=== PATIENT | male | born 1955 | race Caucasian/White ===

== ENCOUNTER 2023-11-30 07:24 | Day surgery (SDC) | payer MEDICARE, SELFPAY ==
--- NOTE | 2023-11-30 07:32 | US_ITS ---
[address] [address] Patient Name: MARIANA BARNES MRN: [id number] date: 1955 Sex: M Assigned Patient Location: US Current Patient Location: US Accession/Order Number: [id number] Exam Date: 11/30/2023 07:35 Report Date: 11/30/2023 08:56 At the request of: ARELIS RAMIREZ Procedure: US biopsy thyroid EXAMINATION: US biopsy thyroid, US biopsy FNA add lesion HISTORY: Thyroid Nodule COMPARISON: No relevant comparison available. TECHNIQUE: After obtaining informed consent, an ultrasound-guided biopsy was performed in the usual sterile manner. FINDINGS: BIOPSY #1: IMAGING: Ultrasound BIOPSY NEEDLE: 25-gauge 2 inch SPECIMEN TYPE, #, LOCATION: 3 fine-needle aspirates, superior 1.8 cm left thyroid nodule MEDICATION: 3 cc 1% buffered lidocaine COMPLICATIONS: None. LABORATORY: Pathology and molecular studies pending OTHER: Negative. BIOPSY #2: IMAGING: Ultrasound BIOPSY NEEDLE: 25-gauge 2 inch SPECIMEN TYPE, #, LOCATION: 3 fine-needle aspirates, inferior 1.3 cm left thyroid nodule MEDICATION: 3 cc 1% buffered lidocaine COMPLICATIONS: None. LABORATORY: Pathology and molecular studies pending OTHER: Negative. US/US biopsy thyroid IMPRESSION: Uneventful ultrasound guided biopsy of 2 separate left thyroid nodules. Electronically authenticated by: SADIQ NASSAR Date: 11/30/2023 08:56
--- NOTE | 2023-11-30 07:32 | US_ITS ---
[address] [address] Patient Name: MARIANA BARNES MRN: [id number] date: 1955 Sex: M Assigned Patient Location: US Current Patient Location: US Accession/Order Number: [id number] Exam Date: 11/30/2023 07:35 Report Date: 11/30/2023 08:56 At the request of: ARELIS RAMIREZ Procedure: US biopsy FNA add lesion EXAMINATION: US biopsy thyroid, US biopsy FNA add lesion HISTORY: Thyroid Nodule COMPARISON: No relevant comparison available. TECHNIQUE: After obtaining informed consent, an ultrasound-guided biopsy was performed in the usual sterile manner. FINDINGS: BIOPSY #1: IMAGING: Ultrasound BIOPSY NEEDLE: 25-gauge 2 inch SPECIMEN TYPE, #, LOCATION: 3 fine-needle aspirates, superior 1.8 cm left thyroid nodule MEDICATION: 3 cc 1% buffered lidocaine COMPLICATIONS: None. LABORATORY: Pathology and molecular studies pending OTHER: Negative. BIOPSY #2: IMAGING: Ultrasound BIOPSY NEEDLE: 25-gauge 2 inch SPECIMEN TYPE, #, LOCATION: 3 fine-needle aspirates, inferior 1.3 cm left thyroid nodule MEDICATION: 3 cc 1% buffered lidocaine COMPLICATIONS: None. LABORATORY: Pathology and molecular studies pending OTHER: Negative. US/US biopsy FNA add lesion IMPRESSION: Uneventful ultrasound guided biopsy of 2 separate left thyroid nodules. Electronically authenticated by: SADIQ NASSAR Date: 11/30/2023 08:56
[2023-11-30 07:40] VITALS: BP 119/89; PULSE 93; O2SAT 95
[2023-11-30] MEDS: LIDOCAINE HCL 10 ML, SODIUM BICARBONATE 1 MEQ INJ (08:25)
--- NOTE | 2023-11-30 10:42 | SUR.PREOP ---
11/23/23 Pt instructed on date, time, prep, and procedure.
--- NOTE | 2023-11-30 10:47 | PC.NURSE ---
0830 Pt given instructions on managing an anticoagulant and avoiding injury. Also discussed how he needs to make physicians/nurses aware of anticoagulants use prior to surgery/biopsy.
== END 2023-11-30 08:45 | disposition home or self-care (01) ==
LOC: US 07:25
PROVIDERS: Radiology Diagnostic Radiology; PCP Family Medicine; Visit Provider Otolaryngology
DX: E04.2 Nontoxic multinodular goiter (principal)
CPT/HCPCS: 10005; 10006; 88173

== ENCOUNTER 2025-07-17 12:20 | Outpatient (OUT) | payer MEDICARE, SELFPAY ==
--- OUTSIDE RECORDS SUMMARY | 2025-07-16 06:14 | XMS_ITS | Continuity of Care Document ---
Author Organization [facility] Address [address] [place] [address] Phone Care Team Providers Care Certified Medical Aide Name Role Phone Boni Quinonez DO Primary Care Provider Wilfrid Cruz II, MD Attending Provider Chavo Mejia DO Emergency Provider [phone] Sarah Beth Segovia Attending Provider Unavailab Boni Snell DO Attending Provider Boni Quinonez DO Other Provider Susanna Paulino MD Attending Provider [phone] Care Teams Patient Care Team Team Status: Active Member Role Status Dates Riccardo Driver LPN Care Manager Active Felipe Carlson MD Inspector Circuitry Negative Active Boni Quinonez DO Primary Care Provider Active Visit Care Team Team Status: Inactive Member Role Status Dates Boni Quinonez DO Primary Care Provider Active S tart: May 09, 2025 End: May 09, 2025 Wilfrid Cruz II, MD Attending Provider Active Start: May 09, 2025 End: May 09, 2025 Visit Care Team Team Status: Inactive Member Role Status Husam Quinonez DO Primary Care Provider Active S tart: June 02, 2025 End: June 02, 2025 Chavo Mejia DO Emergency Provider Active S tart: June 02, 2025 End: June 02, 2025 Visit Care Team Team Status: Active Member Role Status Husam Quinonez DO Primary Care Provider Active S tart: June 04, 2025 TIMO Yancey Attending Provider Active S tart: June 04, 2025 Visit Care Team Team Status: Inactive Member Role Status Husam Quinonez DO Primary Care Provider Active S tart: June 06, 2025 End: June 06, 2025 Boni Quinonez DO Attending Provider Active Star t: June 06, 2025 End: June 06, 2025 Visit Care Team Team Status: Inactive Member Role Status Husam Quinonez DO Primary Care Provider Active S tart: June 08, 2025 End: June 08, 2025 Boni Quinonez DO Attending Provider Active Star t: June 08, 2025 End: June 08, 2025 Visit Care Team Team Status: Inactive Member Role Status Husam Quinonez DO Primary Care Provider Active S tart: July 02, 2025 End: July 02, 2025 Boni Quinonez DO Attending Provider Active Star t: July 02, 2025 End: July 02, 2025 Visit Care Team Team Status: Inactive Member Role Status Husam Quinonez DO Primary Care Provider Active S tart: July 04, 2025 End: July 04, 2025 Boni Quinonez DO Other Provider Active Start: S edytembcosmo 2024 End: July 04, 2025 Susanna Paulino MD Attending Provider Active Start : July 04, 2025 End: July 04, 2025 Patient Care Team Team Status: Inactive Member Role Status Husam Quinonez DO Primary Care Provider Active S tart: July 16, 2025 End: July 16, 2025 Boni Quinonez DO Attending Provider Active Star t: July 16, 2025 End: July 16, 2025 Chief Complaint and Reason for Visit Chief Complaint Admit Date 3 MONTHS May 09, 2025 10:4 0am fall June 02, 2025 4: 47pm Amb Documentation June 04, 2025 11 :08am Z79.899 June 06, 2025 10 :09am ER follow up/suture removal June 08, 2025 11:26am possible suture removal July 02, 2025 2:11pm [id number] July 04, 2025 8:41am med refill July 16, 2025 9:39am Reason for Visit Admit Date Arthritis of left knee May 09, 2025 1 0:40am Encounter for removal of sutures June 08, 2025 11:26am Leukocytosis June 08, 2025 11 :26am Closed head injury June 08, 2025 11 :26am Fracture of left fifth rib June 08, 2025 11:26am Laceration of left eyebrow without compl ication June 08, 2025 11:26am Encounter for removal of sutures Septemb er 2024 2:11pm Sinus congestion July 02, 2025 2:11pm Fracture of left fifth rib June 2:11pm Anxiety July 16, 2025 9:39am Flu vaccine need July 16, 2025 9:39am Fracture of left fifth rib June 9:39am Allergies, Adverse Reactions, Alerts Allergen Type Severity Reaction Last Updated Verified Status cefdinir Allergy Unknown rash, suspected 11-07-13 Can take Augmentin - July 16, 2025 8:39am Yes Active hydrochlorothiazide Allergy Unknown worsenin g renal studies / sensitivity (2014) July 16, 2025 8:39am Yes Active Social History Smoking Status Status Start Date End Date Date of Observa tion Never smoked tobacco (finding) June 02, 2025 6:33pm Observation Status Observation Response Date of Response Legal Sex Male (finding) Sex Assigned At Male May Family History Relationship Condition Age at Onset Recorded Date/T raza father Hyperlipidemia Unknown Hypertension Unknown Heart disease Unknown brother Diabetes mellitus Unknown Heart disease Unknown mother Unknown Diabetes mellitus Unknown Problems Active Problems Medical Problem Onset Date Status Elevated PSA Unknown Active Insomnia Unknown Active Primary osteoarthritis of left knee Unknown Active GERD with esophagitis Unknown Active Sciatica Unknown Active Thyroid nodule Unknown Active Sinus congestion Unknown Active Palpitations Unknown Active Dizziness Unknown Active Prostate cancer Unknown Active History of heart artery stent Unknown Ac tive Flu vaccine need Unknown Active Erectile dysfunction Unknown Active Type 2 diabetes mellitus Unknown Active Anxiety Unknown Active Anxiety Unknown Active Arthritis Unknown Active Hyperlipidemia Unknown Active Leukocytosis Unknown Active Diabetes type 2, uncontrolled Unknown Ac tive Mixed hyperlipidemia Unknown Active Type 2 diabetes mellitus with unspecified compli cations Unknown Active Coronary artery disease with angina pectoris Unk nown Active Obesity (BMI 30.0-34.9) Unknown Active Metabolic syndrome X Unknown Active Encounter for removal of sutures Unknown Active Weight loss Unknown Active Essential hypertension Unknown Active Diabetes type 2, controlled Unknown Acti ve Left knee pain Unknown Active Numbness and tingling of foot Unknown Ac tive History of colon polyps Unknown Active Hypertension Unknown Active Constipation Unknown Active Arthritis of left knee Unknown Active Low testosterone Unknown Active Inactive/Resolved Problems Medical Problem Onset Date Status Fracture of left fifth rib Unknown Resol braden Fall from standing Unknown Resolved Closed head injury Unknown Resolved Laceration of left eyebrow without complication Unknown Resolved Chest pain Unknown Resolved Contusion of left forearm Unknown Resolv ed Medications Medication Status Dose Units Route Directions Qty Days St art Date Stop Date End Date Instructions Adherence Rosuvastati n 10 mg tablet Discont inued 0 .ROUTE .COMPLEX 2023 2:00pm March 06, 2024 9:12a m TAKE 1 TABLET BY MOUTH EVERY DAY Aspirin 81 mg tablet,chew able Discont inued 0 .ROUTE .COMPLEX December 20, 2023 9:20am March 06, 2024 9:10a m CHEW AND SWALLOW 1 TABLET DAILY FOR 30 DAYS Clopidogrel 75 mg tablet Discont inued 0 .ROUTE .COMPLEX December 27, 2023 8:27am March 06, 2024 9:11a m TAKE 1 TABLET BY MOUTH EVERY DAY Metoprolol Succinate 25 mg tablet extended release 24 hr Discont inued 0 .ROUTE .COMPLEX December 27, 2023 8:29am March 06, 2024 9:12a m TAKE 1 TABLET BY MOUTH EVERY DAY Dapaglifloz in Propanediol (Farxiga) 5 mg tablet Discont inued 5 MG PO Daily January 17, 2024 8:52am January 17, 2024 8:52a m Dapaglifloz in Propanediol (Farxiga) 5 mg tablet Discont inued 0 .ROUTE .COMPLEX January 17, 2024 8:52am March 06, 2024 9:11a m TAKE 1 TABLET BY MOUTH EVERY DAY Lisinopril 10 mg tablet Discont inued 0 .ROUTE .COMPLEX May 01, 2024 10:38a m 2023 11:40 am TAKE 1 TABLET BY MOUTH EVERY DAY Metoprolol Succinate 25 mg tablet extended release 24 hr Discont inued 0 .ROUTE .COMPLEX May 02, 2024 8:02am Novem 2023 11:44 am TAKE 1 TABLET BY MOUTH EVERY DAY Dapaglifloz in Propanediol (Farxiga) 5 mg tablet Discont inued 0 .ROUTE .COMPLEX May 22, 2024 8:43am Novem carolyn 2023 11:39 am TAKE 1 TABLET BY MOUTH EVERY DAY Aspirin 81 mg tablet,chew able Discont inued 0 .ROUTE .COMPLEX 90 Septem carolyn 2023 1:50pm Novem carolyn 2023 11:46 am CHEW AND SWALLOW 1 TABLET DAILY ORALLY Metformin 500 mg tablet Discont inued 0 .ROUTE .COMPLEX 360 Octobe r 2023 8:02am Novem carolyn 2023 11:42 am TAKE 2 TABLETS BY MOUTH ONCE IN THE MORNING AND 2 TABLETS IN THE EVENING Prednisone 20 mg tablet Discont inued 0 PO .with food or milk 18 9 Dece er 2023 1:00am Dece carolyn 2023 10:54 am take 3 tablets a day x3 days, 2 tabs a day x3 days and then 1 tab a day x3 days orally WITH FOOD OR MILK; Rosuvastati n 10 mg tablet Discont inued 0 .ROUTE .COMPLEX 90 2024 11:36a m Augus t 2024 11:46 am TAKE 1 TABLET BY MOUTH EVERY DAY Lisinopril 10 mg tablet Discont inued 0 .ROUTE .COMPLEX 90 February 09, 2025 7:57am Augus t 2024 11:46 am TAKE 1 TABLET BY MOUTH EVERY DAY Clopidogrel 75 mg tablet Discont inued 0 .ROUTE .COMPLEX February 16, 2025 7:50am March 30, 2025 11:21 am TAKE 1 TABLET BY MOUTH EVERY DAY Tadalafil (Cialis) 10 mg tablet Active 10 MG PO Daily as needed for sexual activity April 03, 2025 12:00a m administer approximately 30 min-2 hours before sexual activity; do not use more than 1 dose per 24hrs Complies with drug therapy Amoxicillin -Pot Clavulanate 875-125 mg tablet Discont inued 1 TAB PO Twice daily 06 08April 04, 2025 12:00a m April 16, 2025 9:59a m Metoprolol Succinate 25 mg tablet extended release 24 hr Active 25 MG PO Daily 90 Jacklyn 25th, 2025 8:20am Complies with drug therapy Dapaglifloz in Propanediol (Farxiga) 5 mg tablet Discont inued 0 .ROUTE .COMPLEX June 01, 2025 8:55am Augus t 2024 11:46 am TAKE 1 TABLET BY MOUTH EVERY DAY Semaglutide (Ozempic) 0.25 mg or 0.5 mg(2 mg/1.5 mL) pen injector Discont inued MG SUBCUT February 05, 2022 12:00a m Dece carolyn 2022 1:30p m Clopidogrel 75 mg Tablet Discont inued 75 MG PO Daily ry 2023 1:00am Febru adonay2023 3:26p m Aspirin (Children's Aspirin) 81 mg Tablet,Chew able Discont inued 81 MG PO Daily ry 2023 1:00am December 20, 2023 9:20a m Metformin 500 mg tablet Discont inued 500 MG PO Twice daily [facility] er 2020 1:00am Octob er 2023 8:02a m Meloxicam 15 mg tablet Discont inued 15 MG PO Daily [facility] er 2020 1:00am [facility] adonay2023 10:20 am On Hold: Resume on 10/31/23. Lisinopril 10 mg tablet Discont inued 10 MG PO Daily [facility] er 2020 1:00am May 01, 2024 10:39 am Rosuvastati n (Crestor) 10 mg tablet Discont inued 10 MG PO Daily [facility] 2020 [facility] 2:01p [facility] Sitagliptin Phosphate (Januvia) 100 mg tablet Discont inued 100 MG PO Daily [facility] er 2020 1:00am February 05, 2022 2:19p m Zinc 50 mg Tablet Discont inued 50 MG PO Daily [facility] er 2020 1:00am Augus t 2024 4:55p m Vitamin B Complex Capsule Discont inued 1 CAP PO Daily [facility] er 2020 1:00am March 06, 2024 9:09a m Cholecalcif jayy (Vitamin D3) (Vitamin D3) 50 mcg (2,000 unit) Tablet Discont inued 50 MCG PO Daily [facility] 2020 1:00am [facility]2023 9:42a m Ascorbic Acid (Vitamin C) 2,000 mg Tablet Extended Release Discont inued 2000 MG PO Daily [facility] 2020 1:00am [facility]2023 9:42a m Dapaglifloz in Propanediol (Farxiga) 5 mg tablet Discont inued 5 MG PO every other day [facility] 2022 1:00am January 17, 2024 8:52a m Sucralfate 100 mg/mL Suspension Discont inued 1 GM PO 3x/Day before meals & bedtime 280 7 [facility] 2022 1:00am [facility]2023 10:21 am Pantoprazol e 40 mg tablet,dilshad yed release (DR/EC) Discont inued 40 MG PO Daily 30 30 [facility] 2022 1:00am [facility]2023 10:21 am Take 30 minutes before a meal. Oxycodone-A cetaminophe n (Percocet) 5-325 mg tablet Discont inued 1 TAB PO Every 6 hours as needed for pain 12 3 June 02, 2025 Septe [facility] 2024 2:15p m Albuterol Sulfate 2.5 mg /3 mL (0.083 %) solution for nebulizatio n Discont inued MG INHALA TION 2023 1:00am [facility]2023 9:29a m FreeTextSiml Inhalation 3-4 times a day; Note: Source Status: Not-Takingund efinedPRNprn; Provider: Devi Garcia Docusate Sodium 100 mg capsule Discont inued MG PO 2023 1:00am [facility]2023 9:29a m FreeTextSi capsule Orally any day you don't use MiraLax; Note: Source Status: Not-Takingund efinedPRNprn; Provider: Devi Garcia Tizanidine (Zanaflex) 4 mg tablet Discont inued 4 MG PO Three times daily 2023 1:00am 2023 9:29a m FreeTextSi tablet as needed Orally Three times a day; Note: Source Status: Not-Takingund efinedPRNprn; Provider: Devi Garcia Clopidogrel 75 mg tablet Discont inued 75 MG PO Daily 2023 3:25pm 2023 10:10 am Aspirin 81 mg tablet,chew able Discont inued 1 TAB PO Daily March 06, 2024 9:10am April 18, 2024 11:25 am Clopidogrel 75 mg tablet Discont inued 75 MG PO Daily March 06, 2024 9:10am February 16, 2025 7:50a m Dapaglifloz in Propanediol (Farxiga) 5 mg tablet Discont inued 5 MG PO Daily March 06, 2024 9:10am Augus t 2023 8:43a m Metoprolol Succinate 25 mg tablet extended release 24 hr Discont inued 25 MG PO Daily March 06, 2024 9:11am May 02, 2024 8:02a m Rosuvastati n 10 mg tablet Discont inued 10 MG PO Daily March 06, 2024 9:11am 2024 11:36 am Aspirin 81 mg tablet,chew able Discont inued 81 MG PO Daily April 18, 2024 11:25a m Sept[facility] 2023 1:50p m Polyethylen e Glycol 3350 (Miralax) 17 gram/dose powder Active 17 GM PO Daily as needed for constipatio n March 30, 2025 12:00a m Complies with drug therapy Testosteron e 20.25 mg/1.25 gram (1.62 %) gel in metered-dos e pump Discont inued TOPICA L Daily Novemb 2023 1:00am April 16, 2025 10:00 am Dapaglifloz in Propanediol (Farxiga) 5 mg tablet Discont inued 5 MG PO Daily 30 Novemb er 2023 11:37a m Augus t 2024 8:55a m Lisinopril 10 mg tablet Discont inued 10 MG PO Daily Novemb er 2023 11:39a m February 09, 2025 7:57a m Metformin 500 mg tablet Discont inued 1000 MG PO Twice daily 360 Novemb er 2023 11:40a m [facility] 2024 10:02 am with food Metoprolol Succinate 25 mg tablet extended release 24 hr Discont inued 25 MG PO Daily 90 Novemb er 2023 11:43a m May 11, 2025 8:21a m Aspirin 81 mg tablet,chew able Discont inued 81 MG PO Daily 90 Novemb er 2023 11:44a m Augus t 2024 4:54p m Lorazepam 0.5 mg tablet Active 0.5 MG PO EVERY 8-12 HOURS as needed for insomnia 8 Novemb er 2023 1:00am Complies with drug therapy Dapaglifloz in Propanediol (Farxiga) 5 mg tablet Discont inued 5 MG PO Daily June 08, 2025 11:46a m [facility] 2024 10:02 am Lisinopril 10 mg tablet Discont inued 10 MG PO Daily June 08, 2025 11:46a m [facility] 2024 10:02 am Rosuvastati n 10 mg tablet Active 10 MG PO Daily June 08, 2025 11:46a m Complies with drug therapy Fluticasone Propionate 50 mcg/actuati on spray,suspe nsion Discont inued INTRAN NIKITA 2023 1:00am March 06, 2024 9:09a m FreeTextSig: USE 2 SPRAYS IN EACH NOSTRIL DAILY; Note: Source Status: Not-Takingund efinedPRN; Refills: 4; Qty: 48 Milliliter; Provider: Devi Plata ( ) Pantoprazol e 40 mg tablet,dilshad yed release (/EC) Discont inued 1 TAB PO Daily 2023 1:00am 2023 9:29a m FreeTextSi tablet Orally Once a day; Note: Source Status: Taking; Provider: Villa Gu Cholecalcif jayy (Vitamin D3) 50 mcg (2,000 unit) capsule Discont inued 50 MCG PO Daily 2023 1:00am 2024 4:54p m Ascorbic Acid (Vitamin C) 1,000 mg tablet Discont inued 2 TAB PO Daily 2023 1:00am April 18, 2024 11:25 am FreeTextSi tablets Orally Once a day; Note: Source Status: Taking; Provider: Devi Garcia Vitamin B Complex (B Complex-Vit mehta B12) tablet Discont inued 1 TAB PO Daily 2023 1:00am 2024 4:55p m Clopidogrel 75 mg tablet Discont inued 75 MG PO Daily 2023 10:05a m December 27, 2023 8:28a m Metoprolol Succinate 25 mg tablet extended release 24 hr Discont inued 25 MG PO Daily 2023 1:00am December 27, 2023 8:29a m Fluticasone Propionate 50 mcg/actuati on spray,suspe nsion Active 2 SPRAY INTRAN NIKITA Daily as needed for allergy symptoms March 06, 2024 9:08am Complies with drug therapy Ascorbic Acid (Vitamin C) 1,000 mg tablet Discont inued 1 GM PO Daily April 18, 2024 11:24a m 2024 4:54p m Sildenafil (Viagra) 100 mg tablet Discont inued 100 MG PO .COMPLEX April 18, 2024 12:00a m April 16, 2025 10:00 am 100 mg orally 1 hour prior to sexual intercourse max 1 tablet in 24 hours; Glimepiride 1 mg tablet Discont inued 1 MG PO Every morning April 18, 2024 12:00a m April 16, 2025 10:32 am administer with first food of the day Amoxicillin -Pot Clavulanate 875-125 mg tablet Discont inued 1 TAB PO Twice daily 20 10 Decemb er 2023 1:00am Decem carolyn 2023 10:52 am Tamsulosin 0.4 mg capsule Active 0.4 MG PO Daily April 16, 2025 12:00a m Complies with drug therapy Glimepiride 1 mg tablet Active 1 MG PO Every morning April 16, 2025 10:31a m administer with first food of the day Complies with drug therapy Metformin 500 mg tablet Active 1000 MG PO Twice daily 360 2024 10:01a m with food Complies with drug therapy Dapaglifloz in Propanediol (Farxiga) 5 mg tablet Active 5 MG PO Daily 90 2024 10:01a m Complies with drug therapy Lisinopril 10 mg tablet Active 10 MG PO Daily 90 2024 10:01a m Complies with drug therapy Prednisone 20 mg tablet Discont inued 0 PO .COMPLEX 9 3 2024 12:00a m Septe mber 2024 9:44a m take 3 (20 MG) tablets orally a day x3 days with food; Immunizations Immunization Event Date Not Given Reason Dose Number Benefits Advisor Lot Number Vaccine Information Statement (VIS) Detail Administration Location COVID-19 mRNA, Comirnaty ([place]) December 18, 2020 COVID-19 mRNA, Comirnaty ([employer]) January 08, 2021 COVID-19 mRNA, Comirnaty ([employer]) August 09, 2021 COVID-19 mRNA Bivalent Booster (Moderna) November 17, 2022 Influenza vaccine, quadrivalent, adjuvanted September 03, 2023 Influenza vaccine, quadrivalent, adjuvanted August 29, 2022 Influenza Quadrivalent PF MDCK September 01, 2018 Quadrivalent Influenza September 03, 2017 Quadrivalent Influenza August 10, 2019 Tetanus, Diphtheria adult, 5 Lf pres free abs December 23, 2015 Tetanus, Diphtheria adult, 5 Lf pres free abs July 06, 2023 Tetanus, Diphtheria, Pertussis (Tdap) December 23, 2015 Tetanus, Diphtheria, Pertussis (Tdap) July 06, 2023 Trivalent Influenza Vaccine July 31, 2019 Trivalent Influenza Vaccine August 06, 2020 Trivalent Influenza Vaccine August 29, 2022 Medical Equipment Device Date Implanted Device Details CL STENT ISAK FRONTIER 4.0 X 15 November 26 Procedures Procedure Date Performed Status XR ribs LT min 3V w CXR1V* July 04, 2025 9:18am completed CT head/brain wo con June 02, 2025 5:08pm co mpleted CT cervical spine wo con June 02, 2025 5:08p m completed CT chest w con June 02, 2025 5:10pm complet ed XR forearm LT 2V* June 02, 2025 5:07pm compl eted CT abdomen pelvis w con June 02, 2025 5:10pm completed Relevant Diagnostic Tests and/or Laboratory Data Laboratory Results Test Collection Date/Time Result Date/Time Result Interpretation Reference Range Result Comment Performing Site Corrected White Blood Count June 02, 2025 5:35pm June 02, 2025 5:53pm 12.3 10*3/uL Above high normal 4.1-10.5 [facility] [id number] [address] [place] [address] Corrected White Blood Count June 06, 2025 10:10am June 06, 2025 1:59pm 7.7 10*3/uL 4.1-10.5 [facility] [id number] [address] [place] [address] Uncorrect ed WBC Count June 02, 2025 5:35pm June 02, 2025 5:53pm 12.3 10*3/uL Above high normal 4.1-10.5 [facility] [id number] [address] [place] [address] Uncorrect ed WBC Count June 06, 2025 10:10am June 06, 2025 1:59pm 7.7 10*3/uL 4.1-10.5 [facility] [id number] [address] [place] [address] Red Blood Count June 02, 2025 5:35pm June 02, 2025 5:53pm 5.12 10*6/uL 3.90-5.60 [facility] [id number] [address] [place] [address] Red Blood Count June 06, 2025 10:10am June 06, 2025 1:59pm 4.69 10*6/uL 3.90-5.60 [facility] [id number] [address] [place] [address] Hemoglobi n June 02, 2025 5:35pm June 02, 2025 5:53pm 16.9 g/dL 13.0-17.0 [facility] [id number] [address] [facility] [address] Hemoglobi n June 06, 2025 10:10am June 06, 2025 1:59pm 15.7 g/dL 13.0-17.0 [facility] [id number] [address] [facility] [address] Hematocri t June 02, 2025 5:35pm June 02, 2025 5:53pm 49.2 % 38.8-50.0 [facility] [id number] [address] [place] [address] Hematocri t June 06, 2025 10:10am June 06, 2025 1:59pm 45.4 % 38.8-50.0 [facility] [id number] [address] [facility] [address] Mean Corpuscul ar Volume June 02, 2025 5:35pm June 02, 2025 5:53pm 96.1 fL 83.5-101 [facility] [id number] [address] [facility] [address] Mean Corpuscul ar Volume June 06, 2025 10:10am June 06, 2025 1:59pm 96.8 fL 83.5-101 [facility] [id number] [address] [facility] [address] Mean Corpuscul ar Hemoglobi n June 02, 2025 5:35pm June 02, 2025 5:53pm 33.1 pg 27.5-35.2 [facility] [id number] [address] [facility] [address] Mean Corpuscul ar Hemoglobi n June 06, 2025 10:10am June 06, 2025 1:59pm 33.6 pg 27.5-35.2 [facility] [id number] [address] [facility] [address] Mean Corpuscul ar Hemoglobi n Concent June 02, 2025 5:35pm June 02, 2025 5:53pm 34.4 g/dL 32.5-35.6 [facility] [id number] [address] [place] [address] Mean Corpuscul ar Hemoglobi n Concent June 06, 2025 10:10am June 06, 2025 1:59pm 34.7 g/dL 32.5-35.6 [facility] [id number] [address] [facility] [address] Red Cell Distribut ion Width June 02, 2025 5:35pm June 02, 2025 5:53pm 13.9 % 12.0-14.8 [facility] [id number] [address] [facility] [address] Red Cell Distribut ion Width June 06, 2025 10:10am June 06, 2025 1:59pm 14.1 % 12.0-14.8 [facility] [id number] [address] [facility] [address] Platelet Count June 02, 2025 5:35pm June 02, 2025 5:53pm 296 10*3/uL 150-450 [facility] [id number] [address] [facility] [address] Platelet Count June 06, 2025 10:10am June 06, 2025 1:59pm 275 10*3/uL 150-450 [facility] [id number] [address] [facility] [address] Mean Platelet Volume June 02, 2025 5:35pm June 02, 2025 5:53pm 7.7 fL 6.6-10.1 [facility] [id number] [address] [facility] [address] Mean Platelet Volume June 06, 2025 10:10am June 06, 2025 1:59pm 7.8 fL 6.6-10.1 [facility] [id number] [address] [place] [address] Monocyte Distribut ion Width June 02, 2025 5:35pm June 02, 2025 5:53pm 17.17 % 0.00-20.00 [facility] [id number] [address] [facility] [address] Neutrophi ls (%) (Auto) June 02, 2025 5:35pm June 02, 2025 5:53pm 75.1 % . [facility] [id number] [address] [facility] [address] Neutrophi ls (%) (Auto) June 06, 2025 10:10am June 06, 2025 1:59pm 67.7 % . [facility] [id number] [address] [facility] [address] Lymphocyt es (%) (Auto) June 02, 2025 5:35pm June 02, 2025 5:53pm 16.5 % . [facility] [id number] [address] [facility] [address] Lymphocyt es (%) (Auto) June 06, 2025 10:10am June 06, 2025 1:59pm 23.3 % . [facility] [id number] [address] [facility] [address] Monocytes (%) (Auto) June 02, 2025 5:35pm June 02, 2025 5:53pm 7.1 % . [facility] [id number] [address] [facility] [address] Monocytes (%) (Auto) June 06, 2025 10:10am June 06, 2025 1:59pm 6.1 % . [facility] [id number] [address] [facility] [address] Eosinophi ls (%) (Auto) June 02, 2025 5:35pm June 02, 2025 5:53pm 0.7 % . [facility] [id number] [address] [facility] [address] Eosinophi ls (%) (Auto) June 06, 2025 10:10am June 06, 2025 1:59pm 1.8 % . [facility] [id number] [address] [facility] [address] Basophils (%) (Auto) June 02, 2025 5:35pm June 02, 2025 5:53pm 0.6 % . [facility] [id number] [address] [facility] [address] Basophils (%) (Auto) June 06, 2025 10:10am June 06, 2025 1:59pm 1.1 % . [facility] [id number] [address] [facility] [address] Nucleated RBC Relative Count (auto) June 02, 2025 5:35pm June 02, 2025 5:53pm 0.0 /100{WB C} 0-0.5 [facility] [id number] [address] [facility] [address] Nucleated RBC Relative Count (auto) June 06, 2025 10:10am June 06, 2025 1:59pm 0.1 /100{WB C} 0-0.5 [facility] [id number] [address] [facility] [address] Neutrophi ls # (Auto) June 02, 2025 5:35pm June 02, 2025 5:53pm 9.2 10*3/uL Above high normal 1.8-7.7 [facility] [id number] [address] [facility] [address] Neutrophi ls # (Auto) June 06, 2025 10:10am June 06, 2025 1:59pm 5.2 10*3/uL 1.8-7.7 [facility] [id number] [address] [facility] [address] Lymphocyt es # (Auto) June 02, 2025 5:35pm June 02, 2025 5:53pm 2.0 10*3/uL 1.00-4.8 [facility] [id number] [address] [facility] [address] Lymphocyt es # (Auto) June 06, 2025 10:10am June 06, 2025 1:59pm 1.8 10*3/uL 1.00-4.8 [facility] [id number] [address] [facility] [address] Monocytes # (Auto) June 02, 2025 5:35pm June 02, 2025 5:53pm 0.9 10*3/uL Above high normal 0.0-0.8 [facility] [id number] [address] [facility] [address] Monocytes # (Auto) June 06, 2025 10:10am June 06, 2025 1:59pm 0.5 10*3/uL 0.0-0.8 [facility] [id number] [address] [place] [address] Eosinophi ls # (Auto) June 02, 2025 5:35pm June 02, 2025 5:53pm 0.1 10*3/uL 0.0-0.45 [facility] [id number] [address] [place] [address] Eosinophi ls # (Auto) June 06, 2025 10:10am June 06, 2025 1:59pm 0.1 10*3/uL 0.0-0.45 [facility] [id number] [address] [place] [address] Basophils # (Auto) June 02, 2025 5:35pm June 02, 2025 5:53pm 0.1 10*3/uL 0.0-0.2 [facility] [id number] [address] [place], [place] [address]70 Basophils # (Auto) June 06, 2025 10:10am June 06, 2025 1:59pm 0.1 10*3/uL 0.0-0.2 [facility] [id number] [address] [place], [place] [address]70 Glucose Level June 02, 2025 5:35pm June 02, 2025 6:12pm 146 mg/dL Above high normal 70-100 ADA recommended reference rangeRandom Glucose Reference Range is dependent on time and content of last meal. Glucose of more than 200 mg/dL in a nonstressed, ambulatory subject supports the diagnosis of Diabetes Mellitus. [facility] [id number] [address] [place], [place] [address] Blood Urea Nitrogen June 02, 2025 5:35pm June 02, 2025 6:12pm 23 mg/dL 7-25 [facility] [id number] [address] [place], [place] [address] Creatinin e June 02, 2025 5:35pm June 02, 2025 6:12pm 1.14 mg/dL 0.70-1.30 [facility] [id number] [address] [place], [place] [address] Estimated GFR (CKD-EPI) June 02, 2025 5:35pm June 02, 2025 6:12pm > 60.0 mL/Min [facility] [id number] [address] [place], [place] [address] Sodium Level June 02, 2025 5:35pm June 02, 2025 6:12pm 137 mmol/L 136-145 [facility] [id number] [address] [place], [place] [address] Potassium Level June 02, 2025 5:35pm June 02, 2025 6:12pm 3.7 mmol/L 3.5-5.1 [facility] [id number] [address] [place], [place] [address] Chloride Level June 02, 2025 5:35pm June 02, 2025 6:12pm 104 mmol/L 98-107 [facility] [id number] [address] [place] [id number] Carbon Dioxide Level June 02, 2025 5:35pm June 02, 2025 6:12pm 21.9 mmol/L 21.0-31.0 [facility] [id number] [address] [place] 1521770 Anion Gap June 02, 2025 5:35pm June 02, 2025 6:12pm 14.8 mEq/L 6.0-15.0 [facility] [id number] [address] [place] [id number] Calcium Level June 02, 2025 5:35pm June 02, 2025 6:12pm 10.1 mg/dL 8.6-10.3 [facility] [id number] [address] [place], [place] [address] Total Protein June 02, 2025 5:35pm June 02, 2025 6:12pm 7.1 g/dL 6.4-8.9 [facility] [id number] [address] [facility] [address] Albumin June 02, 2025 5:35pm June 02, 2025 6:12pm 4.6 g/dL 3.5-5.7 [facility] [id number] [address] [facility] [address] Globulin June 02, 2025 5:35pm June 02, 2025 6:12pm 2.5 g/dL [facility] [id number] [address] [place], [place] [address] Albumin/G lobulin Ratio June 02, 2025 5:35pm June 02, 2025 6:12pm 1.8 [facility] [id number] [address] [place], [place] [address] Total Bilirubin June 02, 2025 5:35pm June 02, 2025 6:12pm 1.1 mg/dL Above high normal 0.3-1.0 [facility] [id number] [address] [place] 1521770 Aspartate Amino Transf (AST/SGOT ) June 02, 2025 5:35pm June 02, 2025 6:12pm 18 U/L 13-39 [facility] [id number] [address] [facility] [address] Alanine Aminotran sferase (ALT/SGPT ) June 02, 2025 5:35pm June 02, 2025 6:12pm 19 U/L 7-52 [facility] [id number] [address] [facility] [address] Alkaline Phosphata se June 02, 2025 5:35pm June 02, 2025 6:12pm 64 U/L 34-104 [facility] [id number] [address] [facility] [address] Testoster one Level July 04, 2025 8:42am July 04, 2025 2:55pm 3.00 ng/mL 1.75-7.81 [facility] [id number] [address] [facility] [address] Prostate Specific Antigen Total July 04, 2025 8:42am July 04, 2025 3:03pm 3.060 ng/mL 0.000-4.00 0 Serial tumor marker results determined by assays using different automotive assembler s or methods may not be comparable.[facility] automotive assembler and method:ABE HAYNES UNICEL DXI, CHEMILUMINES CENT IMMUNOASSAY. [facility] [id number] [address] [facility] [address] Free Prostate Specific Antigen July 04, 2025 8:42am July 04, 2025 2:59pm 0.400 ng/mL [facility] [id number] [address] [facility] [address] Percent Free Prostate Specific Ag July 04, 2025 8:42am July 04, 2025 3:03pm 13.0 % Based on the work of Parviz et al.FLORINA. 279(19):1542 :47.1998 the percent free PSA may be used to determine the relative risk of prostate cancer in individual men.The percent probability of prostate cancer by patient age for men with non-suspicio us ALISIA results and total PSa between 4 and 10 ng/ml is as follows:% Free PSA 50 - 64 yrs. 65 - 75 yrs. 0 - 10 56% 55% 10 - 15 24% 35% 15 - 20 17% 23% 20 - 25 10% 20% >25 5% 9% [facility] [id number] [address] [place] [address] Pharmacy Creatinin e Clearance (Chem June 02, 2025 5:35pm June 02, 2025 6:12pm 66.21 [facility] [id number] [address] [place] [address] Ethyl Alcohol Level June 02, 2025 5:35pm June 02, 2025 6:12pm < 10 mg/dL [facility] [id number] [address] [place] [address] Percent Ethyl Alcohol June 02, 2025 5:35pm June 02, 2025 6:12pm TNP Test not performed [facility] [id number] [address] [place], [place] [address] Diagnostic Imaging Reports Author Florian Hawkins [facility] Authored June 02, 2025 5: 29pm Report Dictated Date/Time Dictated By Status Radiology Report June 02, 2025 5:29pm Florian Hawkins Jr DO completed [facility] [place] Main [place] [id number] XRay Report Signed Patient: Chaitanya Holliday MR#: [id number] 1965 : 1955 Acct:[id number] Age/Sex: 70 / M ADM Date: 5 Loc: ER Room: Type: PRE ER Attending Dr: Copies to: Chavo Mejia DO~ Ordering Provider: Chavo Mejia DO Date of Service: 06/02/25 XR/XR forearm LT 2V*: Fall LEFT FOREARM - 2 views CLINICAL HISTORY: Fall today. Swelling. COMPARISON: None FINDINGS: Soft tissue swelling is noted. No acute bony process is seen involving the radius and ulna. There is moderate degenerative changes involving the carpus. Mild degenerative changes of the elbow. XR/XR forearm LT 2V* IMPRESSION: SOFT TISSUE SWELLING. NO ACUTE BONY PROCESS IS SEEN. Impression dictated by: Florian Hawkins Jr., D.O. 06/02/2025 5:30 PM Dictation Location: [facility]--18 Transcribed By: [facility] 06/02/25 9479 Dictated By: Florian Hawkins Jr, DO 06/02/25 1729 Signed By: <Electronically signed by Florian Hawkins Jr, in OV> 06/02/25 1730 Author Florian Hawkins [facility] Authored June 02, 2025 6: 45pm Report Dictated Date/Time Dictated By Status Radiology Report June 02, 2025 6:45pm Florian Hawkins Jr DO completed [facility] [place] [address] CT Scan Report Signed Patient: Chaitanya Holliday MR#: [id number] [birth year] Acct:[id number] Age/Sex: 70 / M ADM Date: 5 Loc: ER Room: Type: [facility] ER Attending Dr: Copies to: Chavo Mejia DO~ Ordering Provider: Chavo Mejia DO Date of Service: 06/02/25 CT/CT cervical spine wo con: fall ([id number]) CT/CT head/brain wo con: fall CT BRAIN WITHOUT CONTRAST: CLINICAL HISTORY: Fall. Facial pain. Laceration left knee. Laceration above left eyebrow. COMPARISON: CT brain 10/08/2023 TECHNIQUE: Contiguous axial unenhanced images were obtained through the brain. This CT exam was performed using one or more following dose reduction techniques: Automated exposure control, adjustment of the mA and/or kV according to patient size, or use of iterative reconstruction technique. FINDINGS: There is no evidence of midline shift, intra or extra-axial fluid collection, hemorrhage or CT evidence of stroke. Cortical atrophy with chronic microvascular ischemic changes. Posterior fossa appears unremarkable. Visualized intraorbital contents appear unremarkable. Visualized paranasal sinuses are clear. The surrounding soft tissues are normal. CT/CT head/brain wo con IMPRESSION: NO ACUTE INTRACRANIAL ABNORMALITY. CT CERVICAL SPINE WITHOUT CONTRAST WITH 3D RECONSTRUCTIONS: COMPARISON: None TECHNIQUE: Spiral axial unenhanced images were obtained through the cervical spine. Sagittal, coronal and 3D volume-rendered reconstructions were also reviewed. This CT exam was performed using one or more following dose reduction techniques: Automated exposure control, adjustment of the mA and/or kV according to patient size, or use of iterative reconstruction technique. FINDINGS: Vertebral body heights appear maintained. No fracture. Endplate and facet joint degenerative changes with moderate spondylosis C3-4. No prevertebral soft tissue swelling. IMPRESSION: NO CERVICAL SPINE FRACTURE Impression dictated by: Florian Hawkins Jr., D.OBenigno 06/02/2025 6:52 PM Dictation Location: [facility]--18 Transcribed By: [facility] 06/02/251851 Dictated By: Florian Hawkins Jr, DO 06/02/251844 Signed By: <Electronically signed by Florian Hawkins Jr, DO in OV> 06/02/251851 Author Florian Hawkins [facility] Authored June 02, 2025 6: 56pm Report Dictated Date/Time Dictated By Status Radiology Report June 02, 2025 6:56pm Florian Hawkins Jr DO completed [facility] [place] [address] CT Scan Report Signed Patient: Chaitanya Holliday MR#: [id number] [birth year] Acct:[id number] Age/Sex: 70 / M ADM Date: 5 Loc: ER Room: Type: [facility] ER Attending Dr: Copies to: Chavo Mejia DO~ Ordering Provider: Chavo Mejia DO Date of Service: 06/02/25 CT/CT chest w con: fall ([id number]) CT/CT abdomen pelvis w con: fall CT CHEST, ABDOMEN AND PELVIS WITH INTRAVENOUS CONTRAST: CLINICAL HISTORY: Fall. Left rib and face pain. Laceration left knee and left eyebrow. COMPARISON: None TECHNIQUE: TECHNIQUE: Spiral images were obtained through the chest, abdomen and pelvis following the administration of IV contrast. This CT exam was performed using one or more following dose reduction techniques: Automated exposure control, adjustment of the mA and/or kV according to patient size, or use of iterative reconstruction technique. FINDINGS: CT chest: Mediastinum:Thoracic aorta appears normal in caliber. Pulmonary trunk appears nondilated. No pleural effusion or lymphadenopathy. The esophagus is grossly unremarkable. Lungs:No consolidation pneumothorax or pleural effusion. Mild lung atelectasis. Soft tissues/Bones: Soft tissues demonstrate no acute findings. Osseous structures demonstrate degenerative change. Mildly displaced left fifth rib fracture. CT abdomen and pelvis: Organs:Liver gallbladder portal vein spleen pancreas and adrenal glands all appear unremarkable. Cystic changes involving the right kidney. Left kidney appears unremarkable. Abdominal aorta appears normal in caliber.[ GI: Stomach is grossly unremarkable. Small bowel appears nondilated. Appendix is normal. Colonic diverticulosis.[ Pelvis:[Suboptimal evaluation due to streak hardware artifact from the patient's right hip prosthesis. No acute abnormality is seen.] Peritoneum/Retroperitoneum:No free air or free fluid or lymphadenopathy.[ Abd wall/Bones:Abdominal wall demonstrates no acute findings. Osseous structures demonstrate degenerative change.[ CT/CT chest w con IMPRESSION: No organ injury involving the chest, abdomen or pelvis. Left fifth rib fracture. Impression dictated by: Florian Hawkins Jr., D.O. 06/02/2025 7:03 PM Dictation Location: [facility]-18 Transcribed By: [facility] 06/02/251902 Dictated By: Florian Hawkins Jr, DO 06/02/251855 Signed By: <Electronically signed by Florian Hawkins Jr, DO in OV> 06/02/251902 Author Garry Fuller [facility] Authored July 04, 2025 2:25pm Report Dictated Date/Time Dictated By Status Radiology Report July 04, 2025 2:25pm Garry Fuller DO completed [facility] [place] [address] XRay Report Signed Patient: Chaitanya Holliday MR#: [id number] [birth year] Acct:[id number] Age/Sex: 70 / M ADM Date: 5 Loc: XD Room: Type: [facility] Attending Dr: Susanna Paulino MD Copies to: DO Susanna Strange MD~ Ordering Provider: Boni Quinonez DO Date of Service: 07/04/25 XR/XR ribs LT min 3V w CXR1V*: S22.32XA - Fracture of one rib, left side, initial encoun... Left Rib series with Single View Chest HISTORY: Follow-up left-sided rib fracture COMPARISON: CT chest 06/02/2025 demonstrating left fifth rib fracture MEDIASTINUM: Cardiac, mediastinal hilar silhouettes are within normal limits. LUNGS AND PLEURA: No acute lung process, pleural effusion or pneumothorax identified. ACUTE FINDINGS: Nondisplaced left fifth rib fracture redemonstrated. Alignment unchanged. DEGENERATIVE CHANGE: Unremarkable SOFT TISSUE: Unremarkable POSTOP CHANGES: None XR/XR ribs LT min 3V w CXR1V* IMPRESSION: Stable nondisplaced left fifth rib fracture. No acute chest findings. Impression dictated by: Garry Fuller M.D. 07/04/2025 2:29 PM Dictation Location: [facility]--23 Transcribed By: [facility] 07/04/25 1429 Dictated By: Garry Fuller DO 07/04/25 142 Signed By: <Electronically signed by Garry Fuller DO in OV> 07/04/25 142 Vital Signs Vital Reading Result Reference Range Collection Date/Time Height 68 [in_i] June 02 4:49pm Weight 86.10 kg June 02 4:49pm Body Temperature 98.1 [degF] 97.6-99.0 May 7:27pm Heart Rate 88 /min 60-100 June 02 7:27pm Respiratory rate 18 /min 12-24 May 7:27pm Oxygen saturation by Pulse oximetry 98 % 95-100 June 02, 2025 7: 27pm BP Systolic 136 mm[Hg] 100-140 June 02 7:27pm BP Diastolic 75 mm[Hg] 60-100 June 02 7:27pm Height 68 [in_i] June 08 11:23am Weight 61.68 kg June 08 11:23am Heart Rate 87 /min 60-100 June 08 11:23am Oxygen saturation by Pulse oximetry 96 % 95-100 June 08, 2025 11 :23am BP Systolic 122 mm[Hg] 100-140 June 08 11:23am BP Diastolic 80 mm[Hg] 60-100 June 08 11:23am BMI (Body Mass Index) 20.7 kg/m2 June 08, 2025 11:23am Height 68 [in_i] July 02, 2025 2:12pm Weight 87.54 kg July 02, 2025 2:12pm Body Temperature 98.5 [degF] 97.6-99.0 June 182024 2:12pm Heart Rate 83 /min 60-100 July 02, 2025 2:12pm Oxygen saturation by Pulse oximetry 96 % 95-100 July 02, 2025 2:12pm BP Systolic 128 mm[Hg] 100-140 July 02, 2025 2:12pm BP Diastolic 78 mm[Hg] 60-100 July 02, 2025 2:12pm BMI (Body Mass Index) 29.3 kg/m2 2024 2:12pm Height 68 [in_i] July 16, 2025 9:41am Weight 87.54 kg July 16, 2025 9:41am Body Temperature 98.8 [degF] 97.6-99.0 June 192024 9:41am Heart Rate 86 /min 60-100 July 16, 2025 9:41am Respiratory rate 18 /min 12-24 June 192024 9:41am Oxygen saturation by Pulse oximetry 97 % 95-100 July 16, 2025 9:41am BP Systolic 118 mm[Hg] 100-140 July 16, 2025 9:41am BP Diastolic 82 mm[Hg] 60-100 July 16, 2025 9:41am BMI (Body Mass Index) 29.3 kg/m2 2024 9:41am Advance Directives Advance Directive Response Recorded Date/ Time Advance Directives No February 23, 2025 8:11am Insurance Providers Guarantor Chaitanya Matthew Miya Address [address] [place] [phone] Contact Info. Home Phone: Payer Policy Id Subscriber's Name Subscriber Id Effectiv e Date Expiration Date [place] [place] [id number] Chaitanya Castro Miya [id number] Medicare [id number] Chaitanya Castro Miya [id number] Encounters Encounter Location(s) Arrival/Admit Date Discharge/Depart Date Provider(s) Departed Physician/Prov ider Office Visit -[facility] May 09, 2025 10:40am May 09, 2025 11:07am Anish Keane MD Departed Emergency -Emergency Room June 02, 2025 4:47pm June 02, 2025 7:57pm Non-patient / Non-visit -[facility] June 04, 2025 11:08am TIMO Yancey Departed Clinical -[facility] June 06, 2025 10:09am June 06, 2025 10:10am Boni Quinonez DO Departed Physician/Prov ider Office Visit -[facility] June 08, 2025 11:26am June 08, 2025 12:25pm Boni Quinonez DO Departed Physician/Prov ider Office Visit -[facility] July 02, 2025 2:11pm July 02, 2025 2:39pm Boni Quinonez DO Departed Clinical -[facility] July 04, 2025 8:41am July 04, 2025 8:42am Anish Lee MD Departed Physician/Prov ider Office Visit -[facility] July 16, 2025 9:39am July 16, 2025 10:13am Boni Quinonez DO Recent Diagnosis Onset Date Admit Date Arthritis of left knee Unknown April 10:40am Encounter for removal of sutures Unknown June 08, 2025 11:26am Leukocytosis Unknown June 08 11:26am Closed head injury Unknown June 08, 2025 11:26am Fracture of left fifth rib Unknown Augus t 2024 11:26am Laceration of left eyebrow w ithout complication Unknown June 08, 2025 11:26am Encounter for removal of sutures Unknown July 02, 2025 2:11pm Sinus congestion Unknown July 02, 2025 2:11pm Fracture of left fifth rib Unknown 2024 2:11pm Anxiety Unknown July 16, 2025 9:39am Flu vaccine need Unknown July 16, 2025 9:39am Fracture of left fifth rib Unknown Septe 2024 9:39am Assessments Author Boni Quinonez [facility] Authored June 08, 2025 12 :31pm The above note written by __ _Riccardo Driver____ acting as human recorder, note dictated by Dr. Pham .I performed the above HPI, ROS, and Examination. I formulated and dictated the treatment plan and was present for entire encounter. Boni Quinonez D.O. Author Boni Quinonez [facility] Authored July 02, 2025 2:50pm The above note written by __ _Riccardo Driver____ acting as human recorder, note dictated by Dr. Pham .I performed the above HPI, ROS, and Examination. I formulated and dictated the treatment plan and was present for entire encounter. Boni Quinonez D.O. Plan of Treatment Author Riccardo Driver [facility] Authored June 08, 2025 12 :29pm He did have two lacerations above his left eye with five sutures in each laceration. He did fracture one rib on the left side when he fell. He needs to take as deep of a breath as he can as often as he can to prevent getting pneumonia. He tripped over a 30 amp wire, he was working outside after being outside all day in the heat. He was trying to hurry and was heading out of the barn and tripped with both of his feet. He tried to catch himself with his left forearm, he did not lose consciousness. He broke a rib. We discussed that the irwin is to avoid injuring his brain for the first two weeks after the initial injury. When he was in the ER his white blood cell count was elevated at 12.3, he did have this repeated and it has returned to normal at 7.7. Verbal consent was obtained for suture removal. Nine sutures were removed but ten were placed. After care instructions were given. If the last suture comes out he is to return to have this removed. Author Riccardo [facility] Authored July 16, 2025 10:07am He will receive a flu vaccin e today. He does use and benefit from the Lorazepam but admits that he only uses it now and then . He does not need a refill today and will call when he runs low. Frequent appointments needed due to addiction potential of medication. Pain inventory sheet completed and reviewed if opioid medication given. Pain contract is on file if pertinent. Patient will have office visits every three months for evaluation or sooner if needed. I discussed addiction potential of medication with the patient. Discussed with the patient and provided a treatment plan including the use of non-opioid analgesics and non-pharmacological intervention with patient if treated for pain. We have discussed realistic benefits and known risks of opioid/controlled therapy and the expected benefits for both pain and function. These benefits outweigh the risks. Patient has been counselled on the dangers of combining opioids/controlled prescriptions with alcohol or other sedatives and counseled on the safe storage and disposal of opioids/controlled prescriptions. Do not drive or operate heavy machinery after taking opioid/controlled medication. I have verified that no current substance abuse treatments are being prescribed. His rib was not healed so he will have a repeat x-ray done around 08/09/25. He is scheduled to see Dr. Cruz on 08/09/25 for his knee. Author Riccardo Driver [facility] Authored July 02, 2025 2:39pm When he was here for his sut ure removal on 06/08/25 there was a question as to whether all the sutures were removed. He presents today with what he thinks is a suture that needs to be removed but on exam there are no sutures that need to be removed, what he is feeling is an eyebrow hair coming in. Anticipatory guidance is given. He voices that he is feeling much better. I will provide him with an order to have a left rib series done to be sure this is healed, if it is then he can begin exercising. He was verbally given exercises that he can do that should not cause significant pain. He voices that about a week ago he started with sinus congestion but he does not feel that it is infected. I will treat him with a short course. If by the end of the week he does not feel better then he is to let me know and we will order an antibiotic. Future Tests Future scheduled test information is unavailable Pending Tests Pending diagnostic test information is unavailable Future Visits Future appointment information is unavailable Referrals to Other Providers Reason for Referral Referral Start Date Provider Provider Contact Information Provider Address Boni Quinonez , DO Work Phone: [phone] [place] [address] Future Procedures Procedure Name Ordered Date Scheduled Date Flu Vaccine High Dose PF 65Y+ IM - Fluzone Septe [facility] 2024 9:39am Future Medications Future medication information is unavailable Patient Instructions Instruction Admit Date Rib fracture or bruised rib - ED dischar ge instructions June 02, 2025 4:47pm
--- NOTE | 2025-07-17 12:30 | ECG_ITS ---
[facility] Test Date: 2025-07-17 Pat Name: MARIANA BARNES Department: Room: - Gender: Male Outside Salesperson: : 1955 Requested By: Order Number: [id number] Reading MD: DARIEL PAKRER M.D. Measurements Intervals [place] Rate: 79 P: 58 NM: 166 QRS: -11 QRSD: 105 T: 47 QT: 346 QTc: 398 Interpretive Statements SINUS RHYTHM Normal ECG No previous ECG available for comparison Electronically Signed On 07-17-2025 19:58:51 EDT by DARIEL PARKER M.D.
--- OUTSIDE RECORDS SUMMARY | 2025-07-17 12:31 | XMS_ITS | Encounter Summary ---
Author Organization [facility] Address [address] [place] [address] Care Team Providers Care Sound Editor Name Role Phone Boni Quinonez MD Primary Care Provider Encounter Details Date Type Department Care Team (Late st Contact Info) Description 06/05/2024 External Result Encounter [facility] External Department Unsolicited Arelis Hudson MD [address] [facility] [address] [place] [address] Social History Tobacco Use Types Packs/Day Years Used Date Smoking Tobacco: Former Cigarettes 1 15 Smokeless Tobacco: Never Alcohol Use Standard Drinks/Week Comments Not Currently 2 (1 standard drink = 0.6 oz pur e alcohol) caffeine: coffee AUDIT-C Answer Date Recorded Q1: How often do you have a drink containing alc ohol? 2-3 times a week 11/19/2023 Q2: How many drinks containi ng alcohol do you have on a typical day when you are drinking? 1 or 2 11/19/2023 Q3: How often do you have si x or more drinks on one occasion? Never 11/19/2023 Sex and Gender Information Value Date Recorded Sex Assigned at Male 03/18/2023 3:36 PM EDT Legal Sex Male 6:46 PM EDT Gender Identity Male 03/18/2023 3:36 PM EDT Sexual Orientation Not on file documented as of this encounter Plan of Treatment Upcoming Encounters Date Type Department Care Team (Late st Contact Info) Description 09/19/2025 9:00 AM EST Procedure Visit [facility] [address] [place] [address] Kingsley Currie, DPAnish [address] [place] [address] documented as of this encounter Procedures Procedure Name Priority Date/Time Associated Diagnosis Comments US THYROID 06/05/2024 2:18 PM EDT documented in this encounter Results * US thyroid (06/05/2024 2:18 PM EDT) Anatomical Region Laterality Modality Head, Neck Ultrasound 06/05/2024 2:18 PM EDT Impressions 06/05/2024 2:23 PM EDT Similar thyroid nodularity without dominant nodule. Impression dictated by: Garry Fuller M.D.06/05/2024 2:20 PM Dictation Location: [place] [address] Tech: [facility] Transcribed By: MARIELLE 06/05/24 1420 Dictated By: Garry Fuller DO 06/05/24 1418 Signed By: <Electronically signed by Garry Fuller DO in OV> 06/05/24 1420 Narrative 06/05/2024 2:23 PM EDT [facility] [address] [place] [address] Ultrasound Report Signed Patient: Chaitanya Holliday MR#: [id number] : 1955 Acct:[id number] Age/Sex: 69 / M ADM Date: 06/05/24 Loc: Room: Type: [facility] Attending Dr: Arelis Hudson Jr, MD Ordering Provider: ARELIS HUDSON MD Date of Service: 06/05/24 US/US thyroid: E04.1 Copies to: ARELIS HUDSON MD Thyroid Ultrasound HISTORY: Evaluate thyroid nodule COMPARISON: 10/21/2023 The RIGHT lobe measures 4.5 x 1.9 x 1.7cm. LEFT lobe measures 4.9 x 2.0 x 2.0 cm. Isthmus has an AP dimension of 0.2cm. Right mid predominantly solid and cystic nodule measures up to 11 mm. Additional predominant solid and cystic nodule measures up to 11 mm. Left mid medial predominant solid and cystic nodules measure 2.1 cm and 1 cm. Left inferior solid cystic nodule measures up to 14 mm. No microcalcifications identified. Symmetric blood flow of the thyroid gland identified. US/US thyroid Procedure Note Radiology, Radiologist, - 06/05/2024 [facility] [address] [place] [address] Ultrasound Report Signed Patient: Chaitanya Holliday SMR#: [id number] : 7Acct:[id number] Age/Sex: 69 / MADM Date: 06/05/24 Loc: Room:Type: [facility] Attending Dr: Arelis Hudson Jr, MD Ordering Provider: ARELIS HUDSON MD Date of Service: 06/05/24 US/US thyroid: E04.1 Copies to: ARELIS HUDSON MD Thyroid Ultrasound HISTORY: Evaluate thyroid nodule COMPARISON: 10/21/2023 The RIGHT lobe measures 4.5 x 1.9 x 1.7cm. LEFT lobe measures 4.9 x 2.0 x 2.0 cm. Isthmus has an AP dimension of 0.2cm. Right mid predominantly solid and cystic nodule measures up to 11 mm.Additional predominant solid and cystic nodule measures up to 11 mm. Left mid medial predominant solidand cystic nodules measure 2.1 cm and 1 cm. Left inferior solid cystic nodule measures up to 14 mm. No microcalcifications identified. Symmetric blood flow of the thyroid gland identified. US/US thyroid IMPRESSION: Similar thyroid nodularity without dominant nodule. Impression dictated by: Garry Fuller M.D.06/05/2024 2:20 PM Dictation Location: [place] [address] [facility] Transcribed By: MARIELLE 06/05/24 1420 Dictated By: Garry Fuller DO 06/05/24 1418 Signed By: <Electronically signed by Garry Fuller DO in OV> 06/05/24 1420 us Arelis Hudson MD IMG US PROCEDURES Final Resul t documented in this encounter Visit Diagnoses Not on filedocumented in this encounter Care Teams Sound Editor Relationship Specialty Start Date End Date Boni Quinonez MD [address] [place] [id number] PCP - General Family Medicine 03/18/23 documented as of this encounter
--- OUTSIDE RECORDS SUMMARY | 2025-07-17 12:31 | XMS_ITS | Encounter Summary ---
Author Organization [facility] Address [address] [facility] [place] [address] Care Team Providers Care Supervisor Home Energy Consultant Name Role Phone Boni Quinonez MD Primary Care Provider [phone] Encounter Details Date Type Department Care Team (Late Contact Info) Description 03/18/2023 Abstract [facility] [address] [place] [address] Chelsea Mireles LPN [address] [facility] [place] [address] [place] [id number] Social History Tobacco Use Types Packs/Day Years Used Date Smoking Tobacco: Never Smokeless Tobacco: Never Alcohol Use Standard Drinks/Week Comments Not Currently 0 (1 standard drink = 0.6 oz pur e alcohol) Sex and Gender Information Value Date Recorded Sex Assigned at Male 03/18/2023 3:36 PM EDT Legal Sex Male 6:46 PM EDT Gender Identity Male 03/18/2023 3:36 PM EDT Sexual Orientation Not on file documented as of this encounter Plan of Treatment Upcoming Encounters Date Type Department Care Team (Late st Contact Info) Description 09/19/2025 9:00 AM EST Procedure Visit [facility] [address] [place] [address] Kingsley Currie DPM [address] [place] [address] documented as of this encounter Visit Diagnoses Not on filedocumented in this encounter Care Teams Supervisor Home Energy Consultant Relationship Specialty Start Date End Date Boni Quinonez MD [address] [place] [id number] PCP - General Family Medicine 03/18/23 documented as of this encounter
--- OUTSIDE RECORDS SUMMARY | 2025-07-17 12:31 | XMS_ITS | Encounter Summary ---
Author Organization [facility] Address [address] [place] [address] Care Team Providers Care Scrap Sawyer Name Role Phone Sadiq Floyd MD Primary Care Provider [phone] Encounter Details Date Type Department Care Team (Late st Contact Info) Description 11/30/2023 Clinisync Result Encounter [facility] External Department Unsolicited Anita Hudson MD [address] [facility] [address] [place] [address] Social History Tobacco Use Types Packs/Day Years [...] [facility] [address] [place] [address] Kingsley Currie, DPM [address] [place] [address] documented as of this encounter Procedures Procedure Name Priority Date/Time Associated Diagnosis Comments US BX THYROID 11/30/2023 8:56 AM EST documented in this encounter Results * US BX THYROID (11/30/2023 8:56 AM EST) Anatomical Region Laterality Modality Radiographic Meryl ging 11/30/2023 8:56 AM EST Narrative 11/30/2023 8:59 AM EST [address] [address] Ultrasound Report Signed Patient: Mariana Barnes MR#: [id number] : 1955 Acct:[id number] Age/Sex: 68 / M ADM Date: 11/30/23 Loc: US Attending Dr: Anita Hudson M.D. Ordering Physician: Anita Hudson M.D. Date of Service: 11/30/23 Procedure(s): US biopsy FNA add lesion Accession Number(s): [id number] cc: SADIQ FLOYD ; Anita uHdson M.D. The [address] [address] Patient Name: MARIANA BARNES MRN: [id number] date: 1955 Sex: M Assigned Patient Location: US Current Patient Location: US Accession/Order Number: [id number] Exam Date: 11/30/2023 07:35 Report Date: 11/30/2023 08:56 At the request of: ANITA HUDSON Procedure: US biopsy FNA add lesion EXAMINATION: US biopsy thyroid, US biopsy FNA add lesion HISTORY: Thyroid Nodule COMPARISON: No relevant comparison available. TECHNIQUE: After obtaining informed consent, an ultrasound-guided biopsy was performed in the usual sterile manner. FINDINGS: BIOPSY #1: IMAGING: Ultrasound BIOPSY NEEDLE: 25-gauge 2 inch SPECIMEN TYPE, #, LOCATION: 3 fine-needle aspirates, superior 1.8 cm left thyroid nodule MEDICATION: 3 cc 1% buffered lidocaine COMPLICATIONS: None. LABORATORY: Pathology and molecular studies pending OTHER: Negative. BIOPSY #2: IMAGING: Ultrasound BIOPSY NEEDLE: 25-gauge 2 inch SPECIMEN TYPE, #, LOCATION: 3 fine-needle aspirates, inferior 1.3 cm left thyroid nodule MEDICATION: 3 cc 1% buffered lidocaine COMPLICATIONS: None. LABORATORY: Pathology and molecular studies pending OTHER: Negative. US/US biopsy FNA add lesion IMPRESSION: Uneventful ultrasound guided biopsy of 2 separate left thyroid nodules. Electronically authenticated by: SADIQ NASSAR Date: 11/30/2023 08:56 Dictated By: Sadiq Nassar M.D. Signed By: 11/30/23 0859 DD/ TD/TT: Talent Assistant: Procedure Note Radiology, Radiologist, MD - 11/30/2023 [place] [address] Ultrasound Report Signed Patient: Mariana Barnes SMR#: [id number] : 1955cct:[id number] Age/Sex: 68 / MADM Date: 11/30/23 Loc: US Attending Dr: Anita Hudson M.D. Ordering Physician: Anita Hudson M.D. Date of Service: 11/30/23 Procedure(s): US biopsy FNA add lesion Accession Number(s): [id number] cc: SADIQ FLOYD ; Anita Hudson M.D. The [place] [address] Patient Name: MARIANA BARNES MRN: [id number] date: 1955 Sex: M Assigned Patient Location: US Current Patient Location: US Accession/Order Number: [id number] Exam Date: 11/30/2023 07:35 Report Date: 11/30/2023 08:56 At the request of: ANITA HUDSON Procedure: US biopsy FNA add lesion EXAMINATION: US biopsy thyroid, US biopsy FNA add lesion HISTORY: Thyroid Nodule COMPARISON: No relevant comparison available. TECHNIQUE: After obtaining informed consent, an ultrasound-guided biopsywas performed in the usual sterile manner. FINDINGS: BIOPSY #1: IMAGING: Ultrasound BIOPSY NEEDLE: 25-gauge 2 inch SPECIMEN TYPE, #, LOCATION: 3 fine-needle aspirates, superior 1.8 cm left thyroid nodule MEDICATION: 3 cc 1% buffered lidocaine COMPLICATIONS: None. LABORATORY: Pathology and molecular studies pending OTHER: Negative. BIOPSY #2: IMAGING: Ultrasound BIOPSY NEEDLE: 25-gauge 2 inch SPECIMEN TYPE, #, LOCATION: 3 fine-needle aspirates, inferior 1.3 cm left thyroid nodule MEDICATION: 3 cc 1% buffered lidocaine COMPLICATIONS: None. LABORATORY: Pathology and molecular studies pending OTHER: Negative. US/US biopsy FNA add lesion IMPRESSION: Uneventful ultrasound guided biopsy of 2 separate left thyroid nodules. Electronically authenticated by: SADIQ NASSAR Date: 11/30/2023 08:56 Dictated By: Sadiq Nassar M.D. Signed By:11/30/2359 DD/ TD/TT: Talent Assistant: us Anita Hudson MD IMG XR PROCEDURES Final Resul t documented in this encounter Visit Diagnoses Not on filedocumented in this encounter Care Teams Scrap Sawyer Relationship Specialty Start Date End Date Sadiq Floyd MD [address] [place] [address] [place] [address] PCP - General Family Medicine 03/18/23 documented as of this encounter
--- OUTSIDE RECORDS SUMMARY | 2025-07-17 12:31 | XMS_ITS | Clinical Summary ---
Author Organization [facility] Address [address] [place], [place] [address] Care Team Providers Care Pellet Mill Operator Name Role Phone Boni Quinonez DO Primary Care Provider [phone] Allergies Active Allergy Reactions Criticality Noted Date Comments Cefdinir Hives 04/06/2025 Patient states he was unsure what the allegry is, states it was a long time ago. Hydrochlorothiazide Unknown 04/13/2025 Pt states PCP said he was allergic Medications rosuvastatin (CRESTOR) 10 mg tablet Take 1 tablet by mouth daily at bedtime. 0 4 Active dapagliflozin propanediol (FARXIGA) 5 mg tablet Take 5 mg by mouth daily with breakfast. Active glimepiride (AMARYL) 1 mg tablet Take 1 mg by mouth daily with breakfast. Active lisinopril (ZESTRIL) 10 mg tablet Take 10 mg by mouth once daily. Active metFORMIN (GLUCOPHAGE) 500 mg tablet Take 1,000 mg by mouth two times a day with meals. Active metoprolol succinate ER (TOPROL XL) 25 mg 24 hr tablet Take 25 mg by mouth once daily. Active Tadalafil (CIALIS) 10 mg tablet Take 10 mg by mouth once daily as needed. Active tamsulosin (FLOMAX) 0.4 mg Take 0.4 mg by mouth once daily. Active nystatin (MYCOSTATIN) powder Apply 1 application to affected area as directed. Active fluticasone (FLONASE) 50 mcg/actuation nasal spray 2 sprays. 3 Active tolnaftate (TINACTIN) 1 % external solution Apply to affected area. 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 08/29/2013 Spinal stenosis, lumbar 08/29/2013 Paresthesias/numbness 08/29/2013 Hip arthritis 08/15/2013 Lumbago 07/27/2013 Osteoarthritis, hip/pelvic region and thigh 11/2012 Right hip pain 04/18/2013 Pain in joint, forearm 02/07/2008 Stiffness of joint, not elsewhere classified, fo rearm 02/07/2008 Osteoarthrosis, unspecified whether generalized or localized, forearm 02/07/2008 Encounters Date Type Department Care Team Description 06/13/2025 Clinical Document [facility] [address] Provider, Ccf 05/17/2025 1:30 PM EDT Office Visit Radiation Oncology [address] [place] [address] [place] [address] Osorio Molina MD Malignant neoplasm of prostate (HCC) (Primary Dx) 05/17/2025 Education Radiation Oncology [address] [place] [address] [place] [address] Alyx Ring RN Patient Education 05/17/2025 Travel 04/17/2025 Clinical Document [facility] [address] Provider, Ccf from Last 3 Months Family History Medical History Relation Comments Diabetes Brother Arthritis Father had stent [Other] Father Diabetes Mother Relation Status Comments Brother Father Mother Social History Tobacco Use Types Packs/Day Years Used Date Smoking Tobacco: Former Cigarettes Smokeless Tobacco: Never Tobacco Cessation:Counseling Given: Not Answered Alcohol Use Standard Drinks/Week Comments Yes 0 (1 standard drink = 0.6 oz pur e alcohol) it fluctuates 3-4 a day Area Deprivation Index Answer Date Kash rded National Score (1-100), lower number is lower ri sk 61 04/07/2025 State Score (1-10), lower number is lower risk 4 04/07/2025 Data from: https://www.neighborhoodatlas.medicine.[facility].edu/. Last address used for calculation [address] 04/07/2025 Sex and Gender Information Value Date Recorded Sex Assigned at Not on file Legal Sex Male 8:13 AM EST Gender Identity Not on file Sexual Orientation Not on file Last Filed Vital Signs Vital Sign Reading Time Taken Comments Blood Pressure 128/81 05/17/2025 1:25 PM EDT Pulse 79 05/17/2025 1:25 PM EDT Temperature 36.5 C (97.7 F) 05/17/2025 1:25 PM EDT Respiratory Rate 16 05/17/2025 1:25 PM EDT Oxygen Saturation 100% 05/17/2025 1:25 PM EDT Inhaled Oxygen Concentration - - Weight 87.2 kg (192 lb 3.9 oz) 05/17/2025 1:25 P M EDT Height 172.7 cm (5' 8 ) 04/06/2025 9:01 AM EDT Body Mass Index 29.23 04/06/2025 9:01 AM EDT Plan of Treatment Upcoming Encounters Date Type Department Care Team (Late st Contact Info) Description 07/18/2025 8:30 AM EDT Office Visit Radiation Oncology [address] [place] [address] [place] [address] Osorio Molina MD [address] [place] [address] [place] [address] Volume Study 08/01/2025 1:00 PM EDT Office Visit Radiation Oncology [facility] [place] [address] Osorio Molina MD [address] [place] [address] [place] [address] Seed Implant at the [facility] 08/15/2025 11:15 AM EDT Office Visit Radiation Oncology [facility] [place] [address] Osorio Molina MD [address] [place] [address] [place] [address] Follow up 08/29/2025 8:00 AM EST Appointment Radiology [address] [place] [address] scan 09/12/2025 9:00 AM EST Office Visit Radiation Oncology [address] [facility] [place] [place] [address] Osorio Molina MD [address] [facility] [place] [address] Follow up Health Maintenance Due Date Last Done Comments Abdominal Aortic Aneurysm Screening 1955 Anxiety Screening 1975 Depression Screening 1975 Hepatitis C Screening [address] Colonography 2002 Cologuard (FIT-DNA) 2002 Colonoscopy 2002 Colorectal Cancer Screening 2002 Fecal Occult Blood 2002 Prostate Cancer Screening Discussion 2002 Sigmoidoscopy 2002 Pneumococcal Vaccine: 50+ (1 of 1 - PCV) 2007 Shingrix Vaccine (1 of 2) 2007 RSV Vaccine (1 - Risk 60-74 years 1-dose series) 2017 Medicare Annual Wellness Visit 05/18/2022 Advance Directive Discussion 10/18/2024 Influenza Vaccine (#1) 2025 , 08/29/2022, 08/10/2019, Additional history exists Diabetes Screening 04/06/2028 04/06/2025, 1 11/21/2013, 09/19/2014, Additional history exists DTaP,Tdap,Td Vaccine (3 - Td or Tdap) 07/06/2033 07/06/2023, 12/23/2015 Medical Devices Implanted Type Area Acetone Button Paster Device Identifier Shelf Expiration Date Model / Serial / Lot Kzf-Hv-T-Kind Implant - [id number] Implanted:Qty: 1 on 09/18/2014 at [facility] Implant Right: Bone - Hip BIOMET 05/17/2024 [id number] / / [id number] Description:G7 acetabular sh ell Head Fem 40mm Hip Opt Blx D - [id number] Implanted:Qty: 1 on 09/18/2014 at [facility] Joint - Hip Right: Bone - Hip BIOMET ORTHO 08/17/2024 [id number] / / [id number] Description:Ceramic head Ins Fem 40mm Std Hip Blx D Opt - [id number] Implanted:Qty: 1 on 09/18/2014 at [facility] Joint - Hip Right: Bone - Hip BIOMET ORTHO 06/17/2024 [id number] / / [id number] Description:Standard neck Liner G7 Neutral E1 40mm - [id number] Implanted:Qty: 1 on 09/18/2014 at [facility] Joint Right: Bone - Hip BIOMET ORTHO 05/17/2019 [id number] / / [id number] Description:G7 acetabular li ner Stem Fem 150mm 15mm Tapr Hi - [id number] Implanted:Qty: 1 on 09/18/2014 at [facility] Joint Right: Bone - Hip BIOMET ORTHO 02/15/2024 [id number] / / [id number] Description:taperloc complet e primary femoral porous coated stem reduced distal Procedures Procedure Name Priority Date/Time Associated Diagnosis Comments EXTERNAL LAB 04/17/2025 11:04 AM EDT COMPREHENSIVE METABOLIC PANEL STAT 04/06/2025 10:20 AM EDT from Last 3 Months or Most Recently Relevant to Health Maintenance Results * EXTERNAL LAB (04/17/2025 11:04 AM EDT) us External Provider [facility] LABORATORY Final Res ult * (ABNORMAL) COMPREHENSIVE METABOLIC PANEL (04/06/2025 10:20 AM EDT) Protein, Total 6.7 6.3 - 8.0 g/dL 04/06/2025 10:47 AM T [facility] Albumin 4.2 3.9 - 4.9 g/dL 04/06/2025 10:47 AM [facility] Calcium, Total 9.7 8.5 - 10.2 mg/dL 04/06/2025 10:47 AM [facility] Bilirubin, Total 0.7 0.2 - 1.3 mg/dL 04/06/2025 10:47 AM [facility] Alkaline Phosphatase 84 38 - 113 U/L 04/06/2025 10:47 AM [facility] AST 19 14 - 40 U/L 04/06/2025 10:47 AM [facility] ALT 22 10 - 54 U/L 04/06/2025 10:47 AM [facility] Glucose 141(H) 74 - 99 mg/dL 04/06/2025 10:47 AM [facility] Comment: The [place] Diabetes Association (ADA) provides guidance for cutoff values for fasting glucose and random glucose. The ADA defines fasting as no caloric intake for at least 8 hours. Fasting plasma glucose results between 100 to 125 mg/dL indicate increased risk for diabetes (prediabetes). Fasting plasma glucose results greater than or equal to 126 mg/dL meet the criteria for diagnosis of diabetes. In the absence of unequivocal hyperglycemia, results should be confirmed by repeat testing. In a patient with classic symptoms of hyperglycemia or hyperglycemic crisis, random plasma glucose results greater than or equal to 200 mg/dL meet the criteria for diagnosis of diabetes. Reference: Standards of Medical Care in Diabetes 2016, [place] [employer] Association. Diabetes Care. 2016.39(Suppl 1). BUN 12 9 - 24 mg/dL 04/06/2025 10:47 AM [facility] Creatinine 0.66(L) 0.73 - 1.22 mg/dL 04/06/2025 10:47 AM [facility] Sodium 135(L) 136 - 144 mmol/L 04/06/2025 10:47 AM [facility] Potassium 4.1 3.7 - 5.1 mmol/L 04/06/2025 10:47 AM [facility] Chloride 99 98 - 107 mmol/L 04/06/2025 10:47 AM [facility] CO2 26 22 - 30 mmol/L 04/06/2025 10:47 AM [facility] Anion Gap 10 8 - 15 mmol/L 04/06/2025 10:47 AM [facility] Estimated Glomerular Filtration Rate 103 >=60 mL/min/1. 73m 04/06/2025 10:47 AM [facility] Comment:Estimated Glomerular Filtration Rate (eGFR) is calculated using the 2020 CKD-EPI creatinine equation. This equation utilizes serum creatinine, sex, and age as parameters. The creatinine assay has traceable calibration to isotope dilution- mass spectrometry. Refer to KDIGO guidelines for clinical interpretation. In patients with unstable renal function, e.g. those with acute kidney injury, the eGFR may not accurately reflect actual GFR. Blood BLOOD SPECIMEN / Unknown Venipuncture / Unknown 04/06/2025 10:20 AM EDT 04/06/2025 10:24 AM EDT us Gregory Yan MD LABORATORY Final Resul t [facility] [address] [place] [address], from Last 3 Months or Most Recently Relevant to Health Maintenance Insurance MEDICARE [employer] SUPPLEMENT Care Teams Pellet Mill Operator Relationship Specialty Start Date End Date Boni Quinonez DO [address] [place] [address] PCP - General 01/27/08
--- OUTSIDE RECORDS SUMMARY | 2025-07-17 12:31 | XMS_ITS | Encounter Summary ---
Author Organization [facility] Address [address] [place] [address] Care Team Providers Care Grocery Carrier Name Role Phone Sadiq Floyd MD Primary Care Provider [phone] Encounter Details Date Type Department Care Team (Late st Contact Info) Description 11/30/2023 Clinisync Result Encounter [facility] External Department Unsolicited Anita Hudson MD [address] [facility] [address] [place] [address] Social History Tobacco Use Types Packs/Day Years [...] [facility] [address] [place] [address] Kingsley Currie, DPM [address] [place] [address] documented as of this encounter Procedures Procedure Name Priority Date/Time Associated Diagnosis Comments US BX THYROID 11/30/2023 8:56 AM EST documented in this encounter Results * US BX THYROID (11/30/2023 8:56 AM EST) Anatomical Region Laterality Modality Radiographic Meryl ging 11/30/2023 8:56 AM EST Narrative 04/14/2024 10:57 AM EDT The [address] [address] Ultrasound Report Signed with Fernandaenda Patient: Mariana Barnes MR#: [id number] : 1955 Acct:[id number] Age/Sex: 68 / M ADM Date: 11/30/23 Loc: US Attending Dr: Anita Hudson M.D. Ordering Physician: Anita Hudson M.D. Date of Service: 11/30/23 Procedure(s): US biopsy FNA add lesion Accession Number(s): [id number] cc: SADIQ FLOYD ; Anita Hudson M.D. ADDENDUM The [address] [address] Patient Name: MARIANA BARNES MRN: [id number] date: 1955 Sex: M Assigned Patient Location: US Current Patient Location: US Accession/Order Number: [id number] Exam Date: 11/30/2023 07:35 Report Date: 12/09/2023 05:58 At the request of: ANITA HUDSON Procedure: US biopsy FNA add lesion Begin Addendum #1 COLLECTED DATE: 11/30/2023 Final Diagnosis Report for [facility] [place] [place] Pathological Diagnosis: A. Left thyroid superior nodule, FNA cytology: -The [place] [facility] is category 2: Benign B. Left thyroid inferior nodule, FNA cytology: -[facility] [place] [facility] is category 2: Benign 12/06/[address] Hudson. Verified with Essie that report was present in office. Original Report EXAMINATION: US biopsy thyroid, US biopsy FNA add lesion HISTORY: Thyroid Nodule COMPARISON: No relevant comparison available. TECHNIQUE: After obtaining informed consent, an ultrasound-guided biopsy was performed in the usual sterile manner. FINDINGS: BIOPSY #1: IMAGING: Ultrasound BIOPSY NEEDLE: 25-gauge 2 inch SPECIMEN TYPE, #, LOCATION: 3 fine-needle aspirates, superior 1. 8 cm left thyroid nodule MEDICATION: 3 cc 1% buffered lidocaine COMPLICATIONS: None. LABORATORY: Pathology and molecular studies pending OTHER: Negative. BIOPSY #2: IMAGING: Ultrasound BIOPSY NEEDLE: 25-gauge 2 inch SPECIMEN TYPE, #, LOCATION: 3 fine-needle aspirates, inferior 1. 3 cm left thyroid nodule MEDICATION: 3 cc 1% buffered lidocaine COMPLICATIONS: None. LABORATORY: Pathology and molecular studies pending OTHER: Negative. Addendum Dictated By: Sadiq Nassar M.D. Addendum Signed By: <Electronically signed by Sadiq Nassar M.D.> 04/14/241056 Addendum Cosigned By: DD/ TD/TT: / ADDENDUM US/US biopsy FNA add lesion IMPRESSION: Uneventful ultrasound guided biopsy of 2 separate left thyroid nodules. Electronically authenticated by: SADIQ NASSAR Date: 12/09/2023 05:58 Addendum Dictated By: Sadiq Nassar M.D. Addendum Signed By: <Electronically signed by Sadiq Nassar M.D.> 04/14/24 105 Addendum Cosigned By: DD/ TD/TT: / [address] [address] Patient Name: MARIANA BARNES MRN: [id number] date: 1955 Sex: M Assigned Patient Location: US Current Patient Location: US Accession/Order Number: [id number] Exam Date: 11/30/2023 07:35 Report Date: 11/30/2023 [...] Nassar M.D. Signed By: 11/30/23 0859 DD/ 0856 TD/TT: Early Breastfeeding Care Specialist: Procedure Note Radiology, Radiologist, MD - 04/14/2024 [place] [address] Ultrasound Report Signed with Lenora Patient: Mariana Barnes [facility]#: [id number] : 1955cct:[id number] Age/Sex: 68 / MADM Date: 11/30/23 Loc: US Attending Dr: Anita Hudson M.D. Ordering Physician: Anita Hudson M.D. Date of Service: 11/30/23 Procedure(s): US biopsy FNA add lesion Accession Number(s): [id number] cc: SADIQ FLOYD Hilary M.D. ADDENDUM The [place] [address] Patient Name: MARIANA BARNES MRN: [id number] date: 1955 Sex: M Assigned Patient Location: US Current Patient Location: US Accession/Order Number: [id number] Exam Date: 11/30/2023 07:35 Report Date: 12/09/2023 05:58 At the request of: ANITA HUDSON Procedure: US biopsy FNA add lesion Begin Addendum #1 COLLECTED DATE: 11/30/2023 Final Diagnosis Report for [facility] [place] Pathological Diagnosis: A. Left thyroid superior nodule, FNA cytology: -[facility] is category 2: Benign B. Left thyroid inferior nodule, FNA cytology: -[facility] is category 2: Benign 12/06/[address] Hudson. Verified with Essie that report waspresent in office. Original Report EXAMINATION: US biopsy thyroid, US biopsy FNA add lesion HISTORY: Thyroid Nodule COMPARISON: No relevant comparison available. TECHNIQUE: After obtaining informed consent, an ultrasound-guided biopsywas performed in the usual sterile manner. FINDINGS: BIOPSY #1: IMAGING: Ultrasound BIOPSY NEEDLE: 25-gauge 2 inch SPECIMEN TYPE, #, LOCATION: 3 fine-needle aspirates, superior 1. 8 cm left thyroid nodule MEDICATION: 3 cc 1% buffered lidocaine COMPLICATIONS: None. LABORATORY: Pathology and molecular studies pending OTHER: Negative. BIOPSY #2: IMAGING: Ultrasound BIOPSY NEEDLE: 25-gauge 2 inch SPECIMEN TYPE, #, LOCATION: 3 fine-needle aspirates, inferior 1. 3 cm left thyroid nodule MEDICATION: 3 cc 1% buffered lidocaine COMPLICATIONS: None. LABORATORY: Pathology and molecular studies pending OTHER: Negative. Addendum Dictated By: Sadiq Nassar M.D. Addendum Signed By: <Electronically signed by Sadiq Nassar M.D.> 04/14/241056 Addendum Cosigned By: DD/ TD/TT: / ADDENDUM US/US biopsy FNA add lesion IMPRESSION: Uneventful ultrasound guided biopsy of 2 separate left thyroid nodules. Electronically authenticated by: SADIQ NASSAR Date: 12/09/2023 05:58 Addendum Dictated By: Sadiq Nassar M.D. Addendum Signed By: <Electronically signed by Sadiq Nassar M.D.> 04/14/247 Addendum Cosigned By: DD/ TD/TT: / The [address] [address] Patient Name: MARIANA BARNES MRN: [id number] date: 1955 Sex: M Assigned Patient Location: US Current Patient Location: US Accession/Order Number: [id number] Exam Date: 11/30/2023 07:35 Report Date: 11/30/2023 [...] 08:56 Dictated By: Sadiq Nassar M.D. Signed By:11/30/23 0859 DD/ 0856 TD/TT: Early Breastfeeding Care Specialist: us Anita Hudson MD IMG XR PROCEDURES Final Resul t documented in this encounter Visit Diagnoses Not on filedocumented in this encounter Care Teams Grocery Carrier Relationship Specialty Start Date End Date Sadiq Floyd MD [address] [place] [address] [address] [place] [id number] PCP - General Family Medicine 03/18/23 documented as of this encounter
--- OUTSIDE RECORDS SUMMARY | 2025-07-17 12:31 | XMS_ITS | Encounter Summary ---
Author Organization [facility] Address [address] [place] [address] Care Team Providers Care Clinical Data Associate Name Role Phone Boni Quinonez Radha ASKEW Primary Care Provider [phone] Source Comments In the event this information is protected by the Federal Confidentiality of Alcohol and Drug AbusePatient Records regulations: The Federal rules restrict any use of the information to criminally investigate or prosecute any alcohol or drug abuse patient.[facility] Encounter Details Date Type Department Care Team (Late st Contact Info) Description 2022 [place] [address] Provider, [facility] Medicare Coverage of Physical Exams Social History Tobacco Use Types Packs/Day Years Used Date Smoking Tobacco: Former Smokeless Tobacco: Never Comments:Quit 2 yrs ago Alcohol Use Standard Drinks/Week Comments Yes 0 (1 standard drink = 0.6 oz pur e alcohol) it fluctuates 3-4 a day Sex and Gender Information Value Date Recorded Sex Assigned at Not on file Legal Sex Male 8:13 AM EST Gender Identity Not on file Sexual Orientation Not on file documented as of this encounter Functional Status * Are you deaf or do you have serious difficulty hearing? Answer Date of Assessment Author No 12/10/2014 9:25 AM Cecilia Mcdermott MA * Are you blind or do you have serious difficulty seeing, even when wearing glasses? Answer Date of Assessment Author No 12/10/2014 9:25 AM Cecilia Mcdermott MA * Do you have serious difficulty walking or climbing stairs? Answer Date of Assessment Author No 12/10/2014 9:25 AM Cecilia Mcdermott MA * Do you have difficulty dressing or bathing? Answer Date of Assessment Author No 12/10/2014 9:25 AM Cecilia Mcdermott MA * Because of a physical, mental, or emotional condition, do you have difficulty doing errands alone such as visiting a doctor's office or shopping? Answer Date of Assessment Author No 12/10/2014 9:25 AM Cecilia Mcdermott MA documented as of this encounter Mental Status * Because of a physical, mental, or emotional condition, do you have serious difficulty concentrating, remembering, or making decisions? Answer Entry Date Author No 12/10/2014 9:25 AM Cecilia Mcdermott MA documented in this encounter Plan of Treatment Upcoming Encounters Date Type Department Care Team (Late st Contact Info) Description 07/18/2025 8:30 AM EDT Office Visit Radiation Oncology [address] [place] [address] [place] [address] Osorio Molina MD [address] [place] [address] [place] [address] Volume Study 08/01/2025 1:00 PM EDT Office Visit Radiation Oncology [address] [place] [address] [place] [address] Osorio Molina MD [address] [place] [address] [place] [address] Seed Implant at the [facility] 08/15/2025 11:15 AM EDT Office Visit Radiation Oncology [facility] [place] [address] Osorio Molina MD [address] [facility] [address] Follow up 08/29/2025 8:00 AM EST Appointment Radiology Pet CT [address] [facility] [place] [address] scan 09/12/2025 9:00 AM EST Office Visit Radiation Oncology [address] [place] [address] Osorio Molina MD [address] [facility] [address] Follow up documented as of this encounter Visit Diagnoses Not on filedocumented in this encounter Care Teams Clinical Data Associate Relationship Specialty Start Date End Date Boni Quinonez DO [address] [place] [address] PCP - General 01/27/08 documented as of this encounter
--- OUTSIDE RECORDS SUMMARY | 2025-07-17 12:31 | XMS_ITS | Encounter Summary ---
Author Organization [facility] Address [address] [place] [address] Care Team Providers Care Counter Professional Name Role Phone Sadiq Floyd MD Primary Care Provider [phone] Encounter Details Date Type Department Care Team (Late st Contact Info) Description 11/30/2023 Clinisync Result Encounter [facility] External Department Unsolicited Arelis Hudson MD [address] [facility] [address] [place] [address] Social History Tobacco Use Types Packs/Day Years [...] [facility] [address] [place] [address] Kingsley Currie, DPM [address] [place] [address] documented as of this encounter Procedures Procedure Name Priority Date/Time Associated Diagnosis Comments US BIOPSY THYROID 11/30/2023 8:5 6 AM EST documented in this encounter Results * US BIOPSY THYROID (11/30/2023 8:56 AM EST) Anatomical Region Laterality Modality Other 11/30/2023 8:56 AM EST Narrative 04/14/2024 10:57 AM EDT The [address] [address] Ultrasound Report Signed with Lenora Patient: Mariana Barnes MR#: [id number] : 1955 Acct:[id number] Age/Sex: 68 / M ADM Date: 11/30/23 Loc: US Attending Dr: Arelis Hudson M.D. Ordering Physician: Arelis Hudson M.D. Date of Service: 11/30/23 Procedure(s): US biopsy thyroid Accession Number(s): [id number] cc: SADIQ FLOYD ; Arelis Hudson M.D. ADDENDUM The [address] [address] Patient Name: MARIANA BARNES MRN: [id number] date: 1955 Sex: M Assigned Patient Location: US Current Patient Location: US Accession/Order Number: [id number] Exam Date: 11/30/2023 07:35 Report Date: 12/09/2023 05:58 At the request of: ARELIS HUDSON Procedure: US biopsy thyroid Begin Addendum #1 COLLECTED DATE: 11/30/2023 Final Diagnosis Report for [facility] [place] [place] Pathological Diagnosis: A. Left thyroid superior nodule, FNA cytology: -[facility] [place] [facility] is category 2: Benign B. Left thyroid inferior nodule, FNA cytology: -[facility] [place] [facility] is category 2: Benign 12/06/2023 faxed [...] By: DD/ TD/TT: / ADDENDUM US/US biopsy thyroid IMPRESSION: Uneventful ultrasound guided biopsy of 2 separate left thyroid nodules. Electronically authenticated by: SADIQ NASSAR Date: 12/09/2023 05:58 Addendum Dictated By: Sadiq Nassar M.D. Addendum Signed By: <Electronically signed by Sadiq Nassar M.D.> 04/14/24 105 Addendum Cosigned By: DD/ TD/TT: / [address] [address] Patient Name: MARIANA BARNES MRN: [id number] date: 1955 Sex: M Assigned Patient Location: US Current Patient Location: US Accession/Order Number: [id number] Exam Date: 11/30/2023 07:35 Report Date: 11/30/2023 08:56 At the request of: ARELIS HUDSON Procedure: US biopsy thyroid EXAMINATION: US biopsy thyroid, US biopsy FNA [...] molecular studies pending OTHER: Negative. US/US biopsy thyroid IMPRESSION: Uneventful ultrasound guided biopsy of 2 separate left thyroid nodules. Electronically authenticated by: SADIQ NASSAR Date: 11/30/2023 08:56 Dictated By: Sadiq Nassar M.D. Signed By: 11/30/23 0859 DD/ TD/TT: Stage Settings Painter: Procedure Note Radiology, Radiologist, MD - 04/14/2024 [place] [address] Ultrasound Report Signed with Addenda Patient: Mariana Barnes [facility]#: [id number] : 1955cct:[id number] Age/Sex: 68 / MADM Date: 11/30/23 Loc: US Attending Dr: Arelis Hudson M.D. Ordering Physician: Arelis Hudson M.D. Date of Service: 11/30/23 Procedure(s): US biopsy thyroid Accession Number(s): [id number] cc: SADIQ FLOYD ; Arelis Hudson M.D. ADDENDUM The [place] [id number] Patient Name: MARIANA BARNES MRN: [id number] date: 1955 Sex: M Assigned Patient Location: US Current Patient Location: US Accession/Order Number: [id number] Exam Date: 11/30/2023 07:35 Report Date: 12/09/2023 05:58 At the request of: ARELIS HUDSON Procedure: US biopsy thyroid Begin Addendum #1 COLLECTED DATE: 11/30/2023 Final Diagnosis Report for [facility] [place] Pathological Diagnosis: A. Left thyroid superior nodule, FNA cytology: -[facility] [place] [facility] is category 2: Benign B. Left thyroid inferior nodule, FNA cytology: -[facility] [place] [facility] is category 2: Benign 12/06/2023 faxed [...] <Electronically signed by Sadiq Nassar M.D.> 04/14/24 1057 Addendum Cosigned By: DD/ TD/TT: / ADDENDUM US/US biopsy thyroid IMPRESSION: Uneventful ultrasound guided biopsy of 2 separate left thyroid nodules. Electronically authenticated by: SADIQ NASSAR Date: 12/09/2023 05:58 Addendum Dictated By: Sadiq Nassar M.D. Addendum Signed By: <Electronically signed by Sadiq Nassar M.D.> 04/14/24 1057 Addendum Cosigned By: DD/ TD/TT: / The [place] [address] [address] [place], [place] [address] Patient Name: MARIANA BARNES MRN: [id number] date: 1955 Sex: M Assigned Patient Location: US Current Patient Location: US Accession/Order Number: [id number] Exam Date: 11/30/2023 07:35 Report Date: 11/30/2023 08:56 At the request of: ARELIS HUSDON Procedure: US biopsy thyroid EXAMINATION: US biopsy thyroid, US biopsy FNA [...] molecular studies pending OTHER: Negative. US/US biopsy thyroid IMPRESSION: Uneventful ultrasound guided biopsy of 2 separate left thyroid nodules. Electronically authenticated by: SADIQ NASSAR Date: 11/30/2023 08:56 Dictated By: Sadiq Nassar M.D. Signed By:11/30/23 0859 DD/ 0856 TD/TT: Stage Settings Painter: us Arelis Hudson MD [facility] Final Resul t documented in this encounter Visit Diagnoses Not on filedocumented in this encounter Care Teams Counter Professional Relationship Specialty Start Date End Date Sadiq Floyd MD [address] [place] [id number] PCP - General Family Medicine 03/18/23 documented as of this encounter
--- OUTSIDE RECORDS SUMMARY | 2025-07-17 12:31 | XMS_ITS | Encounter Summary ---
Author Organization [facility] Address [address] [place] [address] Phone Care Team Providers Care Panel Assembler Name Role Phone Unavailable Primary Care Provider Unavailabl e Encounter Details Date Type Department Care Team (Late st Contact Info) Description 11/26/2023 Scanned Document [facility] [address] [place] [id number] Scanning, Generic Provider Social History Tobacco Use Types Packs/Day Years Used Date Smoking Tobacco: Never Assessed Sex and Gender Information Value Date Recorded Sex Assigned at Not on file Legal Sex Male 9:02 PM EST Gender Identity Not on file Sexual Orientation Not on file documented as of this encounter Plan of Treatment Not on file documented as of this encounter Visit Diagnoses Not on filedocumented in this encounter
--- OUTSIDE RECORDS SUMMARY | 2025-07-17 12:31 | XMS_ITS | Encounter Summary ---
Author Organization [facility] Address [address] [place] [address] Care Team Providers Care Planer Tailer Name Role Phone Boni Quinonez MD Primary Care Provider [phone] Encounter Details Date Type Department Care Team (Late st Contact Info) Description 01/16/2025 External Result Encounter [facility] External Department Unsolicited Arelis Hudson MD [address] [facility] [address] [place] [address] Social History Tobacco Use Types [...] [facility] [address] [place] [address] Kingsley Currie, DPAnish [address] [place] [address] documented as of this encounter Procedures Procedure Name Priority Date/Time Associated Diagnosis Comments US THYROID 01/16/2025 12:17 PM EDT documented in this encounter Results * US thyroid (01/16/2025 12:17 PM EDT) Anatomical Region Laterality Modality Head, Neck Ultrasound 01/16/2025 12:1 7 PM EDT Impressions 01/16/2025 12:23 PM EDT BILATERAL PULMONARY NODULES, NOT SIGNIFICANT CHANGE. Impression dictated by: Eleonora Burns M.D.01/16/2025 12:21 PM Dictation Location: [place] [address] Tech: Henna Kaye Transcribed By: MARIELLE 01/16/25 1221 Dictated By: Eleonora Burns MD 01/16/25 1217 Signed By: <Electronically signed by MD Eleonora Burns in OV> 01/16/25 1221 Narrative 01/16/2025 12:23 PM EDT [facility] Main [place] [address] [place] [address] Ultrasound Report Signed Patient: Chaitanya Holliday MR#: [id number] : 1955 Acct:[id number] Age/Sex: 69 / M ADM Date: 01/16/25 Loc: Room: Type: [facility] Attending Dr: Arelis Hudson Jr, MD Ordering Provider: ARELIS HUDSON MD Date of Service: 01/16/25 US/US thyroid: E04.1 Copies to: ARELIS HUDSON MD THYROID ULTRASOUND CLINICAL DATA: Follow-up nodules COMPARISON: 07/05/2024 The right thyroid lobe measures 4.6 x 2.5 x 1.6 cm. The left lobe measures 4.8 x 2.2 x 2.2 cm. The isthmus measures 3 mm. Echotexture is mildly heterogeneous. There are small colloid cysts. At the mid to lower pole on the right posteriorly, there is still a hypoechoic nodule measuring 11 x 7 x 9 mm. Superficially at the same level, there is a subtle mildly heterogeneous hypoechoic nodular area measuring 11 x 7 x 12 mm. These are similar. On the left, there is a nearly isoechoic nodule with hypoechoic rim at the midpole measuring 19 x 12 x 14 mm. This is similar. At the inferior pole, there is a heterogeneous hypoechoic nodule posteriorly measuring 12 x 10 x 11 mm, also seen previously and not significantly changed. At the left midpole laterally, there is a multiseptated cystic area measuring 8 x 6 x 8 mm which is stable. US/US thyroid Procedure Note Radiology, Radiologist, - 01/16/2025 [facility] Main [place] [address] [place] [address] Ultrasound Report Signed Patient: Chaitanya Holliday SMR#: [id number] : 7Acct:[id number] Age/Sex: 69 / MADM Date: 01/16/25 Loc: Room:Type: [facility] Attending Dr: Arelis Hudson Jr, MD Ordering Provider: ARELIS HUDSON MD Date of Service: 01/16/25 US/US thyroid: E04.1 Copies to: ARELIS HUDSON MD THYROID ULTRASOUND CLINICAL DATA: Follow-up nodules COMPARISON: 07/05/2024 The right thyroid lobe measures 4.6 x 2.5 x 1.6 cm. The left lobemeasures 4.8 x 2.2 x 2.2 cm. The isthmus measures 3 mm. Echotexture is mildly heterogeneous. There aresmall colloid cysts. At the mid to lower pole on the right posteriorly, there is still a hypoechoicnodule measuring 11 x 7 x 9 mm. Superficially at the same level, there is a subtle mildlyheterogeneous hypoechoic nodular area measuring 11 x 7 x 12 mm. These are similar. On the left, there is anearly isoechoic nodule with hypoechoic rim at the midpole measuring 19 x 12 x 14 mm. This is similar.At the inferior pole, there is a heterogeneous hypoechoic nodule posteriorly measuring 12 x 10 x11 mm, also seen previously and not significantly changed. At the left midpole laterally,there is a multiseptated cystic area measuring 8 x 6 x 8 mm which is stable. US/US thyroid IMPRESSION: BILATERAL PULMONARY NODULES, NOT SIGNIFICANT CHANGE. Impression dictated by: Eleonora Burns M.D.01/16/2025 12:21 PM Dictation Location: [place] [address] Tech: Henna Restrepo Transcribed By: MARIELLE 01/16/25 1221 Dictated By: Eleonora Burns MD 01/16/25 1217 Signed By: <Electronically signed by MD Eleonora Burns in OV> 01/16/25 1221 us Arelis Hudson MD IMG US PROCEDURES Final Resul t documented in this encounter Visit Diagnoses Not on filedocumented in this encounter Care Teams Planer Tailer Relationship Specialty Start Date End Date Boni Quinonez MD [address] [place], [place] [id number] PCP - General Family Medicine 03/18/23 documented as of this encounter
--- OUTSIDE RECORDS SUMMARY | 2025-07-17 12:31 | XMS_ITS | Encounter Summary ---
Author Organization [facility] Address [address] [place] [address] Care Team Providers Care Interviewing Clerk Name Role Phone Sadiq Floyd MD Primary Care Provider [phone] Encounter Details Date Type Department Care Team (Late st Contact Info) Description 11/30/2023 Clinisync Result Encounter [facility] External Department Unsolicited Arelis Hudson MD [address] [facility] [address] [place] [address] Social History Tobacco Use Types Packs/Day Years [...] [facility] [address] [place] [address] Kingsley Currie, DPM [address] [place] [address] documented as of this encounter Procedures Procedure Name Priority Date/Time Associated Diagnosis Comments US BIOPSY THYROID 11/30/2023 8:5 6 AM EST documented in this encounter Results * US BIOPSY THYROID (11/30/2023 8:56 AM EST) Anatomical Region Laterality Modality Other 11/30/2023 8:56 AM EST Narrative 11/30/2023 8:59 AM EST The [address] [address] Ultrasound Report Signed Patient: Mariana Barnes MR#: [id number] : 1955 Acct:[id number] Age/Sex: 68 / M ADM Date: 11/30/23 Loc: US Attending Dr: Arelis Hudson M.D. Ordering Physician: Arelis Hudson M.D. Date of Service: 11/30/23 Procedure(s): US biopsy thyroid Accession Number(s): [id number] cc: SADIQ FLOYD ; Arelis Hudson M.D. The [address] [address] Patient Name: MARIANA BARNES MRN: [id number] date: 1955 Sex: M Assigned Patient Location: US Current Patient Location: US Accession/Order Number: [id number] Exam Date: 11/30/2023 07:35 Report Date: 11/30/2023 [...] M.D. Signed By: 11/30/23 0859 DD/ TD/TT: Running Instructor: Procedure Note Radiology, Radiologist, - 11/30/2023 [place] [address] Ultrasound Report Signed Patient: Mariana Barnes SMR#: [id number] : 1955cct:[id number] Age/Sex: 68 / MADM Date: 11/30/23 Loc: US Attending Dr: Arelis Hudson M.D. Ordering Physician: Arelis Hudson M.D. Date of Service: 11/30/23 Procedure(s): US biopsy thyroid Accession Number(s): [id number] cc: SADIQ FLOYD ; Arelis Hudson M.D. The [place] [address] Patient Name: MARIANA BARNES MRN: [id number] date: 1955 Sex: M Assigned Patient Location: US Current Patient Location: US Accession/Order Number: [id number] Exam Date: 11/30/2023 07:35 Report Date: 11/30/2023 [...] Sadiq Nassar M.D. Signed By:11/30/2359 DD/ TD/TT: Running Instructor: us Arelis Hudson MD [facility] Final Resul t documented in this encounter Visit Diagnoses Not on filedocumented in this encounter Care Teams Interviewing Clerk Relationship Specialty Start Date End Date Sadiq Floyd MD [address] [place] [address] PCP - General Family Medicine 03/18/23 documented as of this encounter
--- OUTSIDE RECORDS SUMMARY | 2025-07-17 12:31 | XMS_ITS | Encounter Summary ---
Author Organization [facility] Address [address] [facility] [place] [place] [address] Care Team Providers Care Sole Scraper Name Role Phone Boni Quinonez MD Primary Care Provider Encounter Details Date Type Department Care Team (Late st Contact Info) Description 03/17/2023 Abstract [facility] [address] [facility] [facility] [address] [place] [address] Pauline Connolly MA, GXMO [address] [place] [address] Social History Tobacco Use Types Packs/Day Years Used Date Smoking Tobacco: Never Smokeless Tobacco: Never Tobacco Cessation:Counseling Given: Not Answered Alcohol Use Standard Drinks/Week Comments Not Currently [...] 09/19/2025 9:00 AM EST Procedure [facility] [address] [facility] [address] [place] [address] Kingsley Currie DPM [address] [facility] [address] [place] [address] documented as of this encounter Visit Diagnoses Not on filedocumented in this encounter Care Teams Sole Scraper Relationship Specialty Start Date End Date Boni Quinonez MD [address] [place] [id number] PCP - General Family Medicine 03/18/23 documented as of this encounter
--- OUTSIDE RECORDS SUMMARY | 2025-07-17 12:31 | XMS_ITS | Clinical Summary ---
Author Organization [facility] Address [address] [place] [address] Care Team Providers Care 21 Dealer Name Role Phone Boni Quinonez MD Primary Care Provider [phone] Allergies Active Allergy Reactions Criticality Noted Date Comments Cefdinir 04/18/2024 Other Reaction(s): rash, suspected 11-07-13 Can take Augmentin 5-14 Hydrochlorothiazide 04/18/2024 Other Reaction(s): worsening renal studies / sensitivity (2013) Medications lisinopril 10 MG tablet 1 (one) time each day at the same time Active rosuvastatin (Crestor) 10 MG tablet Active tolnaftate (Tinactin) 1 % external solution Apply topically at bedtime Active fluticasone (Flonase) 50 MCG/ACT nasal sprayIndication s:Nasal congestion Administer 2 sprays into each nostril in the morning. Shake gently. Before first use, prime pump. After use, clean tip and replace cap.. 48 g 3 3 Active metoprolol succinate XL (Toprol-XL) 25 MG 24 hr tablet Take 25 mg by mouth Daily 4 Active dapagliflozin (Farxiga) 5 MG Take 5 mg by mouth Daily Active metFORMIN (Glucophage) 500 MG tablet Take 1,000 mg by mouth in the morning and 1,000 mg in the evening. Take with meals. Active glimepiride (Amaryl) 1 MG tablet Active nystatin (Mycostatin) 631687 UNIT/GM powder 4 Active Active Problems Problem Noted Date Diagnosed Date Antiplatelet or antithrombotic long-term use Arthritis 01/31/2025 Asymptomatic microscopic hematuria 01/31/2025 Benign colon polyp 01/31/2025 BPH without urinary obstruction 01/31/2025 Chronic rhinitis 01/31/2025 Elevated PSA 01/31/2025 Former smoker 01/31/2025 Hematospermia 01/31/2025 Hematuria 01/31/2025 High cholesterol 01/31/2025 Hyperlipidemia 01/31/2025 Thyroid nodule 11/19/2023 Nasal congestion 10/06/2023 Dermatophytosis of nail 03/18/2023 Deformity of toenail 03/18/2023 Callus 03/18/2023 Acquired keratoderma 03/18/2023 Left foot pain 03/18/2023 Ankle edema 03/18/2023 Asymptomatic varicose veins 03/18/2023 Fat pad atrophy of foot 03/18/2023 Hip arthritis 04/18/2013 Encounters Date Type Department Care Team Description 06/13/2025 8:45 AM EDT Procedure Visit [facility] [address] [place] [address] Kingsley Currie, DPAnish Onychomycosis [B35.1 (ICD-10-CM)]; Deformity of toenail; Type 2 diabetes mellitus without complication, without long-term current use of insulin (HCC); Localized edema 06/13/2025 Bamboo flowsheet [facility] [address] [place] [address] Kingsley Currie DPM 06/13/2025 Travel from Last 3 Months Family History Medical History Relation Name Comments Hypertension Father Osman oviedo Diabetes Mother Bernice Relation Name Status Comments Daughter x2 Father Osman oviedo Alive Mother Bernice Alive Social History Tobacco Use Types Packs/Day Years Used Date Smoking Tobacco: Former Cigarettes 1 15 Smokeless Tobacco: Never Tobacco Cessation:Counseling Given: Not [...] PM EDT Sexual Orientation Not on file Last Filed Vital Signs Vital Sign Reading Time Taken Comments Blood Pressure 130/88 01/31/2025 9:36 AM EDT Pulse 79 01/31/2025 9:36 AM EDT Temperature 36.8 C (98.2 F) 12/29/2024 11:05 AM EDT Respiratory Rate - - Oxygen Saturation - - Inhaled Oxygen Concentration - - Weight 90.7 kg (200 lb) 01/31/2025 9:36 AM EDT Height 172.7 cm (5' 8 ) 01/31/2025 9:36 AM EDT Body Mass Index 30.41 01/31/2025 9:36 AM EDT Plan of Treatment Upcoming Encounters Date Type Department Care Team (Late st Contact Info) Description 09/19/2025 9:00 AM EST Procedure Visit [facility] [address] [place] [address] Kingsley Currie DPM [address] [place] [address] Health Maintenance Due Date Last Done Comments CT Colonography 1955 Colonoscopy 1955 Colorectal Cancer Screening 1955 FIT-DNA 1955 FIT 1955 FOBT 1955 Sigmoidoscopy 1955 Pneumococcal Vaccine: 65+ Ye ars (1 of 1 - PCV) 2007 Influenza Vaccine (#1) 2025 3, 08/29/2022, 08/10/2019, Additional history exists Medical Devices Implanted Type Area Appliance Service Technician Device Identifier Shelf Expiration Date Model / Serial / Lot Stent Stent Heart Insurance MEDICARE [employer] Care Teams 21 Dealer Relationship Specialty Start Date End Date Boni Quinonez MD [address] [place] [address] [place] [address] PCP - General Family Medicine 03/18/23
--- OUTSIDE RECORDS SUMMARY | 2025-07-17 12:31 | XMS_ITS | Encounter Summary ---
Author Organization [facility] Address [address] [place] [address] Care Team Providers Care Sewing Pattern Layout Technician Name Role Phone Boni Quinonez MD Primary Care Provider [phone] Encounter Details Date Type Department Care Team (Late Contact Info) Description 08/23/2024 Abstract [facility] [address] [facility] [address] [place] [phone] [place] [address] [facility] [address] [place], [place] [phone] Social History Tobacco Use Types Packs/Day Years [...] Podiatry [address] [place] [address] Kingsley Currie DPM [address] [place] [address] documented as of this encounter Visit Diagnoses Not on filedocumented in this encounter Care Teams Sewing Pattern Layout Technician Relationship Specialty Start Date End Date Boni Quinonez MD [address] [place] [address] [place] [address] [place] [address] PCP - General Family Medicine 03/18/23 documented as of this encounter
--- OUTSIDE RECORDS SUMMARY | 2025-07-17 12:31 | XMS_ITS | Encounter Summary ---
Author Organization [facility] Address [address] [facility] [place] [address] Care Team Providers Care Senior Regulatory Affairs Specialist Name Role Phone Boni Quinonez MD Primary Care Provider [phone] Encounter Details Date Type Department Care Team (Late Contact Info) Description 08/04/2024 Orders Only N[facility] Otolaryngology [address] [facility] [address] [place] [phone] Essie Sanchez 112 [facility] [address] [place] [address] Thyroid nodule Social History Tobacco Use Types Packs/Day Years [...] 09/19/2025 9:00 AM EST Procedure Visit [facility] [address] [place] [address] Kingsley Currie DPM [address] [facility] 100 [place] [address] documented as of this encounter Visit Diagnoses Diagnosis Thyroid nodule Nontoxic uninodular goiter documented in this encounter Care Teams Senior Regulatory Affairs Specialist Relationship Specialty Start Date End Date Boni Quinonez MD [address] [place] [address] [place] [address] [place] [address] PCP - General Family Medicine 03/18/23 documented as of this encounter
--- OUTSIDE RECORDS SUMMARY | 2025-07-17 12:31 | XMS_ITS | Encounter Summary ---
Author Organization [facility] Address [address] [place] [facility] [address] Care Team Providers Care Net Development Manager Name Role Phone Boni Quinonez MD Primary Care Provider [phone] Encounter Details Date Type Department Care Team (Late Contact Info) Description 12/29/2023 Orders Only NOMMatthew Ramirez Otolaryngology [address] [facility] [address] [place] [phone] Essie Sanchez 112 [facility] [address] [place] [address] Thyroid nodule Social History Tobacco Use Types [...] Podiatry [address] [place] [address] Kingsley Currie DPM [address] [facility] 100 [place] [address] documented as of this encounter Visit Diagnoses Diagnosis Thyroid nodule Nontoxic uninodular goiter documented in this encounter Care Teams Net Development Manager Relationship Specialty Start Date End Date Boni Quinonez MD [address] [place] [address] [place] [address] [place] [address] PCP - General Family Medicine 03/18/23 documented as of this encounter
--- OUTSIDE RECORDS SUMMARY | 2025-07-17 12:31 | XMS_ITS | Clinical Summary ---
Author Organization [facility] Address [address] [place] [address] Phone Care Team Providers Care Director Of Officiating Name Role Phone Unavailable Primary Care Provider Unavailabl e Encounters Date Type Department Care Team Description 06/08/2025 2:30 PM EDT Office Visit [facility] [place] [address] [place] [address] Ha Aldrich, DPM Discharge Disposition: Home 06/08/2025 Travel 05/25/2025 12:30 PM EDT Office Visit [facility] [place] [address] [place] [address] Ha Aldrich, DPM 05/25/2025 Travel 05/11/2025 1:45 PM EDT Office Visit [facility] [place] [address] [place] [address] Radha Platt, LEONARDM 05/11/2025 Travel 05/04/2025 2:00 PM EDT Office Visit [facility] [place] [address] [place] [address] Radha Platt, DPM 05/04/2025 Travel from Last 3 Months Social History Tobacco Use Types Packs/Day Years Used Date Smoking Tobacco: Never Assessed Sex and Gender Information Value Date Recorded Sex Assigned at Not on file Legal Sex Male 9:02 PM EST Gender Identity Not on file Sexual Orientation Not on file Last Filed Vital Signs Vital Sign Reading Time Taken Comments Blood Pressure 137/84 03/31/2023 3:31 PM EDT Pulse 89 03/31/2023 3:31 PM EDT Temperature - - Respiratory Rate - - Oxygen Saturation - - Inhaled Oxygen Concentration - - Weight - - Height - - Body Mass Index - - Plan of Treatment Health Maintenance Due Date Last Done Comments CT Colonography 1955 Colonoscopy 1955 Colorectal Cancer Screening 1957 FIT-DNA (Cologuard) 1957 FIT 1957 Lipid Panel 1955 Medicare Annual Wellness Visit (AWV) 1955 Sigmoidoscopy 1955 MMR Vaccines (1 of 1 - Standard series) 1958 Diabetes Screening 1975 Hepatitis C Screening 1975 PSA Prostate Cancer Screening 2007 Pneumococcal Vaccine (1 of 1 - PCV) 2007 Zoster Vaccines (1 of 2) 2007 RSV High Risk: (Elderly (60+) or Population) (1 - Risk 60-74 years 1-dose series) 2017 COVID-19 Vaccine (3 - season) 2025 11/17/2022, 01/24/2021, 12/27/2020 Influenza Vaccine (#1) 2025 3, 08/29/2022, 08/06/2020, Additional history exists DTaP/Tdap/Td Vaccines (5 - Td or Tdap) 07/06/2033 07/06/2023, 07/06/2023, 12/23/2015, Additional history exists HIB Vaccines Aged Out No longer eligi ble based on patient's age to complete this topic HPV Vaccines Aged Out No longer eligi ble based on patient's age to complete this topic Hepatitis A Vaccines Aged Out No long er eligible based on patient's age to complete this topic Hepatitis B Vaccines Aged Out No long er eligible based on patient's age to complete this topic IPV Vaccines Aged Out No longer eligi ble based on patient's age to complete this topic Meningococcal Vaccine Aged Out No sidney artemio eligible based on patient's age to complete this topic Rotavirus Vaccines Aged Out No longer eligible based on patient's age to complete this topic Insurance MEDICARE PART A AND B Member Subscriber Plan / Payer (Ef fective 2022-) Name:Chaitanya Holliday Member ID:[id number] Relation to Subscriber:Self Name:Chaitanya Holliday Subscriber ID:[id number] Payer ID:Not on file Group ID:Not on file Type:Not on file Address: [address] SENIOR SUPPLEMENT MEDICARE PART A AND B Member Subscriber Plan / Payer (Ef fective 2022-) Name:Chaitanya Holliday Member ID:[id number] Relation to Subscriber:Self Name:Chaitanya Holliday Subscriber ID:[id number] Payer ID:Not on file Group ID:Not on file Type:Not on file Address: [address] SENIOR SUPPLEMENT
--- OUTSIDE RECORDS SUMMARY | 2025-07-17 12:31 | XMS_ITS | Encounter Summary ---
Author Organization [facility] Address [address] [place] [address] Care Team Providers Care General Scrap Worker Name Role Phone Boni Quinonez Radha ASKEW Primary Care Provider [phone] Source Comments In the event this information is protected by the Federal Confidentiality of Alcohol and Drug AbusePatient Records regulations: The Federal rules restrict any use of the information to criminally investigate or prosecute any alcohol or drug abuse patient.[facility] Encounter Details Date Type Department Care Team (Late st Contact Info) Description 06/11/2014 Patient Ms Medical Records [address] [place] [address] Provider, [facility] Procedure Social History Tobacco Use Types Packs/Day Years [...] hearing? Answer Date of Assessment Author No 06/11/2014 1:25 PM EDT Cecilia Oliver MA * Are you blind or do you have serious difficulty seeing, even when wearing glasses? Answer Date of Assessment Author No 06/11/2014 1:25 PM EDT Cecilia Oliver MA * Do you have serious difficulty walking or climbing stairs? Answer Date of Assessment Author No 06/11/2014 1:25 PM EDT Cecilia Oliver MA * Do you have difficulty dressing or bathing? Answer Date of Assessment Author No 06/11/2014 1:25 PM EDT Cecilia Oliver MA * Because of a physical, mental, or emotional condition, do you have difficulty doing errands alone such as visiting a doctor's office or shopping? Answer Date of Assessment Author No 06/11/2014 1:25 PM EDT Cecilia Oliver MA documented as of this encounter Mental Status * Because of a physical, mental, or emotional condition, do you have serious difficulty concentrating, remembering, or making decisions? Answer Entry Date Author No 06/11/2014 1:25 PM EDT Cecilia Oliver MA documented in this encounter Plan of Treatment Upcoming Encounters Date Type Department Care Team (Late st Contact Info) Description 07/18/2025 8:30 AM EDT Office Visit Radiation Oncology [address] [place] [address] [place] [address] Osorio Molina MD [address] [place] [address] [place] [address] Volume Study 08/01/2025 1:00 PM EDT Office Visit Radiation Oncology [address] [place] [address] [place] [address] Osorio Molina MD [address] [place] [address] [place] [address] Seed Implant at [facility] 08/15/2025 11:15 AM EDT Office Visit Radiation Oncology [address] [place] [address] [place] [address] Osorio Molina MD [address] [place] [address] [place] [address] Follow up 08/29/2025 8:00 AM EST Appointment Radiology Pet CT [address] [place] [address] [place] [address] scan 09/12/2025 9:00 AM EST Office Visit Radiation Oncology [address] [place] [address] [place] [address] Osorio Molina MD [address] [place] [address] [place] [address] Follow up documented as of this encounter Visit Diagnoses Not on filedocumented in this encounter Care Teams General Scrap Worker Relationship Specialty Start Date End Date Boni Quinonez DO [address] [place] [address] PCP - General 01/27/08 documented as of this encounter
[2025-07-17 13:27] LABS: Hematocrit 46.8 % (42.0-54.0); Hemoglobin 16.1 g/dL (14.0-18.0); Immature Granulocytes Abs Auto 0.04 10^3/uL (0.00-0.03); Immature Granulocytes Pct Auto 0.4 % (0.0-0.5); Lymphocytes Absolute Auto 1.5 10^3/uL (1.2-3.8); Mean Corpuscular HGB Conc 34.4 g/dL (29.9-35.2); Mean Corpuscular Hemoglobin 33.1 pg (25.9-34.0); Mean Corpuscular Volume 96.1 fL (80.0-94.0); Platelet Count 301 10^3/uL (150-450); Red Blood Count 4.87 10^6/uL (4.70-6.10); White Blood Count 9.4 10^3/uL (4.0-11.0)
[2025-07-17 13:37] LABS: Anion Gap 13.2; Blood Urea Nitrogen 13.0 mg/dL (7.0-18.0); Calcium 9.0 mg/dL (8.5-10.1); Carbon Dioxide 23.8 mmol/L (21.0-32.0); Chloride 102 mmol/L (98-107); Estimated GFR (African America >60 (>=60 mL/min/1.73m^2); Estimated GFR (Non-African Ame >60 (>=60 mL/min/1.73m^2); Glucose 123 mg/dL (74-106); Potassium 4.0 mmol/L (3.5-5.1); Sodium 135 mmol/L (136-145)
[2025-07-17 14:23] LABS: INR 0.94; Partial Thromboplastin Time 29.4 sec (22.3-36.2); Prothrombin Time 10.0 sec (9.0-11.6)
[2025-07-17 14:58] LABS: Glucose Urine UA >=1000 mg/dL (NEGATIVE)
== END 2025-07-17 12:21 | disposition home or self-care (01) ==
LOC: PST 12:22
PROVIDERS: PCP Family Medicine; Visit Provider Urology
DX: Z01.810 Encounter for preprocedural cardiovascular examination (principal); Z01.812 Encounter for preprocedural laboratory examination; C61 Malignant neoplasm of prostate
CPT/HCPCS: 36415; 80048; 81003; 85025; 85610; 85730; 93005

== ENCOUNTER 2025-08-01 12:51 | Day surgery (SDC) | payer MEDICARE, SELFPAY ==
[2025-07-17 12:41] VITALS: BP 139/83; PULSE 64; TEMP 36.3; O2SAT 96; BMI 29.7
[2025-08-01] VITALS (12 sets, daily range): BP systolic 112–132; BP diastolic 77–84; PULSE 78–95; TEMP 36.1–36.2; O2SAT 94–98; BMI 29.2
--- NOTE | 2025-08-01 | XR_ITS ---
[address] [address] Patient Name: MARIANA BARNES MRN: [id number] date: 1955 Sex: M Assigned Patient Location: SURGOUT Current Patient Location: Accession/Order Number: [id number] Exam Date: 08/01/2025 15:15 Report Date: 08/02/2025 00:20 At the request of: JUANI GAO MD Procedure: XR pelvis 1-2V XR pelvis 1-2V 08/01/2025 4:07 PM SIGNS AND SYMPTOMS: ^Prostate seed implant PROTOCOL: Intraoperative views of the pelvis COMPARISON: None FINDINGS: Intraoperative view of the pelvis demonstrates radiation seed placement within the prostate. Cumulative Air Kerma in mGy: 13.66 mGy XR/XR pelvis 1-2V IMPRESSION: Intraoperative view of the pelvis demonstrates radiation seed placement within the prostate. Impression dictated by: Mariana Schmidt M.D. 08/02/2025 12:20 AM Dictation Location: [place] [address] Electronically authenticated by: [id number] Y Date: 08/02/2025 00:20
--- OUTSIDE RECORDS SUMMARY | 2025-08-01 13:04 | XMS_ITS | CCD ---
Author Organization [facility] CliniSyct Care Team Providers Care [employer] Admissions Representative Name Role Phone Sadiq Floyd Unavailable Ike Loyola Unavailable Lisa Grijalva Unavailable DO Sadiq Floyd Primary Care Provider DO Sadiq Floyd Attending Provider [phone] Sadiq Floyd Primary Care Physician Unknown, Referring Provider Unavailable Unav ailable DO Sadiq Floyd Primary Care Provider DO Sadiq Floyd Attending Provider MD Susanna Paulino Attending Provider Self, Referral Referring Unavailable Dr. Luis Eduardo Guallpa Attending Unavailable UNKNOWN, PCP Primary Care Unavailable Dr. Luis Eduardo Guallpa Attending Unavailable UNKNOWN, PCP Primary Care Unavailable Sandeep Cantor Unavailable DO Sadiq Floyd Primary Care Provider DO Sadiq Floyd Attending Provider [phone] DO Chao Grullon Emergency Provider DO Estevan Reyes Admit Provider DO Estevan Reyes Attending Provider ARIEL Yeboah-ALEKSANDRA Dempsey Attending Provider [phone] Felipe Carlson Unavailable MD Felipe Carlson Attending Provider Sadiq Floyd MD Primary Care Provider MD Arelis Ramirez Jr Attending Provider GEETA Schaffer Attending Provider DO Sadiq Floyd Primary Care Provider MD Felipe Carlson Attending Provider DO Sadiq Floyd Primary Care Provider MD Felipe Carlson Attending Provider DO Sadiq Floyd Primary Care Provider DO Sadiq Floyd Attending Provider MD Felipe Carlson Attending Provider MD Felipe Carlson Attending Provider MD Wilfrid Cruz II Attending Provider [phone] MD Felipe Carlson Attending Provider MD Felipe Carlson Attending Provider MD Arelis Ramirez Jr Attending Provider MD Susanna Ya Attending Provider [phone] [facility] Attending Provider [phone] DO Sadiq Floyd Primary Care Provider DO Sadiq Floyd Primary Care Provider MD Arelis Ramirez Jr Attending Provider MD Susanna Ya Attending Provider David [facility] Samantha Attending Provider Sadiq Floyd DO Primary Care Provider [phone] [facility] Samantha Attending Provider Arelis Ramirez MD Attending Provider Sadiq Mota MD Primary Care Provider Sadiq Floyd MD Primary Care Provider Sadiq Floyd MD Primary Care Provider Susanna Paulino MD Attending Provider Susanna Paulino Attending Unavailable Susanna Paulino Attending Unavailable Samantha Recinos Attending Unavailable LueSusanna Attending Unavailable LueSusanna Attending Unavailable LueSusanna Attending Unavailable LueSusanna Attending Unavailable LueSusanna MBenigno Attending Unavailable LueSusanna MBenigno Referring Unavailable Susanna Paulino Admitting Unavailable SADIQ FLOYD Primary Care Unavailable Sadiq Floyd DO Primary Care Provider [phone] Wilfrid Cruz MD Attending Provider Sadiq Floyd DO Attending Provider Felipe Carlson MD Attending Provider Jacinta Davison DO Attending Provider [phone] Sadiq Floyd DO Primary Care Provider Unavailable Primary Care Provider Unavailjuani e Sadiq Floyd DO Primary Care Provider Wilfrid Cruz MD Attending Provider Sadiq Floyd DO Primary Care Provider Sadiq Floyd DO Attending Provider Choujaa DO, Nidal N Emergency Provider [phone] Susanna Paulino Attending Unavailable Susanna Paulino Attending Unavailable Sadiq Floyd DO Primary Care Provider [phone] Luis Eduardo Angel Attending Provider Unavailab RADHA Mcelroy Attending Unavailabl e RADHA SHIPMAN Attending Unavailabl e RADHA SHIPMAN Attending Unavailabl e QUINN ALDRICH Attending Unavailable QUINN ALDRICH Attending Unavailable KUBITZ, KINGSLEY R Attending Unavailable KUBITZ, KINGSLEY R Attending Unavailable KUBITZ, KINGSLEY R Attending Unavailable KUJEFFREYZ, KINGSLEY R Attending Unavailable TIMMISARELIS H Attending Unavailable KUBITZ, KINGSLEY R Attending Unavailable TIMMIS, ARELIS H Attending Unavailable KUBITZ, KINGSLEY R Attending Unavailable KUBITZ, KINGSLEY R Attending Unavailable KUBITZ, KINGSLEY R Attending Unavailable Sadiq Floyd DO Primary Care Provider Sadiq Floyd DO Other Provider Susanna Paulino MD Attending Provider Sadiq Floyd DO Primary Care Provider [phone] Sadiq Floyd DO Attending Provider [phone] Osorio ARTEAGA Attending Unavailable Osorio ARTEAGA Referring Unavailable SADIQ FLOYD Primary Care Unavailable Osorio ARTEAGA Referring Unavailable SADIQ FLOYD Primary Care Unavailable Osorio ARTEAGA Attending Unavailable SADIQ FLOYD Primary Care Unavailable Osorio ARTEAGA Attending Unavailable SUSANNA PAULINO M Referring Unavailable SADIQ FLOYD Primary Care Unavailable Felipe Carlson MD Attending Provider Cee Laureano MD Attending Provider [phone] Sadiq Floyd Attending Unavailable Sadiq Floyd Admitting Unavailable Sadiq Floyd Primary Care Unavailable Devi, Sadiq Primary Care Unavailable Jefferson Susanna M Admitting Unavailable Susanna Paulino Attending Unavailable Sadiq Floyd Primary Care Unavailable Timmis , Arelis H Admitting Unavailable Tristan Amaya, Arelis H Attending Unavailable Sadiq Floyd Primary Care Unavailable OrSamantha pat Admitting Unavailable Samantha Recinos Attending Unavailable Sadiq Floyd Primary Care Unavailable Sadiq Floyd Attending Unavailable Sadiq Floyd Admitting Unavailable Roberto, Nidal N Attending Unavailable Devi, Sadiq Primary Care Unavailable Roberto, Nidal N Admitting Unavailable Cee Laureano Admitting Unavailable Cee Laureano Attending Unavailable Sadiq Floyd Primary Care Unavailable Devi, Sadiq Primary Care Unavailable Orzech, Samantha Admitting Unavailable Grisel Samantha Attending Unavailable Sadiq Floyd Consulting Unavailable Sadiq Floyd Primary Care Unavailable Lue, Susanna M Admitting Unavailable Susanna Paulino M Attending Unavailable Sadiq Floyd Attending Unavailable Sadiq Floyd Admitting Unavailable Sadiq Floyd Primary Care Unavailable Allergies Allergy Classification Reported Allergen(s) Allergy Type Date of Onset Reaction(s) Facility Cephalosporins (antibiotic) (1 source) cefdinir Drug Allergy rash, suspected 11-07-13 Can take Augmentin - [facility] hydroCHLOROthiazide (1 source) hydroCHLOROthiazide Drug Allergy worsening renal studies / sensitivity (2013) [facility] (20 sources) cefdinir; Translations: [cefdinir] Drug Allergy Unknown (qualifier value), Hives [facility] (20 sources) hydroCHLOROthiazide; Translations: [hydrochlorothiazide] Drug Allergy Unknown (qualifier value), Unknown [facility] (20 sources) cefdinir Drug Allergy [facility] (20 sources) hydroCHLOROthiazide Drug Allergy [facility] (3 sources) No Known Medication Allergies; Translations: [No Known Medication Allergies] Propensity to adverse reactions (disorder) [facility] Repository (1 source) ALLERGIES NOT ON FILE; Translations: [ALLERGIES NOT ON FILE] Propensity to adverse reactions (disorder) [facility] Repository (1 source) cefdinir Drug Allergy [facility] Repository (1 source) hydroCHLOROthiazide Drug Allergy [facility] Repository Medications Current Medications Medication Drug Class(es) Dates Sig (Normalized) Sig (Original) 3 ML semaglutide 1.34 MG/ML Pen Injector [Ozempic] (16 sources) Start: 01-22-2022 inject 1 mg by subcutaneous injection every week Ozempic (1 MG/DOSE) 4 MG/3ML 1 mg as directed Subcutaneous weekly for 30 day(s) Jan, Active Start: 01-22-2022 inject 1 mg by subcu taneous injection every week Ozempic (1 MG/DOSE) 4 MG/3ML 1 mg as directed Subcutaneous weekly Jan, Active Start: 01-22-2022 inject 1 mg by subcu taneous injection every week Ozempic (1 MG/DOSE) 4 MG/3ML 1 mg as directed Subcutaneous weekly for 30 days Jan, Active inject 1 mg by subcu taneous injection every week Ozempic (1 MG/DOSE) 4 MG/3ML INJECT 1MG SUBUTANEOUSLY ONCE A WEEK DIRECTED for 28 Not-Taking inject 1 mg by subcu taneous injection every week Ozempic (1 MG/DOSE) 4 MG/3ML INJECT 1MG SUBUTANEOUSLY ONCE A WEEK DIRECTED for 28 Active inject 1 mg by subcu taneous injection every week Ozempic (1 MG/DOSE) 4 MG/3ML INJECT 1 MG DIRECTED SUBCUTANEOUSLY ONCE A WEEK Active acetaminophen 325 mg / HYDROcodone bitartrate 5 mg oral tablet (2 sources) Opioid Agonist Start: 12-19-2024 End: 12-20-2024 take 1 tablet by mouth every six hours for pain HYDROcodone-acetaminophen ([place]) 5-325 MG tablet Indications: Callus , Acquired keratoderma , Left foot pain Take 1 tablet by mouth every 6 (six) hours if needed for severe pain for up to 1 day 4 tablet 12/19/2024 12/20/2024 Active azithromycin 250 mg oral tablet (6 sources) Macrolide Antimicrobial Start: 09-16-2023 Azithromycin 250 MG 2 tablets on day 1 Orally then take 1 tablet daily on days 2-5 for 5 days Aug, Active Start: 01-22-2023 take 1 tablet by magda every twenty-four hours Azithromycin 500 MG 1 tablet Orally qd for 5 days Jan, Active B Complex - (20 sources) Start: 01-29-2017 take [address] [facility] once daily B Complex - one capsule Orally once a day Jan, Active Start: 01-29-2017 Start: 01-29-2017 B Complex - as directed Orally Jan, Active Zyrtec (7 sources) Histamine-1 Receptor Antagonist Start: 11-06-2022 Zyrtec Daily, Refill s(s) 0 Start Date: 11/06/22 Status: Ordered Repeat number: 1 Start: 11-06-2022 Zyrtec Daily, Refills(s) 0 Start Date: 11/06/22 Status: Ordered CoQ10 (7 sources) Start: 11-06-2022 CoQ10 Oral, Da evita, Refills(s) 0 Start Date: 11/06/22 Status: Ordered Repeat number: 1 Start: 11-06-2022 CoQ10 Oral, Da evita, Refills(s) 0 Start Date: 11/06/22 Status: Ordered [facility] Fluticasone Propionate 5 0 MCG/ACT (15 sources) take 2 spray(s) nasal route once daily [facility] Fluticasone Propionate 50 MCG/ACT SPRAY TWO SPRAYS INTO EACH NOSTRIL DAILY for 90 Active dapagliflozin 5 mg oral tablet (20 sources) Sodium-Glucose Cotransporter 2 Inhibitor Start: 06-08-2025 End: 07-16-2025 take 1 tablet by mouth once daily Start: 06-01-2025 End: 06-08-2025 take 1 tablet by mouth once daily Dapagliflozin Propanediol (Farxiga) 5 mg tablet Discontinued 0 .ROUTE .COMPLEX June 01, 2025 8:55am June 08, 2025 11:46am TAKE 1 TABLET BY MOUTH EVERY DAY Start: 08-22-2024 End: 06-01-2025 take 1 tablet by mouth once daily Dapagliflozin Propanediol (Farxiga) 5 mg tablet Discontinued 5 MG PO Daily August 22, 2024 11:37am June 01, 2025 8:55am Start: 05-22-2024 End: 08-22-2024 take 1 tablet by mouth once daily Dapagliflozin Propanediol (Farxiga) 5 mg tablet Discontinued 0 .ROUTE .COMPLEX May 22, 2024 8:43am August 22, 2024 11:39am TAKE 1 TABLET BY MOUTH EVERY DAY Start: 01-17-2024 End: 03-06-2024 take 1 tablet by mouth once daily Dapagliflozin Propanediol (Farxiga) 5 mg tablet Discontinued 0 .ROUTE .COMPLEX January 17, 2024 8:52am March 06, 2024 9:11am TAKE 1 TABLET BY MOUTH EVERY DAY Start: 09-29-2023 End: 01-17-2024 take 1 tablet by mouth every other day Dapagliflozin Propanediol (Farxiga) 5 mg tablet Discontinued 5 MG PO every other day September 29, 2023 1:00am January 17, 2024 8:52am Start: 03-16-2023 End: 05-22-2024 take 1 tablet by mouth once daily Dapagliflozin Propanediol (Farxiga) 5 mg tablet Discontinued 5 MG PO Daily March 06, 2024 9:10am May 22, 2024 8:43am diazePAM 10 mg oral tablet (6 sources) Benzodiazepine Start: 02-28-2025 Valium 10 mg T ab 10 mg = 1 tab(s), Oral, Once, PRN for anxiety, Take 1 hour prior to the procedure., # 1 tab(s), Refills(s) 0, Pharmacy: [facility]/pharmacy #[id number], 173, cm, 01/17/25 10:02:00 EDT, Height/Length Dosing, 91.1, kg, 01/17/25 10:02:00 EDT, Weight Dosing Start Date: 02/28/25 Status: Ordered Quantity: 1.0 Unit: tab(s) Repeat number: 1 Start: 12-19-2024 End: 01-18-2025 take 1 tablet by mouth once diazePAM (Valium) 5 MG tab let Indications: Pre-operative examination Take 1 tablet (5 mg) by mouth 1 (one) time for 1 dose 1 tablet 12/19/2024 01/18/2025 Discontinued Fish Oils (20 sources) Start: 06-25-2021 Fish Oil Oral, Refill(s) 0 Start Date: 06/25/21 Status: Ordered Repeat number: 1 Start: 06-25-2021 Fish Oil Oral, Refill(s) 0 Start Date: 06/25/21 Status: Ordered take 1 capsule by mo uth once daily as needed Fish Oil 1000 MG 1 Capsule Orally Daily Not-Taking/PRN take 1 capsule by mo uth once daily Fish Oil 1000 MG 1 Capsule Orally Daily Active fluticasone propionate 0.05 mg/actuat metered dose nasal spray (20 sources) Corticosteroid Start: 03-06-2024 Start: 11-26-2023 End: 03-06-2024 take 2 spray(s) nasal route once daily Fluticasone Propionate 50 mcg/actuation spray,suspension Discontinued INTRANASAL November 26, 2023 1:00am March 06, 2024 9:09am FreeTextSig: USE 2 SPRAYS IN EACH NOSTRIL DAILY; Note: Source Status: Not-TakingundefinedPRN; Refills: 4; Qty: 48 Milliliter; Provider: Devi Plata ( ) Start: 10-06-2023 fluticasone (F LONASE) 50 mcg/actuation nasal spray 2 sprays. 10/06/2023 Active Start: 10-06-2023 End: 10-05-2024 take 2 spray(s) nasal route in the morning fluticasone (Flonase) 50 MCG/ACT nasal spray Indications: Nasal congestion Administer 2 sprays into each nostril in the morning. Shake gently. Before first use, prime pump. After use, clean tip and replace cap.. 48 g 3 10/06/2023 Active Start: 11-06-2022 Flonase Daily, Refill(s) 0 Start Date: 11/06/22 Status: Ordered Repeat number: 1 Start: 11-06-2022 Flonase Daily, Refill(s) 0 Start Date: 11/06/22 Status: Ordered take 2 spray(s) nasa l route once daily as needed Fluticasone Propionate 50 MCG/ACT USE 2 SPRAYS IN EACH NOSTRIL DAILY for 90 Not-Taking/PRN take 2 spray(s) nasa l route once daily Fluticasone Propionate 50 MCG/ACT USE 2 SPRAYS IN EACH NOSTRIL DAILY for 90 Active glimepiride 1 mg oral tablet (20 sources) Sulfonylurea Start: 04-18-2024 End: 04-16-2025 take 1 tablet by mouth once daily lisinopril 10 mg oral tablet (20 sources) Angiotensin Converting Enzyme Inhibitor Start: 06-08-2025 End: 07-16-2025 take 1 tablet by mouth once daily Start: 02-09-2025 End: 06-08-2025 take 1 tablet by mouth once daily Lisinopril 10 mg tablet Discontinued 0 .ROUTE .COMPLEX February 09, 2025 7:57am June 08, 2025 11:46am TAKE 1 TABLET BY MOUTH EVERY DAY Start: 08-22-2024 End: 02-09-2025 take 1 tablet by mouth once daily Lisinopril 10 mg tablet Discontinued 10 MG PO Daily August 22, 2024 11:39am February 09, 2025 7:57am Start: 05-01-2024 End: 08-22-2024 take 1 tablet by mouth once daily Lisinopril 10 mg tablet Discontinued 0 .ROUTE .COMPLEX May 01, 2024 10:38am August 22, 2024 11:40am TAKE 1 TABLET BY MOUTH EVERY DAY Start: 10-14-2021 End: 05-01-2024 take 1 tablet by mouth once daily Lisinopril 10 mg tablet Discontinued 10 MG PO Daily October 14, 2021 1:00am May 01, 2024 10:39am Start: 06-25-2021 take 1 mg by mouth once daily lisinopril 5 mg Tab mg tab(s), Oral, Daily, Refills(s) 0 Start Date: 06/25/21 Status: Ordered Repeat number: 1 LORazepam 0.5 mg oral tablet (20 sources) Benzodiazepine Start: 08-22-2024 Start: 02-16-2022 Ativan 0.5 MG 1 tablet Orally q8-12 hours prn February, Active meloxicam 15 mg disintegrating oral tablet (20 sources) Nonsteroidal Anti-inflammatory Drug Start: 05-13-2023 meloxicam 15 mg o ral tablet, disintegrating Start Date: 05/13/23 Status: Ordered Start: 09-26-2021 End: 11-19-2023 take 1 tablet by mouth once daily Meloxicam 15 mg tablet Discontinued 15 MG PO Daily October 14, 2021 1:00am November 18, 2023 10:20am On Hold: Resume on 10/31/23. metFORMIN hydrochloride 500 mg oral tablet (20 sources) Biguanide Start: 08-22-2024 End: 07-16-2025 take 2 tablets by mouth twice daily at mealtime Start: 08-22-2024 take 1000 mg by mout h twice daily at mealtime Metformin Active 1000 MG PO Twice daily 360 August 22, 2024 10:40am with food Start: 07-21-2024 End: 08-22-2024 take 2 tablets by mouth once in the morning Metformin 500 mg tablet Discontinued 0 .ROUTE .COMPLEX 360 July 21, 2024 8:02am August 22, 2024 11:42am TAKE 2 TABLETS BY MOUTH ONCE IN THE MORNING AND 2 TABLETS IN THE EVENING Start: 07-21-2024 End: 08-22-2024 take 2 tablets by mouth once in the morning Metformin Discontinued 0 .ROUTE .COMPLEX 360 July 21, 2024 7:02am August 22, 2024 10:42am TAKE 2 TABLETS BY MOUTH ONCE IN THE MORNING AND 2 TABLETS IN THE EVENING Start: 10-14-2021 take 100 mg by mouth twice salvador ly Metformin Active 100 MG PO Twice daily October 14, 2021 12:00am Start: 06-25-2021 End: 07-21-2024 take 1 tablet by mouth twice daily Metformin 500 mg tablet Discontinued 500 MG PO Twice daily October 14, 2021 1:00am July 21, 2024 8:02am MiraLax 17 GM/SCOOP (8 sources) Start: 11-16-2022 MiraLax 17 GM/ SCOOP 1 capful in 10 oz of water Orally qd as directed Oct, Active nystatin 100 unt/mg topical powder (20 sources) Polyene Antifungal Start: 03-22-2024 nystatin (M ycostatin) 877455 UNIT/GM powder 03/22/2024 Active Start: 03-22-2024 nystatin (Myco statin) 198010 UNIT/GM powder APPLY TO AFFECTED AREA EVERY 12 HOURS 03/22/2024 Active Start: 11-19-2022 nystatin (Myco statin) 753338 UNIT/GM powder every 12 (twelve) hours. 0 11/19/2022 Active nystatin (MYCOST ATIN) powder Apply 1 application to affected area as directed. Active Ozempic (1 mg dose) (1 source) Start: 11-06-2022 inject 1 mg by subcutaneous injection every week Ozempic (1 mg dose) mg, SubCutaneous, qWeek, Refills(s) 0 Start Date: 11/06/22 Status: Ordered polyethylene glycol 3350 84187 mg powder for oral solution (20 sources) Osmotic Laxative Start: 03-30-2025 Start: 11-16-2022 MiraLax 17 GM/ SCOOP 1 capful in 10 oz of water Orally qd as directed prn Oct, Not-Taking/PRN ProAir HFA 108 (90 Base) MCG/ACT (15 sources) Start: 01-17-2018 ProAir HFA 108 (90 Base) MCG/ACT 2 inhalations Inhalation q4 hrs prn Jan, Active rosuvastatin calcium 10 mg oral tablet (20 sources) HMG-CoA Reductase Inhibitor Start: 06-08-2025 take 1 tablet by mouth once daily Start: 12-04-2024 End: 06-08-2025 take 1 tablet by mouth once daily Rosuvastatin 10 mg tablet Discontinued 0 .ROUTE .COMPLEX December 04, 2024 11:36am June 08, 2025 11:46am TAKE 1 TABLET BY MOUTH EVERY DAY Start: 12-13-2023 End: 03-06-2024 take 1 tablet by mouth once daily Rosuvastatin 10 mg tablet Discontinued 0 .ROUTE .COMPLEX December 13, 2023 2:00pm March 06, 2024 9:12am TAKE 1 TABLET BY MOUTH EVERY DAY Start: 08-28-2014 End: 12-04-2024 take 1 tablet by mouth once daily Rosuvastatin 10 mg tablet Discontinued 10 MG PO Daily March 06, 2024 9:11am December 04, 2024 11:36am tadalafil 10 mg oral tablet (15 sources) Phosphodiesterase 5 Inhibitor Start: 04-03-2025 take 1 tablet by magda once daily as needed Tadalafil (CIALIS) 10 mg tablet Take 10 mg by mouth once daily as needed. Active tamsulosin hydrochloride 0.4 mg oral capsule (16 sources) alpha-Adrenergic Ann Marie Start: 04-05-2025 End: 03-31-2026 take 1 capsule by mouth once daily Testosterone 20.25 mg/1.25 gram (1.62 %) gel in metered-dose pump (3 sources) Start: 08-22-2024 Testosterone 20.25 mg/1.25 gram (1.62 %) gel in metered-dose pump Active TOPICAL Daily August 22, 2024 1:00am tolnaftate 10 mg/ml topical solution (20 sources) tolnaftate (TINACTIN) 1 % external solution Apply to affected area. Active Vitamin B Complex oral capsule (7 sources) Start: 11-06-2022 take 1 capsule by mouth once daily Vitamin B Complex oral capsule Oral, Daily, Refill(s) 0 Start Date: 11/06/22 Status: Ordered Repeat number: 1 Start: 11-06-2022 Vitamin B Comp rosalinda oral capsule Oral, Daily, Refill(s) 0 Start Date: 11/06/22 Status: Ordered Vitamin C 500 MG (20 sources) Start: 01-29-2017 Start: 01-29-2017 Vitamin C 500 MG as directed Orally Jan, Active Vitamin D (20 sources) Start: 06-25-2021 Vitamin D Inte rnational_Unit, Oral, qWeek, Refills(s) 0 Start Date: 06/25/21 Status: Ordered Repeat number: 1 Start: 06-25-2021 Vitamin D Inte rnational_Unit, Oral, qWeek, Refills(s) 0 Start Date: 06/25/21 Status: Ordered Vitamin D Active Zinc (20 sources) Start: 05-13-2023 take 1 mg by mouth o nce daily Zinc mg, Oral, Daily, Refills(s) 0 Start Date: 05/13/23 Status: Ordered Repeat number: 1 Start: 05-13-2023 take 1 mg by mouth once daily Zinc mg, Oral, Daily, Refills(s) 0 Start Date: 05/13/23 Status: Ordered Start: 10-14-2021 End: 06-02-2025 take 1 tablet by mouth once daily Zinc 50 mg Tablet Discontinued 50 MG PO Daily October 14, 2021 1:00am June 02, 2025 4:55pm Start: 10-14-2021 take 1 tablet by magda th once daily Zinc 50 mg Tablet Active 50 MG PO Daily October 14, 2021 1:00am Complies with drug therapy Start: 10-14-2021 take 1 tablet by magda th once daily Start: 10-14-2021 take 1 tablet by magda th once daily Zinc 50 mg Tablet Active 50 MG PO Daily October 14, 2021 1:00am Start: 10-14-2021 take 50 mg by mouth once daily Zinc Active 50 MG PO Daily October 14, 2021 12:00am Start: 10-14-2021 take 50 mg by mouth once daily Zinc Active 50 MG PO Daily October 14, 2021 1:00am Zinc Active zinc gluconate 50 mg oral tablet (7 sources) take 1 tablet by magda th every twenty-four hours Zinc 50 MG 1 tablet Orally Once a day Active Completed/Discontinued Medications Medication Drug Class(es) Dates Sig (Normalized) Sig (Original) acetaminophen 325 mg / oxyCODONE hydrochloride 5 mg oral tablet (8 sources) Opioid Agonist Start: 06-02-2025 End: 07-02-2025 take 1 tablet by mouth every six hours as needed for pain Oxycodone-Acetamin ophen (Percocet) 5-325 mg tablet Discontinued 1 TAB PO Every 6 hours as needed for pain 12 3 June 02, 2025 July 02, 2025 2:15pm albuterol 0.83 mg/ml inhalation solution (20 sources) beta2-Adrenergic Agonist Start: 11-29-2023 End: 12-02-2023 take 3 mL by inhalation three to four times daily Albuterol Sulfate 2.5 mg /3 mL (0.083 %) solution for nebulization Discontinued MG INHALATION November 29, 2023 1:00am December 02, 2023 9:29am FreeTextSiml Inhalation 3-4 times a day; Note: Source Status: Not-Takingundefine dPRNprn; Provider: Devi Garcia Start: 10-13-2022 Albuterol Sulf ate HFA 108 (90 Base) MCG/ACT 2 inhalations Inhalation every 4 hrs Sep, Active Start: 10-13-2022 Albuterol Sulf ate HFA 108 (90 Base) MCG/ACT 2 inhalations Inhalation every 4 hrs Sep, Active Start: 10-13-2022 Albuterol Sulf ate HFA 108 (90 Base) MCG/ACT 2 inhalations Inhalation every 4 hrs Sep, Not-Taking/PRN Start: 01-17-2018 ProAir HFA 108 (90 Base) MCG/ACT 2 inhalations Inhalation q4 hrs prn Jan, Active Start: 01-17-2018 Albuterol Sulfate (2.5 MG/ 3 ML) 2.5 MG/3ML 0.083% Nebulization Solution (20 sources) Start: 01-03-2020 Albuterol Sulf ate (2.5 MG/ 3 ML) 2.5 MG/3ML 0.083% Nebulization Solution 3ml Inhalation 3-4 times a day prn Dec, Not-Taking/PRN Start: 01-03-2020 Start: 01-03-2020 Albuterol Sulf ate (2.5 MG/ 3 ML) 2.5 MG/3ML 0.083% Nebulization Solution 3ml Inhalation 3-4 times a day prn Dec, Active amoxicillin 875 mg / clavulanate 125 mg oral tablet (20 sources) Penicillin-class Antibacterial Start: 04-04-2025 End: 04-16-2025 take 1 tablet by mouth twice daily Amoxicillin-Pot Clavulanate 875-125 mg tablet Discontinued 1 TAB PO Twice daily 06 08April 04, 2025 12:00am April 16, 2025 9:59am Start: 10-07-2024 End: 10-17-2024 take 1 tablet by mouth twice daily Amoxicillin-Pot Clavulanate 875-125 mg tablet Discontinued 1 TAB PO Twice daily 06 08October 07, 2024 1:00am October 17, 2024 10:52am Start: 10-13-2022 take 1 tablet by magda twice daily at mealtime Amoxicillin-Pot Clavulanate 875-125 MG 1 tablet Orally bid with food for 10 day(s) Sep, Not-Taking ascorbic acid 1000 mg oral tablet (20 sources) Vitamin C Start: 04-18-2024 End: 06-02-2025 take 1 g by mouth once daily Ascorbic Acid (Vitamin C) 1,000 mg tablet Discontinued 1 GM PO Daily April 18, 2024 11:24am June 02, 2025 4:54pm Start: 04-18-2024 take 1 g by mouth once daily A scorbic Acid (Vitamin C) Active 1 GM PO Daily April 18, 2024 10:24am Start: 04-18-2024 take 1 g by mouth once daily A scorbic Acid (Vitamin C) Active 1 GM PO Daily April 18, 2024 11:24am Start: 11-26-2023 End: 04-18-2024 take 2 tablets by mouth once daily Ascorbic Acid (Vitamin C) 1,000 mg tablet Discontinued 2 TAB PO Daily November 26, 2023 1:00am April 18, 2024 11:25am FreeTextSi tablets Orally Once a day; Note: Source Status: Taking; Provider: Devi Garcia Start: 11-26-2023 End: 04-18-2024 take 2 tablets by mouth once daily Ascorbic Acid (Vitamin C) Discontinued 2 TAB PO Daily November 26, 2023 12:00am April 18, 2024 10:25am FreeTextSi tablets Orally Once a day; Note: Source Status: Taking; Provider: Devi Garcia Start: 11-26-2023 End: 04-18-2024 take 2 tablets by mouth once daily Ascorbic Acid (Vitamin C) Discontinued 2 TAB PO Daily November 26, 2023 1:00am April 18, 2024 11:25am Free[employer] tablets Orally Once a day; Note: Source Status: Taking; Provider: Devi Garcia Start: 11-26-2023 take 2 tablets by mo uth once daily Ascorbic Acid (Vitamin C) Active 2 TAB PO Daily November 26, 2023 1:00am FreeTextSi tablets Orally Once a day; Note: Source Status: Taking; Provider: Devi Garcia Start: 11-26-2023 take 2 tablets by mo uth once daily Ascorbic Acid (Vitamin C) Active 2 TAB PO Daily November 26, 2023 12:00am FreeTextSi tablets Orally Once a day; Note: Source Status: Taking; Provider: Devi Garcia Start: 10-14-2021 End: 11-26-2023 take 1 tablet by mouth once daily Ascorbic Acid (Vitamin C) 2,000 mg Tablet Extended Release Discontinued 2000 MG PO Daily October 14, 2021 1:00am November 26, 2023 9:42am Start: 10-14-2021 End: 11-26-2023 take 2000 mg by mouth once daily Ascorbic Acid (Vitamin C) Discontinued 2000 MG PO Daily October 14, 2021 12:00am November 26, 2023 8:42am Start: 06-25-2021 Vitamin C Marco A y, Refills(s) 0 Start Date: 06/25/21 Status: Ordered Repeat number: 1 Start: 06-25-2021 Vitamin C Marco A y, Refills(s) 0 Start Date: 06/25/21 Status: Ordered Start: 01-29-2017 take 2 tablets by [facility] every twenty-four hours Vitamin C 1000 MG 2 tablets Orally Once a day Jan, Active Start: 01-29-2017 Vitamin C 500 MG as directed Orally Jan, Active aspirin 81 mg chewable tablet (20 sources) Platelet Aggregation Inhibitor, Nonsteroidal Anti-inflammatory Drug Start: 08-22-2024 End: 06-02-2025 take 1 tablet by mouth once daily Aspirin 81 mg tablet,chewable Discontinued 81 MG PO Daily August 22, 2024 11:44am June 02, 2025 4:54pm Start: 06-20-2024 End: 08-22-2024 take 1 tablet by mouth once daily Aspirin 81 mg tablet,chewable Discontinued 0 .ROUTE .COMPLEX June 20, 2024 1:50pm August 22, 2024 11:46am CHEW AND SWALLOW 1 TABLET DAILY ORALLY Start: 03-06-2024 End: 06-20-2024 take 1 tablet by mouth once daily Aspirin 81 mg tablet,chewable Discontinued 81 MG PO Daily April 18, 2024 11:25am June 20, 2024 1:50pm Start: 12-20-2023 End: 03-06-2024 Aspirin 81 mg tablet,chewabl e Discontinued 0 .ROUTE .COMPLEX December 20, 2023 9:20am March 06, 2024 9:10am CHEW AND SWALLOW 1 TABLET DAILY FOR 30 DAYS Start: 11-26-2023 End: 12-20-2023 take 1 tablet by mouth once daily Aspirin (Children's Aspirin) 81 mg Tablet,Chewable Discontinued 81 MG PO Daily November 26, 2023 1:00am December 20, 2023 9:20am take 1 tablet by magda th every twenty-four hours Aspirin 81 MG 1 tablet Orally Once a day Active cholecalciferol 0.05 mg oral capsule (20 sources) Vitamin D Start: 11-26-2023 End: 06-02-2025 take 1 capsule by mouth once daily Cholecalciferol (Vitamin D3) 50 mcg (2,000 unit) capsule Discontinued 50 MCG PO Daily November 26, 2023 1:00am June 02, 2025 4:54pm Start: 10-14-2021 End: 11-26-2023 take 1 tablet by mouth once daily Cholecalciferol (Vitamin D3) (Vitamin D3) 50 mcg (2,000 unit) Tablet Discontinued 50 MCG PO Daily October 14, 2021 1:00am November 26, 2023 9:42am take 1 tablet by magda th once daily Cholecalciferol 50 MCG (2000 UT) 1 tablet Orally Once a day Active clopidogrel 75 mg oral tablet (20 sources) [id number] Platelet Inhibitor Start: 02-16-2025 End: 03-30-2025 take 1 tablet by mouth once daily Clopidogrel 75 mg tablet Discontinued 0 .ROUTE .COMPLEX 90 February 16, 2025 7:50am March 30, 2025 11:21am TAKE 1 TABLET BY MOUTH EVERY DAY Start: 12-27-2023 End: 03-06-2024 take 1 tablet by mouth once daily Clopidogrel 75 mg tablet Discontinued 0 .ROUTE .COMPLEX 90 December 27, 2023 8:27am March 06, 2024 9:11am TAKE 1 TABLET BY MOUTH EVERY DAY Start: 11-26-2023 End: 06-13-2025 take 1 tablet by mouth once daily Clopidogrel 75 mg tablet Discontinued 75 MG PO Daily December 02, 2023 10:05am December 27, 2023 8:28am docusate sodium 100 mg oral capsule (20 sources) Start: 11-29-2023 End: 12-02-2023 take 1 capsule by mouth once daily Docusate Sodium 100 mg capsule Discontinued MG PO November 29, 2023 1:00am December 02, 2023 9:29am FreeTextSi capsule Orally any day you don't use MiraLax; Note: Source Status: Not-TakingundefinedPRNprn; Provider: Devi Garcia Start: 11-16-2022 take [address] [facility] once daily as needed Colace 100 MG 1 capsule Orally any day you don't use MiraLax prn Oct, Not-Taking/PRN 24 hr metoprolol succinate 25 mg extended release oral tablet (20 sources) beta-Adrenergic Ann Marie Start: 05-02-2024 End: 08-22-2024 take 1 tablet by mouth once daily Metoprolol Succinate 25 mg tablet extended release 24 hr Discontinued 0 .ROUTE .COMPLEX May 02, 2024 8:02am August 22, 2024 11:44am TAKE 1 TABLET BY MOUTH EVERY DAY Start: 12-27-2023 End: 03-06-2024 take 1 tablet by mouth once daily Metoprolol Succinate 25 mg tablet extended release 24 hr Discontinued 0 .ROUTE .COMPLEX December 27, 2023 8:29am March 06, 2024 9:12am TAKE 1 TABLET BY MOUTH EVERY DAY Start: 12-02-2023 End: 05-11-2025 take 1 tablet by mouth once daily Metoprolol Succinate 25 mg tablet extended release 24 hr Discontinued 25 MG PO Daily August 22, 2024 11:43am May 11, 2025 8:21am pantoprazole 40 mg delayed release oral tablet (20 sources) Proton Pump Inhibitor Start: 11-26-2023 End: 12-02-2023 take 1 tablet by mouth once daily Pantoprazole 40 mg tablet,delayed release (DR/EC) Discontinued 1 TAB PO Daily November 26, 2023 1:00am December 02, 2023 9:29am FreeTextSi tablet Orally Once a day; Note: Source Status: Taking; Provider: Villa Gu Start: 09-30-2023 End: 11-18-2023 take 1 tablet by mouth once daily 30 minutes before mealtime Pantoprazole 40 mg tablet,delayed release (DR/EC) Discontinued 40 MG PO Daily September 30, 2023 1:00am November 18, 2023 10:21am Take 30 minutes before a meal. predniSONE 20 mg oral tablet (18 sources) Start: 07-02-2025 End: 07-16-2025 take 3 tablets by mouth once daily at mealtime Prednisone 20 mg tablet Discontinued 0 PO .COMPLEX 9 July 02, 2025 12:00am July 16, 2025 9:44am take 3 (20 MG) tablets orally a day x3 days with food; Start: 10-03-2024 End: 10-17-2024 take 3 tablets by mouth once daily at mealtime, then take 2 tablets by mouth once daily, then take 1 tablet by mouth once daily at mealtime Prednisone 20 mg tablet Discontinued 0 PO .with food or milk 18 October 03, 2024 1:00am October 17, 2024 10:54am take 3 tablets a day x3 days, 2 tabs a day x3 days and then 1 tab a day x3 days orally WITH FOOD OR MILK; probiotic (20 sources) probiotic as dir ected Not-Taking/PRN probiotic as dir ected Active 0.25 mg, 0.5 mg dose 1.5 ml semaglutide 1.34 mg/ml pen injector (20 sources) Start: 02-05-2022 End: 09-29-2023 Semaglutide (Ozempic) 0.25 m g or 0.5 mg(2 mg/1.5 mL) pen injector Discontinued MG SUBCUT February 05, 2022 12:00am September 29, 2023 1:30pm Start: 11-18-2021 End: 11-19-2023 Start: 11-18-2021 Ozempic (0.25 or 0.5 MG/DOSE) 2 MG/1.5ML 0.25 mg for one month and then increase to 0.5 mg dose Subcutaneous weekly for 30 days Nov, Active sildenafil 100 mg oral tablet (20 sources) Phosphodiesterase 5 Inhibitor Start: 04-18-2024 End: 04-16-2025 take 1 tablet by mouth every twenty-four hours Sildenafil (Viagra) 100 mg tablet Discontinued 100 MG PO .COMPLEX April 18, 2024 12:00am April 16, 2025 10:00am 100 mg orally 1 hour prior to sexual intercourse max 1 tablet in 24 hours; SITagliptin 100 mg oral tablet (20 sources) Dipeptidyl Peptidase 4 Inhibitor Start: 10-14-2021 End: 04-21-2022 take 1 tablet by mouth once daily Sitagliptin Phosphate (Januvia) 100 mg tablet Discontinued 100 MG PO Daily October 14, 2021 1:00am February 05, 2022 2:19pm sucralfate 100 mg/ml oral suspension (20 sources) Aluminum Complex Start: 09-30-2023 End: 11-18-2023 take 1 g by mouth once before mealtime Sucralfate 100 mg/mL Suspension Discontinued 1 GM PO 3x/Day before meals & bedtime 280 September 30, 2023 1:00am November 18, 2023 10:21am Start: 09-30-2023 End: 11-18-2023 take 1 g by mouth once before mealtime Sucralfate Discontinued 1 GM PO 3x/Day before meals & bedtime 280 September 30, 2023 1:00am November 18, 2023 10:21am Start: 09-30-2023 End: 11-18-2023 take 1 g by mouth once before mealtime Sucralfate Discontinued 1 GM PO 3x/Day before meals & bedtime 280 September 30, 2023 12:00am November 18, 2023 9:21am Start: 09-30-2023 take 1 g by mouth on ce before mealtime Sucralfate Active 1 GM PO 3x/Day before meals & bedtime 280 September 30, 2023 12:00am take 10 mL by mouth four times daily 1 hour(s) before bedtime Sucralfate 1 GM/10ML 10 mL 1 hour before meals and at bedtime on an empty stomach Orally Four times a day Not-Taking/PRN Sucralfate 100 mg/mL Suspension (3 sources) Start: 09-30-2023 End: 11-18-2023 take 1 g by mouth once before mealtime Sucralfate 100 mg/mL Suspension Discontinued 1 GM PO 3x/Day before meals & bedtime 280 September 30, 2023 1:00am November 18, 2023 10:21am 60 actuat testosterone 20.25 mg/actuat topical gel (15 sources) Androgen Start: 08-22-2024 End: 04-16-2025 Testosterone 20.25 mg/1.25 gram (1.62 %) gel in metered-dose pump Discontinued TOPICAL Daily August 22, 2024 1:00am Stacey 30th, 2025 10:00am Start: 08-22-2024 Testosterone A ctive TOPICAL Daily August 22, 2024 12:00am Start: 06-29-2024 AndroGel Pump 20.25 mg/1.25 g (1.62%) transdermal gel = 2 pump, Topical, qAM, 1 pump each shoulder, # 75 gram, Refills(s) 2, Pharmacy: [facility]/pharmacy #[id number], 175, cm, 06/08/24 9:18:00 EDT, Height/Length Dosing, 90.3, kg, 06/08/24 9:18:00 EDT, Weight Dosing Start Date: 06/29/24 Status: Ordered End: 04-13-2025 testosterone (ANDROGEL PUMP) 20.25 mg/1.25 gram (1.62 %) transdermal gel Apply 3 pumps as directed every morning. Apply to shoulder and upper arms. 04/13/2025 Discontinued (Discontinued by another Health Care Provider) tiZANidine 4 mg oral tablet (20 sources) Central alpha-2 Adrenergic Agonist Start: 11-29-2023 End: 12-02-2023 take 1 tablet by mouth three times daily as needed Tizanidine (Zanaflex) 4 mg tablet Discontinued 4 MG PO Three times daily November 29, 2023 1:00am December 02, 2023 9:29am FreeTextSi tablet as needed Orally Three times a day; Note: Source Status: Not-TakingundefinedPRNprn; Provider: Devi Garcia Start: 03-12-2023 take 1 tablet by magda every eight hours Zanaflex 4 MG 1 tablet as needed Orally Three times a day prn February, Not-Taking/PRN Triamcinolone (20 sources) Corticosteroid Start: 09-26-2021 Kenalog -40 mg Sep, 120 mg Start: 12-11-2020 Kenalog -40 mg Nov, 40 mg ubidecarenone 200 mg oral capsule (20 sources) take 1 capsule by mouth every twenty-four hours Co Enzyme Q-10 200 MG 1 Tablet Orally Daily Not-Taking/PRN Vitamin B Complex (20 sources) Start: 10-14-2021 End: 03-06-2024 take 1 capsule by mouth once daily Vitamin B Complex Discontinued 1 CAP PO Daily October 14, 2021 12:00am March 06, 2024 8:09am Start: 10-14-2021 End: 03-06-2024 take 1 capsule by mouth once daily Vitamin B Complex Discontinued 1 CAP PO Daily October 14, 2021 1:00am March 06, 2024 9:09am Start: 10-14-2021 take 1 capsule by mo uth once daily Vitamin B Complex Active 1 CAP PO Daily October 14, 2021 12:00am Start: 10-14-2021 take 1 capsule by mo uth once daily Vitamin B Complex Active 1 CAP PO Daily October 14, 2021 1:00am Vitamin B Complex (B Complex-Vitamin B12) tablet (20 sources) Start: 11-26-2023 End: 06-02-2025 take 1 tablet by mouth once daily Vitamin B Complex (B Complex-Vitamin B12) tablet Discontinued 1 TAB PO Daily November 26, 2023 1:00am June 02, 2025 4:55pm Start: 11-26-2023 take 1 tablet by magda th once daily Vitamin B Complex (B Complex-Vitamin B12) tablet Active 1 TAB PO Daily November 26, 2023 1:00am Complies with drug therapy Start: 11-26-2023 take 1 tablet by magda th once daily Start: 11-26-2023 take 1 tablet by magda th once daily Vitamin B Complex (B Complex-Vitamin B12) tablet Active 1 TAB PO Daily November 26, 2023 1:00am Start: 11-26-2023 take 1 tablet by magda th once daily Vitamin B Complex (B Complex-Vitamin B12) tablet Active 1 TAB PO Daily November 26, 2023 12:00am Vitamin B Complex Capsule (14 sources) Start: 10-14-2021 End: 03-06-2024 take 1 capsule by mouth once daily Vitamin B Complex Capsule Discontinued 1 CAP PO Daily October 14, 2021 1:00am March 06, 2024 9:09am Problems Active Problems Problem Classification Problem Date Documented Da te Episodic/Chronic Acute bronchitis (20 sources) Acute bronchitis; Translations: [Acute bronchitis, unspecified] Episodic Anxiety disorders (20 sources) Anxiety; Translations: [Anxiety disorder, unspecified] Onset: 02-16-2022 Resolved: 06-02-2022 Chronic Cancer of prostate (20 sources) Malignant neoplasm of prostate; Translations: [Malignant tumor of prostate] Onset: 04-05-2025 Chronic Cancer; other and unspecified primary (7 sources) H/O: malignant neoplasm 11-05-2022 Episodic Cardiac dysrhythmias (20 sources) Palpitations; Translations: [Palpitations] 02-05-2022 Episodic Conditions associated with dizziness or vertigo (20 sources) Dizziness and giddiness; Translations: [Dizziness] Onset: 06-02-2022 Resolved: 06-02-2022 Episodic Coronary atherosclerosis and other heart disease (20 sources) Calcification of coronary artery; Translations: [Atherosclerotic heart disease of [place] coronary artery without angina pectoris] Onset: 07-30-2025 Chronic Coronary atherosclerosis and other heart disease (6 sources) Presence of coronary angioplasty implant and graft; Translations: [Percutaneous transluminal coronary angioplasty status] 03-06-2024 Episodic Diabetes mellitus with complications (20 sources) Type II diabetes mellitus uncontrolled; Translations: [Type 2 diabetes mellitus with hyperglycemia] Onset: 11-18-2021 Resolved: 06-02-2022 Chronic Diabetes mellitus without complication (20 sources) Type 2 diabetes mellitus well controlled; Translations: [Type 2 diabetes mellitus without complications] Onset: 10-06-2021 Resolved: 10-06-2021 Chronic Diseases of white blood cells (20 sources) Leukocytosis; Translations: [Elevated white blood cell count, unspecified] 11-26-2023 Chronic Disorders of lipid metabolism (20 sources) Hyperlipidemia; Translations: [Hyperlipidemia, unspecified] Onset: 10-06-2021 Resolved: 01-22-2022 Chronic E Codes: Fall (8 sources) Fall; Translations: [Unspecified fall, initial encounter] 06-02-2025 Episodic Esophageal disorders (20 sources) Gastro-esophageal reflux disease with esophagitis; Translations: [Gastroesophageal reflux disease with esophagitis without hemorrhage] 11-26-2023 Chronic Essential hypertension (20 sources) Hypertensive disorder; Translations: [Essential (primary) hypertension] Onset: 10-06-2021 Resolved: 01-22-2022 Chronic Hyperplasia of prostate (20 sources) Benign prostatic hypertrophy without outflow obstruction; Translations: [Benign prostatic hyperplasia without lower urinary tract symptoms] Onset: 06-08-2024 Chronic Immunizations and screening for infectious disease (6 sources) Requires influenza virus vaccination; Translations: [Encounter for immunization] 07-16-2025 Episodic Mycoses (20 sources) Onychomycosis due to dermatophyte ; Translations: [Tinea unguium] Onset: 03-18-2023 03-18-2023 Episodic Nonspecific chest pain (20 sources) Chest pain; Translations: [Chest pain, unspecified] 09-29-2023 Episodic Open wounds of extremities (1 source) Laceration without foreign body of right great toe without damage to nail, initial encounter Episodic Open wounds of head; neck; and trunk (15 sources) Laceration of left eyebrow; Translations: [Laceration without foreign body of left eyelid and periocular area, initial encounter] Onset: 06-02-2025 06-02-2025 Episodic Osteoarthritis (20 sources) Arthritis of right elbow; Translations: [Primary osteoarthritis, right elbow] Onset: 02-07-2008 Resolved: 01-22-2022 Chronic Other aftercare (1 source) Encounter for other specified aftercare; Translations: [Visit for wound check] Onset: 04-06-2025 Episodic Other aftercare (17 sources) Removal of sutures done; Translations: [Encounter for removal of sutures] 06-08-2025 Episodic Other and unspecified benign neoplasm (20 sources) Benign neoplasm of colon; Translations: [Benign neoplasm of sigmoid colon] Episodic Other and unspecified benign neoplasm (20 sources) Hyperplastic polyp of intestine; Translations: [Benign neoplasm of colon, unspecified] Episodic Other and unspecified benign neoplasm (20 sources) History of polyp of colon; Translations: [Personal history of colonic polyps] 10-15-2021 Episodic Other circulatory disease (1 source) Other specified symptoms and signs involving the circulatory and respiratory systems Episodic Other connective tissue disease (1 source) Pain in toe; Translations: [Pain in left toe(s)] 07-20-2024 Episodic Other endocrine disorders (4 sources) Testicular hypofunction; Translations: [Testicular hypofunction] Onset: 06-08-2024 Chronic Other endocrine disorders (5 sources) Male hypogonadism 06-08-2024 Chronic Other endocrine disorders (1 source) Testicular hypofunction; Translations: [Testicular hypofunction] Onset: 08-03-2024 Chronic Other fractures (20 sources) Fracture of one rib, left side, initial encounter for closed fracture; Translations: [Fracture of left fifth rib] Onset: 07-04-2025 06-02-2025 Episodic Other gastrointestinal disorders (20 sources) Constipation; Translations: [Constipation, unspecified] 11-26-2023 Episodic Other gastrointestinal disorders (15 sources) Constipation, unspecified; Translations: [Constipation, unspecified] Episodic Other injuries and conditions due to external causes (14 sources) Closed injury of head; Translations: [Unspecified injury of head, initial encounter] 06-02-2025 Episodic Other male genital disorders (20 sources) Male erectile dysfunction, unspecified; Translations: [Erectile dysfunction] Onset: 10-10-2024 Chronic Other nervous system disorders (15 sources) Skin sensation disturbance; Translations: [Paresthesia of skin] Episodic Other nervous system disorders (1 source) Paresthesia of skin Episodic Other nervous system disorders (20 sources) Paresthesia of foot ; Translations: [Anesthesia of skin] 11-26-2023 Episodic Other non-traumatic joint disorders (2 sources) Pain in wrist; Translations: [Pain in joint, forearm] Episodic Other non-traumatic joint disorders (3 sources) Pain in unspecified wrist; Translations: [Pain in unspecified wrist] Onset: 03-31-2023 Episodic Other non-traumatic joint disorders (1 source) Pain in left wrist; Translations: [Pain in left wrist] Onset: 03-31-2023 Episodic Other non-traumatic joint disorders (1 source) Pain in right wrist; Translations: [Pain in right wrist] Onset: 03-31-2023 Episodic Other non-traumatic joint disorders (20 sources) Pain in left knee; Translations: [Pain in joint, lower leg] 12-01-2023 Episodic Other nutritional; endocrine; and metabolic disorders (20 sources) Metabolic syndrome X; Translations: [Metabolic syndrome] 11-26-2023 Chronic Other nutritional; endocrine; and metabolic disorders (3 sources) Metabolic syndrome Onset: 11-18-2021 Resolved: 01-22-2022 Chronic Other nutritional; endocrine; and metabolic disorders (20 sources) Obesity; Translations: [Obesity, unspecified] Chronic Other nutritional; endocrine; and metabolic disorders (1 source) Obesity, unspecified Onset: 01-22-2022 Resolved: 01-22-2022 Chronic Other nutritional; endocrine; and metabolic disorders (20 sources) Obese class I; Translations: [Obesity, unspecified] 11-26-2023 Chronic Other nutritional; endocrine; and metabolic disorders (6 sources) Abnormal weight loss; Translations: [Loss of weight] Onset: 10-06-2021 Resolved: 06-02-2022 Episodic Other nutritional; endocrine; and metabolic disorders (1 source) Weight loss; Translations: [Abnormal weight loss] 08-22-2024 Episodic Other nutritional; endocrine; and metabolic disorders (17 sources) Weight decreased; Translations: [Abnormal weight loss] 08-22-2024 Episodic Other skin disorders (20 sources) Nail deformity; Translations: [Other nail disorders] Onset: 03-18-2023 03-18-2023 Episodic Other skin disorders (1 source) Ingrowing great toenail; Translations: [Ingrowing nail] 07-20-2024 Episodic Other upper respiratory disease (11 sources) Chronic rhinitis; Translations: [Chronic rhinitis] Onset: 01-31-2025 01-31-2025 Chronic Other upper respiratory disease (10 sources) Congestion of nasal sinus; Translations: [Nasal congestion] 07-02-2025 Episodic Other upper respiratory infections (1 source) Acute sinusitis, unspecified Episodic Residual codes; unclassified (4 sources) Localized edema; Translations: [Localized edema] 07-20-2024 Episodic Residual codes; unclassified (1 source) Edema of lower extremity; Translations: [Localized edema] 07-20-2024 Episodic Residual codes; unclassified (15 sources) Insomnia; Translations: [Insomnia, unspecified] 08-22-2024 Episodic Residual codes; unclassified (2 sources) Insomnia, unspecified; Translations: [Insomnia, unspecified] 08-22-2024 Episodic Skin and subcutaneous tissue infections (1 source) Cellulitis, unspecified; Translations: [Cellulitis, unspecified cellulitis site] Onset: 04-06-2025 Episodic Spondylosis; intervertebral disc disorders; other back problems (20 sources) Sciatica; Translations: [Sciatica, unspecified side] Onset: 07-27-2013 Episodic Superficial injury; contusion (8 sources) Contusion of left forearm; Translations: [Contusion of left forearm, initial encounter] 06-02-2025 Episodic Thyroid disorders (20 sources) Thyroid nodule; Translations: [Nontoxic single thyroid nodule] Onset: 11-19-2023 Chronic Unclassified (4 sources) Asymptomatic microscopic hematuria 11-05-2022 Unclassified (3 sources) Long-term current use of drug therapy 01-17-2025 Unclassified (4 sources) Skin sensation disturbance; Translations: [Paresthesias/numbn ess] Onset: 08-29-2013 08-29-2013 Past or Other Problems Problem Classification Problem Date Documented Date Episodic/Chronic Esophageal disorders (1 source) Esophageal disorders Genitourinary symptoms and ill-defined conditions (20 sources) Nocturia; Translations: [Microscopic hematuria] Onset: 10-06-2021 Resolved: 10-06-2021 Episodic Other aftercare (5 sources) Other skilled nursing (current) drug therapy; Translations: [Other intermission coordinator (current) drug therapy] Onset: 10-06-2021 Resolved: 10-06-2021 Episodic Other aftercare (13 sources) Long-term current use of drug therapy; Translations: [long-term (current) use of antithrombotics/antip latelets] Onset: 01-31-2025 01-31-2025 Episodic Other and unspecified benign neoplasm (1 source) Melanocytic nevi, unspecified Onset: 10-06-2021 Resolved: 10-06-2021 Episodic Other and unspecified benign neoplasm (18 sources) Benign polyp of colon; Translations: [Polyp of colon] Onset: 01-31-2025 10-26-2022 Episodic Other connective tissue disease (20 sources) Pain in left foot; Translations: [Pain in left foot] Onset: 03-18-2023 03-18-2023 Episodic Other connective tissue disease (8 sources) Plantar fascial fibromatosis; Translations: [Plantar fascial fibromatosis] Onset: 08-29-2013 08-29-2013 Episodic Other male genital disorders (16 sources) Hemospermia; Translations: [Hematospermia] Onset: 01-02-2024 Episodic Other nervous system disorders (4 sources) Numbness; Translations: [Anesthesia of skin] Onset: 09-11-2013 09-11-2013 Episodic Other nervous system disorders (4 sources) Postoperative pain ; Translations: [Other acute postprocedural pain] Onset: 12-10-2014 12-10-2014 Episodic Other non-traumatic joint disorders (20 sources) Ankle edema; Translations: [Effusion, unspecified ankle] Onset: 03-18-2023 03-18-2023 Episodic Other non-traumatic joint disorders (4 sources) Pain in forearm; Translations: [Pain in unspecified wrist] Onset: 02-07-2008 02-13-2025 Episodic Other non-traumatic joint disorders (4 sources) Wrist stiff; Translations: [Stiffness of unspecified wrist, not elsewhere classified] Onset: 02-07-2008 02-13-2025 Episodic Other non-traumatic joint disorders (4 sources) Hip pain; Translations: [Pain in right hip] Onset: 04-18-2013 Episodic Other nutritional; endocrine; and metabolic disorders (1 source) Abnormal weight gain Onset: 11-18-2021 Resolved: 11-18-2021 Episodic Other screening for suspected conditions (not mental disorders or infectious disease) (20 sources) Elevated prostate specific antigen [PSA]; Translations: [Raised prostate specific antigen] Onset: 10-06-2021 Resolved: 10-06-2021 Episodic Other skin disorders (20 sources) Callosity; Translations: [Corns and callosities] Onset: 03-18-2023 03-18-2023 Episodic Other skin disorders (20 sources) Acquired keratoderma; Translations: [Acquired keratosis [keratoderma] palmaris et plantaris] Onset: 03-18-2023 03-18-2023 Episodic Other skin disorders (20 sources) Disorder of foot; Translations: [Atrophic disorder of skin, unspecified] Onset: 03-18-2023 03-18-2023 Episodic Other upper respiratory disease (20 sources) Nasal congestion; Translations: [Nasal congestion] Onset: 10-06-2023 10-06-2023 Episodic Screening and history of mental health and substance abuse codes (19 sources) H/O: Disorder; Translations: [Personal history of nicotine dependence] Onset: 11-05-2022 Episodic Unclassified (4 sources) Cough R05.9 Unclassified (3 sources) Lumbar pain M54.50 Unclassified (1 source) Preprocedural examination done 12-19-2024 Varicose veins of lower extremity (20 sources) Venous varices; Translations: [Asymptomatic varicose veins of unspecified lower extremity] Onset: 03-18-2023 03-18-2023 Episodic Results Test Name Value Interpretation Reference Range Facility [facility]PG ECG *CARDIOLOGY ONLY*on 07-30-2025 FPG ECG *CARDIOLOGY ONLY* [facility] [address] [place] [address] [place] [address] Electrocardiograph Report Signed Patient: Mariana Barnes MR#: [id number] : 1955 Acct:[id number] Age/Sex: 70 / M ADM Date: 07/30/25 Loc: EKGCARDIO Room: Type: [facility] Attending Dr: Cee Laureano MD Ordering Provider: Cee Laureano MD Date of Service: 07/30/25 ECG/FPG ECG *CARDIOLOGY ONLY*: I25.119 - Atherosclerotic heart disease of [place] coronar... Copies to: Test Reason : Blood Pressure : */* mmHG Vent. Rate : 109 BPM Atrial Rate : 109 BPM P-R Int : 158 ms QRS Dur : 92 ms QT Int : 320 ms P-R-T Axes : 58 -38 44 degrees QTcB Int : 430 ms Sinus tachycardia Left axis deviation Possible Inferior infarct , age undetermined Abnormal ECG Confirmed by Cee Laureano ([id number]) on 07/31/2025 12:49:44 PM Referred By: Electronically Signed By: Cee Laureano Transcribed By: MUS Signed By Cee Laureano MD 5 1249 Normal [facility] CNOVon 07-18-2025 CNOV Office Visit (RADTSA ) -- MARIANA BARNES ([id number]) 1955 M Date Time Provider Department 07/18/25 8:30 AM Osorio ARTEAGA During your visit today, we recorded the following information about you: Osorio Arteaga MD 07/18/2025 10:23 AM Signed UNIVERSAL PROTOCOL / SAFETY CHECKLIST Procedure to be Performed: Prostate volume study Sign In: A Moment of CARE was completed. Appropriate PPE (Personal Protective Equipment) worn by all providers involved with the procedure. Special equipment utilized prostate transrectal ultrasound with stepper. Patient/Surrogate Stated/Verified: Patient name, Date of , Relevant allergies, and The intended procedure Time Out: Relevant labs, photos, and/or imaging studies have been reviewed. Intended patient and procedure match the source document(s) (e.g. consent, HANDP, associated studies [imaging, pathology]) match the intended patient and procedure. Consent obtained and matches the intended procedure. Yes. Correct side/site is not applicable. Medications required for this procedure are verified. Fire risk assessed and is not applicable. Implants: are not applicable. Sign Out: Specimens not collected. All instruments, equipment, possible retained foreign bodies are accounted for. Yes. The post-procedure plan of care has been communicated to the patient or surrogate. Osorio Arteaga MD Referring Provider: Osorio ARTEAGA [[id number]] Allergies As of Date: 07/18/2025 Noted Allergy Reaction CEFDINIR 04/06/2025 4 - Hives Comments: Patient states he was unsure what the allegry is, states it was a long time ago. HYDROCHLOROTHIAZIDE 04/13/2025 16 - Unknown Comments: Pt states PCP said he was allergic Date Reviewed: 05/17/2025 Reviewed by: Selma Ring RN - Fully Assessed Primary Visit Diagnosis:Malignant neoplasm of prostate (HCC) [C61] Prescriptions as of 07/18/2025 - fluticasone (FLONASE) 50 mcg/actuation nasal spray 2 sprays. - tolnaftate (TINACTIN) 1 % external solution Apply to affected area. - dapagliflozin propanediol (FARXIGA) 5 mg tablet Take 5 mg by mouth daily with breakfast. - glimepiride (AMARYL) 1 mg tablet Take 1 mg by mouth daily with breakfast. - lisinopril (ZESTRIL) 10 mg tablet Take 10 mg by mouth once daily. - metFORMIN (GLUCOPHAGE) 500 mg tablet Take 1,000 mg by mouth two times a day with meals. - metoprolol succinate ER (TOPROL XL) 25 mg 24 hr tablet Take 25 mg by mouth once daily. - Tadalafil (CIALIS) 10 mg tablet Take 10 mg by mouth once daily as needed. - tamsulosin (FLOMAX) 0.4 mg Take 0.4 mg by mouth once daily. - nystatin (MYCOSTATIN) powder Apply 1 application to affected area as directed. - rosuvastatin (CRESTOR) 10 mg tablet Take 1 tablet by mouth daily at bedtime. Problem List As Of Date 07/18/2025 Noted Resolved JOINT PAIN-FOREARM [M25.539] 02/07/2008 JOINT STIFFNES NEC-FOREARM [M25.639] 02/07/2008 OSTEOARTHROS NOS-FOREARM [M19.039] 02/07/2008 Osteoarthritis, hip/pelvic region and thigh [M1*04/18/2013 Right hip pain [M25.551] 04/18/2013 Lumbago [M54.50] 07/27/2013 Hip arthritis [M16.10] 08/15/2013 Plantar fascial fibromatosis [M72.2] 08/29/2013 Spinal stenosis, lumbar [M48.061] 08/29/2013 Paresthesias/numbness [[id number]] 08/29/2013 Numbness [R20.0] 09/11/2013 Plantar fibromatosis [M72.2] 09/11/2013 Radiculitis, lumbosacral [M54.17] 12/15/2013 Post-op pain [G89.18] 12/10/2014 Encounter Status:Closed by Osorio ARTEAGA on 07/18/25 Normal [facility] Activated partial thrombopla stin time (aPTT) in platelet poor plasma by coagulation aOrdered By: Susanna Paulino on 07-17-2025 aPTT Coag (PPP) [Time] 29.4 s 22.3-36.2 [facility] Basophils Auto (Bld) [#/Vol] Ordered By: Susanna Paulino on 07-17-2025 Basophils (Bld) [#/Vol] 0.1 10 3/uL 0.0-0.1 [facility] Basophils/100 WBC Auto (Bld) Ordered By: Susanna Paulino on 07-17-2025 Basophils/100 WBC (Bld) 0.9 % 0.2-2.0 [facility] Eosinophils/100 WBC Auto (Bl d)Ordered By: Susanna Paulino on 07-17-2025 Eosinophils/100 WBC (Bld) 2.2 % 0.9-7.0 [facility] Erythrocyte distribution wid th Auto (RBC) [Ratio]Ordered By: Susanna Paulino on 07-17-2025 Erythrocyte distribution width (RBC) [Ratio] 13.1 % 11.0-15.0 [facility] Glomerular filtration rate ( GFR) estimation in non- AmericanOrdered By: Felipe Carlson on 07-17-2025 GFR/1.73 sq M.predicted among non-blacks MDRD (S/P/Bld) [Vol rate/Area] mL/min/{1.73_m2} >=60 mL/min/1.7 3m 2 [facility] Hematocrit Auto (Bld) [Volum e fraction]Ordered By: Susanna Paulino on 07-17-2025 Hematocrit (Bld) [Volume fraction] 46.8 % 42.0-54.0 [facility] Hemoglobin [Mass/volume] in BloodOrdered By: Susanna Paulino on 07-17-2025 Hemoglobin (Bld) [Mass/Vol] 16.1 g/dL 14.0-18.0 [facility] INR in Platelet poor plasma by Coagulation assayOrdered By: Susanna Paulino on 07-17-2025 INR Coag (PPP) [Relative time] 0.94 {INR} [facility] Comment on above: DESIRED INR:2.0-3.0 CONDITIONS NOT LISTED BELOW2.5-3.5 FOR PROSTHETIC HEART VALVE REPLACEMENT2.5-3.5 RECURRENT THROMBOSIS Laboratory - Chemistry and C hemistry - challengeOrdered By: Susanna Paulino on 07-17-2025 Bilirubin Ql (U) Negative NEGATIVE [facility] Glucose (U) [Mass/Vol] mg/dL Abnormal NEGATIVE [facility] Ketones Ql (U) Negative NEGATIVE [facility] pH (U) 5.5 [pH] 5.0-9.0 [facility] Specific gravity (U) [Rel density] 1.025 1.005-1.02 5 [facility] Urobilinogen Qn (U) 0.2 {Grace'U}/dL 0.2-1.0 [facility] Laboratory - Chemistry and C hemistry - challengeOrdered By: Felipe Carlson on 07-17-2025 Calcium [Mass/Vol] 9.0 mg/dL 8.5-10.1 [facility] Chloride [Moles/Vol] 102 mmol/L 98-107 [facility] CO2 [Moles/Vol] 23.8 mmol/L 21.0-32.0 [facility] Creatinine [Mass/Vol] 0.62 mg/dL Low 0.70-1.30 [facility] GFR/1.73 sq M.predicted MDRD (S/P/Bld) [Vol rate/Area] mL/min/{1.73_m2} >=60 mL/min/1.7 3m 2 [facility] Glucose [Mass/Vol] 123 mg/dL High 74-106 [facility] Potassium [Moles/Vol] 4.0 mmol/L 3.5-5.1 [facility] Sodium [Moles/Vol] 135 mmol/L Low 136-145 [facility] Urea nitrogen [Mass/Vol] 13.0 mg/dL 7.0-18.0 [facility] Urea nitrogen/Creatinine [Mass ratio] 21.0 mg/mg [facility] Laboratory - Hematology and Cell countsOrdered By: Susanna Paulino on 07-17-2025 Immature granulocytes/100 WBC (Bld) 0.4 % 0.0-0.5 [facility] Laboratory - Specimen inform ationOrdered By: Susanna Paulino on 07-17-2025 Appearance (U) CLEAR CLEAR [facility] Color (U) LT. YELLOW YELLOW [facility] Laboratory - UrinalysisOrder ed By: Susanna Paulino on 07-17-2025 Leukocyte esterase Test strip Ql (U) Negative NEGATIVE [facility] Nitrite Ql (U) Negative NEGATIVE [facility] Protein Ql (U) Negative NEG/TRACE [facility] Leukocytes [#/volume] correc kishan for nucleated erythrocytes in Blood by Automated counOrdered By: Susanna Paulino on 07-17-2025 WBC corrected for nucl RBC Auto (Bld) [#/Vol] 9.4 10 3/uL 4.0-11.0 [facility] Lymphocytes Auto (Bld) [#/Vo l]Ordered By: Susanna Paulino on 07-17-2025 Lymphocytes (Bld) [#/Vol] 1.5 10 3/uL 1.2-3.8 [facility] Lymphocytes/100 WBC Auto (Bl d)Ordered By: Susanna Paulino on 07-17-2025 Lymphocytes/100 WBC (Bld) 16.4 % Low 20.5-60.0 [facility] MCH Auto (RBC) [Entitic mass ]Ordered By: Susanna Paulino on 07-17-2025 MCH (RBC) [Entitic mass] 33.1 pg 25.9-34.0 [facility] MCHC Auto (RBC) [Mass/Vol]Or dered By: Susanna Paulino on 07-17-2025 MCHC (RBC) [Mass/Vol] 34.4 g/dL 29.9-35.2 [facility] MCV Auto (RBC) [Entitic vol] Ordered By: Susanna Paulino on 07-17-2025 MCV (RBC) [Entitic vol] 96.1 fL High 80.0-94.0 [facility] Monocytes Auto (Bld) [#/Vol] Ordered By: Susanna Paulino on 07-17-2025 Monocytes (Bld) [#/Vol] 0.9 10 3/uL High 0.3-0.8 [facility] Monocytes/100 WBC Auto (Bld) Ordered By: Susanna Paulino on 07-17-2025 Monocytes/100 WBC (Bld) 9.4 % 1.7-12.0 [facility] Neutrophils Auto (Bld) [#/Vo l]Ordered By: Susanna Paulino on 07-17-2025 Neutrophils (Bld) [#/Vol] 6.7 10 3/uL High 1.4-6.5 [facility] Neutrophils/100 WBC Auto (Bl d)Ordered By: Susanna Paulino on 07-17-2025 Neutrophils/100 WBC (Bld) 70.7 % 43.0-75.0 [facility] No Panel InformationOrdered By: Susanna Paulino on 07-17-2025 Eosinophils # (Auto) 0.2 10 3/uL 0.0-0.7 [facility] Immature Granulocyte # (Auto) 0.04 10 3/uL High 0.00-0.03 [facility] Urine Microscopic Review NO [facility] Urine Occult Blood Negative NEGATIVE [facility] Platelet mean volume Auto (B ld) [Entitic vol]Ordered By: Susannajasbir Paulino on 07-17-2025 Platelet mean volume (Bld) [Entitic vol] 9.1 fL Low 9.5-13.5 [facility] Platelets Auto (Bld) [#/Vol] Ordered By: Susanna Paulino on 07-17-2025 Platelets (Bld) [#/Vol] 301 10 3/uL 150-450 [facility] Prothrombin time (PT)Ordered By: Susanna Paulino on 07-17-2025 PT Coag (PPP) [Time] 10.0 s 9.0-11.6 [facility] RBC Auto (Bld) [#/Vol]Ordere d By: Susanna Paulino on 07-17-2025 RBC (Bld) [#/Vol] 4.87 10 6/uL 4.70-6.10 [facility] Serum or plasma anion gap de terminationOrdered By: Felipe Carlson on 07-17-2025 Anion gap [Moles/Vol] 13.2 mmol/L [facility] PSA Diagnostic (Total Free)o n 07-04-2025 Prostate Spec Ag, Free 0.400 ng/mL Normal [facility] Comment on above: Performed By: #### A 1C WT eA, SCAN CBC, LIPID, TSH3 #### [facility] [address] PSA Total (Not a Screen) 3.060 ng/mL Normal 0.000-4.00 0 [facility] Comment on above: Result Comment: [place] al tumor marker results determined by assays using different manufacturers or methods may not be comparable. [facility] bilingual branch manager and method: RIANNA [employer] DXI, CHEMILUMINESCENT IMMUNOASSAY. Performed By: #### A 1C WTH eA, SCAN CBC, LIPID, TSH3 #### [facility] [address] PSA,FREE% 13.0 % Normal [facility] Comment on above: Result Comment: Base d on the work of Parviz zaidi al.FLORINA. 279(43):1542:47.1998 the percent free PSA may be used to determine the relative risk of prostate cancer in individual men.The percent probability of prostate cancer by patient age for men with non-suspicious ALISIA results and total PSa between 4 and 10 ng/ml is as follows: % Free PSA 50 - 64 yrs. 65 - 75 yrs. 0 - 10 56% 55% 10 - 15 24% 35% 15 - 20 17% 23% 20 - 25 10% 20% >25 5% 9% PERFORMED BY: [facility] [address] [place] [address] PATHOLOGIST FIRE BOAT ENGINEER CLINTON MULLINS M.D. Performed By: #### A 1C WT eA, SCAN CBC, LIPID, TSH3 #### [facility] [address] Prostate Specific Ag Free [M ass/volume] in Serum or PlasmaOrdered By: Susanna Paulino on 07-04-2025 Free PSA [Mass/Vol] 0.400 ng/mL [facility] Prostate specific Ag [Mass/v olume] in Serum or PlasmaOrdered By: Susanna Paulino on 07-04-2025 Prostate specific Ag [Mass/Vol] 3.060 ng/mL 0.000-4.00 0 [facility] Comment on above: Serial tumor marker results determined by assays using different manufacturers or methods may not be comparable.[facility] bilingual branch manager and method:[employer] DXI, CHEMILUMINESCENT IMMUNOASSAY. Serum or plasma free prostat e specific antigen (PSA)/total PSA ratioOrdered By: Susanna Paulino on 07-04-2025 Free PSA/Total PSA [Mass fraction] 13.0 % [facility] Comment on above: Based on the work of Parviz et al.FLORINA. 279(19):1542:47.1998 the percent free PSA may be used to determine the relative risk of prostate cancer in individual men.The percent probability of prostate cancer by patient age for men with non-suspicious ALISIA results and total PSa between 4 and 10 ng/ml is as follows:% Free PSA 50 - 64 yrs. 65 - 75 yrs. 0 - 10 56% 55% 10 - 15 24% 35% 15 - 20 17% 23% 20 - 25 10% 20% >25 5% 9% Testosteroneon 07-04-2025 Testosterone 3.00 ng/mL Normal 1.75-7.81 [facility] Comment on above: Result Comment: PERF ORMED BY: [place] [address] PATHOLOGIST FIRE BOAT ENGINEER CLINTON MULLINS M.D. Performed By: #### A 1C WTH eA, SCAN CBC, LIPID, TSH3 #### [address] Testosterone [Mass/volume] i n Serum or PlasmaOrdered By: Susanna Paulino on 07-04-2025 Testosterone [Mass/Vol] 3.00 ng/mL 1.75-7.81 [facility] X-ray reportOrdered By: Loki Fuller on 07-04-2025 Study report [facility] [address] [place] [address] [place] [address] XRay Report Signed Patient: Mariana Barnes MR#: [id number] : 1955 Acct:[id number] Age/Sex: 70 / M ADM Date: 5 Loc: XD Room: Type: [facility] Attending Dr: Susanna Paulino MD Copies to: DO Susanna Strange MD~ Ordering Provider: Sadiq Floyd DO Date of Service: 07/04/25 XR/XR ribs LT min 3V w CXR1V*: S22.32XA - Fracture ofone rib, left side, initial encoun... Left Rib [...] Fuller M.D. 07/04/2025 2:29 PM Dictation Location: RADIO-PC-23 Transcribed By: MARIELLE 07/04/251428 Dictated By: Garry Fuller DO 07/04/251424 Signed By: 07/04/251428 [facility] XR ribs LT min 3V w CXR1V*on 07-04-2025 XR ribs LT min 3V w CXR1V* [place] [address] XRay Report Signed Patient: Mariana Barnes MR#: [id number] : 1955 Acct:[id number] Age/Sex: 70 / M ADM Date: 07/04/25 Loc: XD Room: Type: [facility] Attending Dr: Susanna Paulino MD Copies to: DO Susanna Strange MD Ordering Provider: Sadiq Floyd DO Date of Service: 07/04/25 XR/XR ribs [...] Fuller M.D. 07/04/2025 2:29 PM Dictation Location: RADIO-PC-23 Transcribed By: MARIELLE 07/04/25 142 Dictated By: Garry Fuller DO 07/04/251424 Signed By: 07/04/251428 Normal [facility] Basophils [#/volume] in Bloo d by Automated countOrdered By: Sadiq Floyd on 06-06-2025 Basophils (Bld) [#/Vol] 0.1 10*3/uL Normal 0.0-0.2 [facility] Comment on above: Result Comment: PERF ORMED BY: [place] [address] PATHOLOGIST FIRE BOAT ENGINEER CLINTON MULLINS M.D. Performed By: #### A 1C WTH eA, SCAN CBC, LIPID, TSH3 #### [address] Basophils/100 leukocytes in Blood by Automated countOrdered By: Sadiq Floyd on 06-06-2025 Basophils/100 WBC (Bld) 1.1 % Normal . [facility] Comment on above: Performed By: #### A 1C WTH eA, SCAN CBC, LIPID, TSH3 #### [address] Complete Blood Count Auto Di ffon 06-06-2025 Mean Corpuscular HGB Conc 34.7 g/dL Normal 32.5-35.6 [facility] Comment on above: Performed By: #### A 1C WTH eA, SCAN CBC, LIPID, TSH3 #### [address] NRBC% 0.1 /100{WBC} Normal 0-0.5 [facility] Comment on above: Performed By: #### A 1C WTH eA, SCAN CBC, LIPID, TSH3 #### [address] White Blood Count 7.7 [CFU]/mL Normal 4.1-10.5 [facility] Comment on above: Performed By: #### A 1C WTH eA, SCAN CBC, LIPID, TSH3 #### [place] [address] [place] Eosinophils [#/volume] in Bl ood by Automated countOrdered By: Sadiq Floyd on 06-06-2025 Eosinophils (Bld) [#/Vol] 0.1 10*3/uL Normal 0.0-0.45 [facility] Comment on above: Performed By: #### A 1C WTH eA, SCAN CBC, LIPID, TSH3 #### [address] [place] [address] [place] Eosinophils/100 leukocytes i n Blood by Automated countOrdered By: Sadiq Floyd on 06-06-2025 Eosinophils/100 WBC (Bld) 1.8 % Normal . [facility] Comment on above: Performed By: #### A 1C WTH eA, SCAN CBC, LIPID, TSH3 #### [address] Erythrocyte distribution wid th [Ratio] by Automated countOrdered By: Sadiq Floyd on 06-06-2025 Erythrocyte distribution width (RBC) [Ratio] 14.1 % Normal 12.0-14.8 [facility] Comment on above: Performed By: #### A 1C WTH eA, SCAN CBC, LIPID, TSH3 #### [address] Erythrocytes [#/volume] in B lood by Automated countOrdered By: Sadiq Floyd on 06-06-2025 RBC (Bld) [#/Vol] 4.69 10*6/uL Normal 3.90-5.60 [facility] Comment on above: Performed By: #### A 1C WTH eA, SCAN CBC, LIPID, TSH3 #### [address] Hematocrit [Volume Fraction] of Blood by Automated countOrdered By: Sadiq Floyd on 06-06-2025 Hematocrit (Bld) [Volume fraction] 45.4 % Normal 38.8-50.0 [facility] Comment on above: Performed By: #### A 1C WTH eA, SCAN CBC, LIPID, TSH3 #### [address] Hemoglobin [Mass/volume] in BloodOrdered By: Sadiq Floyd on 06-06-2025 Hemoglobin (Bld) [Mass/Vol] 15.7 g/dL Normal 13.0-17.0 [facility] Comment on above: Performed By: #### A 1C WTH eA, SCAN CBC, LIPID, TSH3 #### [place] [address] [place] Leukocytes [#/volume] correc kishan for nucleated erythrocytes in Blood by Automated counOrdered By: Sadiq Floyd on 06-06-2025 WBC corrected for nucl RBC Auto (Bld) [#/Vol] 7.7 10*3/uL 4.1-10.5 [facility] Leukocytes [#/volume] in Blo od by Automated countOrdered By: Sadiq Floyd on 06-06-2025 WBC (Bld) [#/Vol] 7.7 10*3/uL Normal 4.1-10.5 [facility] Comment on above: Performed By: #### A 1C WTH eA, SCAN CBC, LIPID, TSH3 #### [facility] [address] Lymphocytes [#/volume] in Bl ood by Automated countOrdered By: Sadiq Floyd on 06-06-2025 Lymphocytes (Bld) [#/Vol] 1.8 10*3/uL Normal 1.00-4.8 [facility] Comment on above: Performed By: #### A 1C WTH eA, SCAN CBC, LIPID, TSH3 #### [facility] [address] Lymphocytes/100 leukocytes i n Blood by Automated countOrdered By: Sadiq Floyd on 06-06-2025 Lymphocytes/100 WBC (Bld) 23.3 % Normal . [facility] Comment on above: Performed By: #### A 1C WTH eA, SCAN CBC, LIPID, TSH3 #### [facility] [address] [place] [address] [place] MCH [Entitic mass] by Automa kishan countOrdered By: Sadiq Floyd on 06-06-2025 MCH (RBC) [Entitic mass] 33.6 pg Normal 27.5-35.2 [facility] Comment on above: Performed By: #### A 1C WTH eA, SCAN CBC, LIPID, TSH3 #### [address] MCHC Auto (RBC) [Mass/Vol]Or dered By: Sadiq Floyd on 06-06-2025 MCHC (RBC) [Mass/Vol] 34.7 g/dL 32.5-35.6 [facility] MCV [Entitic volume] by Auto mated countOrdered By: Saidq Floyd on 06-06-2025 MCV (RBC) [Entitic vol] 96.8 fL Normal 83.5-101 [facility] Comment on above: Performed By: #### A 1C WTH eA, SCAN CBC, LIPID, TSH3 #### [facility] [address] [place] [address] [place] Monocytes [#/volume] in Bloo d by Automated countOrdered By: Sadiq Floyd on 06-06-2025 Monocytes (Bld) [#/Vol] 0.5 10*3/uL Normal 0.0-0.8 [facility] Comment on above: Performed By: #### A 1C WTH eA, SCAN CBC, LIPID, TSH3 #### [facility] [address] [place] [address] [place] Monocytes/100 leukocytes in Blood by Automated countOrdered By: Sadiq Floyd on 06-06-2025 Monocytes/100 WBC (Bld) 6.1 % Normal . [facility] Comment on above: Performed By: #### A 1C WTH eA, SCAN CBC, LIPID, TSH3 #### [facility] [address] [place] [address] [place] Neutrophils [#/volume] in Bl ood by Automated countOrdered By: Sadiq Floyd on 06-06-2025 Neutrophils (Bld) [#/Vol] 5.2 10*3/uL Normal 1.8-7.7 [facility] Comment on above: Performed By: #### A 1C WTH eA, SCAN CBC, LIPID, TSH3 #### [facility] [address] [place] [id number] [place] Neutrophils/100 leukocytes i n Blood by Automated countOrdered By: Sadiq Floyd on 06-06-2025 Neutrophils/100 WBC (Bld) 67.7 % Normal . [facility] Comment on above: Performed By: #### A 1C WTH eA, SCAN CBC, LIPID, TSH3 #### [facility] [address] [place] [id number] [place] Nucleated erythrocytes [Pres ence] in Blood by Automated countOrdered By: Sadiq Floyd on 06-06-2025 Nucleated RBC Auto Ql (Bld) 0.1 /100{WBC} 0-0.5 [facility] Platelet mean volume [Entiti c volume] in Blood by Automated countOrdered By: Sadiq Floyd on 06-06-2025 Platelet mean volume (Bld) [Entitic vol] 7.8 fL Normal 6.6-10.1 [facility] Comment on above: Performed By: #### A 1C WT eA, SCAN CBC, LIPID, TSH3 #### [facility] [facility] [address] [place] [address] [place] Platelets [#/volume] in Bloo d by Automated countOrdered By: Sadiq Floyd on 06-06-2025 Platelets (Bld) [#/Vol] 275 10*3/uL Normal 150-450 [facility] Comment on above: Performed By: #### A 1C WT eA, SCAN CBC, LIPID, TSH3 #### [facility] [address] [place] [address] [place] Alanine aminotransferase [En zymatic activity/volume] in Serum or PlasmaOrdered By: Chavo Mejia on 06-02-2025 ALT [Catalytic activity/Vol] 19 U/L Normal 7-52 [facility] Comment on above: Performed By: #### A 1C WT eA, SCAN CBC, LIPID, TSH3 #### [facility] [address] [place] [address] [place] Albumin [Mass/volume] in Ser um or Plasma by Bromocresol green (BCG) dye binding methoOrdered By: Chavo Mejia on 06-02-2025 Albumin BCG dye [Mass/Vol] 4.6 g/dL 3.5-5.7 [facility] Alkaline phosphatase [Enzyma tic activity/volume] in Serum or PlasmaOrdered By: Chavo Mejia on 06-02-2025 ALP [Catalytic activity/Vol] 64 U/L Normal 34-104 [facility] Comment on above: Performed By: #### A 1C WTH eA, SCAN CBC, LIPID, TSH3 #### [facility] [address] [place] [address] [place] Aspartate aminotransferase [ Enzymatic activity/volume] in Serum or PlasmaOrdered By: Chavo Mejia on 06-02-2025 AST [Catalytic activity/Vol] 18 U/L Normal 13-39 [facility] Comment on above: Performed By: #### A 1C WTH eA, SCAN CBC, LIPID, TSH3 #### [facility] [address] [place] [address] [place] Basophils [#/volume] in Bloo d by Automated countOrdered By: Chavo Mejia on 06-02-2025 Basophils (Bld) [#/Vol] 0.1 10*3/uL Normal 0.0-0.2 [facility] Comment on above: Result Comment: PERF ORMED BY: [place] [address] PATHOLOGIST FIRE BOAT ENGINEER CLINTON MULLINS M.D. Performed By: #### A 1C WTH eA, SCAN CBC, LIPID, TSH3 #### [facility] [address] [place] [address] [place] Basophils/100 leukocytes in Blood by Automated countOrdered By: Chavo Mejia on 06-02-2025 Basophils/100 WBC (Bld) 0.6 % Normal . [facility] Comment on above: Performed By: #### A 1C WTH eA, SCAN CBC, LIPID, TSH3 #### [facility] [address] [place] [address] Bilirubin.total [Mass/volume ] in Serum or PlasmaOrdered By: Chavo Mejia on 06-02-2025 Bilirubin [Mass/Vol] 1.1 mg/dL High 0.3-1.0 [facility] Comment on above: Performed By: #### A 1C WTH eA, SCAN CBC, LIPID, TSH3 #### [facility] [address] [place] [address] CT abdomen pelvis w conon CT abdomen pelvis w con [facility] [address] CT Scan Report Signed Patient: Mariana Barnes MR#: [id number] : 1955 Acct:[id number] Age/Sex: 70 / M ADM Date: 06/02/25 Loc: ER Room: Type: [facility] ER Attending Dr: Copies to: Chavo Mejia DO Ordering Provider: Chavo Mejia DO Date of Service: 06/02/25 CT/CT chest w con: fall ([id number]) CT/CT abdomen pelvis w con: fall CT [...] hip prosthesis. No acute abnormality is seen.] Peritoneum/Retroperitoneum :No free air or free fluid or lymphadenopathy.[ Abd wall/Bones:Abdominal wall demonstrates no acute findings. Osseous structures demonstrate degenerative change.[ CT/CT chest w con IMPRESSION: No organ injury involving the chest, abdomen or pelvis. Left fifth rib fracture. Impression dictated by: Florian Hawkins Jr., D.O. 06/02/2025 7:03 PM Dictation Location: [facility]-18 Transcribed By: [facility] 06/02/251902 Dictated By: Florian Hawkins Jr, DO 06/02/251855 Signed By: 06/02/251902 Normal [facility] CT cervical spine wo conon 0 06-02-2025 CT cervical spine wo con [facility] [address] [place] [address] [place] [address] CT Scan Report Signed Patient: Mariana Barnes MR#: [id number] : 1955 Acct:[id number] Age/Sex: 70 / M ADM Date: 06/02/25 Loc: ER Room: Type: [facility] ER Attending Dr: Copies to: Chavo Mejia DO Ordering Provider: Chavo Mejia DO Date of Service: 06/02/25 CT/CT cervical spine wo con: fall ([id number]) CT/CT head/brain wo con: fall CT BRAIN [...] SPINE FRACTURE Impression dictated by: Florian Hawkins Jr. DBenignoOBenigno 06/02/2025 6:52 PM Dictation Location: [place] [address] Transcribed By: [facility] 08/1851 Dictated By: Florian Hawkins Jr, DO 06/02/251844 Signed By: 06/02/251851 Normal [facility] Calcium [Mass/volume] in Ser um or PlasmaOrdered By: Chavo Mejia on 06-02-2025 Calcium [Mass/Vol] 10.1 mg/dL Normal 8.6-10.3 [facility] Comment on above: Performed By: #### A 1C WTH eA, SCAN CBC, LIPID, TSH3 #### [facility] [address] Carbon dioxide, total [Moles /volume] in Serum or PlasmaOrdered By: Chavo Mejia on 06-02-2025 CO2 [Moles/Vol] 21.9 mmol/L Normal 21.0-31.0 [facility] Comment on above: Performed By: #### A 1C WTH eA, SCAN CBC, LIPID, TSH3 #### [facility] [address] [place] [address] [place] Chloride [Moles/volume] in S maryjane or PlasmaOrdered By: Chavo Mejia on 06-02-2025 Chloride [Moles/Vol] 104 mmol/L Normal 98-107 [facility] Comment on above: Performed By: #### A 1C WTH eA, SCAN CBC, LIPID, TSH3 #### [facility] [address] Complete Blood Count Auto Di ffon 06-02-2025 Mean Corpuscular HGB Conc 34.4 g/dL Normal 32.5-35.6 [facility] Comment on above: Performed By: #### A 1C WTH eA, SCAN CBC, LIPID, TSH3 #### [facility] [address] [place] [address] [place] Monocytes/100 WBC (Bld) 17.17 % Normal 0.00-20.00 [facility] Comment on above: Performed By: #### A 1C WTH eA, SCAN CBC, LIPID, TSH3 #### [facility] [address] [place] [address] [place] NRBC% 0.0 /100{WBC} Normal 0-0.5 [facility] Comment on above: Performed By: #### A 1C WTH eA, SCAN CBC, LIPID, TSH3 #### [address] White Blood Count 12.3 [CFU]/mL High 4.1-10.5 [facility] Comment on above: Performed By: #### A 1C WTH eA, SCAN CBC, LIPID, TSH3 #### [facility] [address] Comprehensive Metabolic Pane sidney 06-02-2025 Albumin [Mass/Vol] 4.6 g/dL Normal 3.5-5.7 [facility] Comment on above: Performed By: #### A 1C WTH eA, SCAN CBC, LIPID, TSH3 #### [address] Creatinine Clr Calc Pharmacy 66.21 Normal [facility] Comment on above: Result Comment: PERF ORMED BY: [place] [address] PATHOLOGIST FIRE BOAT ENGINEER CLINTON MULLINS M.D. Performed By: #### A 1C WTH eA, SCAN CBC, LIPID, TSH3 #### [address] GFR/1.73 sq M.predicted MDRD (S/P/Bld) [Vol rate/Area] mL/min/{1.73_m2} Normal [facility] Comment on above: Performed By: #### A 1C WTH eA, SCAN CBC, LIPID, TSH3 #### [place] [address] [place] Creatinine [Mass/volume] in Serum or PlasmaOrdered By: Chavo Mejia on 06-02-2025 Creatinine [Mass/Vol] 1.14 mg/dL Normal 0.70-1.30 [facility] Comment on above: Performed By: #### A 1C WTH eA, SCAN CBC, LIPID, TSH3 #### [place] [address] [place] Eosinophils [#/volume] in Bl ood by Automated countOrdered By: Chavo Mejia on 06-02-2025 Eosinophils (Bld) [#/Vol] 0.1 10*3/uL Normal 0.0-0.45 [facility] Comment on above: Performed By: #### A 1C WTH eA, SCAN CBC, LIPID, TSH3 #### [facility] [address] Eosinophils/100 leukocytes i n Blood by Automated countOrdered By: Chavo Mejia on 06-02-2025 Eosinophils/100 WBC (Bld) 0.7 % Normal . [facility] Comment on above: Performed By: #### A 1C WTH eA, SCAN CBC, LIPID, TSH3 #### [facility] [address] Erythrocyte distribution wid th [Ratio] by Automated countOrdered By: Chavo Mejia on 06-02-2025 Erythrocyte distribution width (RBC) [Ratio] 13.9 % Normal 12.0-14.8 [facility] Comment on above: Performed By: #### A 1C WTH eA, SCAN CBC, LIPID, TSH3 #### [facility] [address] Erythrocytes [#/volume] in B lood by Automated countOrdered By: Chavo Mejia on 06-02-2025 RBC (Bld) [#/Vol] 5.12 10*6/uL Normal 3.90-5.60 [facility] Comment on above: Performed By: #### A 1C WTH eA, SCAN CBC, LIPID, TSH3 #### [facility] [address] Ethanol [Mass/volume] in Ser um or PlasmaOrdered By: Chavo Mejia on 06-02-2025 Ethanol [Mass/Vol] mg/dL Normal [facility] Comment on above: Performed By: #### A 1C WTH eA, SCAN CBC, LIPID, TSH3 #### [facility] [address] Ethyl Alcohol Profileon 05-18 Percent Ethanol Not performed Normal [facility] Comment on above: Result Comment: PERF ORMED BY: [place] [address] PATHOLOGIST FIRE BOAT ENGINEER CLINTON MULLINS M.D. Performed By: #### A 1C WTH eA, SCAN CBC, LIPID, TSH3 #### [facility] [address] [place] [id number] [place] Glucose [Mass/volume] in Ser um or PlasmaOrdered By: Chavo Mejia on 06-02-2025 Glucose [Mass/Vol] 146 mg/dL High 70-100 [facility] Comment on above: ADA recommended refe rence rangeRandom Glucose Reference Range is dependent on time and content of last meal. Glucose of more than 200 mg/dL in a nonstressed, ambulatory subject supports the diagnosis of Diabetes Mellitus. Result Comment: [place] om Glucose Reference Range is dependent on time and content of last meal. Glucose of more than 200 mg/dL in a nonstressed, ambulatory subject supports the diagnosis of Diabetes Mellitus. ADA recommended reference range Performed By: #### A 1C WTH eA, SCAN CBC, LIPID, TSH3 #### [facility] [address] [place] [id number] [place] Hematocrit [Volume Fraction] of Blood by Automated countOrdered By: Chavo Mejia on 06-02-2025 Hematocrit (Bld) [Volume fraction] 49.2 % Normal 38.8-50.0 [facility] Comment on above: Performed By: #### A 1C WTH eA, SCAN CBC, LIPID, TSH3 #### [facility] [address] [place] [address] [place] Hemoglobin [Mass/volume] in BloodOrdered By: Chavo Mejia on 06-02-2025 Hemoglobin (Bld) [Mass/Vol] 16.9 g/dL Normal 13.0-17.0 [facility] Comment on above: Performed By: #### A 1C WTH eA, SCAN CBC, LIPID, TSH3 #### [facility] [address] [place] [id number] [place] Leukocytes [#/volume] correc kishan for nucleated erythrocytes in Blood by Automated counOrdered By: Chavo Mejia on 06-02-2025 WBC corrected for nucl RBC Auto (Bld) [#/Vol] 12.3 10*3/uL High 4.1-10.5 [facility] Leukocytes [#/volume] in Blo od by Automated countOrdered By: Chavo Mejia on 06-02-2025 WBC (Bld) [#/Vol] 12.3 10*3/uL High 4.1-10.5 [facility] Comment on above: Performed By: #### A 1C WTH eA, SCAN CBC, LIPID, TSH3 #### [facility] [address] [place] [address] [place] Lymphocytes [#/volume] in Bl ood by Automated countOrdered By: Chavo Mejia on 06-02-2025 Lymphocytes (Bld) [#/Vol] 2.0 10*3/uL Normal 1.00-4.8 [facility] Comment on above: Performed By: #### A 1C WT eA, SCAN CBC, LIPID, TSH3 #### [facility] [address] [place] [address] [place] Lymphocytes/100 leukocytes i n Blood by Automated countOrdered By: Chavo Mejia on 06-02-2025 Lymphocytes/100 WBC (Bld) 16.5 % Normal . [facility] Comment on above: Performed By: #### A 1C WT eA, SCAN CBC, LIPID, TSH3 #### [facility] [address] [place] [address] [place] MCH [Entitic mass] by Automa kishan countOrdered By: Chavo Mejia on 06-02-2025 MCH (RBC) [Entitic mass] 33.1 pg Normal 27.5-35.2 [facility] Comment on above: Performed By: #### A 1C WTH eA, SCAN CBC, LIPID, TSH3 #### [place] [address] [place] MCHC Auto (RBC) [Mass/Vol]Or dered By: Chavo Mejia on 06-02-2025 MCHC (RBC) [Mass/Vol] 34.4 g/dL 32.5-35.6 [facility] MCV [Entitic volume] by Auto mated countOrdered By: Chavo Mejia on 06-02-2025 MCV (RBC) [Entitic vol] 96.1 fL Normal 83.5-101 [facility] Comment on above: Performed By: #### A 1C WT eA, SCAN CBC, LIPID, TSH3 #### [facility] [address] [place] [address] [place] Monocyte distribution width [Entitic volume] in Blood by AutomatedOrdered By: Chavo Mejia on 06-02-2025 Monocyte distribution width Auto (Bld) [Entitic vol] 17.17 % 0.00-20.00 [facility] Monocytes [#/volume] in Bloo d by Automated countOrdered By: Chavo Mejia on 06-02-2025 Monocytes (Bld) [#/Vol] 0.9 10*3/uL High 0.0-0.8 [facility] Comment on above: Performed By: #### A 1C [facility] eA, SCAN CBC, LIPID, TSH3 #### [facility] [address] [place] [address] [place] Monocytes/100 leukocytes in Blood by Automated countOrdered By: Chavo Mejia on 06-02-2025 Monocytes/100 WBC (Bld) 7.1 % Normal . [facility] Comment on above: Performed By: #### A 1C WT eA, SCAN CBC, LIPID, TSH3 #### [facility] [address] [place] [address] [place] Neutrophils [#/volume] in Bl ood by Automated countOrdered By: Chavo Mejia on 06-02-2025 Neutrophils (Bld) [#/Vol] 9.2 10*3/uL High 1.8-7.7 [facility] Comment on above: Performed By: #### A 1C WT eA, SCAN CBC, LIPID, TSH3 #### [facility] [address] [place] [address] [place] Neutrophils/100 leukocytes i n Blood by Automated countOrdered By: Chavo Mejia on 06-02-2025 Neutrophils/100 WBC (Bld) 75.1 % Normal . [facility] Comment on above: Performed By: #### A 1C WT eA, SCAN CBC, LIPID, TSH3 #### [facility] [address] No Panel InformationOrdered By: Chavo Mejia on 06-02-2025 Estimated GFR (CKD-EPI) > 60.0 mL/Min [facility] Creatinine Clearance (Chem 66.21 [facility] Nucleated erythrocytes [Pres ence] in Blood by Automated countOrdered By: Chavo Mejia on 06-02-2025 Nucleated RBC Auto Ql (Bld) 0.0 /100{WBC} 0-0.5 [facility] Platelet mean volume [Entiti c volume] in Blood by Automated countOrdered By: Chavo Mejia on 06-02-2025 Platelet mean volume (Bld) [Entitic vol] 7.7 fL Normal 6.6-10.1 [facility] Comment on above: Performed By: #### A 1C WT eA, SCAN CBC, LIPID, TSH3 #### [facility] [address] [place] [address] [place] Platelets [#/volume] in Bloo d by Automated countOrdered By: Chavo Mejia on 06-02-2025 Platelets (Bld) [#/Vol] 296 10*3/uL Normal 150-450 [facility] Comment on above: Performed By: #### A 1C WT eA, SCAN CBC, LIPID, TSH3 #### [facility] [address] [place] [address] [place] Potassium [Moles/volume] in Serum or PlasmaOrdered By: Chavo Mejia on 06-02-2025 Potassium [Moles/Vol] 3.7 mmol/L Normal 3.5-5.1 [facility] Comment on above: Performed By: #### A 1C WTH eA, SCAN CBC, LIPID, TSH3 #### [facility] [address] [place] [address] [place] Protein [Mass/volume] in Ser um or PlasmaOrdered By: Chavo Mejia on 06-02-2025 Protein [Mass/Vol] 7.1 g/dL Normal 6.4-8.9 [facility] Comment on above: Performed By: #### A 1C WTH eA, SCAN CBC, LIPID, TSH3 #### [facility] [address] Serum globulin measurement b y calculation (mass/volume)Ordered By: Chavo Mejia on 06-02-2025 Globulin (S) [Mass/Vol] 2.5 g/dL Normal [facility] Comment on above: Performed By: #### A 1C WTH eA, SCAN CBC, LIPID, TSH3 #### [facility] [address] Serum or plasma albumin/glob ulin mass ratioOrdered By: Chavo Mejia on 06-02-2025 Albumin/Globulin [Mass ratio] 1.8 {ratio} [facility] Comment on above: Performed By: #### A 1C WTH eA, SCAN CBC, LIPID, TSH3 #### [address] Serum or plasma anion gap de terminationOrdered By: Chavo Mejia on 06-02-2025 Anion gap [Moles/Vol] 14.8 mmol/L Normal 6.0-15.0 [facility] Comment on above: Performed By: #### A 1C WTH eA, SCAN CBC, LIPID, TSH3 #### [address] Serum or plasma ethanol marlene urement (mass/volume)Ordered By: Chavo Mejia on 06-02-2025 Ethanol [Mass/Vol] TNP [facility] Comment on above: Test not performed Sodium [Moles/volume] in Ser um or PlasmaOrdered By: Chavo Mejia on 06-02-2025 Sodium [Moles/Vol] 137 mmol/L Normal 136-145 [facility] Comment on above: Performed By: #### A 1C WTH eA, SCAN CBC, LIPID, TSH3 #### [address] Urea nitrogen [Mass/volume] in Serum or PlasmaOrdered By: hCavo Mejia on 06-02-2025 Urea nitrogen [Mass/Vol] 23 mg/dL Normal 7- [facility] Comment on above: Performed By: #### A 1C WTH eA, SCAN CBC, LIPID, TSH3 #### [place] [id number] [facility] X-ray reportOrdered By: Brad Hawkins on 06-02-2025 Study report [facility] Main [place] [id number] XRay Report Signed Patient: Mariana Barnes MR#: [id number] Acct:[id number] Age/Sex: 70 / M ADM Date: 5 [...] SEEN. Impression dictated by: Florian Hawkins Jr., D.OBenigno 06/02/2025 5:30 PM Dictation Location: [place] [address] Transcribed By: [facility] 06/02/251729 Dictated By: Florian Hawkins Jr, DO 06/02/25 1729 Signed By: 06/02/25 173 [facility] XR forearm LT 2V*on 06-02-20 XR forearm LT 2V* [facility] Main [address] [address] XRay Report Signed Patient: Mariana Barnes MR#: [id number] : 1955 Acct:[id number] Age/Sex: 70 / M ADM Date: 06/02/25 Loc: ER Room: Type: PRE ER Attending Dr: Copies to: Chavo Mejia DO Ordering Provider: Chavo Mejia DO Date of [...] SEEN. Impression dictated by: Florian Hawkins Jr., D.OBenigno 06/02/2025 5:30 PM Dictation Location: [facility] Transcribed By: [facility] 06/02/25 1730 Dictated By: Florian Hawkins Jr, DO 06/02/25 1729 Signed By: 06/02/25 1730 Normal [facility] Ambulatory Visit Summaryon 0 05-21-2025 Ambulatory Visit Summary Ambulatory Visit Summary MARIANA BARNES :1955 Visit Date:05/21/2025 Ambulatory Visit Instructions Your Diagnosis Prostate cancer BPH with urinary obstruction Hypogonadism male Antiplatelet or antithrombotic long-term use Your Care Team Attending Physician - Jefferson MORRISON, Susanna [place] Primary Care Physician - Sadiq Floyd DO This Is Your Medications List tamsulosin (tamsulosin 0.4 mg Cap) Contact prescribing physician if questions or concerns ascorbic acid (Vitamin C) aspirin (aspirin 81 mg Chew Tab) cetirizine (Zyrtec) dapagliflozin (Farxiga 5 mg oral tablet) ergocalciferol (Vitamin D) fluticasone nasal (Flonase) glimepiride (glimepiride 1 mg Tab) lisinopril (lisinopril 5 mg Tab) metformin (metformin 500 mg oral tablet) metoprolol (metoprolol succinate 25 mg ER Tab) multivitamin (Vitamin B Complex oral capsule) omega-3 polyunsaturated fatty acids (Fish Oil) rosuvastatin (rosuvastatin 10 mg Tab) ubiquinone (CoQ10) zinc sulfate (Zinc) Procedures Performed Biopsy of prostate (03/28/2025), History of nasal sinus surgery (11/19/2016), Sigmoid colon polyp (12/13/2015), 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 Discharge Vitals Heart Rate (Peripheral) 78 Blood Pressure 144/97 Height 173 cm Height 68 in Weight 88.5 kg Weight 195.109 lb BMI 29.57 What to do next Scheduled Follow-Up Appointments Wednesday 11:15 AM EDT With: Jefferson MORRISON, Susanna Alcantara Where: [facility] [place] [address] [place] [address]- You Need to Schedule the Following Appointments Follow Up with Jefferson MORRISON, Susanna Alcantara, URL, URO When: Where: Medications What How Much When Instructions Unchanged tamsulosin (tamsulosin 0.4 mg Cap) 1 Capsules By Mouth Once a day (in the evening) Duration: 30 Days Stop taking if experiencing dizziness or lightheadedness. 30 minutes after the same meal Unchanged ascorbic acid (Vitamin C) Every day Contact prescribing physician if questions or concerns Unchanged aspirin (aspirin 81 mg Chew Tab) 1 Tablets By Mouth Every day Contact prescribing physician if questions or concerns Unchanged cetirizine (Zyrtec) Every day Contact prescribing physician if questions or concerns Unchanged dapagliflozin (Farxiga 5 mg oral tablet) Contact prescribing physician if questions or concerns Unchanged ergocalciferol (Vitamin D) By Mouth Every week Contact prescribing physician if questions or concerns Unchanged fluticasone nasal (Flonase) Every day Contact prescribing physician if questions or concerns Unchanged glimepiride (glimepiride 1 mg Tab) 1 Tablets By Mouth Every day Contact prescribing physician if questions or concerns Unchanged lisinopril (lisinopril 5 mg Tab) By Mouth Every day Contact prescribing physician if questions or concerns Unchanged metformin (metformin 500 mg oral tablet) By Mouth 2 times a day Contact prescribing physician if questions or concerns Unchanged metoprolol (metoprolol succinate 25 mg ER Tab) 1 Tablets By Mouth Every day Contact prescribing physician if questions or concerns Unchanged multivitamin (Vitamin B Complex oral capsule) By Mouth Every day Contact prescribing physician if questions or concerns Unchanged omega-3 polyunsaturated fatty acids (Fish Oil) By Mouth Contact prescribing physician if questions or concerns Unchanged rosuvastatin (rosuvastatin 10 mg Tab) By Mouth Every day Contact prescribing physician if questions or concerns Unchanged ubiquinone (CoQ10) By Mouth Every day Contact prescribing physician if questions or concerns Unchanged zinc sulfate (Zinc) By Mouth Every day Contact prescribing physician if questions or concerns Allergies cefdinir (Unknown) hydroCHLOROthiazide (Unknown) Problems Ongoing - Any problem that you are currently receiving treatment for. Antiplatelet or antithrombotic long-term use Arthritis Benign colon polyp BPH with urinary obstruction BPH without urinary obstruction Former smoker High cholesterol Hyperlipidemia Hypertension Hypogonadism male Nocturia Prostate cancer Type II diabetes mellitus Historical - Any problem that you are no longer receiving treatment for. Hematuria History of bladder cancer Patient Survey You may receive a survey via text or e-mail asking about your office visit. Please share your experience with us by completing your survey. We appreciate your feedback and thank you for choosing us for your care. Education Materials Prostate Cancer The prostate is a small gland that produces fluid that makes up semen (seminal fluid). It is located below the bladder in men, in front of the rectum. Prostate cancer is the abnormal growth of cells in the prostate gland. What are the causes? The exact c (more content not included)... Normal [facility] Urology Office/Clinic Noteon 05-21-2025 Urology Office/Clinic Note Urology Office/Clinic Note Chief Complaint discuss options HPI Staff 69 year old male discuss treatment options Patient denies any dysuria or gross hematuria. Denies any flank or abdomen pain. no symptoms History of Present Illness Tests reviewed: reviewed UA, Decipher and external records: rad onc notes. I have reviewed the previous health record information and history for this patient from Dr. Paulino I have reviewed and verified the staff HPI to be accurate for this encounter. There have been no associated fever, chills, flank pain, or blood in the urine. Denies any urinary infections since last encounter. Review of Systems PHQ Score Initial Depression Screen Score: 0 SCORE ROS - Provider Constitutional: denies weight loss, denies hot flashes. Eyes: denies eye problems. Gastrointestinal: denies nausea, denies vomiting. Cardiovascular: denies chest pain or angina. Integumentary: no dryness Musculoskeletal: denies musculoskeletal symptoms. ENMT: denies otolaryngeal symptoms. Respiratory: no shortness of breath. Heme/Lymph: denies easy bleeding tendency, denies easy bruising tendency. Psychiatric: no confusion, no anxiety. Genitourinary: See HPI. Physical Exam Vitals & Measurements HR: 78(Peripheral) BP: 144/97 HT: 173 cm HT: 68 in WT: 88.5 kg WT: 195.109 lb BMI: 29.57 General Appearance: alert, no distress, well nourished, well developed male. Assessment/Plan 69 yo M with newly diagnosed favorable intermediate risk prostate cancer here to further discuss RT after pt saw Dr. Arteaga. Neg hematuria workup 06/2021. Plavix just recently discontinued by external provider. FRANCA 24 (25) 1. Prostate cancer (C61: Malignant neoplasm of prostate) PSA 04/04/21 - 1.41 & 15% 09/26/21 - 2.29 & 16% 02/24/22 - 1.94 & 17% 09/08/22 - 2.11 & 16% 03/10/23 - 1.64 & 24% 06/05/24 - 2.15 & 15% 08/03/24 - 3.07 & 14% 01/12/25 - 3.30 & 12.4% No family history of prostate cancer. Select MDx 11/06/22 - 40% likelihood of prostate ca upon bx. 14% G >=7. Patient previously elected to continue to monitor over prostate MRI despite knowing small chance of clinically significant prostate cancer per [facility]X. The PCPT risk calculator: 12% high grade, 32% low grade, 56% total risk. MRI fusion TP prostate bx 03/28/25: +5/17 cores, GG2 in SILVIA, 10% Hallandale 4, remainder is GG1, highest 40%, no cribriform pattern. Prostate volume 36 cc. ALISIA firmer on left. Newly diagnosed cT2a disease, Hallandale 7 (3+4), Grade group 2 prostate cancer in 5/17 cores, initial PSA of 3.3. Favorable intermediate risk. Decipher returned intermediate risk at 0.57. Initial consult with Dr. Arteaga 04/13/25 - interested in active surveillance pending results of Decipher testing. Would be a candidate for brachytherapy, moderate hypofractionated IMRT, or SBRT. Pt states he saw Dr. Arteaga again last week. Notes not yet available on [facility]. Pt states he is interested in brachytherapy but wanted to further discuss it today. Discussed possible urination SEs post RT, risk of strictures. Discussed risks/benefits of radiation therapies. Ultimately recommend asking Dr. Arteaga his data regarding strictures after EBRT vs brachy. I have not experienced any of his brachytherapy pts with strictures or many issues postimplantation. Discussed intraoperative plan, postop cautions. -Pt elects to proceed with radium seed implant. Dr Arteaga's office to coordinate with us. -F/up with my PA, Kamla Yarbrough, 1 mos post implant with PVR to ensure he is urinating well 2. BPH with urinary obstruction (N40.1: Benign prostatic hyperplasia with lower urinary tract symptoms) S/p Cysto 06/30/21 - Unobstructed, Minimal bilateral lobar hypertrophy. Elevated bladder neck. No intravesical median lobe. Trabeculated None (0), Capacious. UA today negative for blood or infection. PVR 04/05/25 - 75 cc after 2nd void IPSS 2 (9) Flomax 0.4 mg qd prescribed at prior OV. Denies SEs. Doing well on medication, denies side effects. Encouraged pt to continue alpha ann marie, especially post RT to avoid UR. -Cont alpha ann marie 3. Hypogonadism male (E29.1: Testicular hypofunction) Testosterone 06/16/24 - 2.2 06/21/24 - 2.0 08/03/24 - 3.6, HCT 47.4 01/12/25 - 6.8 TRT in the form of AndroGel discontinued at prior OV due to diagnosis of prostate CA. Pt shares he has been doing fine since stopping TRT. Curious to see level given good symptoms. -T level due June, have drawn prior to 1000, pt to be called with results Follow-up With When Contact Information Jefferson MORRISON, Susanna Alcantara, URL, URO Additional Instructions: Proceed with radium seed implant Patient Education Prostate Cancer I, Rubia Dennis, personally scribed for Dr. Paulino on 05/21/2025 15:29:56. . Documentation recorded by the scribe, Rubia Dennis, accurately reflects the services(s) I performed and decisions made by me. Authenticated by (more content not included)... Normal [facility] Comment on above: Result Comment: Elec tronically Signed By: Susanna Paulino MD\.br\Date and Time Signed: 05/21/25 15:58 EDT\.br\Electronically Co-Signed By: Rubia Dennis\.br\Date and Time Co-Signed: 05/21/25 15:30 EDT\.br\Electronically Co-Signed By: Rubia Dennis\.br\Date and Time Co-Signed: 05/21/25 15:33 EDT\.br\Electronically Co-Signed By: Rubia Dennis\.br\Date and Time Co-Signed: 05/21/25 15:40 EDT CNOVon 05-17-2025 CNOV Office Visit (RADTSA ) -- MOLLYMARIANA HOPSON ([id number]) 1955 M Date Time Provider Department 05/17/25 1:30 PM Osorio ARTEAGA RADKARL During your visit today, we recorded the following information about you: Temperature Pulse Respiration Blood pressure 97.7 degrees 79/minute 16/minute 128/81 Weight 87.2 kg Osorio Arteaga MD 05/24/2025 1:21 PM Signed Radiation Oncology - Prostate Cancer New Patient/Consult Note PATIENT NAME: Mariana Barnes PATIENT REQUESTING PROVIDER: Dr. Paulino DIAGNOSIS: Prostate adenocarcinoma, initial PSA 3.3, biopsy Hallandale score 3 + 4 = 7 (grade group 2), clinical stage T2a, N0, M0, stage IIB [T1-T2, N0, M0, PSA <20, GG 2] (AJCC 8th ed.), s/p biopsy. NCCN Risk Group: Favorable Intermediate Risk Group HPI: Patient in for further follow-up. FireBlade score 0.57, intermediate risk group PSA history: 04/04/2021 1.41 with 15% free 09/26/2021 2.29 at 16%. 02/24/2022 1.9: 17%. 09/08/2022 2.11 of 16%. 03/10/2023 1.64 with 24% free 06/02/2024 2.15 with 15% free 08/03/2024 3.07, repeated 01/12/2025 3.3 with 12% free. Select MDX has been done in October 2022 with 40% likelihood of prostate cancer on biopsy, 14% Hallandale greater than equal to 7 MRI prostate 02/22/2025 demonstrated a 23 cc gland.Ill-defined T2 hypodensity anterior left transitional zone measuring 17 x 10 mm described, PI-RADS 5. No evidence of seminal vesicle involvement or extraprostatic extension. No evidence of other pelvic findings. Prostate biopsy on March 28, 2025 revealed: 28.7 cc gland, small midline exophytic nodule on ALISIA mildly enlarged prostate, biopsies demonstrating Hallandale 7 (3+4) from the left transitional peripheral zone BX region of interest (4 /4 cores), and Jamie 6 adenocarcinoma from the left anterior, left anterior medial, right anterior medial, right anterior lateral cores.. Total # of positive biopsy cores: 8 including 4/4 Region of interest Total # of biopsy cores sampled: 14 Greatest % cancer in any single core: 25-50% Has had Decipher genomic testing sent. Staging Studies: MR Results: See HPI Previous Treatment for Prostate Cancer: None Genomic Testing: Decipher Results: Pending The patient reports the following pertinent history: Urinary frequency (D/N): 4-6/1 Dysuria: No Incontinence: 1- No pads Hematuria: No - Total AUA Score: 8 Bowel Movement Frequency: 1/day Bowel Movement Quality: Normal Blood per Rectum: No Last Colonoscopy: na Baseline Erectile Function: intact Androgen Deprivation: none Prior Radiation Therapy, Collagen Vascular Disease, or Inflammatory Bowel Disease: No Any implanted or external electric devices? No Currently on Anticoagulation: No History of Hip Replacement: No History of Prior TURP: No ALLERGIES Allergen Reactions Cefdinir Hives Patient states he was unsure what the allegry is, states it was a long time ago. Hydrochlorothiazide Unknown Pt states PCP said he was allergic fluticasone (FLONASE) 50 mcg/actuation nasal spray 2 sprays. tolnaftate (TINACTIN) 1 % external solution Apply to affected area. dapagliflozin propanediol (FARXIGA) 5 mg tablet Take 5 mg by mouth daily with breakfast. glimepiride (AMARYL) 1 mg tablet Take 1 mg by mouth daily with breakfast. lisinopril (ZESTRIL) 10 mg tablet Take 10 mg by mouth once daily. metFORMIN (GLUCOPHAGE) 500 mg tablet Take 1,000 mg by mouth two times a day with meals. metoprolol succinate ER (TOPROL XL) 25 mg 24 hr tablet Take 25 mg by mouth once daily. Tadalafil (CIALIS) 10 mg tablet Take 10 mg by mouth once daily as needed. tamsulosin (FLOMAX) 0.4 mg Take 0.4 mg by mouth once daily. nystatin (MYCOSTATIN) powder Apply 1 application to affected area as directed. rosuvastatin (CRESTOR) 10 mg tablet Take 1 tablet by mouth daily at bedtime. PAST MEDICAL HISTORY Diagnosis Date Arthritis Fibromatosis, plantar High cholesterol Osteoarthritis Smoking many years ago quit smoking Unspecified essential hypertension Essential hypertension PAST SURGICAL HISTORY Procedure Laterality Date PAST SURGICAL HISTORY OF 7th grade non malignant cyst left ankle TOTAL HIP REPLACEMENT Right FAMILY HISTORY Problem Relation Age of Onset Arthritis Father Diabetes Mother Diabetes Brother other (had stent [Other]) Father Social History Tobacco Use Smoking status: Former Types: Cigarettes Smokeless tobacco: Never Substance Use Topics Alcohol use: Yes Comment: it fluctuates 3-4 a day Drug use: No REVIEW OF SYSTEMS: GENERAL: feeling well without fatigue, no recent change in weight NECK: denies swelling or pain in neck RESPIRATORY: no cough, no wheezing or shortness of breath CARDIOVASCULAR: no chest pain, no palpitations MUSCULOSKELETAL: denies any painful or swollen joints, no muscle aches SKIN: no rash NEURO: no numbness or pares (more content not included)... Normal [facility] 07 Addendum Reporton Addendum Report [facility] [address] [place] [address]- Surgical Pathology Report Collected Date/Time: 03/28/2025 13:10 EDT Pathologist: Quintin MORRISON PhD, Deedee Arroyo Received Date/Time: 03/28/2025 14:02 EDT Jefferson MORRISON, Susanna Paulino MD, Susanna Jeong Addendum Report - 04/17/2025 06:54 EDT - Auth (Verified) Addendum Tissue block was selected by pathologist on 04/09/2025 for reference laboratory testing after reviewing the slides. The reference lab report ([facility] [place], Decipher Genomic Risk Results, Decipher score, [facility] was reviewed by pathologist. DECIPHER SCORE:0.57 GENOMIC RISK IS : INTERMEDIATE Risk of Metastasis 1.1%(5-year), 2.7% (10-year) Risk of Prostate Cancer Mortality 4.1% (15-year) Risk of Adverse Pathology 21.5% For complete report details, please see scanned results under Pathology documents/pathology report using this FIN account number. Information entered by DC at 04/16/2025 07:42:18 EDT. CPT CODE: 54403 (Electronic Signature) Deedee Ribeiro MD PhD 04/17/2025 06:54 Addendum Reason Initial diagnosis remains unchanged. Add procedure result or create for billing purpose 07 Surgical Pathology Report - 04/04/2025 11:41 EDT - Auth (Verified) Final Diagnosis A: ??PROSTATE, RIGHT POSTERIOR MEDIAL, NEEDLE BIOPSY: - BENIGN PROSTATIC TISSUE. B: ??PROSTATE, RIGHT POSTERIOR LATERAL, NEEDLE BIOPSY: - BENIGN PROSTATIC TISSUE. C: ??PROSTATE, RIGHT BASE, NEEDLE BIOPSY: - BENIGN PROSTATIC TISSUE. D: ?PROSTATE, RIGHT ANTERIOR MEDIAL, NEEDLE BIOPSY: - ACINAR ADENOCARCINOMA OF PROSTATE, JAMIE SCORE 3+3= 6, INVOLVING 1/1 CORE (APPROXIMATELY 17 % OF TISSUE INVOLVEMENT). E: ?PROSTATE, RIGHT ANTERIOR LATERAL, NEEDLE BIOPSY: - ACINAR ADENOCARCINOMA OF PROSTATE, JAMIE SCORE 3+3= 6, INVOLVING 1/1 CORE (APPROXIMATELY 6% OF TISSUE INVOLVEMENT). F: ?PROSTATE, LEFT POSTERIOR MEDIAL, NEEDLE BIOPSY: - BENIGN PROSTATIC TISSUE. G: ?PROSTATE, LEFT POSTERIOR LATERAL, NEEDLE BIOPSY: - BENIGN PROSTATIC TISSUE. H: ?PROSTATE, LEFT BASE, NEEDLE BIOPSY: Surgical Pathology Report Collected Date/Time: 03/28/2025 13:10 EDT Pathologist: Quintin MORRISON PhD, Deedee Garcia Date/Time: 03/28/2025 14:02 EDT Jefferson MORRISON, Susanna Paulino MD, Susanna Alcantara Final Diagnosis - BENIGN PROSTATIC TISSUE. I: ?PROSTATE, LEFT ANTERIOR MEDIAL, NEEDLE BIOPSY: - ACINAR ADENOCARCINOMA OF PROSTATE, JAMIE SCORE 3+3= 6, INVOLVING 1/1 CORE (APPROXIMATELY 12 % OF TISSUE INVOLVEMENT). J: ?PROSTATE, LEFT ANTERIOR LATERAL, NEEDLE BIOPSY: - ACINAR ADENOCARCINOMA OF PROSTATE, JAMIE SCORE 3+3= 6, INVOLVING 1/1 CORE (APPROXIMATELY 40 % OF TISSUE INVOLVEMENT). K: ?PROSTATE, #1 REGION OF INTEREST LEFT TRANSITIONAL PERIPHERAL ZONE MIX, NEEDLE BIOPSY: - ACINAR ADENOCARCINOMA OF PROSTATE, JAMIE SCORE 3+4= 7, INVOLVING 4/4 CORES (APPROXIMATELY 28% OF TISSUE INVOLVEMENT). (Electronic Signature) Deedee Ribeiro MD PhD 04/04/2025 11:41 Diagnosis Comment Highest grade group: Jamie score 3+4=7, grade group 2. Highest percentage of core involvement: 40 % Cribriform pattern 4: Not identified Highest percentage of Hallandale pattern 4: Approximately 10% D, E, I and J: Immunostain HMW cytokeratins /p63/ P504S (PIN4 immunostain) reviewed, supporting the rendered diagnosis. Clinical Information Elevated PSA Pre-Op Diagnosis: Elevated PSA Procedure: Transperineal ultrasound prostate biopsy Post-Op Diagnosis: 1. Elevated PSA 2. Abnormal MRI pelvis Specimen(s) Received A.Biopsy of right posterior medial prostate B.Biopsy of right posterior lateral prostate C.Biopsy of right base prostate D.Biopsy of right anterior medial prostate E.Biopsy of right anterior lateral prostate F.Biopsy of left posterior medial prostate G.Biopsy of left posterior lateral prostate H.Biopsy of left base prostate I.Biopsy of left anterior medial prostate J.Biopsy of left anterior lateral prostate K.#1 Region of interest Gross Description A: The specimen is received in formalin, labeled with patient name, number and right posterior medial prostate x2 and consists of two cylindrical segments of spears soft tissue which measure 1.3 and 1.3 cm in length. The specimen is entirely submitted. B: ??The specimen is received in formalin, labeled with patient name, number, and right posterior lateral prostate x2 and consists of two cylindrical segments of spears soft tissue which measure 1.1 and 1.5 cm in length. The specimen is entirely submitted. Surgical Pathology Report Collected Date/Time: 03/28/2025 13:10 EDT Pathologist: Quintin MORRISON PhD, Deedee Arroyo Received Date/Time: 03/28/2025 14:02 EDT Jefferson MORRISON, Susanna Paulino MD, Susanna Alcantara Gross Description C: ?The specimen is received in formalin, labeled with patient name, number, and right base prostate x2 and consists of two cylindrica (more content not included)... Normal [facility] Comment on above: Performed By: #### C D:[id number] #### [facility] [address] [place] [address] CNOVon 04-13-2025 CNOV Office Visit (RADTSA ) -- MOLLYMARIANA HOPSON ([id number]) 1955 M Date Time Provider Department 04/13/25 9:45 AM Osorio ARTEAGA During your visit today, we recorded the following information about you: Selma Ring RN 04/13/2025 3:57 PM Signed Pacemaker/Defibrillator?N Previous Cancer(s)?N Previous Radiation?N Lupus/Scleroderma?N On body monitoring device?N AUA=8 RHEA Guido G Phillip, MD 04/13/2025 3:57 PM Signed Radiation Oncology - Prostate Cancer New Patient/Consult Note PATIENT NAME: Mariana Barnes PATIENT REQUESTING PROVIDER: Dr. Paulino DIAGNOSIS: 69 year old male with prostate adenocarcinoma, initial PSA 3.3, biopsy Hallandale score 3 + 4 = 7 (grade group 2), clinical stage T2a, N0, M0, stage IIB [T1-T2, N0, M0, PSA <20, GG 2] (AJCC 8th ed.), s/p biopsy. NCCN Risk Group: Favorable Intermediate Risk Group HPI: 69 year old male with prostate adenocarcinoma who presents for an opinion regarding the role of radiation therapy in the management of the patient's disease. Final recommendations will be communicated back to the requesting physician by way of the shared medical record, or letter to requesting physician via US mail. The patient was diagnosed with prostate cancer and comes in today to discuss treatment options. Patient presented with a rising PSA. PSA 08/03/2024 3.07, repeated 01/12/2025 3.3 with 12% free. PSA history: 04/04/2021 1.41 with 15% free 09/26/2021 2.29 at 16%. 02/24/2022 1.9: 17%. 09/08/2022 2.11 of 16%. 03/10/2023 1.64 with 24% free 06/02/2024 2.15 with 15% free Select MDX has been done in October 2022 with 40% likelihood of prostate cancer on biopsy, 14% Jamie greater than equal to 7 MRI prostate 02/22/2025 demonstrated a 23 cc gland.Ill-defined T2 hypodensity anterior left transitional zone measuring 17 x 10 mm described, PI-RADS 5. No evidence of seminal vesicle involvement or extraprostatic extension. No evidence of other pelvic findings. Prostate biopsy on March 28, 2025 revealed: 28.7 cc gland, small midline exophytic nodule on ALISIA mildly enlarged prostate, biopsies demonstrating Hallandale 7 (3+4) from the left transitional peripheral zone BX region of interest (4 /4 cores), and Jamie 6 adenocarcinoma from the left anterior, left anterior medial, right anterior medial, right anterior lateral cores.. Total # of positive biopsy cores: 8 including 4/4 Region of interest Total # of biopsy cores sampled: 14 Greatest % cancer in any single core: 25-50% Has had Decipher genomic testing sent. Staging Studies: MR Results: See HPI Previous Treatment for Prostate Cancer: None Genomic Testing: Decipher Results: Pending The patient reports the following pertinent history: Urinary frequency (D/N): 4-6/1 Dysuria: No Incontinence: 1- No pads Hematuria: No - Total AUA Score: 8 Bowel Movement Frequency: 1/day Bowel Movement Quality: Normal Blood per Rectum: No Last Colonoscopy: na Baseline Erectile Function: intact Androgen Deprivation: none Prior Radiation Therapy, Collagen Vascular Disease, or Inflammatory Bowel Disease: No Any implanted or external electric devices? No Currently on Anticoagulation: No History of Hip Replacement: No History of Prior TURP: No ALLERGIES Allergen Reactions Cefdinir Hives Patient states he was unsure what the allegry is, states it was a long time ago. Hydrochlorothiazide Unknown Pt states PCP said he was allergic fluticasone (FLONASE) 50 mcg/actuation nasal spray 2 sprays. tolnaftate (TINACTIN) 1 % external solution Apply to affected area. dapagliflozin propanediol (FARXIGA) 5 mg tablet Take 5 mg by mouth daily with breakfast. glimepiride (AMARYL) 1 mg tablet Take 1 mg by mouth daily with breakfast. lisinopril (ZESTRIL) 10 mg tablet Take 10 mg by mouth once daily. metFORMIN (GLUCOPHAGE) 500 mg tablet Take 1,000 mg by mouth two times a day with meals. Tadalafil (CIALIS) 10 mg tablet Take 10 mg by mouth once daily as needed. tamsulosin (FLOMAX) 0.4 mg Take 0.4 mg by mouth once daily. nystatin (MYCOSTATIN) powder Apply 1 application to affected area as directed. rosuvastatin (CRESTOR) 10 mg tablet Take 1 tablet by mouth daily at bedtime. metoprolol succinate ER (TOPROL XL) 25 mg 24 hr tablet Take 25 mg by mouth once daily. (Patient not taking: Reported on 04/13/2025) PAST MEDICAL HISTORY Diagnosis Date Arthritis Fibromatosis, plantar High cholesterol Osteoarthritis Smoking many years ago quit smoking Unspecified essential hypertension Essential hypertension PAST SURGICAL HISTORY Procedure Laterality Date PAST SURGICAL HISTORY OF 7th grade non malignant cyst left ankle TOTAL HIP REPLACEMENT Right FAMILY HISTORY Problem Relation Age of Onset Arthritis Father Diabetes Mother Diabetes Brother other (had stent [Other]) Father Social (more content not included)... Normal [facility] A1C with Estimated Average G jeni 04-12-2025 Glucose [Mass/Vol] 154 mg/dL Normal [facility] Comment on above: Result Comment: PERF ORMED BY: [facility] [address] [place] [address] PATHOLOGIST [employer]AT ENGINEER CLINTON MULLINS M.D. Performed By: #### A 1C WTH eA, SCAN CBC, LIPID, TSH3 #### [facility] [address] [place] [address] [place] Alanine aminotransferase [En zymatic activity/volume] in Serum or PlasmaOrdered By: Sadiq Floyd on 04-12-2025 ALT [Catalytic activity/Vol] 18 U/L Normal 7-52 [facility] Comment on above: Order Comment: Comme nt ordered on 10/17/24 originally Performed By: #### C MP #### [place] [address] [place] Albumin [Mass/volume] in Ser um or Plasma by Bromocresol green (BCG) dye binding methoOrdered By: Sadiq Floyd on 04-12-2025 Albumin BCG dye [Mass/Vol] 4.2 g/dL 3.5-5.7 [facility] Alkaline phosphatase [Enzyma tic activity/volume] in Serum or PlasmaOrdered By: Sadiq Floyd on 04-12-2025 ALP [Catalytic activity/Vol] 87 U/L Normal 34-104 [facility] Comment on above: Order Comment: Comme nt ordered on 10/17/24 originally Result Comment: PERF ORMED BY: [place] [address] PATHOLOGIST [employer]RE BOAT ENGINEER CLINTON MULLINS M.D. Performed By: #### C MP #### [address] Aspartate aminotransferase [ Enzymatic activity/volume] in Serum or PlasmaOrdered By: Sadiq Floyd on 04-12-2025 AST [Catalytic activity/Vol] 13 U/L Normal 13-39 [facility] Comment on above: Order Comment: Comme nt ordered on 10/17/24 originally Performed By: #### C MP #### [place] [address] [place] Basophils [#/volume] in Bloo d by Automated countOrdered By: Sadiq Floyd on 04-12-2025 Basophils (Bld) [#/Vol] 0.0 10*3/uL Normal 0.0-0.2 [facility] Comment on above: Performed By: #### A 1C WT eA, SCAN CBC, LIPID, TSH3 #### [facility] [address] Basophils/100 leukocytes in Blood by Automated countOrdered By: Sadiq Floyd on 04-12-2025 Basophils/100 WBC (Bld) 0.2 % Normal . [facility] Comment on above: Performed By: #### A 1C WTH eA, SCAN CBC, LIPID, TSH3 #### [facility] [address] Bilirubin.total [Mass/volume ] in Serum or PlasmaOrdered By: Sadiq Floyd on 04-12-2025 Bilirubin [Mass/Vol] 0.5 mg/dL Normal 0.3-1.0 [facility] Comment on above: Order Comment: Comme nt ordered on 10/17/24 originally Performed By: #### C MP #### [address] Blood estimated average gluc ose determination by estimation from glycated hemoglobinOrdered By: Sadiq Floyd on 04-12-2025 Average glucose Estimated from glycated hemoglobin (Bld) [Mass/Vol] 154 mg/dL [facility] Calcium [Mass/volume] in Ser um or PlasmaOrdered By: Sadiq Floyd on 04-12-2025 Calcium [Mass/Vol] 9.9 mg/dL Normal 8.6-10.3 [facility] Comment on above: Order Comment: Comme nt ordered on 10/17/24 originally Performed By: #### C MP #### [address] Carbon dioxide, total [Moles /volume] in Serum or PlasmaOrdered By: Sadiq Floyd on 04-12-2025 CO2 [Moles/Vol] 28.2 mmol/L Normal 21.0-31.0 [facility] Comment on above: Order Comment: Comme nt ordered on 10/17/24 originally Performed By: #### C MP #### [place] [address] [place] Chloride [Moles/volume] in S maryjane or PlasmaOrdered By: Sadiq Floyd on 04-12-2025 Chloride [Moles/Vol] 101 mmol/L Normal 98-107 [facility] Comment on above: Order Comment: Comme nt ordered on 10/17/24 originally Performed By: #### C MP #### [facility] [address] [place] [id number] [place] Cholesterol [Mass/volume] in Serum or PlasmaOrdered By: Sadiq Floyd on 04-12-2025 Cholesterol [Mass/Vol] 120 mg/dL Low 140-200 [facility] Comment on above: Chol less than 200 m g/dl low riskChol 201-239 mg/dl borderline riskChol 240 mg/dl and greater high risk Result Comment: Chol less than 200 mg/dl low risk Chol 201-239 mg/dl borderline risk Chol 240 mg/dl and greater high risk Performed By: #### A 1C WTH eA, SCAN CBC, LIPID, TSH3 #### [facility] [address] [place] [address] [place] Cholesterol in HDL [Mass/vol ume] in Serum or PlasmaOrdered By: Sadiq Floyd on 04-12-2025 Cholesterol in HDL [Mass/Vol] 50 mg/dL Normal 23-92 [facility] Comment on above: HDL CHOL ATP-III CLA SSIFICATION Cardiovascular RiskHDL > or equal to 60 mg/dL LOWHDL < 40 mg/dL HIGH Result Comment: HDL CHOL ATP-III CLASSIFICATION Cardiovascular Risk HDL > or equal to 60 mg/dL LOW HDL < 40 mg/dL HIGH Performed By: #### A 1C WTH eA, SCAN CBC, LIPID, TSH3 #### [facility] [address] [place] [id number] [place] Cholesterol in LDL Calc [Mas s/Vol]Ordered By: Sadiq Floyd on 04-12-2025 Cholesterol in LDL [Mass/Vol] 33 mg/dL 0-100 [facility] Comment on above: LDL ATP III CLASSIFI CATIONLDL less than 100 mg/dL OptimalLDL 100-129 mg/dL Near or above optimalLDL 130-159 mg/dL Borderline highLDL 160-189 mg/dL HighLDL greater than 189 mg/dL Very high Cholesterol in VLDL Calc [Ma ss/Vol]Ordered By: Sadiq Floyd on 04-12-2025 Cholesterol in VLDL [Mass/Vol] 37 mg/dL [facility] Comprehensive Metabolic Pane sidney 04-12-2025 Albumin [Mass/Vol] 4.2 g/dL Normal 3.5-5.7 [facility] Comment on above: Order Comment: Comme nt ordered on 10/17/24 originally Performed By: #### C MP #### [place] [address] [place] GFR/1.73 sq M.predicted MDRD (S/P/Bld) [Vol rate/Area] mL/min/{1.73_m2} Normal [facility] Comment on above: Order Comment: Comme nt ordered on 10/17/24 originally Performed By: #### C MP #### [address] Creatinine [Mass/volume] in Serum or PlasmaOrdered By: Sadiq Floyd on 04-12-2025 Creatinine [Mass/Vol] 0.72 mg/dL Normal 0.70-1.30 [facility] Comment on above: Order Comment: Comme nt ordered on 10/17/24 originally Performed By: #### C MP #### [place] [address] [place] Eosinophils [#/volume] in Bl ood by Automated countOrdered By: Sadiq Floyd on 04-12-2025 Eosinophils (Bld) [#/Vol] 0.1 10*3/uL Normal 0.0-0.45 [facility] Comment on above: Performed By: #### A 1C WTH eA, SCAN CBC, LIPID, TSH3 #### [place] [address] [place] Eosinophils/100 leukocytes i n Blood by Automated countOrdered By: Sadiq Floyd on 04-12-2025 Eosinophils/100 WBC (Bld) 1.6 % Normal . [facility] Comment on above: Performed By: #### A 1C WTH eA, SCAN CBC, LIPID, TSH3 #### [place] [address] [place] Erythrocyte distribution wid th [Ratio] by Automated countOrdered By: Sadiq Floyd on 04-12-2025 Erythrocyte distribution width (RBC) [Ratio] 14.3 % Normal 12.0-14.8 [facility] Comment on above: Performed By: #### A 1C WTH eA, SCAN CBC, LIPID, TSH3 #### [facility] [address] Erythrocyte morphology findi ng [Identifier] in BloodOrdered By: Sadiq Floyd on 04-12-2025 RBC morphology finding Nom (Bld) Normal Normal Normal [facility] Comment on above: Performed By: #### A 1C WTH eA, SCAN CBC, LIPID, TSH3 #### [facility] [address] Erythrocytes [#/volume] in B lood by Automated countOrdered By: Sadiq Floyd on 04-12-2025 RBC (Bld) [#/Vol] 4.94 10*6/uL Normal 3.90-5.60 [facility] Comment on above: Performed By: #### A 1C WTH eA, SCAN CBC, LIPID, TSH3 #### [facility] [address] Glucose [Mass/volume] in Ser um or PlasmaOrdered By: Sadiq Floyd on 04-12-2025 Glucose [Mass/Vol] 146 mg/dL High 70-100 [facility] Comment on above: ADA recommended refe rence rangeRandom Glucose Reference Range is dependent on time and content of last meal. Glucose of more than 200 mg/dL in a nonstressed, ambulatory subject supports the diagnosis of Diabetes Mellitus. Order Comment: Comme nt ordered on 10/17/24 originally Result Comment: Lutz om Glucose Reference Range is dependent on time and content of last meal. Glucose of more than 200 mg/dL in a nonstressed, ambulatory subject supports the diagnosis of Diabetes Mellitus. ADA recommended reference range Performed By: #### C MP #### [facility] [address] [place] [address] [place] Hematocrit [Volume Fraction] of Blood by Automated countOrdered By: Sadiq Floyd on 04-12-2025 Hematocrit (Bld) [Volume fraction] 47.1 % Normal 38.8-50.0 [facility] Comment on above: Performed By: #### A 1C WTH eA, SCAN CBC, LIPID, TSH3 #### [facility] [address] Hemoglobin A1c/Hemoglobin.to kim in BloodOrdered By: Sadiq Floyd on 04-12-2025 HbA1c (Bld) [Mass fraction] 7.0 % High 4.3-5.6 [facility] Comment on above: Increased risk for d iabetes: 5.7 - 6.4diabetes: >6.4glycemic control for adults with diabetes: <7.0 Result Comment: Incr eased risk for diabetes: 5.7 - 6.4 diabetes: >6.4 glycemic control for adults with diabetes: <7.0 Performed By: #### A 1C WTH eA, SCAN CBC, LIPID, TSH3 #### [facility] [address] Hemoglobin [Mass/volume] in BloodOrdered By: Sadiq Floyd on 04-12-2025 Hemoglobin (Bld) [Mass/Vol] 16.3 g/dL Normal 13.0-17.0 [facility] Comment on above: Performed By: #### A 1C WTH eA, SCAN CBC, LIPID, TSH3 #### [facility] [address] Leukocytes [#/volume] correc kishan for nucleated erythrocytes in Blood by Automated counOrdered By: Sadiq Floyd on 04-12-2025 WBC corrected for nucl RBC Auto (Bld) [#/Vol] 9.3 10*3/uL 4.1-10.5 [facility] Leukocytes [#/volume] in Blo od by Automated countOrdered By: Sadiq Floyd on 04-12-2025 WBC (Bld) [#/Vol] 9.3 10*3/uL Normal 4.1-10.5 [facility] Comment on above: Performed By: #### A 1C WTH eA, SCAN CBC, LIPID, TSH3 #### [facility] [address] Lipid Panelon 04-12-2025 LDL Cholesterol,Calculate d 33 mg/dL Normal 0-100 [facility] Comment on above: Result Comment: LDL ATP III CLASSIFICATION LDL less than 100 mg/dL Optimal LDL 100-129 mg/dL Near or above optimal LDL 130-159 mg/dL Borderline high LDL 160-189 mg/dL High LDL greater than 189 mg/dL Very high Performed By: #### A 1C WTH eA, SCAN CBC, LIPID, TSH3 #### [facility] [address] Triglyceride w/Reflex 187 mg/dL High 0-149 [facility] Comment on above: Result Comment: TRIG ATP III CLASSIFICATION TRIG less than 150 mg/dL Normal TRIG 150-199 mg/dL Borderline high TRIG 200-500 mg/dL High TRIG greater than 500 mg/dL Very high Standard traceable to the Center for Disease Conrtrol and Prevention (CDC) test method. Performed By: #### A 1C WTH eA, SCAN CBC, LIPID, TSH3 #### [address] VLDL CHOLESTEROL 37 mg/dL Normal [facility] Comment on above: Performed By: #### A 1C WT eA, SCAN CBC, LIPID, TSH3 #### [facility] [address] [place] [address] [place] Lymphocytes [#/volume] in Bl ood by Automated countOrdered By: Sadiq Floyd on 04-12-2025 Lymphocytes (Bld) [#/Vol] 2.4 10*3/uL Normal 1.00-4.8 [facility] Comment on above: Performed By: #### A 1C WTH eA, SCAN CBC, LIPID, TSH3 #### [place] [address] [place] Lymphocytes/100 leukocytes i n Blood by Automated countOrdered By: Sadiq Floyd on 04-12-2025 Lymphocytes/100 WBC (Bld) 26.1 % Normal . [facility] Comment on above: Performed By: #### A 1C WT eA, SCAN CBC, LIPID, TSH3 #### [facility] [address] [place] [address] [place] MCH [Entitic mass] by Automa kishan countOrdered By: Sadiq Floyd on 04-12-2025 MCH (RBC) [Entitic mass] 33.0 pg Normal 27.5-35.2 [facility] Comment on above: Performed By: #### A 1C WTH eA, SCAN CBC, LIPID, TSH3 #### [facility] [address] [place] [address] [place] MCHC Auto (RBC) [Mass/Vol]Or dered By: Sadiq Floyd on 04-12-2025 MCHC (RBC) [Mass/Vol] 34.7 g/dL 32.5-35.6 [facility] MCV [Entitic volume] by Auto mated countOrdered By: Sadiq Floyd on 04-12-2025 MCV (RBC) [Entitic vol] 95.2 fL Normal 83.5-101 [facility] Comment on above: Performed By: #### A 1C WTH eA, SCAN CBC, LIPID, TSH3 #### [address] Monocytes [#/volume] in Bloo d by Automated countOrdered By: Sadiq Floyd on 04-12-2025 Monocytes (Bld) [#/Vol] 0.7 10*3/uL Normal 0.0-0.8 [facility] Comment on above: Performed By: #### A 1C WT eA, SCAN CBC, LIPID, TSH3 #### [place] [address] [place] Monocytes/100 leukocytes in Blood by Automated countOrdered By: Sadiq Floyd on 04-12-2025 Monocytes/100 WBC (Bld) 7.1 % Normal . [facility] Comment on above: Performed By: #### A 1C WTH eA, SCAN CBC, LIPID,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 ?The specimen is received in formalin, labeled with patient name, number, and right anterior lateral prostate x1 and consists of one cylindrical segment of spears soft tissue which measures 0.9 cm in length. The specimen is entirely submitted. F: ?? The specimen is received in formalin, labeled with patient name, number, and left posterior medial prostate x2 and consists of two cylindrical segments of spears soft tissue which measure 1.4 and 1.6 cm in length. The specimen is entirely submitted. G: ??The specimen is received in formalin, labeled with patient name, number, and left posterior lateral prostate x2 and consists of two cylindrical segments of spears soft tissue which measure 1.5 and 1.2 cm in length. The specimen is entirely submitted. ?? . H: ?The specimen is received in formalin, labeled with pat (more content not included)... [facility] Comment on above: Performed By: #### [id number] #### [facility] [address] [place] [address] Reminderson 03-30-2025 Reminders Reminders From: Berenice Sanches To: EU - Recalls Lue; Sent: 01/17/2025 10:22:00 EDT Show up: 03/19/2025 10:21:00 EDT Subject: 3 mo labs Due Date/Time: 04/18/2025 10:21:00 EDT Reminder Message Please Remember to: Pt is to f/u in 3 mos with PSA F&T and T level if his prostate MRI that was ordered today is neg. Labs will need ordered and faxed to [facility]. Thanks! patient had fusion bx on 03/28. [facility] Main OR Intraoperative Recor don 03-29-2025 Main OR Intraoperative Record Main OR Intraoperative Record IntraOp Document Type FT Summary Primary Physician: Susanna Paulino MD Finalized Date/Time: 03/29/25 09:39:59 Pt. Name: MARIANA BARNES/Sex: 1955 Male Med Rec #: [id number] Physician: Susanna Paulino MD Financial #: [id number] Pt. Type: A Room/Bed: Admit/Disch: 03/28/25 11:02:15 - 03/28/25 14:05:00 Institution: Case Times FT Entry 1 Patient Times In Room 03/28/25 12:59:00 Out Room 03/28/25 13:30:00 Procedure Times Start 03/28/25 13:08:00 Stop 03/28/25 13:26:00 Anesthesia Times Last Modified By: Sue Quarles 03/28/25 13:33:57 Case Attendance FT Entry 1 Entry 2 Entry 3 Case Attendee Sue Quarles MD, Radha Hay CST Role Performed Party Director - Primary Surgeon - Primary Scrub - Primary Time In 03/28/25 12:59:00 03/28/25 13:06:00 03/28/25 12:59:00 Time Out 03/28/25 13:30:00 03/28/25 13:30:00 03/28/25 13:30:00 Procedure PROSTATE TRANSPERINEAL PROSTATE TRANSPERINEAL PROSTATE TRANSPERINEAL BIOPSY WITH ULTRA(.) BIOPSY WITH ULTRA(.) BIOPSY WITH ULTRA(.) Comments Last Modified By: Sue Quarles Kelsie E Burgderfer, Kelsie E 03/28/25 13:35:31 03/28/25 13:35:31 03/28/25 13:35:31 General Comments: JESSICA VAZ,[facility], IN ATTENDANCE.RHEA MULLIGAN. Perioperative Protocols FT Pre-Care Text: Implements protective measures prior to operative or invasive procedure, confirms identity before the operative or invasive procedure, verifies operative procedure, surgical site, and laterality Entry 1 Procedure(s) PROSTATE TRANSPERINEAL Patient Identity Birthday, ID Band BIOPSY WITH ULTRA(.) Verified (select at Check, Patient least 2): Participation Consents / H and P H&P, Surgery/Procedure Operative Site N/A Verified Consent Marking Verified Surgical Site Yes Laterality Verified n/a Verified Procedure Verified Yes Correct Patient Yes Position Verified Availability Equipment, Medication Prep Dry n/a Verified (If Applicable) PreOp Antibiotic Yes Time Out Sue Quarles Given Participants Lue MD, Everett Steven CST, Radha Mosqueda Time Out Complete 03/28/25 13:07:00 Outcomes Met? Yes Last Modified By: Sue Quarles 03/28/25 13:14:06 Post-Care Text: The patient is free from signs and symptoms of injury caused by extraneous objects Allergy Information FT Pre-Care Text: Verifies allergies Entry 1 Allergies Reviewed? Yes Allergies Reviewed Self/Patient With Outcomes Met? Yes Last Modified By: Sue Quarles 03/28/25 13:09:37 Post-Care Text: The patient received appropriate medication(s) safely administered during the perioperative period Surgical Procedures FT Entry 1 Procedure Description Procedure PROSTATE TRANSPERINEAL Modifiers . BIOPSY WITH ULTRASOUND Surgeon Description MRI FUSION TRANSPERINEAL PROSTATE BIOPSY Primary Procedure Yes Primary Surgeon Susanna Paulino MD Start 03/28/25 13:08:00 Stop 03/28/25 13:26:00 Anesthesia Type Local Surgical Service Urology Wound Class 2 - Clean-Contaminated Last Modified By: Sue Quarles 03/28/25 13:35:29 General Case Data FT Pre-Care Text: Classifies surgical wound, implements aseptic technique, initiates traffic control Entry 1 Case Information OR OR 2 FT Case Level Level 1 Wound Class 2 - Clean-Contaminated Specialty Urology Preop Diagnosis ELEVATED PSA Postop Same As Preop Yes Postop Diagnosis ELEVATED PSA Outcomes Met? Yes Last Modified By: Lucia Clemons CST 03/29/25 09:19:15 Post-Care Text: The patient is free from signs and symptoms of infection Skin Assessment (Pre Procedure) FT Pre-Care Text: Implements protective measures to prevent skin/ tissue injury due to thermal or mechanical sources Evaluates for signs and symptoms of physical injury to skin and tissue Entry 1 Skin Integrity Intact, Lipscomb, Warm, & Skin Abnormality Yes Dry, Other/See Comments, Excoriated Abnormality Location SCABS ON LEFT HAND/ARM Outcomes Met? Yes Last Modified By: Sue Quarles 03/28/25 13:12:21 Post-Care Text: The patient is free from signs and symptoms of injury caused by extraneous objects Patient Positioning FT Pre-Care Text: Identifies physical alterations that require additional precautions for procedure-specific positioning, verifies presence of prosthetics or corrective devices, positions the patient, evaluates the patient for signs and symptoms of injury as a result of positioning Entry 1 Procedure PROSTATE TRANSPERINEAL Body Position High Lithotomy BIOPSY WITH ULTRA(.) Feet Uncrossed? Yes Left Arm Position Resting at Side Right Arm Position Resting at Side Left Leg Position Secured in Stirrup Right Leg Position Secured in Stirrup Positioning Device Pillow Under Head Large, Stirrups Yellow Fins, Safety Strap Press Points Checked Yes By Sue Quarles McClain CST, Kimberly A Outcomes Met (more content not included)... [facility] Discharge Instructionson Discharge Instructions Discharge Instructions MARIANA BARNES :1955 Visit Date:03/28/2025 Inpatient Discharge Instructions Your Care Team Admitting Physician - Susanna Paulino MD Referring Physician - Susanna Paulino MD Reason for Your Visit ELEVATED PSA Your Diagnosis Abnormal MRI, pelvis Elevated PSA Tests Performed Pathology Tissue Exam -- Results Pending -- Please visit your patient portal for your results or contact your primary care physician. This Is Your Medications List ascorbic acid (Vitamin C) aspirin (aspirin 81 mg Chew Tab) cetirizine (Zyrtec) dapagliflozin (Farxiga 5 mg oral tablet) diazepam (Valium 10 mg Tab) ergocalciferol (Vitamin D) fluticasone nasal (Flonase) glimepiride (glimepiride 1 mg Tab) lisinopril (lisinopril 5 mg Tab) metformin (metformin 500 mg oral tablet) metoprolol (metoprolol succinate 25 mg ER Tab) multivitamin (Vitamin B Complex oral capsule) omega-3 polyunsaturated fatty acids (Fish Oil) rosuvastatin (rosuvastatin 10 mg Tab) testosterone (AndroGel Pump 20.25 mg/1.25 g (1.62%) transdermal gel) ubiquinone (CoQ10) zinc sulfate (Zinc) Procedure History History of nasal sinus surgery (11/19/2016), Sigmoid colon polyp (12/13/2015), 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 What to do next Instructions From Your Doctor Event Name Event Result Discharge Activity Ambulate as tolerated, Expect mild pain, Expect minimal amount of drainage and/or bleeding Discharge Restrictions Do not operate machinery or tools Discharge Diet(s) Regular Call Your Doctor For Persistent or heavy bleeding, Temperature above 101.5 degrees, Redness, swelling, or pus at operative site, Severe pain at the operative site, Persistent vomiting Discharge Instructions Discharge Instructions Previously Scheduled Follow-Up Appointments Wednesday 8:45 AM EDT With: Susanna Paulino MD Where: [place] [address]- New Follow Up Appointments after Discharge Follow Up with Susanna Paulino When: Comments: Office to call to schedule your follow up in 1-2 weeks for pathology review Where: [address] [place] [phone] Business (1) Medications What How Much When Instructions Next Dose Unchanged ascorbic acid (Vitamin C) Every day Unchanged aspirin (aspirin 81 mg Chew Tab) 1 Tablets By Mouth Every day Unchanged cetirizine (Zyrtec) Every day Unchanged dapagliflozin (Farxiga 5 mg oral tablet) Unchanged diazepam (Valium 10 mg Tab) 1 Tablets By Mouth Once as needed for for anxiety Take 1 hour prior to the procedure. Unchanged ergocalciferol (Vitamin D) By Mouth Every week Unchanged fluticasone nasal (Flonase) Every day Unchanged glimepiride (glimepiride 1 mg Tab) 1 Tablets By Mouth Every day Unchanged lisinopril (lisinopril 5 mg Tab) By Mouth Every day Unchanged metformin (metformin 500 mg oral tablet) By Mouth 2 times a day Unchanged metoprolol (metoprolol succinate 25 mg ER Tab) 1 Tablets By Mouth Every day Unchanged multivitamin (Vitamin B Complex oral capsule) By Mouth Every day Unchanged omega-3 polyunsaturated fatty acids (Fish Oil) By Mouth Unchanged rosuvastatin (rosuvastatin 10 mg Tab) By Mouth Every day Unchanged testosterone (AndroGel Pump 20.25 mg/ 1.25 g (1.62%) transdermal gel) 3 Pump Topical Once a day (in the morning) 3 pumps daily Unchanged ubiquinone (CoQ10) By Mouth Every day Unchanged zinc sulfate (Zinc) By Mouth Every day Allergies cefdinir (Unknown) hydroCHLOROthiazide (Unknown) Education Materials [facility] [place], [place] Saturation/Transperineal Biopsy of the Prostate Discharge Instructions After your procedure You may see blood in your urine and semen intermittently for 4 to 5 weeks. When your urine turns red, limit your activities and drink plenty of fluids. This is normal and expected. If you go home with a Shore catheter in place, you will have it removed at your follow-up clinic appointment. Your doctor may allow you to remove your Shore catheter at home once the urine is clear. If so, our nursing staff will teach you how to remove the catheter. You may have discoloration (black/blue), pain, and swelling to the perineal area (between your thighs) for up to 3 weeks. Ice, elevation, and supportive underwear can help ease these symptoms. Medications ??? You may restart aspirin or other blood thinners after 24 hours. ??? Antibiotics may be prescribed by your doctor. If they are, take them until they are gone. ??? For pain, take Tylenol 500-1000 mg every 6 hours, alternate in between with ibuprofen 400-800 mg every 6 hours as needed. Activity ??? You may begin driving 24 hours after (more content not included)... Normal [facility] Comment on above: Result Comment: Elec tronically Signed By: Ivan WILKERSON, Margareth Schumacher\.br\Date and Time Signed: 03/28/25 13:50 EDT Inpatient Patient Summaryon 03-28-2025 Inpatient Patient Summary Inpatient Patient Summary [place] [id number] [facility] Clinical Discharge Instructions PERSON INFORMATION Name: MARIANA BARNES PHYSICIANS Admitting Physician: Susanna Paulino MD Attending Physician: Susanna Paulino MD PCP: Sadiq Floyd DO Discharge Diagnosis: Abnormal MRI, pelvis; Elevated PSA Comment: PATIENT EDUCATION INFORMATION Instructions: Lue - Saturation/Transperineal Biopsy of the Prostate (CUSTOM) Medication Leaflets: Follow up: With: Address: When: Susanna Paulino [address] [place] [address] [phone] Business (1) Comments: Office to call to schedule your follow up in 1-2 weeks for pathology review Type Location Start Finish [facility]RO Office Visit [facility] [place] MARIA ELENA [place] 04/18/2025 8:45 AM 04/18/2025 9:00 AM Confirmed MEDICATION LIST Medications to Continue with No Changes Other Medications ascorbic acid (Vitamin C) every day. aspirin (aspirin 81 mg Chew Tab) 1 Tablets By Mouth every day. cetirizine (Zyrtec) every day. dapagliflozin (Farxiga 5 mg oral tablet) diazepam (Valium 10 mg Tab) 1 Tablets By Mouth Once as needed for anxiety. Take 1 hour prior to the procedure.. Refills: 0. ergocalciferol (Vitamin D) By Mouth every week. fluticasone nasal (Flonase) every day. glimepiride (glimepiride 1 mg Tab) 1 Tablets By Mouth every day. lisinopril (lisinopril 5 mg Tab) By Mouth every day. metformin (metformin 500 mg oral tablet) By Mouth 2 times a day. metoprolol (metoprolol succinate 25 mg ER Tab) 1 Tablets By Mouth every day. multivitamin (Vitamin B Complex oral capsule) By Mouth every day. omega-3 polyunsaturated fatty acids (Fish Oil) By Mouth. rosuvastatin (rosuvastatin 10 mg Tab) By Mouth every day. testosterone (AndroGel Pump 20.25 mg/1.25 g (1.62%) transdermal gel) 3 Pump Topical once a day (in the morning). 3 pumps daily. Refills: 2. ubiquinone (CoQ10) By Mouth every day. zinc sulfate (Zinc) By Mouth every day. Comment: [facility] Main OR PACU II Recordon Main OR PACU II Record Main OR PACU II Record PACU Phase II Document Type FT Summary Primary Physician: Susanna Paulino MD Finalized Date/Time: 03/28/25 14:05:28 Pt. Name: MARIANA BARNES/Sex: 1955 Male Med Rec #: [id number] Physician: Susanna Paulino MD Financial #: [id number] Pt. Type: A Room/Bed: 06/18 Admit/Disch: 03/28/25 11:02:15 - Institution: Case Times PACU II FT Pre-Care Text: Identifies barriers to communication and implements measures to provide psychological support and determines knowledge level Develops individualized plan of care, and ensures continuity of care Maintains patient's dignity and privacy, and maintains patient confidentiality Identifies and reports philosophical, cultural, and spiritual beliefs and values Identifies individual values and wishes concerning care administers prescribed antibiotic therapy and immunizing agents as ordered, Evaluates postoperative tissue perfusion Implements thermoregulation measures, and monitors body temperature Evaluates postoperative respiratory status Evaluates postoperative cardiac status Evaluates postoperative neurological status Assesses pain control, collaborated in initiating patient-controlled analgesia and implements alternative methods of pain control Verifies allergies, administers prescribed medications and solutions, evaluates response to medications Entry 1 In PACU II 03/28/25 13:35:00 Discharge from PACU 03/28/25 14:05:00 II Outcomes Met? Yes Last Modified By: Margareth Love RN 03/28/25 14:05:26 Post-Care Text: The patient demonstrates knowledge of the expected response to the operative or invasive procedure The patient's care is consistent with the individualized perioperative plan of care The patient's right to privacy is maintained The patient's value system, lifestyle, ethnicity, and culture are considered, respected, and incorporated into the perioperative plan of care The patient participates in decisions affecting his or her perioperative plan of care. The patient is free from signs and symptoms of infection The patient has wound/tissue perfusion consistent with or improved from baseline levels established preoperatively The patient is at or returning to normothermia at the conclusion of the immediate postoperative period The patient's respiratory function is consistent with or improved from baseline levels established preoperatively The patient's cardiovascular status is consistent with or improved from baseline levels established preoperatively The patient's neurological status is consistent with or improved from baseline levels established preoperatively The patient demonstrates and/or reports adequate pain control throughout the perioperative period The patient received appropriate medication(s), safely administered during the perioperative period Finalized By: Margareth Love RN Document Signatures Signed By: Margareth Love RN 03/28/25 14:05 Normal [facility] Main OR Preoperative Recordo n 03-28-2025 Main OR Preoperative Record Main OR Preoperative Record Holding Area Document Type FT Summary Primary Physician: Susanna Paulino MD Finalized Date/Time: 03/28/25 11:43:30 Pt. Name: MARIANA BARNES/Sex: 1955 Male Med Rec #: [id number] Physician: Susanna Paulino MD Financial #: [id number] Pt. Type: A Room/Bed: Admit/Disch: 03/28/25 11:02:15 - Institution: Case Times Holding FT Pre-Care Text: Verifies consent for planned procedure, identifies individual values and wishes concerning care, includes family members in perioperative teaching Secures patient's records' belongings, and valuables, maintains patient's dignity and privacy, and maintains patient confidentiality Entry 1 In Holding 03/28/25 11:35:00 Last Modified By: Leta Ruggiero RN 03/28/25 11:43:28 Post-Care Text: The patient participates in decisions affecting his or her perioperative plan of care The patient's right to privacy is maintained Surgery Checklist FT Entry 1 Patient Birthday, ID Band Procedure Surgical Consent, With Identification: Check, Patient Verification: Patient Participation NPO after Midnight: n/a Personal Items: Cataract Lens Implant, Glasses, Jewelry Pain Comment: nne Does Patient Smoke No Patient states Yes Case Cancelled in No postop adult Holding Area see supervision comments below for available reason Last Modified By: Leta Ruggiero RN 03/28/25 11:38:45 Finalized By: Leta Ruggiero RN Document Signatures Signed By: Leta Ruggiero RN 03/28/25 11:43 Normal [facility] Operative Reporton Operative Report Operative Report Patient: MARIANA BARNES Age: 69 years Sex: Male : 1955 Associated Diagnoses: None Author: Susanna Paulino MD Procedure Procedure Date: 03/28/2025. Confirmed: patient, procedure, site, safety procedures followed. Performed by: Susanna Paulino MD. Type of procedure: 1. Transrectal ultrasound of the prostate and seminal vesicles for needle biopsy 2. Nerve Block of Prostate 3. UroNav MRI fusion prostate biopsy, transperineal approach . Informed consent: signed by patient. Indication: 69 year old male with a history of elevated PSA 3.3, 12.4% free on 01/12/25 and MRI prostate on 02/22/25 showing PIRADS 5 lesion in the left transition to peripheral zone, mid gland. Volume 23 cc. He presents today for the above procedures. Risks of the procedure were discussed to include but not be limited to bleeding, pain, infection, difficulties with urination, injury to the urethra, prostate or bladder or surrounding tissues, injury from positioning on the table, swelling and bruising of the skin, and need for further procedures. . Procedure tolerated: well. Specimen: sent to pathology, 1. Right posterior medial (2 cores) 2. Right posterior lateral (2 cores) 3. Right base (2 cores) 4. Right anterior medial (1 core) 5. Right anterior lateral (1 core) 6. Left posterior medial (2 cores) 7. Left posterior lateral (2 cores) 8. Left base (2 cores) 9. Left anterior medial (1 core) 10. Left anterior lateral1 core) 11. Left transition to peripheral zone mid gland (4 cores) . Complications: none. Anesthesia: General anesthesia LMA, periprostatic nerve block 1% lidocaine without epinephrine Findings: Volume: 28.7 cc Calcifications: scattered peripheral zone Cysts: small right transition zone Hypoechogenic areas: faint left anterior transition zone The seminal vesicles were visualized bilaterally and normal in size, shape and echotexture. ALISIA: tiny midline exophytic nodule, left mid and apez firmer vs right, mildy enlarged Complications: None DESCRIPTION OF PROCEDURE: After informed consent was obtained, the patient was taken to the operating room. The patient has been on oral antibiotics. The patient was placed in the dorsal lithotomy position on the operating table, taking care to pad all possible pressure points. An operative timeout was performed. A ALISIA was performed noting findings above. The scrotum was elevated and held out of the way using tape/towel to expose the perineum. Excessive hair was shaved off the perineum. The perineum is prepped with Hibiclens solution. Lidocaine gel was inserted per rectum. The [employer] UroNav fusion biopsy system was set up over the patient's pelvis for transperineal approach of prostate biopsy. A well-lubricated ultrasound probe was inserted into the rectum and the prostate was aligned. The gland was visualized fully in axial and sagittal views to allow for the identification of anatomy and location of the urethra, as noted in findings. A sweep was done to render ultrasound images with preoperative MRI images. The Precision Point device was secured on the ultrasound probe. The local anesthetic was delivered to the skin followed by periprostatic region and levators for IntraOp and postoperative pain control. After rendering of real-time images with the preoperative MRI prostate, the UroNav fusion biopsy system was used to target the region of interest. 4 core needle biopsies were obtained from region of interest via transperineal approach. Thereafter, 1-2 biopsies were obtained from the posterior medial, posterior lateral, base, anterior lateral, and anterior medial of the left and right sides. The ultrasound probe was removed. Pressure was applied to the perineum for adequate hemostasis. The perineum was dressed with fluffs and scrotal support. The patient tolerated the procedure well without complications. CULTURES TAKEN: None. PATIENT CONDITION: Stable. PLAN: Void prior to dc home. The patient knows to call or go immediately to the emergency room should he develop fevers, chills, inability to urinate, bleeding or any other concerns. Follow-up in 1-2 weeks for pathology review. . Impression and Plan Diagnosis Elevated PSA (TRF78-IV R97.20, Discharge, Medical). Abnormal MRI, pelvis (KTW26-XT R93.5, Discharge, Medical). Diagnosis Elevated PSA (JME41-IE R97.20, Discharge, Medical). Abnormal MRI, pelvis (AWO41-UD R93.5, Discharge, Medical). Counseled: Patient, Family. Correction: volume 35.9 cm^3 = 3.3 x 4.5 x 4.7 cm Normal [facility] Comment on above: Result Comment: Elec tronically Signed By: Susanna Paulino MD\.br\Date and Time Signed: 03/28/25 13:58 EDT Outpatient Surgery Discharge Instructionon 03-28-2025 Outpatient Surgery Discharge Instruction Outpatient Surgery Discharge Instruction [place] [id number] Patient Discharge Instructions PERSON INFORMATION Name: MARIANA BARNES Date of : 1955 Current Date: 03/28/2025 13:42:23 PHYSICIANS Admitting Physician: Susanna Paulino MD Discharge Diagnosis: Abnormal MRI, pelvis; Elevated PSA MARIANA BARNES has been given the following list of follow-up instructions, prescriptions, and patient education materials: PATIENT FOLLOW-UP INFORMATION Diet: Regular Discharge Activity: Ambulate as tolerated, Expect mild pain, Expect minimal amount of drainage and/or bleeding Discharge Restrictions: Do not operate machinery or tools Call Your Doctor For: Persistent or heavy bleeding, Temperature above 101.5 degrees, Redness, swelling, or pus at operative site, Severe pain at the operative site, Persistent vomiting IF UNABLE TO CONTACT YOUR PHYSICIAN AND YOU FEEL IT IS AN EMERGENCY, GO TO THE NEAREST EMERGENCY ROOM OR CALL 911 I, MOLLY, MARIANA, have received the attached patient education materials/instructions and have verbalized understanding: May we do a follow up call? Yes No I was present when discharge instructions were given ____ Patient Signature _ Date Clinican/Nurse Signature Date Follow up: With: Address: When: Susanna Paulino [address] [place] [address] [phone] Business (1) Comments: Office to call to schedule your follow up in 1-2 weeks for pathology review Type Location Start Finish [facility] Office Visit [facility] [facility] [place] 04/18/2025 8:45 AM 04/18/2025 9:00 AM Confirmed Pharmacy Information: You may receive a survey from [facility] asking you to rate your care experience. Your feedback is important and will help us understand what we do well and how we can improve the quality of care we provide to you, your loved ones and our community. It???s an honor to serve you. Thank you for choosing [facility] HERE ARE THE MEDICATION CHANGES THAT OCCURRED DURING YOUR HOSPITAL STAY Medications to Continue with No Changes Other Medications ascorbic acid (Vitamin C) every day. aspirin (aspirin 81 mg Chew Tab) 1 Tablets By Mouth every day. cetirizine (Zyrtec) every day. dapagliflozin (Farxiga 5 mg oral tablet) diazepam (Valium 10 mg Tab) 1 Tablets By Mouth Once as needed for anxiety. Take 1 hour prior to the procedure.. Refills: 0. ergocalciferol (Vitamin D) By Mouth every week. fluticasone nasal (Flonase) every day. glimepiride (glimepiride 1 mg Tab) 1 Tablets By Mouth every day. lisinopril (lisinopril 5 mg Tab) By Mouth every day. metformin (metformin 500 mg oral tablet) By Mouth 2 times a day. metoprolol (metoprolol succinate 25 mg ER Tab) 1 Tablets By Mouth every day. multivitamin (Vitamin B Complex oral capsule) By Mouth every day. omega-3 polyunsaturated fatty acids (Fish Oil) By Mouth. rosuvastatin (rosuvastatin 10 mg Tab) By Mouth every day. testosterone (AndroGel Pump 20.25 mg/1.25 g (1.62%) transdermal gel) 3 Pump Topical once a day (in the morning). 3 pumps daily. Refills: 2. ubiquinone (CoQ10) By Mouth every day. zinc sulfate (Zinc) By Mouth every day. PATIENT EDUCATION INFORMATION Instructions: [facility] [place], [place] Saturation/Transperineal Biopsy of the Prostate Discharge Instructions After your procedure You may see blood in your urine and semen intermittently for 4 to 5 weeks. When your urine turns red, limit your activities and drink plenty of fluids. This is normal and expected. If you go home with a Shore catheter in place, you will have it removed at your follow-up clinic appointment. Your doctor may allow you to remove your Shore catheter at home once the urine is clear. If so, our nursing staff will teach you how to remove the catheter. You may have discoloration (black/blue), pain, and swelling to the perineal area (between your thighs) for up to 3 weeks. Ice, elevation, and supportive underwear can help ease these symptoms. Medications ??? You may restart aspirin or other blood thinners after 24 hours. ??? Antibiotics may be prescribed by your doctor. If they are, take them until they are gone. ??? For pain, take Tylenol 500-1000 mg every 6 hours, alternate in between with ibuprofen 400-800 mg every 6 hours as needed. Activity ??? You may begin driving 24 hours after surgery if you are not taking prescription pain medication. ??? No heavy lifting for 2 days (nothing greater than 10 pounds). Diet Drink plenty of fluids. Continue your normal diet. When to call the doctor ??? If you experie (more content not included)... Normal [facility] Creatinine (Bld) [Mass/Vol]O rdered By: Susanna Paulino on 02-22-2025 Creatinine [Mass/Vol] Whole blood creati nine measurement 0.6-1.3 [facility] Comment on above: ER/ESD physician is notified/shown all ISTAT results.Critical values may be confirmed by laboratory testing ifdeemed necessary by ER attending doctor. ISTAT XRay CREon 02-22-2025 ISTAT GFR >60.0 Normal [facility] Comment on above: Result Comment: PERF ORMED BY: [place] [address] PATHOLOGIST FIRE BOAT ENGINEER RACHEL NEAL M.D. Performed By: #### A 1C WTH eA, SCAN CBC, LIPID, TSH3 #### [address] MR prostate wo/w conon 02-22 MR prostate wo/w con [facility] Main [place] [address] [place] [address] MRI Report Signed Patient: Mariana Barnes MR#: [id number] : 1955 Acct:[id number] Age/Sex: 69 / M ADM Date: 02/22/25 Loc: MR Room: Type: [facility] Attending Dr: Susanna Paulino MD Copies to: Susanna Paulino MD Ordering Provider: Susanna Paulino MD Date of Service: 02/22/25 MR/MR prostate wo/w con: R97.20 EXAMINATION: MR prostate wo/w con HISTORY: Elevated PSA. COMPARISON: NONE TECHNIQUE: Multiparametric imaging of the prostate gland was performed with IV contrast. FINDINGS: Prostate Dimensions: 4.3 x 2.6 x 4.0 cm. Prostate Volume: 23 mL. Peripheral Zone: Heterogenous inT2 signal suggestive of prior prostatitis. No suspicious T2 or ADC map abnormality is identified to suggest prostate malignancy. Central/Transitional Zone: BPH changes. Ill-defined area of T2 hypointensity is seen involving the anterior aspect of the left transitional zone at the level of the mid gland measuring 17 x 10 mm with associated restricted diffusion and low ADC value. Please see series 4 image 14, series 650 image 17 and series 600 image 17. This appears to extend into the adjacent peripheral zone. Seminal Vesicles: Decompressed without focal abnormality. Neurovascular bundles: Unremarkable. Lymphadenopathy: No evidence of lymphadenopathy. Bladder: No focal lesion. Bowel: Diverticulosis. Peritoneal Cavity: No free fluid. Bones: Blooming artifact from right hip prosthesis. No suspicious bony lesion. MR/MR prostate wo/w con IMPRESSION: Ill-defined area of T2 hypointensity is seen involving the anterior aspect of the left transitional zone at the level of the mid gland measuring 17 x 10 mm with associated restricted diffusion and low ADC value. Please see series 4 image 14, series 650 image 17 and series 600 image 17. It appears to extend into the adjacent left peripheral zone .PI-RADS 5. Targeting of this area on biopsy is recommended. Impression dictated by: Florian Hawkins Jr., D.OBenigno 02/22/2025 10:58 AM Dictation Location: [place] [address] Transcribed By: [facility] 02/22/25 1058 Dictated By: Florian Hawkins Jr, DO 02/22/25 1052 Signed By: 02/22/25 1058 Normal [facility] Magnetic resonance imaging r eportOrdered By: Florian Hawkins on 02-22-2025 Study report [facility] Main [place] [id number] MRI Report Signed Patient: Mariana Barnes MR#: [id number] 1965 : 1955 Acct:[id number] Age/Sex: 69 / M ADM Date: 5 Loc: MR Room: Type: [facility] Attending Dr: Susanna Paulino MD Copies to: Susanna Paulino MD~ Ordering Provider: Susanna Paulino MD Date of Service: 02/22/25 MR/MR prostate wo/w con: R97.20 EXAMINATION: MR prostate wo/w con HISTORY: Elevated PSA. COMPARISON: NONE TECHNIQUE: Multiparametric imaging of the prostate gland was performed with IV contrast. FINDINGS: Prostate Dimensions: 4.3 x 2.6 x 4.0 cm. Prostate Volume: 23 mL. Peripheral Zone: Heterogenous inT2 signal suggestive of prior prostatitis. Nosuspicious T2 or ADC map abnormality is identified to suggest prostate malignancy. Central/Transitional Zone: BPH changes. Ill-defined area of T2 hypointensity is seen involving the anterior aspect of the left transitional zone at the levelof the mid gland measuring 17 x 10 mm with associated restricted diffusion and low ADC value. Please see series 4 image 14, series 650 image 17 and series 600image 17. This appears to extend into the adjacent peripheral zone. Seminal Vesicles: Decompressed without focal abnormality. Neurovascular bundles: Unremarkable. Lymphadenopathy: No evidence of lymphadenopathy. Bladder: No focal lesion. Bowel: Diverticulosis. Peritoneal Cavity: No free fluid. Bones: Blooming artifact from right hip prosthesis. No suspicious bony lesion. MR/MR prostate wo/w con IMPRESSION: Ill-defined area of T2 hypointensity is seen involving the anterior aspect of the left transitional zone at the level of the mid gland measuring 17 x 10 mm with associated restricted diffusion and low ADC value. Please see series 4 image 14, series 650 image 17 and series 600 image 17. It appears to extend into the adjacent left peripheral zone .PI-RADS 5. Targeting of this area on biopsy is recommended. Impression dictated by: Florain Hawkins Jr., D.OBenigno 02/22/2025 10:58 AM Dictation Location: [place] [address] Transcribed By: [facility] 02/22/25 1058 Dictated By: Florian Hawkins Jr, DO 02/22/25 1052 Signed By: 02/22/25 1058 [facility] No Panel InformationOrdered By: Susanna Paulino on 02-22-2025 Bedside Estimated GFR (eGFR) > 60.0 [facility] Whole blood creatinine measu rementOrdered By: Susanna Paulino on 02-22-2025 Creatinine [Mass/Vol] 0.8 mg/dL Normal 0.6-1.3 [facility] Comment on above: ER/ESD physician is notified/shown all ISTAT results.Critical values may be confirmed by laboratory testing ifdeemed necessary by ER attending doctor. Result Comment: ER/E SD physician is notified/shown all ISTAT results. Critical values may be confirmed by laboratory testing if deemed necessary by ER attending doctor. Performed By: #### A 1C WTH eA, SCAN CBC, LIPID, TSH3 #### [facility] [address] Urology Office/Clinic Noteon 01-17-2025 Urology Office/Clinic Note Urology Office/Clinic Note Chief Complaint F/u with PSAFT and testosterone level HPI Staff 69 yr old male here for 6 month f/u Previous Dx: elevated PSA, former smoker, AMH, hematospermia. Testosterone Androgel 3 pumps daily. S/p Select MDX 11/06/22. Cysto 06/30/21. IPSS score today is 2 and FRANCA score is 23. Pt denies any urinary complaints at this time. Denies pain of any kind and no visible blood at any time. Testosterone: 06/21/24 - 2.00 08/03/24 - 3.60 01/12/25 - 6.80 PSA: 08/03/24 - 3.070 & 14.3% 01/12/25 - 3.3 & 12.4% History of Present Illness Tests reviewed: UA, PSA, T level I have reviewed the previous health record information and history for this patient from ALIZA Alatorre APRN. I have reviewed and verified the staff HPI to be accurate for this encounter. Review of Systems PHQ Score Initial Depression Screen Score: 0 SCORE ROS - Provider Constitutional: denies weight loss, denies hot flashes. Eyes: denies eye problems. Gastrointestinal: denies nausea, denies vomiting. Cardiovascular: denies chest pain or angina. Integumentary: no dryness Musculoskeletal: denies musculoskeletal symptoms. ENMT: denies otolaryngeal symptoms. Respiratory: no shortness of breath. Heme/Lymph: denies easy bleeding tendency, denies easy bruising tendency. Psychiatric: no confusion, no anxiety. Genitourinary: See HPI. Physical Exam Vitals & Measurements T: 37 ???C(Temporal Artery) HR: 80(Peripheral) RR: 37 BP: 101/87 HT: 68 in HT: 173 cm WT: 200.841 lb WT: 91.1 kg BMI: 30.44 General Appearance: alert, no distress, well nourished, well developed male. Assessment/Plan 69 yo here for follow up to elevated PSA and TRT management. Neg hematuria workup 06/2021. FRANCA 23 (17). 1. Elevated PSA (R97.20: Elevated prostate specific antigen [PSA]) PSA: 04/04/21 - 1.41 & 15% 09/26/21 - 2.29 & 16% 02/24/22 - 1.94 & 17% 09/08/22 - 2.11 & 16% 03/10/23 - 1.64 & 24% 06/05/24 - 2.15 & 15% 08/03/24 - 3.07 & 14% 01/12/25 - 3.30 & 12.4% No family history of prostate cancer. [facility] 11/06/22 - 40% likelihood of prostate ca upon bx. 14% G >=7. Patient previously elected to continue to monitor over prostate MRI despite knowing small chance of clinically significant prostate cancer per [facility]. The PCPT risk calculator: 12% high grade, 32% low grade, 56% total risk. PSA increased and is the highest level in our records. Reviewed [facility] and PCPT calculated risks. Today I reviewed the patients past history including voiding symptoms, PSA history and any prior prostate biopsy information that is available. We discussed the controversies that exist in the field of PSA based cancer testing and the absence of exact correlation of PSA data to the presence or absence of prostate cancer on biopsy. I discussed the production of PSA by the prostate gland as well as common causes of elevated serum PSA including infection, inflammation, BPH and prostate cancer. He understood that his PSA level may also be falsely elevated due to any manipulation/instrumentati on around the time of a PSA draw. I discussed the absolute value of PSA as well as PSA velocity and age specific PSA and the implications with the patient. The PCPT (prostate cancer prevention trial) risk calculator estimates his risk of prostate cancer to be 44% including a 12% risk of high grade disease and a 32% risk of low grade disease. I gave the patient management options moving forward and explained the risks/benefits of each one: -Continue monitoring PSA with repeat in 6-12 months -Obtain prostate MRI to evaluate for suspicious lesions. He understands MRIs may miss malignancy in 12-16% of patients. Pt agreeable to proceed with prostate MRI. We discussed risks of MRI fusion prostate biopsy approaches including transrectal and transperineal. Risks of the procedure were discussed to include but not be limited to bleeding, pain, infection (higher, including sepsis with transrectal approach), difficulties with urination, injury to the urethra, prostate or bladder or surrounding tissues, injury from positioning on the table, swelling and bruising of the skin, and need for further procedures. Overall PSA has risen > 1 unit in less than a year, lower %free. Will check MRI prostate given pt on TRT Follow up pending MRI below or sooner if needed. Pt understands and agrees with plan. -Schedule prostate MRI. If neg, f/u in 3 mos with PSA F&T and T level. If positive, proceed with fusion bx. -Will schedule MRI fusion prostate biopsy if positive MRI, pt to decide method. 2. Hypogonadism male (E29.1: Testicular hypofunction) Testosterone: 06/16/24 - 2.2 06/21/24 - 2.0 08/03/24 - 3.6, HCT 47.4 01/12/25 - 6.8 Increased Androgel qAM to 3 pumps at prior OV. T level acceptable for his age, will maintain current dose. -Cont Androgel 3 pumps qAM -T in 3 months to ensure not rising out of range. If stable, can proceed with q6m 3. BPH without urinary obst (more content not included)... Normal [facility] Comment on above: Result Comment: Elec tronically Signed By: Susanna Paulino MD\.br\Date and Time Signed: 01/17/25 10:21 EDT\.br\Electronically Co-Signed By: Berenice Sanches\.br\Date and Time Co-Signed: 01/17/25 10:17 EDT US thyroidon 01-16-2025 thyroid [place] [id number] Ultrasound Report Signed Patient: Mariana Barnes MR#: [id number] : 1955 Acct:[id number] Age/Sex: 69 / M ADM Date: 01/16/25 Loc: Room: Type: [facility] Attending Dr: Arelis Ramirez Jr, MD Ordering Provider: ARELIS RAMIREZ MD Date of Service: 01/16/25 US/US thyroid: E04.1 Copies to: ARELIS RAMIREZ MD THYROID ULTRASOUND CLINICAL DATA: Follow-up nodules [...] Eleonora Burns M.D.01/16/2025 12:21 PM Dictation Location: [place] [address] Tech: Henna Restrepo Transcribed By: MARIELLE 01/16/25 1221 Dictated By: Eleonora Burns MD 01/16/25 1217 Signed By: 01/16/25 1221 Normal [facility] Anisocytosis LM Ql (Bld)Orde red By: Sadiq Floyd on 01-12-2025 Anisocytosis Ql (Bld) Anisocytosis [Pres ence] in Blood by Light microscopy [facility] Basophils Auto (Bld) [#/Vol] Ordered By: Sadiq Floyd on 01-12-2025 Basophils (Bld) [#/Vol] Automated basophil count 0.0-0.2 [facility] Basophils/100 WBC Auto (Bld) Ordered By: Sadiq Floyd on 01-12-2025 Basophils/100 WBC (Bld) Automated basophil % . [facility] Eosinophils Auto (Bld) [#/Vo l]Ordered By: Sadiq Floyd on 01-12-2025 Eosinophils (Bld) [#/Vol] Automated eosinophil count 0.0-0.45 [facility] Eosinophils/100 WBC Auto (Bl d)Ordered By: Sadiq Floyd on 01-12-2025 Eosinophils/100 WBC (Bld) Automated eosinophil % . [facility] Erythrocyte distribution wid th Auto (RBC) [Ratio]Ordered By: Sadiq Floyd on 01-12-2025 Erythrocyte distribution width (RBC) [Ratio] Erythrocyte distribution width [Ratio] by Automated count 12.0-14.8 [facility] Erythrocyte morphology findi ng [Identifier] in BloodOrdered By: Sdaiq Floyd on 01-12-2025 RBC morphology finding Nom (Bld) RBC morphology Normal [facility] Hematocrit Auto (Bld) [Volum e fraction]Ordered By: Sadiq Floyd on 01-12-2025 Hematocrit (Bld) [Volume fraction] Hematocrit [Volume Fraction] of Blood by Automated count 38.8-50.0 [facility] Hemoglobin [Mass/volume] in BloodOrdered By: Sadiq Floyd on 01-12-2025 Hemoglobin (Bld) [Mass/Vol] Hemoglobin [Mass/volume] in Blood 13.0-17.0 [facility] Leukocytes [#/volume] correc kishan for nucleated erythrocytes in Blood by Automated counOrdered By: Sadiq Floyd on 01-12-2025 WBC corrected for nucl RBC Auto (Bld) [#/Vol] Leukocytes [#/volume] corrected for nucleated erythrocytes in Blood by Automated coun 4.1-10.5 [facility] Lymphocytes Auto (Bld) [#/Vo l]Ordered By: Sadiq Floyd on 01-12-2025 Lymphocytes (Bld) [#/Vol] Lymphocytes [#/volume] in Blood by Automated count 1.00-4.8 [facility] Lymphocytes/100 WBC Auto (Bl d)Ordered By: Sadiq Floyd on 01-12-2025 Lymphocytes/100 WBC (Bld) Lymphocytes/100 leukocytes in Blood by Automated count . [facility] MCH Auto (RBC) [Entitic mass ]Ordered By: Sadiq Floyd on 01-12-2025 MCH (RBC) [Entitic mass] MCH [Entitic mass] by Automated count 27.5-35.2 [facility] MCHC Auto (RBC) [Mass/Vol]Or dered By: Sadiq Floyd on 01-12-2025 MCHC (RBC) [Mass/Vol] MCHC [Mass/volume] by Automated count 32.5-35.6 [facility] MCV Auto (RBC) [Entitic vol] Ordered By: Sadiq Floyd on 01-12-2025 MCV (RBC) [Entitic vol] MCV [Entitic volume] by Automated count 83.5-101 [facility] Microcytes LM Ql (Bld)Ordere d By: Sadiq Floyd on 01-12-2025 Microcytes Ql (Bld) Microcytes [Presence ] in Blood by Light microscopy [facility] Monocytes Auto (Bld) [#/Vol] Ordered By: Sadiq Floyd on 01-12-2025 Monocytes (Bld) [#/Vol] Automated blood monocyte count 0.0-0.8 [facility] Monocytes/100 WBC Auto (Bld) Ordered By: Sadiq Floyd on 01-12-2025 Monocytes/100 WBC (Bld) Automated monocyte % . [facility] Neutrophils Auto (Bld) [#/Vo l]Ordered By: Sadiq Floyd on 01-12-2025 Neutrophils (Bld) [#/Vol] Neutrophils [#/volume] in Blood by Automated count 1.8-7.7 [facility] Neutrophils/100 WBC Auto (Bl d)Ordered By: Sadiq Floyd on 01-12-2025 Neutrophils/100 WBC (Bld) Automated neutrophil % . [facility] Nucleated erythrocytes [Pres ence] in Blood by Automated countOrdered By: Sadiq Floyd on 01-12-2025 Nucleated RBC Auto Ql (Bld) Nucleated erythrocytes [Presence] in Blood by Automated count 0-0.5 [facility] PSA Diagnostic (Total Free)o n 01-12-2025 Prostate Spec Ag, Free 0.410 ng/mL Normal [facility] Comment on above: Performed By: #### P SATF, TEST #### [address] PSA Total (Not a Screen) 3.300 ng/mL Normal 0.000-4.00 0 [facility] Comment on above: Result Comment: Moizi al tumor marker results determined by assays using different manufacturers or methods may not be comparable. [facility] bilingual branch manager and method: [employer] DXI, CHEMILUMINESCENT IMMUNOASSAY. Performed By: #### P SATF, TEST #### [address] PSA,FREE% 12.4 % Normal [facility] Comment on above: Result Comment: Base d on the work of Parviz et al.FLORINA. 279(19):1542:47.1998 the percent free PSA may be used to determine the relative risk of prostate cancer in individual men.The percent probability of prostate cancer by patient age for men with non-suspicious ALISIA results and total PSa between 4 and 10 ng/ml is as follows: % Free PSA 50 - 64 yrs. 65 - 75 yrs. 0 - 10 56% 55% 10 - 15 24% 35% 15 - 20 17% 23% 20 - 25 10% 20% >25 5% 9% PERFORMED BY: [place] [address] PATHOLOGIST FIRE BOAT ENGINEER RACHEL NEAL M.D. Performed By: #### P SATF, TEST #### [address] Platelet adequacy [Presence] in Blood by Light microscopyOrdered By: Sadiq Floyd on 01-12-2025 Platelets LM Ql (Bld) Platelet adequacy [Presence] in Blood by Light microscopy Normal [facility] Platelet mean volume Auto (B ld) [Entitic vol]Ordered By: Sadiq Floyd on 01-12-2025 Platelet mean volume (Bld) [Entitic vol] Platelet mean volume [Entitic volume] in Blood by Automated count 6.6-10.1 [facility] Platelet morphology finding [Identifier] in BloodOrdered By: Sadiq Floyd on 01-12-2025 Platelet morphology finding Nom (Bld) Platelet morphology finding [Identifier] in Blood Normal [facility] Platelets Auto (Bld) [#/Vol] Ordered By: Sadiq Floyd on 01-12-2025 Platelets (Bld) [#/Vol] Platelets [#/volume] in Blood by Automated count 150-450 [facility] Polychromasia [Presence] in Blood by Light microscopyOrdered By: Sadiq Floyd on 01-12-2025 Polychromasia LM Ql (Bld) Polychromasia [Presence] in Blood by Light microscopy [facility] Prostate Specific Ag Free [M ass/volume] in Serum or PlasmaOrdered By: Samantha Recinos on 01-12-2025 Free PSA [Mass/Vol] Prostate Specific Ag Free [Mass/volume] in Serum or Plasma [facility] Prostate specific Ag [Mass/v olume] in Serum or PlasmaOrdered By: Samantha Recinos on 01-12-2025 Prostate specific Ag [Mass/Vol] Prostate specific Ag [Mass/volume] in Serum or Plasma 0.000-4.00 0 [facility] Comment on above: Serial tumor marker results determined by assays using different manufacturers or methods may not be comparable.[facility] bilingual branch manager and method:[employer] DXI, CHEMILUMINESCENT IMMUNOASSAY. RBC Auto (Bld) [#/Vol]Ordere d By: Sadiq Floyd on 01-12-2025 RBC (Bld) [#/Vol] Erythrocytes [#/volu me] in Blood by Automated count 3.90-5.60 [facility] Scan and CBCon 01-12-2025 Anisocytosis Ql (Bld) Moderate Normal [facility] Comment on above: Performed By: #### S CAN CBC #### [address] Basophils (Bld) [#/Vol] 0.1 10*3/uL Normal 0.0-0.2 [facility] Comment on above: Result Comment: PERF ORMED BY: [place] [address] PATHOLOGIST FIRE BOAT ENGINEER MOHAMED M EL-FAKHARANY M.D. Performed By: #### S CAN CBC #### [place] [address] [place] Basophils/100 WBC (Bld) 0.8 % Normal . [facility] Comment on above: Performed By: #### S CAN CBC #### [address] Eosinophils (Bld) [#/Vol] 0.1 10*3/uL Normal 0.0-0.45 [facility] Comment on above: Performed By: #### S CAN CBC #### [address] Eosinophils/100 WBC (Bld) 1.3 % Normal . [facility] Comment on above: Performed By: #### S CAN CBC #### [address] Erythrocyte distribution width (RBC) [Ratio] 13.9 % Normal 12.0-14.8 [facility] Comment on above: Performed By: #### S CAN CBC #### [address] Hematocrit (Bld) [Volume fraction] 48.7 % Normal 38.8-50.0 [facility] Comment on above: Performed By: #### S CAN CBC #### [address] Hemoglobin (Bld) [Mass/Vol] 17.0 g/dL Normal 13.0-17.0 [facility] Comment on above: Performed By: #### S CAN CBC #### [place] [address] [place] Lymphocytes (Bld) [#/Vol] 2.2 10*3/uL Normal 1.00-4.8 [facility] Comment on above: Performed By: #### S CAN CBC #### [place] [address] [place] Lymphocytes/100 WBC (Bld) 21.8 % Normal . [facility] Comment on above: Performed By: #### S CAN CBC #### [place] [id number] [place] MCH (RBC) [Entitic mass] 33.3 pg Normal 27.5-35.2 [facility] Comment on above: Performed By: #### S CAN CBC #### [address] MCV (RBC) [Entitic vol] 95.2 fL Normal 83.5-101 [facility] Comment on above: Performed By: #### S CAN CBC #### [address] Mean Corpuscular HGB Conc 34.9 g/dL Normal 32.5-35.6 [facility] Comment on above: Performed By: #### S CAN CBC #### [address] Microcytosis Moderate Normal [facility] Comment on above: Performed By: #### S CAN CBC #### [address] Monocytes (Bld) [#/Vol] 0.8 10*3/uL Normal 0.0-0.8 [facility] Comment on above: Performed By: #### S CAN CBC #### [address] Monocytes/100 WBC (Bld) 7.9 % Normal . [facility] Comment on above: Performed By: #### S CAN CBC #### [address] Neutrophils (Bld) [#/Vol] 6.8 10*3/uL Normal 1.8-7.7 [facility] Comment on above: Performed By: #### S CAN CBC #### [address] Neutrophils/100 WBC (Bld) 68.2 % Normal . [facility] Comment on above: Performed By: #### S CAN CBC #### [address] NRBC% 0.3 /100{WBC} Normal 0-0.5 [facility] Comment on above: Performed By: #### S CAN CBC #### [address] Platelet Estimate Normal Normal Normal [facility] Comment on above: Performed By: #### S CAN CBC #### [address] Platelet mean volume (Bld) [Entitic vol] 7.9 fL Normal 6.6-10.1 [facility] Comment on above: Performed By: #### S CAN CBC #### [address] Platelet Morphology Normal Normal Normal [facility] Comment on above: Result Comment: PERF ORMED BY: [place] [address] PATHOLOGIST FIRE BOAT ENGINEER RACHEL NEAL M.D. Performed By: #### S CAN CBC #### [address] Platelets (Bld) [#/Vol] 322 10*3/uL Normal 150-450 [facility] Comment on above: Performed By: #### S CAN CBC #### [address] Polychromasia Slight Normal [facility] Comment on above: Performed By: #### S CAN CBC #### [address] RBC (Bld) [#/Vol] 5.12 10*6/uL Normal 3.90-5.60 [facility] Comment on above: Performed By: #### S CAN CBC #### [address] RBC morphology finding Nom (Bld) Normal Normal Normal [facility] Comment on above: Performed By: #### S CAN CBC #### [address] WBC (Bld) [#/Vol] 10.0 10*3/uL Normal 4.1-10.5 [facility] Comment on above: Performed By: #### S CAN CBC #### [facility] [address] [place] [address] Serum or plasma free prostat e specific antigen (PSA)/total PSA ratioOrdered By: Samantha Recinos on 01-12-2025 Free PSA/Total PSA [Mass fraction] Serum or plasma free prostate specific antigen (PSA)/total PSA ratio [facility] Comment on above: Based on the work of Parviz et al.FLORINA. 27919):1542:47.1998 the percent free PSA may be used to determine the relative risk of prostate cancer in individual men.The percent probability of prostate cancer by patient age for men with non-suspicious ALISIA results and total PSa between 4 and 10 ng/ml is as follows:% Free PSA 50 - 64 yrs. 65 - 75 yrs. 0 - 10 56% 55% 10 - 15 24% 35% 15 - 20 17% 23% 20 - 25 10% 20% >25 5% 9% Testosteroneon 01-12-2025 Testosterone 6.80 ng/mL Normal 1.75-7.81 [facility] Comment on above: Result Comment: PERF ORMED BY: [place] [address] PATHOLOGIST FIRE BOAT ENGINEER RACHEL NEAL M.D. Performed By: #### P SATF, TEST #### [facility] [address] [place] [address] Testosterone [Mass/volume] i n Serum or PlasmaOrdered By: Samantha Recinos on 01-12-2025 Testosterone [Mass/Vol] Testosterone [Mass/volume] in Serum or Plasma 1.75-7.81 [facility] WBC Auto (Bld) [#/Vol]Ordere d By: Sadiq Floyd on 01-12-2025 WBC (Bld) [#/Vol] Leukocytes [#/volume ] in Blood by Automated count 4.1-10.5 [facility] A1C with Estimated Average G luon 10-10-2024 Glucose [Mass/Vol] 148 mg/dL Normal [facility] Comment on above: Result Comment: PERF ORMED BY: [place] [address] PATHOLOGIST FIRE BOAT ENGINEER RACHEL NEAL M.D. Performed By: #### A 1C WTH eA, SCAN CBC, LIPID, TSH3 #### [address] HbA1c (Bld) [Mass fraction] 6.8 % High 4.3-5.6 [facility] Comment on above: Result Comment: Incr eased risk for diabetes: 5.7 - 6.4 diabetes: >6.4 glycemic control for adults with diabetes: <7.0 Performed By: #### A 1C WTH eA, SCAN CBC, LIPID, TSH3 #### [address] Complete Blood Count Auto Di ffon 10-10-2024 Basophils (Bld) [#/Vol] 0.1 10*3/uL Normal 0.0-0.2 [facility] Comment on above: Result Comment: PERF ORMED BY: [place] [address] PATHOLOGIST FIRE BOAT ENGINEER RACHEL NEAL M.D. Performed By: #### T EST, CBC, LIPID, URMACRERAT, CMP, A1C WT eA #### [address] Basophils/100 WBC (Bld) 0.6 % Normal . [facility] Comment on above: Performed By: #### T EST, CBC, LIPID, URMACRERAT, CMP, A1C WTH eA #### [address] Eosinophils (Bld) [#/Vol] 0.1 10*3/uL Normal 0.0-0.45 [facility] Comment on above: Performed By: #### T EST, CBC, LIPID, URMACRERAT, CMP, A1C WTH eA #### [place] [address] [place] Eosinophils/100 WBC (Bld) 0.5 % Normal . [facility] Comment on above: Performed By: #### T EST, CBC, LIPID, URMACRERAT, CMP, A1C WTH eA #### [address] Erythrocyte distribution width (RBC) [Ratio] 13.5 % Normal 12.0-14.8 [facility] Comment on above: Performed By: #### T EST, CBC, LIPID, URMACRERAT, CMP, A1C WTH eA #### [address] Hematocrit (Bld) [Volume fraction] 52.8 % High 38.8-50.0 [facility] Comment on above: Performed By: #### T EST, CBC, LIPID, URMACRERAT, CMP, A1C WTH eA #### [address] Hemoglobin (Bld) [Mass/Vol] 17.9 g/dL High 13.0-17.0 [facility] Comment on above: Performed By: #### T EST, CBC, LIPID, URMACRERAT, CMP, A1C WTH eA #### [address] Lymphocytes (Bld) [#/Vol] 2.9 10*3/uL Normal 1.00-4.8 [facility] Comment on above: Performed By: #### T EST, CBC, LIPID, URMACRERAT, CMP, A1C WTH eA #### [address] Lymphocytes/100 WBC (Bld) 21.3 % Normal . [facility] Comment on above: Performed By: #### T EST, CBC, LIPID, URMACRERAT, CMP, A1C WTH eA #### [address] MCH (RBC) [Entitic mass] 32.4 pg Normal 27.5-35.2 [facility] Comment on above: Performed By: #### T EST, CBC, LIPID, URMACRERAT, CMP, A1C WTH eA #### [address] MCV (RBC) [Entitic vol] 95.3 fL Normal 83.5-101 [facility] Comment on above: Performed By: #### T EST, CBC, LIPID, URMACRERAT, CMP, A1C WTH eA #### [address] Mean Corpuscular HGB Conc 34.0 g/dL Normal 32.5-35.6 [facility] Comment on above: Performed By: #### T EST, CBC, LIPID, URMACRERAT, CMP, A1C WTH eA #### [address] Monocytes (Bld) [#/Vol] 0.8 10*3/uL Normal 0.0-0.8 [facility] Comment on above: Performed By: #### T EST, CBC, LIPID, URMACRERAT, CMP, A1C WTH eA #### [address] Monocytes/100 WBC (Bld) 6.2 % Normal . [facility] Comment on above: Performed By: #### T EST, CBC, LIPID, URMACRERAT, CMP, A1C WTH eA #### [address] Neutrophils (Bld) [#/Vol] 9.6 10*3/uL High 1.8-7.7 [facility] Comment on above: Performed By: #### T EST, CBC, LIPID, URMACRERAT, CMP, A1C WTH eA #### [address] Neutrophils/100 WBC (Bld) 71.4 % Normal . [facility] Comment on above: Performed By: #### T EST, CBC, LIPID, URMACRERAT, CMP, A1C WTH eA #### [address] NRBC% 0.2 /100{WBC} Normal 0-0.5 [facility] Comment on above: Performed By: #### T EST, CBC, LIPID, URMACRERAT, CMP, A1C WTH eA #### [facility] [address] Platelet mean volume (Bld) [Entitic vol] 7.1 fL Normal 6.6-10.1 [facility] Comment on above: Performed By: #### T EST, CBC, LIPID, URMACRERAT, CMP, A1C WTH eA #### [address] Platelets (Bld) [#/Vol] 388 10*3/uL Normal 150-450 [facility] Comment on above: Performed By: #### T EST, CBC, LIPID, URMACRERAT, CMP, A1C WTH eA #### [address] RBC (Bld) [#/Vol] 5.54 10*6/uL Normal 3.90-5.60 [facility] Comment on above: Performed By: #### T EST, CBC, LIPID, URMACRERAT, CMP, A1C WTH eA #### [address] WBC (Bld) [#/Vol] 13.5 10*3/uL High 4.1-10.5 [facility] Comment on above: Performed By: #### T EST, CBC, LIPID, URMACRERAT, CMP, A1C WTH eA #### [address] Comprehensive Metabolic Pane sidney 10-10-2024 Albumin [Mass/Vol] 4.1 g/dL Normal 3.5-5.7 [facility] Comment on above: Performed By: #### A 1C WTH eA, SCAN CBC, LIPID, TSH3 #### [address] Albumin/Globulin [Mass ratio] 1.6 {ratio} Normal [facility] Comment on above: Performed By: #### A 1C WTH eA, SCAN CBC, LIPID, TSH3 #### [address] ALP [Catalytic activity/Vol] 81 U/L Normal 34-104 [facility] Comment on above: Performed By: #### A 1C WTH eA, SCAN CBC, LIPID, TSH3 #### [address] ALT [Catalytic activity/Vol] 25 U/L Normal 7-52 [facility] Comment on above: Performed By: #### A 1C WTH eA, SCAN CBC, LIPID, TSH3 #### [address] Anion gap [Moles/Vol] 13.3 mmol/L Normal 6.0-15.0 Th e [facility] Comment on above: Performed By: #### A 1C WTH eA, SCAN CBC, LIPID, TSH3 #### [address] AST [Catalytic activity/Vol] 13 U/L Normal 13-39 [facility] Comment on above: Performed By: #### A 1C WT eA, SCAN CBC, LIPID, TSH3 #### [address] Bilirubin [Mass/Vol] 0.4 mg/dL Normal 0.3-1.0 [facility] Comment on above: Performed By: #### A 1C WTH eA, SCAN CBC, LIPID, TSH3 #### [address] Calcium [Mass/Vol] 10.0 mg/dL Normal 8.6-10.3 [facility] Comment on above: Performed By: #### A 1C WTH eA, SCAN CBC, LIPID, TSH3 #### [place] [address] [place] Chloride [Moles/Vol] 97 mmol/L Low 98-107 [facility] Comment on above: Performed By: #### A 1C WTH eA, SCAN CBC, LIPID, TSH3 #### [address] CO2 [Moles/Vol] 30.2 mmol/L Normal 21.0-31.0 [facility] Comment on above: Performed By: #### A 1C WTH eA, SCAN CBC, LIPID, TSH3 #### [address] Creatinine [Mass/Vol] 0.80 mg/dL Normal 0.70-1.30 [facility] Comment on above: Performed By: #### A 1C WTH eA, SCAN CBC, LIPID, TSH3 #### [place] [address] [place] GFR/1.73 sq M.predicted MDRD (S/P/Bld) [Vol rate/Area] mL/min/{1.73_m2} Normal [facility] Comment on above: Performed By: #### A 1C WTH eA, SCAN CBC, LIPID, TSH3 #### [address] Globulin (S) [Mass/Vol] 2.6 g/dL Normal [facility] Comment on above: Performed By: #### A 1C WTH eA, SCAN CBC, LIPID, TSH3 #### [address] Glucose [Mass/Vol] 140 mg/dL High 70-100 [facility] Comment on above: Result Comment: [facility] Glucose Reference Range is dependent on time and content of last meal. Glucose of more than 200 mg/dL in a nonstressed, ambulatory subject supports the diagnosis of Diabetes Mellitus. ADA recommended reference range Performed By: #### A 1C WTH eA, SCAN CBC, LIPID, TSH3 #### [address] Potassium [Moles/Vol] 4.5 mmol/L Normal 3.5-5.1 [facility] Comment on above: Performed By: #### A 1C WTH eA, SCAN CBC, LIPID, TSH3 #### [address] Protein [Mass/Vol] 6.7 g/dL Normal 6.4-8.9 [facility] Comment on above: Performed By: #### A 1C WTH eA, SCAN CBC, LIPID, TSH3 #### [facility] [address] [id number] [facility] Sodium [Moles/Vol] 136 mmol/L Normal 136-145 [facility] Comment on above: Performed By: #### A 1C WTH eA, SCAN CBC, LIPID, TSH3 #### [facility] [address] [id number] [facility] Urea nitrogen [Mass/Vol] 24 mg/dL Normal 7-25 [facility] Comment on above: Performed By: #### A 1C WTH eA, SCAN CBC, LIPID, TSH3 #### [facility] [address] [id number] [facility] Lipid Panelon 10-10-2024 Cholesterol [Mass/Vol] 198 mg/dL Normal 140-200 [facility] Comment on above: Result Comment: Chol less than 200 mg/dl low risk Chol 201-239 mg/dl borderline risk Chol 240 mg/dl and greater high risk Performed By: #### A 1C WTH eA, SCAN CBC, LIPID, TSH3 #### [facility] [address] [id number] [facility] Cholesterol in HDL [Mass/Vol] 54 mg/dL Normal 23-92 [facility] Comment on above: Result Comment: HDL CHOL ATP-III CLASSIFICATION Cardiovascular Risk HDL > or equal to 60 mg/dL LOW HDL < 40 mg/dL HIGH Performed By: #### A 1C WTH eA, SCAN CBC, LIPID, TSH3 #### [facility] [address] Cholesterol.total/Cho lesterol in HDL [Mass ratio] 3.7 {ratio} Normal <5.0 [facility] Comment on above: Result Comment: PERF ORMED BY: [place] [address] PATHOLOGIST FIRE BOAT ENGINEER RACHEL NEAL M.D. Performed By: #### A 1C WTH eA, SCAN CBC, LIPID, TSH3 #### [facility] [address] [id number] [facility] LDL Cholesterol,Calculate d 97 mg/dL Normal 0-100 [facility] Comment on above: Result Comment: LDL ATP III CLASSIFICATION LDL less than 100 mg/dL Optimal LDL 100-129 mg/dL Near or above optimal LDL 130-159 mg/dL Borderline high LDL 160-189 mg/dL High LDL greater than 189 mg/dL Very high Performed By: #### A 1C WTH eA, SCAN CBC, LIPID, TSH3 #### [facility] [address] Triglyceride w/Reflex 233 mg/dL High 0-149 [facility] Comment on above: Result Comment: TRIG ATP III CLASSIFICATION TRIG less than 150 mg/dL Normal TRIG 150-199 mg/dL Borderline high TRIG 200-500 mg/dL High TRIG greater than 500 mg/dL Very high Standard traceable to the Center for Disease Conrtrol and Prevention (CDC) test method. Performed By: #### A 1C WTH eA, SCAN CBC, LIPID, TSH3 #### [facility] [address] VLDL CHOLESTEROL 46 mg/dL Normal [facility] Comment on above: Performed By: #### A 1C WTH eA, SCAN CBC, LIPID, TSH3 #### [facility] [address] MicroAlb Creat Ratio,Uon -2023 Albumin DL <= 20 mg/L (U) [Mass/Vol] 1.0 mg/dL Normal 0.0-1.8 [facility] Comment on above: Performed By: #### T EST, CBC, LIPID, URMACRERAT, CMP, A1C [facility] eA #### [facility] [address] Creatinine, Urine (Random) 79.00 mg/dL Normal [facility] Comment on above: Result Comment: No r eference range established Performed By: #### T EST, CBC, LIPID, URMACRERAT, CMP, A1C [facility] eA #### [facility] [address] [id number] [facility] Microalbumin/Creatini ne Ratio 12.7 mg/g Normal 0.0-30.0 [facility] Comment on above: Result Comment: 30-3 00 mg/g indicates an increased risk for diabetic nephropathy. Greater than 300 mg/g is consistent with clinical nephropathy. (Am. J. Kidney Disease 1995, 25:107) PERFORMED BY: [place] [address] PATHOLOGIST FIRE BOAT ENGINEER RACHEL ENAL M.D. Performed By: #### T EST, CBC, LIPID, URMACRERAT, CMP, A1C WT eA #### [facility] [address] Testosteroneon 10-10-2024 Testosterone 2.00 ng/mL Normal 1.75-7.81 [facility] Comment on above: Result Comment: PERF ORMED BY: [place] [address] PATHOLOGIST FIRE BOAT ENGINEER RACHEL NEAL M.D. Performed By: #### A 1C [facility] eA, SCAN CBC, LIPID, TSH3 #### [facility] [address] Urology Office/Clinic Noteon 08-08-2024 Urology Office/Clinic Note Urology Office/Clinic Note HPI Staff 8 week follow up with labs. Previous Dx: elevated PSA, former smoker, AMH, hematospermia. Testosterone androgel one pump each shoulder. S/p Select MDx 11/06/22. Cysto 06/30/21. 06/21/24 Testosterone: 2.00 08/03/24 PSA: 3.070 & 14.3%, Testosterone 3.60 IPSS: 4, FRANCA: 11 Dysuria: denies Incomplete bladder emptying: denies Hematuria: denies Frequency: denies Urgency: denies Nocturia: 2 x a night Stream: denies hesitancy, has a strong stream Leaking: denies Post void dripping: denies Wearing pads/ Depends: denies Urge incontinence: denies Stress incontinence: denies Incontinence without Sensory Awareness: denies Abdominal pain: denies Flank pain: denies Sexual complaints: _ History of Present Illness I have reviewed and verified the staff HPI to be accurate for this encounter. Portions of this record may have been created with voice recognition artificial intelligence software, specifically [employer], [employer] and or [email or web address]. Substitutions may have occurred due to the inherent limitations of voice recognition and artificial intelligence software. Physical Exam General: Well developed, well nourished, in no acute distress. Assessment/Plan 1. Hypogonadism male (E29.1: Testicular hypofunction) Night sweats for years but worsening lately. Stable weight. Slight decrease in sexual function and libido. [1] Testosterone: 06/16/2024 - 2.2 06/21/2024 - 2.0 08/03/2024 - 3.6, HCT 47.4 Patient has been using AndroGel 1 pump each shoulder for about 3 weeks. He does note some symptomatic improvement in his night sweats, not noticing significant increase in libido or sexual function at this time. Discussed testosterone level, can increase AndroGel to a total of 3 pumps daily. Patient agrees. -Increase AndroGel to total of 3 pumps daily -Follow-up 3 months with repeat testosterone, PSA Ordered: Testosterone Level Total 2. Elevated PSA (R97.20: Elevated prostate specific antigen [PSA]) PSA: 04/04/21 - 1.41 & 15% 09/26/21 - 2.29 & 16% 02/24/22 - 1.94 & 17% 09/08/22 - 2.11 & 16% 03/10/23 - 1.64 & 24% 06/05/24 - 2.15 & 15% [2] 08/03/24 - 3.07 & 14% No family history of prostate cancer Select MDx 11/06/22 - 40% likelihood of prostate ca upon bx. 14% G >=7. Patient previously elected to continue to monitor over prostate MRI despite knowing small chance of clinically significant prostate cancer per Select MDX. Discussed slight rise in PSA, which is to somewhat be expected with introduction of testosterone. Discussed possibility of ruling out lesion with MRI again today. However, patient does not feel particularly strongly about this. He does note that he has had a longstanding history of fluctuating PSA within this range. Will continue to monitor closely. -Recheck PSA F&T 3 months Ordered: PSA Free & Total 3. BPH without urinary obstruction (N40.0: Benign prostatic hyperplasia without lower urinary tract symptoms) Cysto 06/30/21 - Unobstructed, Minimal bilateral lobar hypertrophy. Elevated bladder neck. No intravesical median lobe. Trabeculated None (0), Capacious. UA today without signs of blood or infection IPSS 5 (6) -overall satisfied with his urinary symptoms at this time. Not taking any prostate/bladder meds. Continue to monitor Ordered: Urnls Dip Stick Auto w/o Microscopy POC 21516 4. Hematospermia (R36.1: Hematospermia) Sees light pink tinge in ejaculate every once in a while. Denies gross hematuria. Hematospermia is typically a benign etiology. Given neg hematuria workup in the past, will cont symptomatic monitoring. [3] Not addressed today Follow-up With When Contact Information ALIZA Recinos APRN, Samantha Lopez, FAM, URL Additional Instructions: 3 mos PSAFT, T level Patient Education Benign Prostatic Hyperplasia Prostate Cancer Screening Hypogonadism, Male Problem List/Past Medical History Ongoing Arthritis Asymptomatic microscopic hematuria Benign colon polyp BPH without urinary obstruction Elevated PSA Former smoker Hematospermia High cholesterol Hyperlipidemia Hypertension Hypogonadism male Nocturia Type II diabetes mellitus Historical Hematuria History of bladder cancer Procedure/Surgical History History of nasal sinus surgery (11/19/2016), Sigmoid colon polyp (12/13/2015), 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 Medications AndroGel Pump 20.25 mg/1.25 g (1.62%) transdermal gel, 2 pump, Topical, qAM, 2 refills aspirin 81 mg Chew Tab, 81 mg= 1 tab(s), Oral, Daily clopidogrel 75 mg Tab CoQ10, Oral, Daily Farxiga 5 mg oral tablet Fish Oil, Oral, Not taking Flonase, Daily glimepiride 1 mg Tab, 1 mg= 1 tab(s), Oral, Daily lisinopril 5 mg Tab, Oral, Daily metformin 500 mg oral tablet, Oral, BID metopr (more content not included)... Normal [facility] Comment on above: Result Comment: Elec tronically Signed By: ALIZA Recinos APRN, Samantha Lopez\.br\Date and Time Signed: 08/08/24 09:01 EDT Cholesterol [Mass/volume] in Serum or PlasmaOrdered By: Samantha Recinos on 08-03-2024 Cholesterol [Mass/Vol] 155 mg/dL Normal 140-200 [facility] Comment on above: Chol less than 200 m g/dl low riskChol 201-239 mg/dl borderline riskChol 240 mg/dl and greater high risk Result Comment: Chol less than 200 mg/dl low risk Chol 201-239 mg/dl borderline risk Chol 240 mg/dl and greater high risk Performed By: #### A 1C WTH eA, SCAN CBC, LIPID, TSH3 #### [facility] [address] Cholesterol in LDL Calc [Mas s/Vol]Ordered By: Samantha Recinos on 08-03-2024 Cholesterol in LDL [Mass/Vol] 66 mg/dL 0-100 [facility] Comment on above: LDL ATP III CLASSIFI CATIONLDL less than 100 mg/dL OptimalLDL 100-129 mg/dL Near or above optimalLDL 130-159 mg/dL Borderline highLDL 160-189 mg/dL HighLDL greater than 189 mg/dL Very high Cholesterol in VLDL Calc [Ma ss/Vol]Ordered By: Samantha Recinos on 08-03-2024 Cholesterol in VLDL [Mass/Vol] 37 mg/dL [facility] Hematocrit [Volume Fraction] of Blood by Automated countOrdered By: Samantha Recinos on 08-03-2024 Hematocrit (Bld) [Volume fraction] 47.4 % Normal 38.8-50.0 [facility] Comment on above: Result Comment: PERF ORMED BY: [place] [address] PATHOLOGIST FIRE BOAT ENGINEER STEFANY DILLARD M.D. Performed By: #### A 1C WTH eA, SCAN CBC, LIPID, TSH3 #### [facility] [address] Hemoglobin [Mass/volume] in BloodOrdered By: Samantha Recinos on 08-03-2024 Hemoglobin (Bld) [Mass/Vol] 16.4 g/dL Normal 13.0-17.0 [facility] Comment on above: Performed By: #### A 1C WTH eA, SCAN CBC, LIPID, TSH3 #### [facility] [address] Lipid Panelon 08-03-2024 LDL Cholesterol,Calculate d 66 mg/dL Normal 0-100 [facility] Comment on above: Result Comment: LDL ATP III CLASSIFICATION LDL less than 100 mg/dL Optimal LDL 100-129 mg/dL Near or above optimal LDL 130-159 mg/dL Borderline high LDL 160-189 mg/dL High LDL greater than 189 mg/dL Very high Performed By: #### A 1C WTH eA, SCAN CBC, LIPID, TSH3 #### [facility] [address] Triglyceride w/Reflex 189 mg/dL High 0-149 [facility] Comment on above: Result Comment: TRIG ATP III CLASSIFICATION TRIG less than 150 mg/dL Normal TRIG 150-199 mg/dL Borderline high TRIG 200-500 mg/dL High TRIG greater than 500 mg/dL Very high Standard traceable to the Center for Disease Conrtrol and Prevention (CDC) test method. Performed By: #### A 1C WTH eA, SCAN CBC, LIPID, TSH3 #### [address] VLDL CHOLESTEROL 37 mg/dL Normal [facility] Comment on above: Performed By: #### A 1C WTH eA, SCAN CBC, LIPID, TSH3 #### [facility] [address] PSA Diagnostic (Total Free)o n 08-03-2024 Prostate Spec Ag, Free 0.440 ng/mL Normal [facility] Comment on above: Performed By: #### A 1C WTH eA, SCAN CBC, LIPID, TSH3 #### [address] PSA Total (Not a Screen) 3.070 ng/mL Normal 0.000-4.00 0 [facility] Comment on above: Result Comment: Seri al tumor marker results determined by assays using different manufacturers or methods may not be comparable. [facility] bilingual branch manager and method: [employer] DXI, CHEMILUMINESCENT IMMUNOASSAY. Performed By: #### A 1C WTH eA, SCAN CBC, LIPID, TSH3 #### [facility] [address] PSA,FREE% 14.3 % Normal [facility] Comment on above: Result Comment: Base d on the work of Catalona et al.FLORINA. 279(19):1542:47.1998 the percent free PSA may be used to determine the relative risk of prostate cancer in individual men.The percent probability of prostate cancer by patient age for men with non-suspicious ALISIA results and total PSa between 4 and 10 ng/ml is as follows: % Free PSA 50 - 64 yrs. 65 - 75 yrs. 0 - 10 56% 55% 10 - 15 24% 35% 15 - 20 17% 23% 20 - 25 10% 20% >25 5% 9% PERFORMED BY: [place] [address] PATHOLOGIST FIRE BOAT ENGINEER STEFANY DILLARD M.D. Performed By: #### A 1C WTH eA, SCAN CBC, LIPID, TSH3 #### [address] Prostate Specific Ag Free [M ass/volume] in Serum or PlasmaOrdered By: Samantha Recinos on 08-03-2024 Free PSA [Mass/Vol] 0.440 ng/mL [facility] Prostate specific Ag [Mass/v olume] in Serum or PlasmaOrdered By: Samantha Recinos on 08-03-2024 Prostate specific Ag [Mass/Vol] 3.070 ng/mL 0.000-4.00 0 [facility] Comment on above: Serial tumor marker results determined by assays using different manufacturers or methods may not be comparable.[facility] bilingual branch manager and method:[employer] DXI, CHEMILUMINESCENT IMMUNOASSAY. Serum or plasma free prostat e specific antigen (PSA)/total PSA ratioOrdered By: Samantha Recinos on 08-03-2024 Free PSA/Total PSA [Mass fraction] 14.3 % [facility] Comment on above: Based on the work of Parviz et al.FLORINA. 279(19):1542:47.1998 the percent free PSA may be used to determine the relative risk of prostate cancer in individual men.The percent probability of prostate cancer by patient age for men with non-suspicious ALISIA results and total PSa between 4 and 10 ng/ml is as follows:% Free PSA 50 - 64 yrs. 65 - 75 yrs. 0 - 10 56% 55% 10 - 15 24% 35% 15 - 20 17% 23% 20 - 25 10% 20% >25 5% 9% Serum or plasma high density lipoprotein (HDL) cholesterol measurementOrdered By: Samantha Recinos on 08-03-2024 Cholesterol in HDL [Mass/Vol] 51 mg/dL Normal 23-92 [facility] Comment on above: HDL CHOL ATP-III CLA SSIFICATION Cardiovascular RiskHDL > or equal to 60 mg/dL LOWHDL < 40 mg/dL HIGH Result Comment: HDL CHOL ATP-III CLASSIFICATION Cardiovascular Risk HDL > or equal to 60 mg/dL LOW HDL < 40 mg/dL HIGH Performed By: #### A 1C WTH eA, SCAN CBC, LIPID, TSH3 #### [facility] [address] Serum or plasma total choles terol/high density lipoprotein (HDL) cholesterol mass ratOrdered By: Samantha Recinos on 08-03-2024 Cholesterol.total/Cho lesterol in HDL [Mass ratio] 3.0 {ratio} Normal <5.0 [facility] Comment on above: Result Comment: PERF ORMED BY: [place] [address] PATHOLOGIST FIRE BOAT ENGINEER STEFANY DILLARD M.D. Performed By: #### A 1C WTH eA, SCAN CBC, LIPID, TSH3 #### [address] Testosteroneon 08-03-2024 Testosterone 3.60 ng/mL Normal 1.75-7.81 [facility] Comment on above: Result Comment: PERF ORMED BY: [place] [address] PATHOLOGIST FIRE BOAT ENGINEER TSEFANY DILLARD M.D. Performed By: #### A 1C WTH eA, SCAN CBC, LIPID, TSH3 #### [facility] [address] Testosterone [Mass/volume] i n Serum or PlasmaOrdered By: Samantha Recinos on 08-03-2024 Testosterone [Mass/Vol] 3.60 ng/mL 1.75-7.81 [facility] Triglyceride [Mass/volume] i n Serum or PlasmaOrdered By: Samantha Recinos on 08-03-2024 Triglyceride [Mass/Vol] 189 mg/dL High 0-149 [facility] Comment on above: TRIG ATP III CLASSIF ICATIONTRIG less than 150 mg/dL NormalTRIG 150-199 mg/dL Borderline highTRIG 200-500 mg/dL High TRIG greater than 500 mg/dL Very highStandard traceable to the Center for Disease Conrtrol and Prevention (CDC) test method. Testosterone [Mass/volume] i n Serum or PlasmaOrdered By: Samantha Recinos on 06-21-2024 Testosterone [Mass/Vol] 2.00 ng/mL 1.75-7.81 [facility] Testosterone [Mass/volume] i n Serum or PlasmaOrdered By: Susanna Paulino on 06-16-2024 Testosterone [Mass/Vol] 2.20 ng/mL 1.75-7.81 [facility] Ambulatory Visit Summaryon 0 06-08-2024 Ambulatory Visit Summary Ambulatory Visit Summary MARIANA BARNES :1955 Visit Date:06/08/2024 Ambulatory Visit Instructions Your Diagnosis Elevated PSA Hypogonadism male BPH without urinary obstruction Hematospermia Your Care Team Attending Physician - Jefferson MORRISON, Susanna Alcantara Primary Care Physician - Sadiq Floyd DO This Is Your Medications List Contact prescribing physician if questions or concerns ascorbic acid (Vitamin C) aspirin (aspirin 81 mg Chew Tab) cetirizine (Zyrtec) clopidogrel (clopidogrel 75 mg Tab) dapagliflozin (Farxiga 5 mg oral tablet) ergocalciferol (Vitamin D) fluticasone nasal (Flonase) glimepiride (glimepiride 1 mg Tab) lisinopril (lisinopril 5 mg Tab) metformin (metformin 500 mg oral tablet) metoprolol (metoprolol succinate 25 mg ER Tab) multivitamin (Vitamin B Complex oral capsule) omega-3 polyunsaturated fatty acids (Fish Oil) rosuvastatin (rosuvastatin 10 mg Tab) ubiquinone (CoQ10) zinc sulfate (Zinc) Procedures Performed History of nasal sinus surgery (11/19/2016), Sigmoid colon polyp (12/13/2015), 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 Discharge Vitals Heart Rate (Peripheral) 76 Blood Pressure 151/100 Height 175 cm Height 69 in Weight 90.3 kg Weight 198.66 lb BMI 29.49 What to do next Scheduled Follow-Up Appointments Wednesday 9:00 AM EST With: Susanna Paulino MD Where: [facility] [address] [place] [address]- You Need to Schedule the Following Appointments Follow Up with Susanna Paulino MD, URL, URO When: Where: Medications What How Much When Instructions Unchanged ascorbic acid (Vitamin C) Every day Contact prescribing physician if questions or concerns Unchanged aspirin (aspirin 81 mg Chew Tab) 1 Tablets By Mouth Every day Contact prescribing physician if questions or concerns Unchanged cetirizine (Zyrtec) Every day Contact prescribing physician if questions or concerns Unchanged clopidogrel (clopidogrel 75 mg Tab) Contact prescribing physician if questions or concerns Unchanged dapagliflozin (Farxiga 5 mg oral tablet) Contact prescribing physician if questions or concerns Unchanged ergocalciferol (Vitamin D) By Mouth Every week Contact prescribing physician if questions or concerns Unchanged fluticasone nasal (Flonase) Every day Contact prescribing physician if questions or concerns Unchanged glimepiride (glimepiride 1 mg Tab) 1 Tablets By Mouth Every day Contact prescribing physician if questions or concerns Unchanged lisinopril (lisinopril 5 mg Tab) By Mouth Every day Contact prescribing physician if questions or concerns Unchanged metformin (metformin 500 mg oral tablet) By Mouth 2 times a day Contact prescribing physician if questions or concerns Unchanged metoprolol (metoprolol succinate 25 mg ER Tab) 1 Tablets By Mouth Every day Contact prescribing physician if questions or concerns Unchanged multivitamin (Vitamin B Complex oral capsule) By Mouth Every day Contact prescribing physician if questions or concerns Unchanged omega-3 polyunsaturated fatty acids (Fish Oil) By Mouth Contact prescribing physician if questions or concerns Unchanged rosuvastatin (rosuvastatin 10 mg Tab) By Mouth Every day Contact prescribing physician if questions or concerns Unchanged ubiquinone (CoQ10) By Mouth Every day Contact prescribing physician if questions or concerns Unchanged zinc sulfate (Zinc) By Mouth Every day Contact prescribing physician if questions or concerns Allergies No Known Allergies No Known Medication Allergies Problems Ongoing - Any problem that you are currently receiving treatment for. Arthritis Asymptomatic microscopic hematuria Benign colon polyp BPH without urinary obstruction Elevated PSA Former smoker Hematospermia High cholesterol Hyperlipidemia Hypertension Hypogonadism male Nocturia Type II diabetes mellitus Historical - Any problem that you are no longer receiving treatment for. Hematuria History of bladder cancer Patient Survey You may receive a survey via text or e-mail asking about your office visit. Please share your experience with us by completing your survey. We appreciate your feedback and thank you for choosing us for your care. Education Materials Prostate Cancer Screening Prostate cancer screening is testing that is done to check for the presence of prostate cancer in men. The prostate gland is a walnut-sized gland that is located below the bladder and in front of the rectum in males. The function of the prostate is to add fluid to semen during ejaculation. Prostate cancer is one of the most common types of cancer in men. Who should have prostate cancer screening? Screening recommendations vary based (more content not included)... Normal [facility] Urology Office/Clinic Noteon 06-08-2024 Urology Office/Clinic Note Urology Office/Clinic Note HPI Staff 1 yr f/u w/ PSA. Last seen IO 01/03/24 by AO for hematospermia. Previous Dx: elevated PSA, former smoker, AMH, hematospermia. S/p [facility] MDx 11/06/22. Cysto 06/30/21. *No urologic meds. PSA: 09/08/22 - 2.11 & 16% 03/10/23 - 1.64 & 24% 06/05/24 - 2.15 & 15.3% Dysuria: no Incomplete bladder emptying: no Hematuria: no Frequency: q2-3 hrs Urgency: no Nocturia: 2-4x Stream: strong Leaking: no Post void dripping: _ Wearing pads/ Depends: no Urge incontinence: no Stress incontinence: no Incontinence without Sensory Awareness: no Abdominal pain: no Flank pain: no Sexual complaints: no History of Present Illness Tests reviewed: reviewed UA, PSA I have reviewed the previous health record information and history for this patient from Dr. Paulino. I have reviewed and verified the staff HPI to be accurate for this encounter. Review of Systems PHQ Score Initial Depression Screen Score: 0 SCORE ROS - Provider Constitutional: denies weight loss, denies hot flashes. Eyes: denies eye problems. Gastrointestinal: denies nausea, denies vomiting. Cardiovascular: denies chest pain or angina. Integumentary: no dryness Musculoskeletal: denies musculoskeletal symptoms. ENMT: denies otolaryngeal symptoms. Respiratory: no shortness of breath. Heme/Lymph: denies easy bleeding tendency, denies easy bruising tendency. Psychiatric: no confusion, no anxiety. Genitourinary: See HPI. Physical Exam Vitals & Measurements HR: 76(Peripheral) BP: 151/100 HT: 69 in HT: 175 cm WT: 90.3 kg WT: 198.66 lb BMI: 29.49 General Appearance: alert, no distress, well nourished, well developed male. Assessment/Plan 69 yo here for annual prostate cancer screening. Neg hematuria workup 06/2021. FRANCA 17. On Plavix for hx cardiac stents 1. Elevated PSA (R97.20: Elevated prostate specific antigen [PSA]) PSA: 04/04/21 - 1.41 & 15% 09/26/21 - 2.29 & 16% 02/24/22 - 1.94 & 17% 09/08/22 - 2.11 & 16% 03/10/23 - 1.64 & 24% 06/05/24 - 2.15 & 15% No family hx of prostate cancer. [1] [facility] MDx 11/06/22 - 40% likelihood of prostate ca upon bx. 14% G >=7. [2] PSA increased from prior, does remain in pt's historical range. Percent free is intermediate risk. Possibility that pt has low grade ca based on select MDx, small chance of clinically significant cancer. Discussed options including prostate MRI (can miss prostate ca in 15-20%) vs cont to monitor. R/Bs of options discussed. Pt elects to cont to monitor. -Follow up 6 mos PSA F&T (PCP to get with labs next year) or sooner if needed. Pt understands and agrees with plan. 2. Hypogonadism male (E29.1: Testicular hypofunction) Night sweats for years but worsening lately. Stable weight. Slight decrease in sexual function and libido. Discussed TRT options if pt is confirmed to have low T. I described potential side effects of treatment. We discussed that current data suggest that external testosterone therapy does not cause an increase in the risk of developing prostate cancer, and can also be used safely in patients after prostate cancer treatment. It may however cause an increase in prostate volume and PSA. -T level to be done in AM (recall placed). If low, repeat to confirm low T for insurance. Then pt will be seen sooner in 3 mos with PSA F&T as well. -He elected to proceed with oral replacements. If low T confirmed, will start Jatenzo 237 mg orally once in the morning and once in the evening. Discussed dose adjustments to a minimum of 158 mg twice daily and a maximum of 396 mg twice daily based on serum testosterone drawn 6 hours after the morning dose at least 7 days after starting treatment or following dose adjustment and periodically thereafter. -A monitoring schedule was discussed with includes routine evaluation of serum testosterone, hematocrit, lipid panel, and PSA. No barriers to learning were identified. After all of the patient?s questions were satisfactorily answered, he expressed understanding of the risks of therapy. -If poor insurance coverage with Jatenzo, would consider T IM injections. 3. BPH without urinary obstruction (N40.0: Benign prostatic hyperplasia without lower urinary tract symptoms) Cysto 06/30/21 - Unobstructed, Minimal bilateral lobar hypertrophy. Elevated bladder neck. No intravesical median lobe. [1] Trabeculated None (0), Capacious. [2] UA today negative for blood and infection. IPSS 6. Not taking any BPH meds. Shares increased nocturia which pt attributes to new meds (Glimepiride and Farxiga). Denies weak stream. Volunteers he drinks a lot of water during the day. -Limit fluids before bed. 4. Hematospermia (R36.1: Hematospermia) Sees light pink tinge in ejaculate every once in a while. Denies gross hematuria. Hematospermia is typically a benign etiology. Given neg hematuria workup in the past, will cont symptomatic monitoring. Follow-up With When Contact Information Susanna Paulino MD, URL (more content not included)... Normal [facility] Comment on above: Result Comment: Elec tronically Signed By: Susanna Paulino MD\.br\Date and Time Signed: 06/08/24 09:59 EDT\.br\Electronically Co-Signed By: Berenice Sanches\.br\Date and Time Co-Signed: 06/08/24 09:51 EDT Prostate Specific Ag Free [M ass/volume] in Serum or PlasmaOrdered By: Susanna Paulino on 06-05-2024 Free PSA [Mass/Vol] 0.330 ng/mL [facility] Prostate specific Ag [Mass/v olume] in Serum or PlasmaOrdered By: Susanna Paulino on 06-05-2024 Prostate specific Ag [Mass/Vol] 2.150 ng/mL 0.000-4.00 0 [facility] Comment on above: Serial tumor marker results determined by assays using different manufacturers or methods may not be comparable.[facility] bilingual branch manager and method:[employer] DXI, CHEMILUMINESCENT IMMUNOASSAY. Serum or plasma free prostat e specific antigen (PSA)/total PSA ratioOrdered By: Susanna Paulino on 06-05-2024 Free PSA/Total PSA [Mass fraction] 15.3 % [facility] Comment on above: Based on the work of Parviz et al.FLORINA. 279(19):1542:47.1998 the percent free PSA may be used to determine the relative risk of prostate cancer in individual men.The percent probability of prostate cancer by patient age for men with non-suspicious ALISIA results and total PSa between 4 and 10 ng/ml is as follows:% Free PSA 50 - 64 yrs. 65 - 75 yrs. 0 - 10 56% 55% 10 - 15 24% 35% 15 - 20 17% 23% 20 - 25 10% 20% >25 5% 9% Alanine aminotransferase [En zymatic activity/volume] in Serum or PlasmaOrdered By: Sadiq Floyd on 04-03-2024 ALT [Catalytic activity/Vol] 23 U/L 7-52 [facility] Albumin [Mass/volume] in Ser um or Plasma by Bromocresol green (BCG) dye binding methoOrdered By: Sadiq Floyd on 04-03-2024 Albumin BCG dye [Mass/Vol] 4.1 g/dL 3.5-5.7 [facility] Alkaline phosphatase [Enzyma tic activity/volume] in Serum or PlasmaOrdered By: Sadiq Floyd on 04-03-2024 ALP [Catalytic activity/Vol] 94 U/L 34-104 [facility] Aspartate aminotransferase [ Enzymatic activity/volume] in Serum or PlasmaOrdered By: Sadiq Floyd on 04-03-2024 AST [Catalytic activity/Vol] 13 U/L 13-39 [facility] Basophils Auto (Bld) [#/Vol] Ordered By: Sadiq Floyd on 04-03-2024 Basophils (Bld) [#/Vol] 0.1 10*3/uL 0.0-0.2 [facility] Basophils/100 WBC Auto (Bld) Ordered By: Sadiq Floyd on 04-03-2024 Basophils/100 WBC (Bld) 1.4 % . [facility] Bilirubin.total [Mass/volume ] in Serum or PlasmaOrdered By: Sadiq Floyd on 04-03-2024 Bilirubin [Mass/Vol] 0.5 mg/dL 0.3-1.0 [facility] Calcium [Mass/volume] in Ser um or PlasmaOrdered By: Sadiq Floyd on 04-03-2024 Calcium [Mass/Vol] 9.6 mg/dL 8.6-10.3 [facility] Carbon dioxide, total [Moles /volume] in Serum or PlasmaOrdered By: Sadiq Floyd on 04-03-2024 CO2 [Moles/Vol] 27.0 mmol/L 21.0-31.0 [facility] Chloride [Moles/volume] in S maryjane or PlasmaOrdered By: Sadiq Floyd on 04-03-2024 Chloride [Moles/Vol] 101 mmol/L 98-107 [facility] Cholesterol [Mass/volume] in Serum or PlasmaOrdered By: Sadiq Floyd on 04-03-2024 Cholesterol [Mass/Vol] 162 mg/dL 140-200 [facility] Comment on above: Chol less than 200 m g/dl low riskChol 201-239 mg/dl borderline riskChol 240 mg/dl and greater high risk Cholesterol in LDL Calc [Mas s/Vol]Ordered By: Sadiq Floyd on 04-03-2024 Cholesterol in LDL [Mass/Vol] 48 mg/dL 0-100 [facility] Comment on above: LDL ATP III CLASSIFI CATIONLDL less than 100 mg/dL OptimalLDL 100-129 mg/dL Near or above optimalLDL 130-159 mg/dL Borderline highLDL 160-189 mg/dL HighLDL greater than 189 mg/dL Very high Cholesterol in VLDL Calc [Ma ss/Vol]Ordered By: Sadiq Floyd on 04-03-2024 Cholesterol in VLDL [Mass/Vol] 72 mg/dL [facility] Creatinine [Mass/volume] in Serum or PlasmaOrdered By: Sadiq Floyd on 04-03-2024 Creatinine [Mass/Vol] 0.70 mg/dL 0.70-1.30 [facility] Eosinophils Auto (Bld) [#/Vo l]Ordered By: Sadiq Floyd on 04-03-2024 Eosinophils (Bld) [#/Vol] 0.2 10*3/uL 0.0-0.45 [facility] Eosinophils/100 WBC Auto (Bl d)Ordered By: Sadiq Floyd on 04-03-2024 Eosinophils/100 WBC (Bld) 2.5 % . [facility] Erythrocyte distribution wid th Auto (RBC) [Ratio]Ordered By: Sadiq Floyd on 04-03-2024 Erythrocyte distribution width (RBC) [Ratio] 13.9 % 12.0-14.8 [facility] Globulin Calc (S) [Mass/Vol] Ordered By: Sadiq Floyd on 04-03-2024 Globulin (S) [Mass/Vol] 2.1 g/dL [facility] Glucose [Mass/volume] in Ser um or PlasmaOrdered By: Sadiq Floyd on 04-03-2024 Glucose [Mass/Vol] 178 mg/dL High 70-100 [facility] Comment on above: ADA recommended refe rence rangeRandom Glucose Reference Range is dependent on time and content of last meal. Glucose of more than 200 mg/dL in a nonstressed, ambulatory subject supports the diagnosis of Diabetes Mellitus. Glucose mean value [Mass/vol ume] in Blood Estimated from glycated hemoglobinOrdered By: Sadiq Floyd on 04-03-2024 Average glucose Estimated from glycated hemoglobin (Bld) [Mass/Vol] 180 mg/dL [facility] Hematocrit Auto (Bld) [Volum e fraction]Ordered By: Sadiq Floyd on 04-03-2024 Hematocrit (Bld) [Volume fraction] 44.9 % 38.8-50.0 [facility] Hemoglobin A1c percentageOrd ered By: Sadiq Floyd on 04-03-2024 HbA1c (Bld) [Mass fraction] 7.9 % High 4.3-5.6 [facility] Comment on above: Increased risk for d iabetes: 5.7 - 6.4diabetes: >6.4glycemic control for adults with diabetes: <7.0 Hemoglobin [Mass/volume] in BloodOrdered By: Sadiq Floyd on 04-03-2024 Hemoglobin (Bld) [Mass/Vol] 15.5 g/dL 13.0-17.0 [facility] Leukocytes [#/volume] correc kishan for nucleated erythrocytes in Blood by Automated counOrdered By: Sadiq Floyd on 04-03-2024 WBC corrected for nucl RBC Auto (Bld) [#/Vol] 9.5 10*3/uL 4.1-10.5 [facility] Lymphocytes Auto (Bld) [#/Vo l]Ordered By: Sadiq Floyd on 04-03-2024 Lymphocytes (Bld) [#/Vol] 2.3 10*3/uL 1.00-4.8 [facility] Lymphocytes/100 WBC Auto (Bl d)Ordered By: Sadiq Floyd on 04-03-2024 Lymphocytes/100 WBC (Bld) 23.9 % . [facility] MCH Auto (RBC) [Entitic mass ]Ordered By: Sadiq Floyd on 04-03-2024 MCH (RBC) [Entitic mass] 33.0 pg 27.5-35.2 [facility] MCHC Auto (RBC) [Mass/Vol]Or dered By: Sadiq Floyd on 04-03-2024 MCHC (RBC) [Mass/Vol] 34.5 g/dL 32.5-35.6 [facility] MCV Auto (RBC) [Entitic vol] Ordered By: Sadiq Floyd on 04-03-2024 MCV (RBC) [Entitic vol] 95.7 fL 83.5-101 [facility] Monocytes Auto (Bld) [#/Vol] Ordered By: Sadiq Floyd on 04-03-2024 Monocytes (Bld) [#/Vol] 0.7 10*3/uL 0.0-0.8 [facility] Monocytes/100 WBC Auto (Bld) Ordered By: Sadiq Floyd on 04-03-2024 Monocytes/100 WBC (Bld) 7.7 % . [facility] Neutrophils Auto (Bld) [#/Vo l]Ordered By: Sadiq Floyd on 04-03-2024 Neutrophils (Bld) [#/Vol] 6.1 10*3/uL 1.8-7.7 [facility] Neutrophils/100 WBC Auto (Bl d)Ordered By: Sadiq Floyd on 04-03-2024 Neutrophils/100 WBC (Bld) 64.5 % . [facility] No Panel InformationOrdered By: Sadiq Floyd on 04-03-2024 Estimated GFR (CKD-EPI) > 60.0 mL/Min [facility] Creatinine Clearance (Chem N/A [facility] Nucleated erythrocytes [Pres ence] in Blood by Automated countOrdered By: Sadiq Floyd on 04-03-2024 Nucleated RBC Auto Ql (Bld) 0.1 /100{WBC} 0-0.5 [facility] Ovalocyte detectionOrdered B y: Sadiq Floyd on 04-03-2024 Ovalocytes LM Ql (Bld) Slight [facility] Platelet adequacy [Presence] in Blood by Light microscopyOrdered By: Sadiq Floyd on 04-03-2024 Platelets LM Ql (Bld) Normal Normal [facility] Platelet mean volume Auto (B ld) [Entitic vol]Ordered By: Sadiq Floyd on 04-03-2024 Platelet mean volume (Bld) [Entitic vol] 8.2 fL 6.6-10.1 [facility] Platelet morphology finding [Identifier] in BloodOrdered By: Sadiq Floyd on 04-03-2024 Platelet morphology finding Nom (Bld) Normal Normal [facility] Platelets Auto (Bld) [#/Vol] Ordered By: Sadiq Floyd on 04-03-2024 Platelets (Bld) [#/Vol] 284 10*3/uL 150-450 [facility] Poikilocytosis [Presence] in Blood by Light microscopyOrdered By: Sadiq Floyd on 04-03-2024 Poikilocytosis LM Ql (Bld) [facility] Polychromasia [Presence] in Blood by Light microscopyOrdered By: Sadiq Floyd on 04-03-2024 Polychromasia LM Ql (Bld) [facility] Potassium [Moles/volume] in Serum or PlasmaOrdered By: Sadiq Floyd on 04-03-2024 Potassium [Moles/Vol] 4.2 mmol/L 3.5-5.1 [facility] Protein [Mass/volume] in Ser um or PlasmaOrdered By: Sadiq Floyd on 04-03-2024 Protein [Mass/Vol] 6.2 g/dL Low 6.4-8.9 [facility] RBC Auto (Bld) [#/Vol]Ordere d By: Sadiq Floyd on 04-03-2024 RBC (Bld) [#/Vol] 4.70 10*6/uL 3.90-5.60 [facility] RBC morphologyOrdered By: Miguel Floyd on 04-03-2024 RBC morphology finding Nom (Bld) N/A [facility] Schistocytes [Presence] in B lood by Light microscopyOrdered By: Sadiq Floyd on 04-03-2024 Schistocytes LM Ql (Bld) Slight [facility] Serum or plasma albumin/glob ulin mass ratioOrdered By: Sadiq Floyd on 04-03-2024 Albumin/Globulin [Mass ratio] 2.0 {ratio} [facility] Serum or plasma anion gap de terminationOrdered By: Sadiq Floyd on 04-03-2024 Anion gap [Moles/Vol] 12.2 mmol/L 6.0-15.0 [facility] Serum or plasma high density lipoprotein (HDL) cholesterol measurementOrdered By: Sadiq Floyd on 04-03-2024 Cholesterol in HDL [Mass/Vol] 42 mg/dL 23-92 [facility] Comment on above: HDL CHOL ATP-III CLA SSIFICATION Cardiovascular RiskHDL > or equal to 60 mg/dL LOWHDL < 40 mg/dL HIGH Serum or plasma total choles terol/high density lipoprotein (HDL) cholesterol mass ratOrdered By: Sadiq Floyd on 04-03-2024 Cholesterol.total/Cho lesterol in HDL [Mass ratio] 3.9 {ratio} <5.0 [facility] Sodium [Moles/volume] in Ser um or PlasmaOrdered By: Sadiq Floyd on 04-03-2024 Sodium [Moles/Vol] 136 mmol/L 136-145 [facility] Triglyceride [Mass/volume] i n Serum or PlasmaOrdered By: Sadiq Floyd on 04-03-2024 Triglyceride [Mass/Vol] 361 mg/dL High 0-149 [facility] Comment on above: TRIG ATP III CLASSIF ICATIONTRIG less than 150 mg/dL NormalTRIG 150-199 mg/dL Borderline highTRIG 200-500 mg/dL High TRIG greater than 500 mg/dL Very highStandard traceable to the Center for Disease Conrtrol and Prevention (CDC) test method. Urea nitrogen [Mass/volume] in Serum or PlasmaOrdered By: Sadiq Floyd on 04-03-2024 Urea nitrogen [Mass/Vol] 20 mg/dL 7 [facility] WBC Auto (Bld) [#/Vol]Ordere d By: Sadiq Floyd on 04-03-2024 WBC (Bld) [#/Vol] 9.5 10*3/uL 4.1-10.5 [facility] Activated partial thrombopla stin time (aPTT) in platelet poor plasma by coagulation aOrdered By: Felipe Carlson on 11-26-2023 aPTT Coag (PPP) [Time] 33.7 s 25.1-36.5 [facility] Comment on above: A hematocrit value g reater than 55% may lead to inaccurate results in coagulation testing. Patients having hematocrit values >55% require a special collection tube for coagulation studies. Please contact the laboratory at [phone] for redraw instructions. Basophils Auto (Bld) [#/Vol] Ordered By: Felipe Carlson on 11-26-2023 Basophils (Bld) [#/Vol] 0.1 10*3/uL 0.0-0.2 [facility] Basophils/100 WBC Auto (Bld) Ordered By: Felipe Carlson on 11-26-2023 Basophils/100 WBC (Bld) 1.5 % . [facility] Carbon dioxide, total [Moles /volume] in Serum or PlasmaOrdered By: Felipe Carlson on 11-26-2023 CO2 [Moles/Vol] 24.9 mmol/L 21.0-31.0 [facility] Chloride [Moles/volume] in S maryjane or PlasmaOrdered By: Felipe Carlson on 11-26-2023 Chloride [Moles/Vol] 101 mmol/L 98-107 [facility] Creatinine [Mass/volume] in Serum or PlasmaOrdered By: Felipe Carlson on 11-26-2023 Creatinine [Mass/Vol] 0.69 mg/dL 0.70-1.30 [facility] Eosinophils Auto (Bld) [#/Vo l]Ordered By: Felipe Carlson on 11-26-2023 Eosinophils (Bld) [#/Vol] 0.2 10*3/uL 0.0-0.45 [facility] Eosinophils/100 WBC Auto (Bl d)Ordered By: Felipe Carlson on 11-26-2023 Eosinophils/100 WBC (Bld) 2.5 % . [facility] Erythrocyte distribution wid th Auto (RBC) [Ratio]Ordered By: Felipe Carlson on 11-26-2023 Erythrocyte distribution width (RBC) [Ratio] 13.2 % 12.0-14.8 [facility] Hematocrit Auto (Bld) [Volum e fraction]Ordered By: Felipe Carlson on 11-26-2023 Hematocrit (Bld) [Volume fraction] 47.1 % 38.8-50.0 [facility] Hemoglobin [Mass/volume] in BloodOrdered By: Felipe Carlson on 11-26-2023 Hemoglobin (Bld) [Mass/Vol] 16.5 g/dL 13.0-17.0 [facility] INR in Platelet poor plasma by Coagulation assayOrdered By: Felipe Carlson on 11-26-2023 INR Coag (PPP) [Relative time] 0.9 {INR} [facility] Comment on above: INR Therapeutic Rang e A) Pre- and Peroperative OAT started two weeks before surgery. NOT HIP SURGERY: 1.5 - 2.5 HIP SURGERY: 2 - 3B) Primary and secondary prevention of venous THROMBOSIS: 2 - 3C) Active venous thrombosis, pulmonary embolismand prevention of recurrent venous thrombosis: 2 - 3D) Prevention of arterial thromboembolismincluding patients with mechanical heart valves: 3 - 4.5 Leukocytes [#/volume] correc kishan for nucleated erythrocytes in Blood by Automated counOrdered By: Felipe Carlson on 11-26-2023 WBC corrected for nucl RBC Auto (Bld) [#/Vol] 7.1 10*3/uL 4.1-10.5 [facility] Lymphocytes Auto (Bld) [#/Vo l]Ordered By: Felipe Carlson on 11-26-2023 Lymphocytes (Bld) [#/Vol] 2.1 10*3/uL 1.00-4.8 [facility] Lymphocytes/100 WBC Auto (Bl d)Ordered By: Felipe Carlson on 11-26-2023 Lymphocytes/100 WBC (Bld) 29.4 % . [facility] MCH Auto (RBC) [Entitic mass ]Ordered By: Felipe Carlson on 11-26-2023 MCH (RBC) [Entitic mass] 32.3 pg 27.5-35.2 [facility] MCHC Auto (RBC) [Mass/Vol]Or dered By: Felipe Carlson on 11-26-2023 MCHC (RBC) [Mass/Vol] 35.0 g/dL 32.5-35.6 [facility] MCV Auto (RBC) [Entitic vol] Ordered By: Felipe Carlson on 11-26-2023 MCV (RBC) [Entitic vol] 92.4 fL 83.5-101 [facility] Monocytes Auto (Bld) [#/Vol] Ordered By: Felipe Carlson on 11-26-2023 Monocytes (Bld) [#/Vol] 0.7 10*3/uL 0.0-0.8 [facility] Monocytes/100 WBC Auto (Bld) Ordered By: Felipe Carlson on 11-26-2023 Monocytes/100 WBC (Bld) 9.2 % . [facility] Neutrophils Auto (Bld) [#/Vo l]Ordered By: Felipe Carlson on 11-26-2023 Neutrophils (Bld) [#/Vol] 4.1 10*3/uL 1.8-7.7 [facility] Neutrophils/100 WBC Auto (Bl d)Ordered By: Felipe Carlson on 11-26-2023 Neutrophils/100 WBC (Bld) 57.4 % . [facility] No Panel InformationOrdered By: Felipe Carlson on 11-26-2023 Estimated GFR (CKD-EPI) > 60.0 mL/Min [facility] Creatinine Clearance (Chem 101.21 [facility] Nucleated erythrocytes [Pres ence] in Blood by Automated countOrdered By: Felipe Carlson on 11-26-2023 Nucleated RBC Auto Ql (Bld) 0.1 /100{WBC} 0-0.5 [facility] Platelet mean volume Auto (B ld) [Entitic vol]Ordered By: Felipe Carlson on 11-26-2023 Platelet mean volume (Bld) [Entitic vol] 7.9 fL 6.6-10.1 [facility] Platelets Auto (Bld) [#/Vol] Ordered By: Felipe Carlson on 11-26-2023 Platelets (Bld) [#/Vol] 285 10*3/uL 150-450 [facility] Potassium [Moles/volume] in Serum or PlasmaOrdered By: Felpie Carlson on 11-26-2023 Potassium [Moles/Vol] 4.1 mmol/L 3.5-5.1 [facility] Prothrombin time (PT)Ordered By: Felipe Carlson on 11-26-2023 PT Coag (PPP) [Time] 10.1 s 9.0-12.9 [facility] Comment on above: A hematocrit value g reater than 55% may lead to inaccurate results in coagulation testing. Patients having hematocrit values >55% require a special collection tube for coagulation studies. Please contact the laboratory at [phone] for redraw instructions. RBC Auto (Bld) [#/Vol]Ordere d By: Felipe Carlson on 11-26-2023 RBC (Bld) [#/Vol] 5.10 10*6/uL 3.90-5.60 [facility] Serum or plasma anion gap de terminationOrdered By: Felipe Carlson on 11-26-2023 Anion gap [Moles/Vol] 14.2 mmol/L 6.0-15.0 [facility] Sodium [Moles/volume] in Ser um or PlasmaOrdered By: Felipe Carlson on 11-26-2023 Sodium [Moles/Vol] 136 mmol/L 136-145 [facility] Urea nitrogen [Mass/volume] in Serum or PlasmaOrdered By: Felipe Carlson on 11-26-2023 Urea nitrogen [Mass/Vol] 13 mg/dL 7-25 [facility] WBC Auto (Bld) [#/Vol]Ordere d By: Felipe Carlson on 11-26-2023 WBC (Bld) [#/Vol] 7.1 10*3/uL 4.1-10.5 [facility] Creatinine (Bld) [Mass/Vol]O rdered By: Felipe Carlson on 11-18-2023 Creatinine [Mass/Vol] 0.7 mg/dL 0.6-1.3 [facility] Comment on above: ER/ESD physician is notified/shown all ISTAT results.Critical values may be confirmed by laboratory testing ifdeemed necessary by ER attending doctor. No Panel InformationOrdered By: Felipe Carlson on 11-18-2023 Bedside Estimated GFR (eGFR) > 60.0 [facility] Fibrin D-dimer [Presence] in Platelet poor plasma by Latex agglutinationOrdered By: Sadiq Floyd on 10-21-2023 Fibrin D-dimer LA Ql (PPP) 227 ng/mL 0-243 [facility] Comment on above: The reference range for D-dimer is <243 ng/mL D-dimer units.D-dimer results must be used in conjunction with a clinicalpretest probability (PTP) assessment model for deep veinthrombosis (DVT) and pulmonary embolism (PE). Results <230ng/mL d-dimer units can be used as a negative predictor inpatients with low or moderate probability for DVT/PE.Results above the exclusion threshold of 230 ng/ml D-dimerunits for DVT/PE may indicate the need for furtherdiagnostic testing.D-Dimer can be increased in hospitalized patients due toco-morbid conditions.A hematocrit value greater than 55% may lead to inaccurate results in coagulation testing. Patients having hematocrit values >55% require a special collection tube for coagulation studies. Please contact the laboratory at [phone] for redraw instructions. Serum or plasma thyroglobuli n antibody assay (units/volume)Ordered By: Sadiq Floyd on 10-21-2023 Thyroglobulin Ab Qn [IU]/mL 0.0-0.9 [facility] Comment on above: Thyroglobulin Antibo dy measured by PrimeAgain,IncMethodologyPerformed at: - [facility] [id number] [place], [place] [id number] Director: John Lr PhD, Phone: [phone] Serum or plasma thyroperoxid ase antibody assay (units/volume)Ordered By: Sadiq Floyd on 10-21-2023 TPO Ab Qn [IU]/mL 0-34 [facility] Thyrotropin [Units/volume] i n Serum or PlasmaOrdered By: Sadiq Floyd on 10-21-2023 TSH Qn 1.33 m[IU]/L 0.45-5.33 [facility] Thyroxine (T4) free [Mass/vo lume] in Serum or PlasmaOrdered By: Sadiq Floyd on 10-21-2023 Free T4 [Mass/Vol] 0.85 ng/dL 0.61-1.12 [facility] Triiodothyronine (T3) Free [ Mass/volume] in Serum or PlasmaOrdered By: Sadiq Floyd on 10-21-2023 Free T3 [Mass/Vol] 3.63 pg/mL 2.50-3.90 [facility] Troponin I.cardiac [Mass/vol ume] in Serum or Plasma by Detection limit <= 0.01 ng/Ordered By: Sadiq Floyd on 10-21-2023 Troponin I.cardiac DL <= 0.01 ng/mL [Mass/Vol] 3.0 pg/mL 0.0-20.0 [facility] C reactive protein [Mass/vol ume] in Serum or Plasma by High sensitivity methodOrdered By: Estevan Reyes on 09-30-2023 CRP High sensitivity method [Mass/Vol] 5.8 mg/L 0.0-0.9 [facility] Comment on above: Cardiovascular Risk Classification (AHA/CDC)hsCRP < 1.0 mg/l low relative risk for CVDhsCRP 1.0-3.0 mg/l average relative risk for CVDhsCRP > 3.0 mg/l high relative risk for CVDhsCRP > 7.5 mg/l active inflammation*Two results two weeks apart and averaged provide a morestable estimate of hsCRP level.*hsCRP levels > 7.5 mg/l may suggest infection that canlimit the use of this marker for estimation of CVD risk. Cholesterol [Mass/volume] in Serum or PlasmaOrdered By: Estevan Reyes on 09-30-2023 Cholesterol [Mass/Vol] 147 mg/dL 140-200 [facility] Comment on above: Chol less than 200 m g/dl low riskChol 201-239 mg/dl borderline riskChol 240 mg/dl and greater high risk Cholesterol in LDL Calc [Mas s/Vol]Ordered By: Estevan Reyes on 09-30-2023 Cholesterol in LDL [Mass/Vol] 38 mg/dL 0-100 [facility] Comment on above: LDL ATP III CLASSIFI CATIONLDL less than 100 mg/dL OptimalLDL 100-129 mg/dL Near or above optimalLDL 130-159 mg/dL Borderline highLDL 160-189 mg/dL HighLDL greater than 189 mg/dL Very high Cholesterol in VLDL Calc [Ma ss/Vol]Ordered By: Estevan Reyes on 09-30-2023 Cholesterol in VLDL [Mass/Vol] 69 mg/dL [facility] Creatine kinase [Enzymatic a ctivity/volume] in Serum or PlasmaOrdered By: Estevan Reyes on 09-30-2023 CK [Catalytic activity/Vol] 72 U/L 30-223 [facility] Serum or plasma high density lipoprotein (HDL) cholesterol measurementOrdered By: Estevan Reyes on 09-30-2023 Cholesterol in HDL [Mass/Vol] 40 mg/dL 23-92 [facility] Comment on above: HDL CHOL ATP-III CLA SSIFICATION Cardiovascular RiskHDL > or equal to 60 mg/dL LOWHDL < 40 mg/dL HIGH Serum or plasma total choles terol/high density lipoprotein (HDL) cholesterol mass ratOrdered By: Estevan Reyes on 09-30-2023 Cholesterol.total/Cho lesterol in HDL [Mass ratio] 3.7 {ratio} <5.0 [facility] Thyrotropin [Units/volume] i n Serum or PlasmaOrdered By: Estevan Reyes on 09-30-2023 TSH Qn 1.38 m[IU]/L 0.45-5.33 [facility] Triglyceride [Mass/volume] i n Serum or PlasmaOrdered By: Estevan Reyes on 09-30-2023 Triglyceride [Mass/Vol] 345 mg/dL 0-149 [facility] Comment on above: TRIG ATP III CLASSIF ICATIONTRIG less than 150 mg/dL NormalTRIG 150-199 mg/dL Borderline highTRIG 200-500 mg/dL High TRIG greater than 500 mg/dL Very highStandard traceable to the Center for Disease Conrtrol and Prevention (CDC) test method. Troponin I.cardiac [Mass/vol ume] in Serum or Plasma by Detection limit <= 0.01 ng/Ordered By: Estevan Reyes on 09-30-2023 Troponin I.cardiac DL <= 0.01 ng/mL [Mass/Vol] 3.1 pg/mL 0.0-20.0 [facility] Activated partial thrombopla stin time (aPTT) in platelet poor plasma by coagulation aOrdered By: Chao Grullon on 09-29-2023 aPTT Coag (PPP) [Time] 34.4 s 25.1-36.5 [facility] Comment on above: A hematocrit value g reater than 55% may lead to inaccurate results in coagulation testing. Patients having hematocrit values >55% require a special collection tube for coagulation studies. Please contact the laboratory at [phone] for redraw instructions. Alanine aminotransferase [En zymatic activity/volume] in Serum or PlasmaOrdered By: Chao Grullon on 09-29-2023 ALT [Catalytic activity/Vol] 24 U/L 7-52 [facility] Albumin [Mass/volume] in Ser um or Plasma by Bromocresol green (BCG) dye binding methoOrdered By: Chao Grullon on 09-29-2023 Albumin BCG dye [Mass/Vol] 4.3 g/dL 3.5-5.7 [facility] Alkaline phosphatase [Enzyma tic activity/volume] in Serum or PlasmaOrdered By: Chao Grullon on 09-29-2023 ALP [Catalytic activity/Vol] 94 U/L 34-104 [facility] Aspartate aminotransferase [ Enzymatic activity/volume] in Serum or PlasmaOrdered By: Chao Grullon on 09-29-2023 AST [Catalytic activity/Vol] 15 U/L 13-39 [facility] Basophils Auto (Bld) [#/Vol] Ordered By: Chao Grullon on 09-29-2023 Basophils (Bld) [#/Vol] 0.1 10*3/uL 0.0-0.2 [facility] Basophils/100 WBC Auto (Bld) Ordered By: Chao Grullon on 09-29-2023 Basophils/100 WBC (Bld) 1.4 % . [facility] Bilirubin.direct [Mass/volum e] in Serum or PlasmaOrdered By: Chao Grullon on 09-29-2023 Bilirubin.direct [Mass/Vol] 0.10 mg/dL 0.03-0.18 [facility] Bilirubin.total [Mass/volume ] in Serum or PlasmaOrdered By: Chao Grullon on 09-29-2023 Bilirubin [Mass/Vol] 0.6 mg/dL 0.3-1.0 [facility] Calcium [Mass/volume] in Ser um or PlasmaOrdered By: Chao Grullon on 09-29-2023 Calcium [Mass/Vol] 10.4 mg/dL 8.6-10.3 [facility] Carbon dioxide, total [Moles /volume] in Serum or PlasmaOrdered By: Chao Grullon on 09-29-2023 CO2 [Moles/Vol] 26.7 mmol/L 21.0-31.0 [facility] Chloride [Moles/volume] in S maryjane or PlasmaOrdered By: Chao Grullon on 09-29-2023 Chloride [Moles/Vol] 99 mmol/L 98-107 [facility] Creatine kinase [Enzymatic a ctivity/volume] in Serum or PlasmaOrdered By: Estevan Reyes on 09-29-2023 CK [Catalytic activity/Vol] 75 U/L 30-223 [facility] Creatinine [Mass/volume] in Serum or PlasmaOrdered By: Chao Grullon on 09-29-2023 Creatinine [Mass/Vol] 0.67 mg/dL 0.70-1.30 [facility] D-Dimer High Sensitivityon 1 11-30-2022 D-Dimer High Sensitivity < 200 Normal 0-243 [facility] Other Eosinophils Auto (Bld) [#/Vo l]Ordered By: Chao Grullon on 09-29-2023 Eosinophils (Bld) [#/Vol] 0.2 10*3/uL 0.0-0.45 [facility] Eosinophils/100 WBC Auto (Bl d)Ordered By: Chao Grullon on 09-29-2023 Eosinophils/100 WBC (Bld) 2.3 % . [facility] Erythrocyte distribution wid th Auto (RBC) [Ratio]Ordered By: Chao Grullon on 09-29-2023 Erythrocyte distribution width (RBC) [Ratio] 13.5 % 12.0-14.8 [facility] Fibrin D-dimer [Presence] in Platelet poor plasma by Latex agglutinationOrdered By: Chao Grullon on 09-29-2023 Fibrin D-dimer LA Ql (PPP) < 200 ng/mL 0-243 [facility] Comment on above: The reference range for D-dimer is <243 ng/mL D-dimer units.D-dimer results must be used in conjunction with a clinicalpretest probability (PTP) assessment model for deep veinthrombosis (DVT) and pulmonary embolism (PE). Results <230ng/mL d-dimer units can be used as a negative predictor inpatients with low or moderate probability for DVT/PE.Results above the exclusion threshold of 230 ng/ml D-dimerunits for DVT/PE may indicate the need for furtherdiagnostic testing.D-Dimer can be increased in hospitalized patients due toco-morbid conditions.A hematocrit value greater than 55% may lead to inaccurate results in coagulation testing. Patients having hematocrit values >55% require a special collection tube for coagulation studies. Please contact the laboratory at [phone] for redraw instructions. Globulin Calc (S) [Mass/Vol] Ordered By: Chao Grullon on 09-29-2023 Globulin (S) [Mass/Vol] 3.0 g/dL [facility] Glucose [Mass/volume] in Ser um or PlasmaOrdered By: Chao Grullon on 09-29-2023 Glucose [Mass/Vol] 168 mg/dL 70-100 [facility] Comment on above: ADA recommended refe rence rangeRandom Glucose Reference Range is dependent on time and content of last meal. Glucose of more than 200 mg/dL in a nonstressed, ambulatory subject supports the diagnosis of Diabetes Mellitus. Hematocrit Auto (Bld) [Volum e fraction]Ordered By: Chao Grullon on 09-29-2023 Hematocrit (Bld) [Volume fraction] 47.8 % 38.8-50.0 [facility] Hemoglobin [Mass/volume] in BloodOrdered By: Chao Grullon on 09-29-2023 Hemoglobin (Bld) [Mass/Vol] 16.6 g/dL 13.0-17.0 [facility] INR in Platelet poor plasma by Coagulation assayOrdered By: Chao Grullon on 09-29-2023 INR Coag (PPP) [Relative time] 0.8 {INR} [facility] Comment on above: INR Therapeutic Rang e A) Pre- and Peroperative OAT started two weeks before surgery. NOT HIP SURGERY: 1.5 - 2.5 HIP SURGERY: 2 - 3B) Primary and secondary prevention of venous THROMBOSIS: 2 - 3C) Active venous thrombosis, pulmonary embolismand prevention of recurrent venous thrombosis: 2 - 3D) Prevention of arterial thromboembolismincluding patients with mechanical heart valves: 3 - 4.5 Leukocytes [#/volume] correc kishan for nucleated erythrocytes in Blood by Automated counOrdered By: Chao Grullon on 09-29-2023 WBC corrected for nucl RBC Auto (Bld) [#/Vol] 9.8 10*3/uL 4.1-10.5 [facility] Lipase [Enzymatic activity/v olume] in Serum or PlasmaOrdered By: Chao Grullon on 09-29-2023 Lipase [Catalytic activity/Vol] 86.0 U/L 11.0-82.0 [facility] Lymphocytes Auto (Bld) [#/Vo l]Ordered By: Chao Grullon on 09-29-2023 Lymphocytes (Bld) [#/Vol] 2.0 10*3/uL 1.00-4.8 [facility] Lymphocytes/100 WBC Auto (Bl d)Ordered By: Chao Grullon on 09-29-2023 Lymphocytes/100 WBC (Bld) 20.7 % . [facility] MCH Auto (RBC) [Entitic mass ]Ordered By: Chao Grullon on 09-29-2023 MCH (RBC) [Entitic mass] 32.4 pg 27.5-35.2 [facility] MCHC Auto (RBC) [Mass/Vol]Or dered By: Chao Grullon on 09-29-2023 MCHC (RBC) [Mass/Vol] 34.7 g/dL 32.5-35.6 [facility] MCV Auto (RBC) [Entitic vol] Ordered By: Chao Grullon on 09-29-2023 MCV (RBC) [Entitic vol] 93.4 fL 83.5-101 [facility] Monocyte distribution width [Entitic volume] in Blood by AutomatedOrdered By: Chao Grullon on 09-29-2023 Monocyte distribution width Auto (Bld) [Entitic vol] 19.32 % 0.00-20.00 [facility] Monocytes Auto (Bld) [#/Vol] Ordered By: Chao Grullon on 09-29-2023 Monocytes (Bld) [#/Vol] 0.8 10*3/uL 0.0-0.8 [facility] Monocytes/100 WBC Auto (Bld) Ordered By: Chao Grullon on 09-29-2023 Monocytes/100 WBC (Bld) 8.7 % . [facility] Natriuretic peptide B [Mass/ Vol]Ordered By: Chao Grullon on 09-29-2023 Natriuretic peptide B (Bld) [Mass/Vol] 8.0 pg/mL 5-100 [facility] Neutrophils Auto (Bld) [#/Vo l]Ordered By: Chao Grullon on 09-29-2023 Neutrophils (Bld) [#/Vol] 6.6 10*3/uL 1.8-7.7 [facility] Neutrophils/100 WBC Auto (Bl d)Ordered By: Chao Grullon on 09-29-2023 Neutrophils/100 WBC (Bld) 66.9 % . [facility] No Panel InformationOrdered By: Chao Grullon on 09-29-2023 Estimated GFR (CKD-EPI) > 60.0 mL/Min [facility] Creatinine Clearance (Chem 101.03 [facility] Nucleated erythrocytes [Pres ence] in Blood by Automated countOrdered By: Chao Grullon on 09-29-2023 Nucleated RBC Auto Ql (Bld) 0.3 /100{WBC} 0-0.5 [facility] Platelet mean volume Auto (B ld) [Entitic vol]Ordered By: Chao Grullon on 09-29-2023 Platelet mean volume (Bld) [Entitic vol] 8.2 fL 6.6-10.1 [facility] Platelets Auto (Bld) [#/Vol] Ordered By: Chao Grullon on 09-29-2023 Platelets (Bld) [#/Vol] 299 10*3/uL 150-450 [facility] Potassium [Moles/volume] in Serum or PlasmaOrdered By: Chao Grullon on 09-29-2023 Potassium [Moles/Vol] 4.3 mmol/L 3.5-5.1 [facility] Protein [Mass/volume] in Ser um or PlasmaOrdered By: Chao Grullon on 09-29-2023 Protein [Mass/Vol] 7.3 g/dL 6.4-8.9 [facility] Prothrombin time (PT)Ordered By: Chao Grullon on 09-29-2023 PT Coag (PPP) [Time] 9.9 s 9.0-12.9 [facility] Comment on above: A hematocrit value g reater than 55% may lead to inaccurate results in coagulation testing. Patients having hematocrit values >55% require a special collection tube for coagulation studies. Please contact the laboratory at [phone] for redraw instructions. RBC Auto (Bld) [#/Vol]Ordere d By: Chao Grullon on 09-29-2023 RBC (Bld) [#/Vol] 5.12 10*6/uL 3.90-5.60 [facility] Serum or plasma albumin/glob ulin mass ratioOrdered By: Chao Grullon on 09-29-2023 Albumin/Globulin [Mass ratio] 1.4 {ratio} [facility] Serum or plasma anion gap de terminationOrdered By: Chao Grullon on 09-29-2023 Anion gap [Moles/Vol] TNP [facility] Comment on above: Test not performed Serum or plasma non-glucuron idated bilirubin measurement (mass/volume)Ordered By: Chao Grullon on 09-29-2023 Bilirubin.indirect [Mass/Vol] TNP [facility] Comment on above: Test not performed Sodium [Moles/volume] in Ser um or PlasmaOrdered By: Chao Grullon on 09-29-2023 Sodium [Moles/Vol] 134 mmol/L 136-145 [facility] Troponin I High Sensitivityo n 09-29-2023 Troponin I High Sensitivity 3.9 pg/mL Normal 0.0-20.0 pg/mL [facility] Other Troponin I.cardiac [Mass/vol ume] in Serum or Plasma by Detection limit <= 0.01 ng/Ordered By: Estevan Reyes on 09-29-2023 Troponin I.cardiac DL <= 0.01 ng/mL [Mass/Vol] 3.5 pg/mL 0.0-20.0 [facility] Urea nitrogen [Mass/volume] in Serum or PlasmaOrdered By: Chao Grullon on 09-29-2023 Urea nitrogen [Mass/Vol] 19 mg/dL 7-25 [facility] WBC Auto (Bld) [#/Vol]Ordere d By: Chao Grullon on 09-29-2023 WBC (Bld) [#/Vol] 9.8 10*3/uL 4.1-10.5 [facility] Alanine aminotransferase [En zymatic activity/volume] in Serum or PlasmaOrdered By: Sadiq Floyd on 09-08-2023 ALT [Catalytic activity/Vol] 23 U/L 7-52 [facility] Albumin [Mass/volume] in Ser um or Plasma by Bromocresol green (BCG) dye binding methoOrdered By: Sadiq Floyd on 09-08-2023 Albumin BCG dye [Mass/Vol] 4.3 g/dL 3.5-5.7 [facility] Alkaline phosphatase [Enzyma tic activity/volume] in Serum or PlasmaOrdered By: Sadiq Floyd on 09-08-2023 ALP [Catalytic activity/Vol] 91 U/L 34-104 [facility] Aspartate aminotransferase [ Enzymatic activity/volume] in Serum or PlasmaOrdered By: Sadiq Floyd on 09-08-2023 AST [Catalytic activity/Vol] 16 U/L 13-39 [facility] Automated erythrocytes count in urine sediment (number/area)Ordered By: Sadiq lFoyd on 09-08-2023 RBC Auto (Urine sed) [#/Area] None seen [HPF] 0-4 [facility] Automated leukocytes count i n urine sediment (number/area)Ordered By: Sadiq Floyd on 09-08-2023 WBC Auto (Urine sed) [#/Area] None seen [HPF] 0-4 [facility] Basophils Auto (Bld) [#/Vol] Ordered By: Sadiq Floyd on 09-08-2023 Basophils (Bld) [#/Vol] 0.1 10*3/uL 0.0-0.2 [facility] Basophils/100 WBC Auto (Bld) Ordered By: Sadiq Floyd on 09-08-2023 Basophils/100 WBC (Bld) 1.2 % . [facility] Bilirubin Test strip Ql (U)O rdered By: Sadiq Floyd on 09-08-2023 Bilirubin Ql (U) Negative Negative [facility] Bilirubin.total [Mass/volume ] in Serum or PlasmaOrdered By: Sadiq Floyd on 09-08-2023 Bilirubin [Mass/Vol] 0.5 mg/dL 0.3-1.0 [facility] Calcium [Mass/volume] in Ser um or PlasmaOrdered By: Sadiq Floyd on 09-08-2023 Calcium [Mass/Vol] 9.5 mg/dL 8.6-10.3 [facility] Carbon dioxide, total [Moles /volume] in Serum or PlasmaOrdered By: Sadiq Floyd on 09-08-2023 CO2 [Moles/Vol] 28.9 mmol/L 21.0-31.0 [facility] Chloride [Moles/volume] in S maryjane or PlasmaOrdered By: Sadiq Floyd on 09-08-2023 Chloride [Moles/Vol] 102 mmol/L 98-107 [facility] Cholesterol [Mass/volume] in Serum or PlasmaOrdered By: Sadiq Floyd on 09-08-2023 Cholesterol [Mass/Vol] 131 mg/dL 140-200 [facility] Comment on above: Chol less than 200 m g/dl low riskChol 201-239 mg/dl borderline riskChol 240 mg/dl and greater high risk Cholesterol in LDL Calc [Mas s/Vol]Ordered By: Sadiq Floyd on 09-08-2023 Cholesterol in LDL [Mass/Vol] 46 mg/dL 0-100 [facility] Comment on above: LDL ATP III CLASSIFI CATIONLDL less than 100 mg/dL OptimalLDL 100-129 mg/dL Near or above optimalLDL 130-159 mg/dL Borderline highLDL 160-189 mg/dL HighLDL greater than 189 mg/dL Very high Cholesterol in VLDL Calc [Ma ss/Vol]Ordered By: Sadiq Floyd on 09-08-2023 Cholesterol in VLDL [Mass/Vol] 46 mg/dL [facility] Color Auto (U)Ordered By: Miguel Floyd on 09-08-2023 Color (U) Yellow Yellow [facility] Creatinine [Mass/volume] in Serum or PlasmaOrdered By: Sadiq Floyd on 09-08-2023 Creatinine [Mass/Vol] 0.75 mg/dL 0.70-1.30 [facility] Eosinophils Auto (Bld) [#/Vo l]Ordered By: Sadiq Floyd on 09-08-2023 Eosinophils (Bld) [#/Vol] 0.4 10*3/uL 0.0-0.45 [facility] Eosinophils/100 WBC Auto (Bl d)Ordered By: Sadiq Floyd on 09-08-2023 Eosinophils/100 WBC (Bld) 3.9 % . [facility] Erythrocyte distribution wid th Auto (RBC) [Ratio]Ordered By: Sadiq Floyd on 09-08-2023 Erythrocyte distribution width (RBC) [Ratio] 13.6 % 12.0-14.8 [facility] Globulin Calc (S) [Mass/Vol] Ordered By: Sadiq Floyd on 09-08-2023 Globulin (S) [Mass/Vol] 2.2 g/dL [facility] Glucose [Mass/volume] in Ser um or PlasmaOrdered By: Sadiq Floyd on 09-08-2023 Glucose [Mass/Vol] 167 mg/dL 70-100 [facility] Comment on above: ADA recommended refe rence rangeRandom Glucose Reference Range is dependent on time and content of last meal. Glucose of more than 200 mg/dL in a nonstressed, ambulatory subject supports the diagnosis of Diabetes Mellitus. Glucose mean value [Mass/vol ume] in Blood Estimated from glycated hemoglobinOrdered By: Sadiq Floyd on 09-08-2023 Average glucose Estimated from glycated hemoglobin (Bld) [Mass/Vol] 174 mg/dL [facility] Hematocrit Auto (Bld) [Volum e fraction]Ordered By: Sadiq Floyd on 09-08-2023 Hematocrit (Bld) [Volume fraction] 47.2 % 38.8-50.0 [facility] Hemoglobin A1c percentageOrd ered By: Sadiq Floyd on 09-08-2023 HbA1c (Bld) [Mass fraction] 7.7 % 4.3-5.6 [facility] Comment on above: Increased risk for d iabetes: 5.7 - 6.4diabetes: >6.4glycemic control for adults with diabetes: <7.0 Hemoglobin [Mass/volume] in BloodOrdered By: Sadiq Floyd on 09-08-2023 Hemoglobin (Bld) [Mass/Vol] 16.2 g/dL 13.0-17.0 [facility] Ketones Auto test strip (U) [Mass/Vol]Ordered By: Sadiq Floyd on 09-08-2023 Ketones (U) [Mass/Vol] Trace Negative [facility] Laboratory - UrinalysisOrder ed By: Sadiq Floyd on 09-08-2023 Hyaline casts LM Ql (Urine sed) None seen [LPF] 0-8 [facility] Leukocytes [#/volume] correc kishan for nucleated erythrocytes in Blood by Automated counOrdered By: Sadiq Floyd on 09-08-2023 WBC corrected for nucl RBC Auto (Bld) [#/Vol] 10.5 10*3/uL 4.1-10.5 [facility] Lymphocytes Auto (Bld) [#/Vo l]Ordered By: Sadiq Floyd on 09-08-2023 Lymphocytes (Bld) [#/Vol] 2.2 10*3/uL 1.00-4.8 [facility] Lymphocytes/100 WBC Auto (Bl d)Ordered By: Sadiq Floyd on 09-08-2023 Lymphocytes/100 WBC (Bld) 21.3 % . [facility] MCH Auto (RBC) [Entitic mass ]Ordered By: Sadiq Floyd on 09-08-2023 MCH (RBC) [Entitic mass] 32.2 pg 27.5-35.2 [facility] MCHC Auto (RBC) [Mass/Vol]Or dered By: Sadiq Floyd on 09-08-2023 MCHC (RBC) [Mass/Vol] 34.3 g/dL 32.5-35.6 [facility] MCV Auto (RBC) [Entitic vol] Ordered By: Sadiq Floyd on 09-08-2023 MCV (RBC) [Entitic vol] 93.9 fL 83.5-101 [facility] Monocytes Auto (Bld) [#/Vol] Ordered By: Sadiq Floyd on 09-08-2023 Monocytes (Bld) [#/Vol] 0.7 10*3/uL 0.0-0.8 [facility] Monocytes/100 WBC Auto (Bld) Ordered By: Sadiq Floyd on 09-08-2023 Monocytes/100 WBC (Bld) 6.8 % . [facility] Neutrophils Auto (Bld) [#/Vo l]Ordered By: Sadiq Floyd on 09-08-2023 Neutrophils (Bld) [#/Vol] 7.0 10*3/uL 1.8-7.7 [facility] Neutrophils/100 WBC Auto (Bl d)Ordered By: Sadiq Floyd on 09-08-2023 Neutrophils/100 WBC (Bld) 66.8 % . [facility] Nitrite Test strip Ql (U)Ord ered By: Sadiq Floyd on 09-08-2023 Nitrite Ql (U) Negative Negative [facility] No Panel InformationOrdered By: Sadiq Floyd on 09-08-2023 Estimated GFR (CKD-EPI) > 60.0 mL/Min [facility] Creatinine Clearance (Chem N/A [facility] Nucleated erythrocytes [Pres ence] in Blood by Automated countOrdered By: Sadiq Floyd on 09-08-2023 Nucleated RBC Auto Ql (Bld) 0.1 /100{WBC} 0-0.5 [facility] Platelet mean volume Auto (B ld) [Entitic vol]Ordered By: Sadiq Floyd on 09-08-2023 Platelet mean volume (Bld) [Entitic vol] 7.7 fL 6.6-10.1 [facility] Platelets Auto (Bld) [#/Vol] Ordered By: Sadiq Floyd on 09-08-2023 Platelets (Bld) [#/Vol] 287 10*3/uL 150-450 [facility] Potassium [Moles/volume] in Serum or PlasmaOrdered By: Sadiq Floyd on 09-08-2023 Potassium [Moles/Vol] 4.5 mmol/L 3.5-5.1 [facility] Prostate Specific Ag Free [M ass/volume] in Serum or PlasmaOrdered By: Sadiq Floyd on 09-08-2023 Free PSA [Mass/Vol] 0.310 ng/mL [facility] Prostate specific Ag [Mass/v olume] in Serum or PlasmaOrdered By: Sadiq Floyd on 09-08-2023 Prostate specific Ag [Mass/Vol] 1.890 ng/mL 0.000-4.00 0 [facility] Protein Auto test strip (U) [Mass/Vol]Ordered By: Sadiq Floyd on 09-08-2023 Protein (U) [Mass/Vol] Negative Negative [facility] Protein [Mass/volume] in Ser um or PlasmaOrdered By: Sadiq Floyd on 09-08-2023 Protein [Mass/Vol] 6.5 g/dL 6.4-8.9 [facility] RBC Auto (Bld) [#/Vol]Ordere d By: Sadiq Floyd on 09-08-2023 RBC (Bld) [#/Vol] 5.03 10*6/uL 3.90-5.60 [facility] Serum or plasma albumin/glob ulin mass ratioOrdered By: Sadiq Floyd on 09-08-2023 Albumin/Globulin [Mass ratio] 2.0 {ratio} [facility] Serum or plasma anion gap de terminationOrdered By: Sadiq Floyd on 09-08-2023 Anion gap [Moles/Vol] 10.6 mmol/L 6.0-15.0 [facility] Serum or plasma free prostat e specific antigen (PSA)/total PSA ratioOrdered By: Sadiq Floyd on 09-08-2023 Free PSA/Total PSA [Mass fraction] 16.4 % [facility] Comment on above: Based on the work of Parviz et al.FLORINA. 279(19):1542:47.1998 the percent free PSA may be used to determine the relative risk of prostate cancer in individual men.The percent probability of prostate cancer by patient age for men with non-suspicious ALISIA results and total PSa between 4 and 10 ng/ml is as follows:% Free PSA 50 - 64 yrs. 65 - 75 yrs. 0 - 10 56% 55% 10 - 15 24% 35% 15 - 20 17% 23% 20 - 25 10% 20% >25 5% 9% Serum or plasma high density lipoprotein (HDL) cholesterol measurementOrdered By: Sadiq Floyd on 09-08-2023 Cholesterol in HDL [Mass/Vol] 38 mg/dL 23-92 [facility] Comment on above: HDL CHOL ATP-III CLA SSIFICATION Cardiovascular RiskHDL > or equal to 60 mg/dL LOWHDL < 40 mg/dL HIGH Serum or plasma total choles terol/high density lipoprotein (HDL) cholesterol mass ratOrdered By: Sadiq Floyd on 09-08-2023 Cholesterol.total/Cho lesterol in HDL [Mass ratio] 3.4 {ratio} <5.0 [facility] Sodium [Moles/volume] in Ser um or PlasmaOrdered By: Sadiq Floyd on 09-08-2023 Sodium [Moles/Vol] 137 mmol/L 136-145 [facility] Specific gravity Auto test s trip (U) [Rel density]Ordered By: Sadiq Floyd on 09-08-2023 Specific gravity (U) [Rel density] 1.033 1.001-1.03 0 [facility] Squamous epithelial cells de tection in urine sediment by light microscopyOrdered By: Sadiq Floyd on 09-08-2023 Epithelial cells.squamous LM Ql (Urine sed) None seen [HPF] 0-2 [facility] Triglyceride [Mass/volume] i n Serum or PlasmaOrdered By: Sadiq Floyd on 09-08-2023 Triglyceride [Mass/Vol] 233 mg/dL 0-149 [facility] Comment on above: TRIG ATP III CLASSIF ICATIONTRIG less than 150 mg/dL NormalTRIG 150-199 mg/dL Borderline highTRIG 200-500 mg/dL High TRIG greater than 500 mg/dL Very highStandard traceable to the Center for Disease Conrtrol and Prevention (CDC) test method. Urea nitrogen [Mass/volume] in Serum or PlasmaOrdered By: Sadiq Floyd on 09-08-2023 Urea nitrogen [Mass/Vol] 18 mg/dL 7-25 [facility] Urine bacteria detection by automated methodOrdered By: Sadiq Floyd on 09-08-2023 Bacteria Auto Ql (U) None seen None Seen [facility] Urine clarity by refractomet ry automatedOrdered By: Sadiq Floyd on 09-08-2023 Clarity Refractometry automated (U) Clear Clear [facility] Urine culture routineOrdered By: Sadiq Floyd on 09-08-2023 Bacteria identified Cx Nom (U) No Growth 2 Days [facility] Urine glucose measurement by automated test strip (mass/volume)Ordered By: Sadiq Floyd on 09-08-2023 Glucose Auto test strip (U) [Mass/Vol] >=1000 mg/dL Normal [facility] Urine hemoglobin detection b y automated test stripOrdered By: Sadiq Floyd on 09-08-2023 Hemoglobin Auto test strip Ql (U) Negative Negative [facility] Urine leukocyte esterase det ection by automated test stripOrdered By: Sadiq Floyd on 09-08-2023 Leukocyte esterase Auto test strip Ql (U) Negative Negative [facility] Urobilinogen Auto test strip (U) [Mass/Vol]Ordered By: Sadiq Floyd on 09-08-2023 Urobilinogen (U) [Mass/Vol] Normal mg/dL Normal [facility] WBC Auto (Bld) [#/Vol]Ordere d By: Sadiq Floyd on 09-08-2023 WBC (Bld) [#/Vol] 10.5 10*3/uL 4.1-10.5 [facility] pH Auto test strip (U)Ordere d By: Sadiq Floyd on 09-08-2023 pH (U) 5.0 [pH] 5.0-9.0 [facility] Prostate Specific Ag Free [M ass/volume] in Serum or PlasmaOrdered By: Susanna Paulino on 05-12-2023 Free PSA [Mass/Vol] 0.350 ng/mL [facility] Prostate specific Ag [Mass/v olume] in Serum or PlasmaOrdered By: Susanna Paulino on 05-12-2023 Prostate specific Ag [Mass/Vol] 1.880 ng/mL 0.000-4.00 0 [facility] Serum or plasma free prostat e specific antigen (PSA)/total PSA ratioOrdered By: Susanna Paulino on 05-12-2023 Free PSA/Total PSA [Mass fraction] 18.6 % [facility] Comment on above: Based on the work of Parviz et al.FLORINA. 27919):1542:47.1998 the percent free PSA may be used to determine the relative risk of prostate cancer in individual men.The percent probability of prostate cancer by patient age for men with non-suspicious ALISIA results and total PSa between 4 and 10 ng/ml is as follows:% Free PSA 50 - 64 yrs. 65 - 75 yrs. 0 - 10 56% 55% 10 - 15 24% 35% 15 - 20 17% 23% 20 - 25 10% 20% >25 5% 9% BILATERAL WRIST COMPLT; MIN 3 VIEWSon 03-31-2023 BILATERAL WRIST COMPLT; MIN 3 VIEWS Patient Name: MARIANA BARNES STUDY: BILATERAL WRIST COMPLT; MIN 3 VIEWS; 03/31/2023 3:22 pm INDICATION: B wrist pain M25.539: Wrist pain. COMPARISON: None. ACCESSION NUMBER(S): [id number] ORDERING CLINICIAN: LUIS EDUARDO GUALLPA FINDINGS: No acute fracture is identified. No dislocation is seen. There are no lytic or blastic lesions. No radiopaque foreign bodies are noted. 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 IMPRESSION: No radiographic evidence of an acute fracture. 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 Electronically signed by: HUNG PEREIRA MD Normal [facility] Radiologyon 03-31-2023 XR Wrist - bilateral 3 Views Please click on the link to view the study images Normal [facility] [address] Work Phone: XR Wrist - bilateral 3 Views Normal [facility] [address] Work Phone: Alanine aminotransferase [En zymatic activity/volume] in Serum or PlasmaOrdered By: Sadiq Floyd on 03-10-2023 ALT [Catalytic activity/Vol] 30 U/L 7-52 [facility] Albumin [Mass/volume] in Ser um or Plasma by Bromocresol green (BCG) dye binding methoOrdered By: Sadiq Floyd on 03-10-2023 Albumin BCG dye [Mass/Vol] 4.0 g/dL 3.5-5.7 [facility] Alkaline phosphatase [Enzyma tic activity/volume] in Serum or PlasmaOrdered By: Sadiq Floyd on 03-10-2023 ALP [Catalytic activity/Vol] 78 U/L 34-104 [facility] Aspartate aminotransferase [ Enzymatic activity/volume] in Serum or PlasmaOrdered By: Sadiq Floyd on 03-10-2023 AST [Catalytic activity/Vol] 19 U/L 13-39 [facility] Basophils Auto (Bld) [#/Vol] Ordered By: Sadiq Floyd on 03-10-2023 Basophils (Bld) [#/Vol] 0.1 10*3/uL 0.0-0.2 [facility] Basophils/100 WBC Auto (Bld) Ordered By: Sadiq Floyd on 03-10-2023 Basophils/100 WBC (Bld) 1.0 % . [facility] Bilirubin.total [Mass/volume ] in Serum or PlasmaOrdered By: Sadiq Floyd on 03-10-2023 Bilirubin [Mass/Vol] 0.6 mg/dL 0.3-1.0 [facility] Calcium [Mass/volume] in Ser um or PlasmaOrdered By: Sadiq Flyod on 03-10-2023 Calcium [Mass/Vol] 9.1 mg/dL 8.6-10.3 [facility] Carbon dioxide, total [Moles /volume] in Serum or PlasmaOrdered By: Sadiq Floyd on 03-10-2023 CO2 [Moles/Vol] 25.6 mmol/L 21.0-31.0 [facility] Chloride [Moles/volume] in S maryjane or PlasmaOrdered By: Sadiq Floyd on 03-10-2023 Chloride [Moles/Vol] 104 mmol/L 98-107 [facility] Cholesterol [Mass/volume] in Serum or PlasmaOrdered By: Sadiq Floyd on 03-10-2023 Cholesterol [Mass/Vol] 113 mg/dL 140-200 [facility] Comment on above: Chol less than 200 m g/dl low riskChol 201-239 mg/dl borderline riskChol 240 mg/dl and greater high risk Cholesterol in LDL Calc [Mas s/Vol]Ordered By: Sadiq Floyd on 03-10-2023 Cholesterol in LDL [Mass/Vol] 43 mg/dL 0-100 [facility] Comment on above: LDL ATP III CLASSIFI CATIONLDL less than 100 mg/dL OptimalLDL 100-129 mg/dL Near or above optimalLDL 130-159 mg/dL Borderline highLDL 160-189 mg/dL HighLDL greater than 189 mg/dL Very high Cholesterol in VLDL Calc [Ma ss/Vol]Ordered By: Sadiq Floyd on 03-10-2023 Cholesterol in VLDL [Mass/Vol] 31 mg/dL [facility] Creatinine [Mass/volume] in Serum or PlasmaOrdered By: Sadiq Floyd on 03-10-2023 Creatinine [Mass/Vol] 0.68 mg/dL 0.70-1.30 [facility] Eosinophils Auto (Bld) [#/Vo l]Ordered By: Sadiq Floyd on 03-10-2023 Eosinophils (Bld) [#/Vol] 0.1 10*3/uL 0.0-0.45 [facility] Eosinophils/100 WBC Auto (Bl d)Ordered By: Sadiq Floyd on 03-10-2023 Eosinophils/100 WBC (Bld) 2.2 % . [facility] Erythrocyte distribution wid th Auto (RBC) [Ratio]Ordered By: Sadiq Floyd on 03-10-2023 Erythrocyte distribution width (RBC) [Ratio] 13.5 % 12.0-14.8 [facility] Globulin Calc (S) [Mass/Vol] Ordered By: Sadiq Floyd on 03-10-2023 Globulin (S) [Mass/Vol] 2.1 g/dL [facility] Glucose [Mass/volume] in Ser um or PlasmaOrdered By: Sadiq Floyd on 03-10-2023 Glucose [Mass/Vol] 169 mg/dL 70-100 [facility] Comment on above: ADA recommended refe rence rangeRandom Glucose Reference Range is dependent on time and content of last meal. Glucose of more than 200 mg/dL in a nonstressed, ambulatory subject supports the diagnosis of Diabetes Mellitus. Glucose mean value [Mass/vol ume] in Blood Estimated from glycated hemoglobinOrdered By: Sadiq Floyd on 03-10-2023 Average glucose Estimated from glycated hemoglobin (Bld) [Mass/Vol] 171 mg/dL [facility] Hematocrit Auto (Bld) [Volum e fraction]Ordered By: Sadiq Floyd on 03-10-2023 Hematocrit (Bld) [Volume fraction] 43.6 % 38.8-50.0 [facility] Hemoglobin A1c percentageOrd ered By: Sadiq Floyd on 03-10-2023 HbA1c (Bld) [Mass fraction] 7.6 % 4.3-5.6 [facility] Comment on above: Increased risk for d iabetes: 5.7 - 6.4diabetes: >6.4glycemic control for adults with diabetes: <7.0 Hemoglobin [Mass/volume] in BloodOrdered By: Sadiq Floyd on 03-10-2023 Hemoglobin (Bld) [Mass/Vol] 15.0 g/dL 13.0-17.0 [facility] Leukocytes [#/volume] correc kishan for nucleated erythrocytes in Blood by Automated counOrdered By: Sadiq Floyd on 03-10-2023 WBC corrected for nucl RBC Auto (Bld) [#/Vol] 6.5 10*3/uL 4.1-10.5 [facility] Lymphocytes Auto (Bld) [#/Vo l]Ordered By: Sadiq Floyd on 03-10-2023 Lymphocytes (Bld) [#/Vol] 2.0 10*3/uL 1.00-4.8 [facility] Lymphocytes/100 WBC Auto (Bl d)Ordered By: Sadiq Floyd on 03-10-2023 Lymphocytes/100 WBC (Bld) 30.8 % . [facility] MCH Auto (RBC) [Entitic mass ]Ordered By: Sadiq Floyd on 03-10-2023 MCH (RBC) [Entitic mass] 32.2 pg 27.5-35.2 [facility] MCHC Auto (RBC) [Mass/Vol]Or dered By: Sadiq Floyd on 03-10-2023 MCHC (RBC) [Mass/Vol] 34.4 g/dL 32.5-35.6 [facility] MCV Auto (RBC) [Entitic vol] Ordered By: Sadiq Floyd on 03-10-2023 MCV (RBC) [Entitic vol] 93.5 fL 83.5-101 [facility] Microalbumin [Mass/volume] i n UrineOrdered By: Sadiq Floyd on 03-10-2023 Albumin DL <= 20 mg/L (U) [Mass/Vol] mg/dL 0.0-1.8 [facility] Monocytes Auto (Bld) [#/Vol] Ordered By: Sadiq Floyd on 03-10-2023 Monocytes (Bld) [#/Vol] 0.4 10*3/uL 0.0-0.8 [facility] Monocytes/100 WBC Auto (Bld) Ordered By: Sadiq Floyd on 03-10-2023 Monocytes/100 WBC (Bld) 5.9 % . [facility] Neutrophils Auto (Bld) [#/Vo l]Ordered By: Sadiq Floyd on 03-10-2023 Neutrophils (Bld) [#/Vol] 3.9 10*3/uL 1.8-7.7 [facility] Neutrophils/100 WBC Auto (Bl d)Ordered By: Sadiq Floyd on 03-10-2023 Neutrophils/100 WBC (Bld) 60.1 % . [facility] No Panel InformationOrdered By: Sadiq Floyd on 03-10-2023 Estimated GFR (CKD-EPI) > 60.0 mL/Min [facility] Pharmacy Creatinine Clearance (Chem N/A [facility] Nucleated erythrocytes [Pres ence] in Blood by Automated countOrdered By: Sadiq Floyd on 03-10-2023 Nucleated RBC Auto Ql (Bld) 0.0 /100{WBC} 0-0.5 [facility] Platelet mean volume Auto (B ld) [Entitic vol]Ordered By: Sadiq Floyd on 03-10-2023 Platelet mean volume (Bld) [Entitic vol] 8.3 fL 6.6-10.1 [facility] Platelets Auto (Bld) [#/Vol] Ordered By: Sadiq Floyd on 03-10-2023 Platelets (Bld) [#/Vol] 269 10*3/uL 150-450 [facility] Potassium [Moles/volume] in Serum or PlasmaOrdered By: Sadiq Floyd on 03-10-2023 Potassium [Moles/Vol] 4.5 mmol/L 3.5-5.1 [facility] Prostate Specific Ag Free [M ass/volume] in Serum or PlasmaOrdered By: Sadiq Floyd on 03-10-2023 Free PSA [Mass/Vol] 0.400 ng/mL [facility] Prostate specific Ag [Mass/v olume] in Serum or PlasmaOrdered By: Sadiq Floyd on 03-10-2023 Prostate specific Ag [Mass/Vol] 1.640 ng/mL 0.000-4.00 0 [facility] Protein [Mass/volume] in Ser um or PlasmaOrdered By: Sadiq Floyd on 03-10-2023 Protein [Mass/Vol] 6.1 g/dL 6.4-8.9 [facility] RBC Auto (Bld) [#/Vol]Ordere d By: Sadiq Floyd on 03-10-2023 RBC (Bld) [#/Vol] 4.66 10*6/uL 3.90-5.60 [facility] Serum or plasma albumin/glob ulin mass ratioOrdered By: Sadiq Floyd on 03-10-2023 Albumin/Globulin [Mass ratio] 1.9 {ratio} [facility] Serum or plasma anion gap de terminationOrdered By: Sadiq Floyd on 03-10-2023 Anion gap [Moles/Vol] 11.9 mmol/L 6.0-15.0 [facility] Serum or plasma free prostat e specific antigen (PSA)/total PSA ratioOrdered By: Sadiq Floyd on 03-10-2023 Free PSA/Total PSA [Mass fraction] 24.3 % [facility] Comment on above: Based on the work of Parviz et al.FLORINA. 279(19):1542:47.1998 the percent free PSA may be used to determine the relative risk of prostate cancer in individual men.The percent probability of prostate cancer by patient age for men with non-suspicious ALISIA results and total PSa between 4 and 10 ng/ml is as follows:% Free PSA 50 - 64 yrs. 65 - 75 yrs. 0 - 10 56% 55% 10 - 15 24% 35% 15 - 20 17% 23% 20 - 25 10% 20% >25 5% 9% Serum or plasma high density lipoprotein (HDL) cholesterol measurementOrdered By: Sadiq Floyd on 03-10-2023 Cholesterol in HDL [Mass/Vol] 38 mg/dL 29-71 [facility] Comment on above: HDL CHOL ATP-III CLA SSIFICATION Cardiovascular RiskHDL > or equal to 60 mg/dL LOWHDL < 40 mg/dL HIGH Serum or plasma total choles terol/high density lipoprotein (HDL) cholesterol mass ratOrdered By: Sadiq Floyd on 03-10-2023 Cholesterol.total/Cho lesterol in HDL [Mass ratio] 3.0 {ratio} <5.0 [facility] Sodium [Moles/volume] in Ser um or PlasmaOrdered By: Sadiq Floyd on 03-10-2023 Sodium [Moles/Vol] 137 mmol/L 136-145 [facility] Thyrotropin [Units/volume] i n Serum or PlasmaOrdered By: Sadiq Floyd on 03-10-2023 TSH Qn 1.04 m[IU]/L 0.45-5.33 [facility] Triglyceride [Mass/volume] i n Serum or PlasmaOrdered By: Sadiq Floyd on 03-10-2023 Triglyceride [Mass/Vol] 158 mg/dL 0-149 [facility] Comment on above: TRIG ATP III CLASSIF ICATIONTRIG less than 150 mg/dL NormalTRIG 150-199 mg/dL Borderline highTRIG 200-500 mg/dL High TRIG greater than 500 mg/dL Very highStandard traceable to the Center for Disease Conrtrol and Prevention (CDC) test method. Urea nitrogen [Mass/volume] in Serum or PlasmaOrdered By: Sadiq Floyd on 03-10-2023 Urea nitrogen [Mass/Vol] 17 mg/dL 7-25 [facility] WBC Auto (Bld) [#/Vol]Ordere d By: Sadiq Floyd on 03-10-2023 WBC (Bld) [#/Vol] 6.5 10*3/uL 4.1-10.5 [facility] Albumin [Mass/volume] in Ser um or PlasmaOrdered By: Sadiq Floyd on 09-08-2022 Albumin [Mass/Vol] 3.6 g/dL 3.2-5.5 [facility] Basophils Auto (Bld) [#/Vol] Ordered By: Sadiq Floyd on 09-08-2022 Basophils (Bld) [#/Vol] 0.1 10*3/uL 0.0-0.2 [facility] Basophils/100 WBC Auto (Bld) Ordered By: Sadiq Floyd on 09-08-2022 Basophils/100 WBC (Bld) 1.3 % . [facility] Bilirubin Test strip Ql (U)O rdered By: Sadiq Floyd on 09-08-2022 Bilirubin Ql (U) Negative Negative [facility] Cholesterol [Mass/volume] in Serum or PlasmaOrdered By: Sadiq Floyd on 09-08-2022 Cholesterol [Mass/Vol] 110 mg/dL 140-200 [facility] Comment on above: Chol less than 200 m g/dl low riskChol 201-239 mg/dl borderline riskChol 240 mg/dl and greater high risk Cholesterol in LDL Calc [Mas s/Vol]Ordered By: Sadiq Floyd on 09-08-2022 Cholesterol in LDL [Mass/Vol] 34 mg/dL 0-100 [facility] Comment on above: LDL ATP III CLASSIFI CATIONLDL less than 100 mg/dL OptimalLDL 100-129 mg/dL Near or above optimalLDL 130-159 mg/dL Borderline highLDL 160-189 mg/dL HighLDL greater than 189 mg/dL Very high Cholesterol in VLDL Calc [Ma ss/Vol]Ordered By: Sadiq Floyd on 09-08-2022 Cholesterol in VLDL [Mass/Vol] 39 mg/dL [facility] Color Auto (U)Ordered By: Miguel Floyd on 09-08-2022 Color (U) Yellow Yellow [facility] Creatinine and Glomerular fi ltration rate.predicted panel (S/P/Bld)Ordered By: Sadiq Floyd on 09-08-2022 Creatinine [Mass/Vol] 0.77 mg/dL 0.64-1.27 [facility] Eosinophils Auto (Bld) [#/Vo l]Ordered By: Sadiq Floyd on 09-08-2022 Eosinophils (Bld) [#/Vol] 0.2 10*3/uL 0.0-0.45 [facility] Eosinophils/100 WBC Auto (Bl d)Ordered By: Sadiq Floyd on 09-08-2022 Eosinophils/100 WBC (Bld) 2.1 % . [facility] Erythrocyte distribution wid th Auto (RBC) [Ratio]Ordered By: Sadiq Floyd on 09-08-2022 Erythrocyte distribution width (RBC) [Ratio] 13.3 % 12.0-14.8 [facility] Estimated glomerular filtrat ion rate (GFR) non- AmericanOrdered By: Sadiq Floyd on 09-08-2022 GFR/1.73 sq M.predicted among non-blacks MDRD (S/P/Bld) [Vol rate/Area] > 60 mL/Min [facility] Globulin Calc (S) [Mass/Vol] Ordered By: Sadiq Floyd on 09-08-2022 Globulin (S) [Mass/Vol] 2.5 g/dL [facility] Hematocrit Auto (Bld) [Volum e fraction]Ordered By: Sadiq Floyd on 09-08-2022 Hematocrit (Bld) [Volume fraction] 45.5 % 38.8-50.0 [facility] Hemoglobin [Mass/volume] in BloodOrdered By: Sadiq Floyd on 09-08-2022 Hemoglobin (Bld) [Mass/Vol] 15.5 g/dL 13.0-17.0 [facility] Ketones Auto test strip (U) [Mass/Vol]Ordered By: Sadiq Floyd on 09-08-2022 Ketones (U) [Mass/Vol] Negative Negative [facility] Laboratory - Hematology and Cell countsOrdered By: Sadiq Floyd on 09-08-2022 Nucleated RBC/100 WBC (Bld) [Ratio] 0.2 % 0-0.5 [facility] Leukocytes [#/volume] in Blo od by Automated countOrdered By: Sadiq Floyd on 09-08-2022 WBC (Bld) [#/Vol] 8.2 10*3/uL 4.5-11.0 [facility] Lymphocytes Auto (Bld) [#/Vo l]Ordered By: Sadiq Floyd on 09-08-2022 Lymphocytes (Bld) [#/Vol] 2.4 10*3/uL 1.00-4.8 [facility] Lymphocytes/100 WBC Auto (Bl d)Ordered By: Sadiq Floyd on 09-08-2022 Lymphocytes/100 WBC (Bld) 29.5 % . [facility] MCH Auto (RBC) [Entitic mass ]Ordered By: Sadiq Floyd on 09-08-2022 MCH (RBC) [Entitic mass] 32.3 pg 27.5-35.2 [facility] MCHC Auto (RBC) [Mass/Vol]Or dered By: Sadiq Floyd on 09-08-2022 MCHC (RBC) [Mass/Vol] 34.0 g/dL 32.5-35.6 [facility] MCV Auto (RBC) [Entitic vol] Ordered By: Sadiq Floyd on 09-08-2022 MCV (RBC) [Entitic vol] 94.9 fL 83.5-101 [facility] Monocytes Auto (Bld) [#/Vol] Ordered By: Sadiq Floyd on 09-08-2022 Monocytes (Bld) [#/Vol] 0.6 10*3/uL 0.0-0.8 [facility] Monocytes/100 WBC Auto (Bld) Ordered By: Sadiq Floyd on 09-08-2022 Monocytes/100 WBC (Bld) 7.0 % . [facility] Neutrophils Auto (Bld) [#/Vo l]Ordered By: Sadiq Floyd on 09-08-2022 Neutrophils (Bld) [#/Vol] 4.9 10*3/uL 1.8-7.7 [facility] Neutrophils/100 WBC Auto (Bl d)Ordered By: Sadiq Floyd on 09-08-2022 Neutrophils/100 WBC (Bld) 60.1 % . [facility] Nitrite Test strip Ql (U)Ord ered By: Sadiq Floyd on 09-08-2022 Nitrite Ql (U) Negative Negative [facility] No Panel InformationOrdered By: Sadiq Floyd on 09-08-2022 Estimated GFR () > 60 mL/Min [facility] Comment on above: GFR estimated refere nce range: According to KDOQI guidelines, <60 ml/min/1.73m2 is sufficient to diagnose a patient with chronic kidney disease. Pharmacy Creatinine Clearance (Chem N/A [facility] Prostate Specific Antigen Total 2.110 ng/mL 0.000-4.00 0 [facility] Platelet mean volume Auto (B ld) [Entitic vol]Ordered By: Sadiq Floyd on 09-08-2022 Platelet mean volume (Bld) [Entitic vol] 8.2 fL 6.6-10.1 [facility] Platelets Auto (Bld) [#/Vol] Ordered By: Sadiq Floyd on 09-08-2022 Platelets (Bld) [#/Vol] 312 10*3/uL 150-450 [facility] Protein Auto test strip (U) [Mass/Vol]Ordered By: Sadiq Floyd on 09-08-2022 Protein (U) [Mass/Vol] Negative Negative [facility] Protein [Mass/volume] in Ser um or PlasmaOrdered By: Sadiq Floyd on 09-08-2022 Protein [Mass/Vol] 6.1 g/dL 6.1-7.9 [facility] RBC Auto (Bld) [#/Vol]Ordere d By: Sadiq Floyd on 09-08-2022 RBC (Bld) [#/Vol] 4.80 10*6/uL 3.90-5.60 [facility] Serum or plasma alanine mehta otransferase measurement without P-5'-P (enzymatic activiOrdered By: Sadiq Floyd on 09-08-2022 ALT No additional P-5'-P [Catalytic activity/Vol] 40 U/L 10-60 [facility] Serum or plasma albumin/glob ulin mass ratioOrdered By: Sadiq Floyd on 09-08-2022 Albumin/Globulin [Mass ratio] 1.4 {ratio} [facility] [facility] Serum or plasma alkaline jessica sphatase measurement (enzymatic activity/volume)Ordered By: Sadiq Floyd on 09-08-2022 ALP [Catalytic activity/Vol] 77 U/L 32-92 [facility] Serum or plasma anion gap de terminationOrdered By: Sadiq Floyd on 09-08-2022 Anion gap [Moles/Vol] 10.5 mmol/L 6.0-15.0 [facility] Serum or plasma aspartate am inotransferase measurement (enzymatic activity/volume)Ordered By: Sadiq Floyd on 09-08-2022 AST [Catalytic activity/Vol] 24 U/L 10-42 [facility] Serum or plasma calcium marlene urement (mass/volume)Ordered By: Sadiq Floyd on 09-08-2022 Calcium [Mass/Vol] 9.3 mg/dL 8.2-10.2 [facility] Serum or plasma chloride pavel surement (moles/volume)Ordered By: Sadiq Floyd on 09-08-2022 Chloride [Moles/Vol] 101 mmol/L 95-114 [facility] Serum or plasma free prostat e specific antigen (PSA)/total PSA ratioOrdered By: Sadiq Floyd on 09-08-2022 Free PSA/Total PSA [Mass fraction] 16.0 % [facility] Comment on above: Based on the work of Parviz et al.FLORINA. [id number] the percent free PSA may be used to determine the relative risk of prostate cancer in individual men.The percent probability of prostate cancer by patient age for men with non-suspicious ALISIA results and total PSa between 4 and 10 ng/ml is as follows:% Free PSA 50 - 64 yrs. 65 - 75 yrs. 0 - 10 56% 55% 10 - 15 24% 35% 15 - 20 17% 23% 20 - 25 10% 20% >25 5% 9% Serum or plasma free prostat e specific antigen measurement (mass/volume)Ordered By: Sadiq Floyd on 09-08-2022 Free PSA [Mass/Vol] 0.350 ng/mL [facility] Serum or plasma glucose marlene urement (mass/volume)Ordered By: Sadiq Floyd on 09-08-2022 Glucose [Mass/Vol] 136 mg/dL 70-100 [facility] Comment on above: ADA recommended refe rence rangeRandom Glucose Reference Range is dependent on time and content of last meal. Glucose of more than 200 mg/dL in a nonstressed, ambulatory subject supports the diagnosis of Diabetes Mellitus. Serum or plasma high density lipoprotein (HDL) cholesterol measurementOrdered By: Sadiq Floyd on 09-08-2022 Cholesterol in HDL [Mass/Vol] 37 mg/dL 29-71 [facility] Comment on above: HDL CHOL ATP-III CLA SSIFICATION Cardiovascular RiskHDL > or equal to 60 mg/dL LOWHDL < 40 mg/dL HIGH Serum or plasma potassium me asurement (moles/volume)Ordered By: Sadiq Floyd on 09-08-2022 Potassium [Moles/Vol] 4.4 mmol/L 3.5-5.1 [facility] Serum or plasma sodium measu rement (moles/volume)Ordered By: Sadiq Floyd on 09-08-2022 Sodium [Moles/Vol] 135 mmol/L 136-146 [facility] Serum or plasma total biliru bin measurement (mass/volume)Ordered By: Sadiq Floyd on 09-08-2022 Bilirubin [Mass/Vol] 0.7 mg/dL 0.3-1.2 [facility] Serum or plasma total carbon dioxide measurement (moles/volume)Ordered By: Sadiq Floyd on 09-08-2022 CO2 [Moles/Vol] 27.9 mmol/L 22.0-30.0 [facility] Serum or plasma total choles terol/high density lipoprotein (HDL) cholesterol mass ratOrdered By: Sadiq Floyd on 09-08-2022 Cholesterol.total/Cho lesterol in HDL [Mass ratio] 3.0 {ratio} <5.0 [facility] Serum or plasma urea nitroge n measurement (mass/volume)Ordered By: Sadiq Floyd on 09-08-2022 Urea nitrogen [Mass/Vol] 16 mg/dL 07-10 [facility] Specific gravity Auto test s trip (U) [Rel density]Ordered By: Sadiq Floyd on 09-08-2022 Specific gravity (U) [Rel density] 1.021 1.001-1.03 0 [facility] TSH DL <= 0.005 mIU/L QnOrde red By: Sadiq Floyd on 09-08-2022 TSH Qn 1.02 m[IU]/L 0.45-5.33 [facility] Triglyceride [Mass/volume] i n Serum or PlasmaOrdered By: Sadiq Floyd on 09-08-2022 Triglyceride [Mass/Vol] 197 mg/dL 35-149 [facility] Comment on above: TRIG ATP III CLASSIF ICATIONTRIG less than 150 mg/dL NormalTRIG 150-199 mg/dL Borderline highTRIG 200-500 mg/dL High TRIG greater than 500 mg/dL Very highStandard traceable to the Center for Disease Conrtrol and Prevention (CDC) test method. Urine clarity by refractomet ry automatedOrdered By: Sadiq Floyd on 09-08-2022 Clarity Refractometry automated (U) Clear Clear [facility] Urine glucose measurement by automated test strip (mass/volume)Ordered By: Sadiq Floyd on 09-08-2022 Glucose Auto test strip (U) [Mass/Vol] Normal mg/dL Normal [facility] Urine hemoglobin detection b y automated test stripOrdered By: Sadiq Floyd on 09-08-2022 Hemoglobin Auto test strip Ql (U) Negative Negative [facility] Urine leukocyte esterase det ection by automated test stripOrdered By: Sadiq Floyd on 09-08-2022 Leukocyte esterase Auto test strip Ql (U) Negative Negative [facility] Urobilinogen Auto test strip (U) [Mass/Vol]Ordered By: Sadiq Floyd on 09-08-2022 Urobilinogen (U) [Mass/Vol] Normal mg/dL Normal [facility] pH Auto test strip (U)Ordere d By: Sadiq Floyd on 09-08-2022 pH (U) 5.0 [pH] 5.0-9.0 [facility] Vital Signs Date Time Vital Sign Value Performing Clinician Facility 07-30-2025 14:06-0400 Body height 172.72 cm Sadiq Floyd DO Work Phone: [facility] 07-30-2025 14:06-0400 Body mass index (BMI) [Ratio] 29.5 kg/m2 Sadiq Floyd DO Work Phone: [facility] 07-30-2025 14:06-0400 Body weight 87.99 kg Sadiq Floyd DO Work Phone: [facility] 07-30-2025 14:06-0400 Diastolic blood pressure 74 mm[Hg] Sadiq Floyd DO Work Phone: [facility] 07-30-2025 14:06-0400 Heart rate 110 /min Sadiq Floyd DO Work Phone: [facility] 07-30-2025 14:06-0400 Respiratory rate 18 /min Sadiq Floyd DO Work Phone: [facility] 07-30-2025 14:06-0400 SaO2% (BldA) [Mass fraction] 97 % Sadiq Floyd DO Work Phone: [facility] 07-30-2025 14:06-0400 Systolic blood pressure 118 mm[Hg] Sadiq Floyd DO Work Phone: [facility] 07-16-2025 09:41-0400 Body height 172.72 cm Sadiq Floyd DO Work Phone: [facility] 07-16-2025 09:41-0400 Body mass index (BMI) [Ratio] 29.3 kg/m2 Sadiq Floyd DO Work Phone: [facility] 07-16-2025 09:41-0400 Body temperature 98.8 [degF] Sadiq Floyd DO Work Phone: [facility] 07-16-2025 09:41-0400 Body weight 87.54 kg Sadiq Floyd DO Work Phone: [facility] 07-16-2025 09:41-0400 Diastolic blood pressure 82 mm[Hg] Sadiq Floyd DO Work Phone: [facility] 07-16-2025 09:41-0400 Heart rate 86 /min Sadiq Floyd DO Work Phone: [facility] 07-16-2025 09:41-0400 Respiratory rate 18 /min Sadiq Floyd DO Work Phone: [facility] 07-16-2025 09:41-0400 SaO2% (BldA) [Mass fraction] 97 % Sadiq Floyd DO Work Phone: [facility] 07-16-2025 09:41-0400 Systolic blood pressure 118 mm[Hg] Sadiq Floyd DO Work Phone: [facility] 07-02-2025 14:12-0400 Body height 172.72 cm Sadiq Floyd DO Work Phone: [facility] 07-02-2025 14:12-0400 Body mass index (BMI) [Ratio] 29.3 kg/m2 Sadiq Floyd DO Work Phone: [facility] 07-02-2025 14:12-0400 Body temperature 98.5 [degF] Sadiq Floyd DO Work Phone: [facility] 07-02-2025 14:12-0400 Body weight 87.54 kg Sadiq Floyd DO Work Phone: [facility] 07-02-2025 14:12-0400 Diastolic blood pressure 78 mm[Hg] Sadiq Floyd DO Work Phone: [facility] 07-02-2025 14:12-0400 Heart rate 83 /min Sadiq Floyd DO Work Phone: [facility] 07-02-2025 14:12-0400 SaO2% (BldA) [Mass fraction] 96 % Sadiq Floyd DO Work Phone: [facility] 07-02-2025 14:12-0400 Systolic blood pressure 128 mm[Hg] Sadiq Floyd DO Work Phone: [facility] 06-08-2025 11:23-0400 Body height 172.72 cm Sadiq Floyd DO Work Phone: [facility] 06-08-2025 11:23-0400 Body mass index (BMI) [Ratio] 20.7 kg/m2 Sadiq Floyd DO Work Phone: [facility] 06-08-2025 11:23-0400 Body weight 61.68 kg Sadiq Floyd DO Work Phone: [facility] 06-08-2025 11:23-0400 Diastolic blood pressure 80 mm[Hg] Sadiq Floyd DO Work Phone: [facility] 06-08-2025 11:23-0400 Heart rate 87 /min Sadiq Floyd DO Work Phone: [facility] 06-08-2025 11:23-0400 SaO2% (BldA) [Mass fraction] 96 % Sadiq Floyd DO Work Phone: [facility] 06-08-2025 11:23-0400 Systolic blood pressure 122 mm[Hg] Sadiq Floyd DO Work Phone: [facility] 06-02-2025 19:27-0400 Body temperature 98.1 [degF] Sadiq Flyod DO Work Phone: [facility] 06-02-2025 19:27-0400 Diastolic blood pressure 75 mm[Hg] Sadiq Floyd DO Work Phone: [facility] 06-02-2025 19:27-0400 Heart rate 88 /min Sadiq Floyd DO Work Phone: [facility] 06-02-2025 19:27-0400 Respiratory rate 18 /min Sadiq Floyd DO Work Phone: [facility] 06-02-2025 19:27-0400 SaO2% (BldA) [Mass fraction] 98 % Sadiq Floyd DO Work Phone: [facility] 06-02-2025 19:27-0400 Systolic blood pressure 136 mm[Hg] Sadiq Floyd DO Work Phone: [facility] 06-02-2025 16:49-0400 Body height 172.72 cm Sadiq Floyd DO Work Phone: [facility] 06-02-2025 16:49-0400 Body weight 86.1 kg Sadiq Floyd DO Work Phone: [facility] 04-16-2025 09:22-0400 Body height 172.72 cm Sadiq Floyd DO Work Phone: [facility] 04-16-2025 09:22-0400 Body temperature 98.7 [degF] Sadiq Floyd DO Work Phone: [facility] 04-16-2025 09:22-0400 Diastolic blood pressure 78 mm[Hg] Sadiq Floyd DO Work Phone: [facility] 04-16-2025 09:22-0400 Heart rate 93 /min Sadiq Floyd DO Work Phone: [facility] 04-16-2025 09:22-0400 SaO2% (BldA) [Mass fraction] 96 % Sadiq Floyd DO Work Phone: [facility] 04-16-2025 09:22-0400 Systolic blood pressure 118 mm[Hg] Sadiq Floyd DO Work Phone: [facility] 03-30-2025 11:22-0400 Body height 172.72 cm Sadiq Floyd DO Work Phone: [facility] 03-30-2025 11:22-0400 Body mass index (BMI) [Ratio] 29.5 kg/m2 Sadiq Anahybrina DO Work Phone: [facility] 03-30-2025 11:22-0400 Body weight 87.99 kg Sadiq Devi DO Work Phone: [facility] 03-30-2025 11:22-0400 Diastolic blood pressure 78 mm[Hg] Sadiq Floyd DO Work Phone: [facility] 03-30-2025 11:22-0400 Heart rate 96 /min Sadiq Devi DO Work Phone: [facility] 03-30-2025 11:22-0400 SaO2% (BldA) [Mass fraction] 96 % Sadiq Floyd DO Work Phone: [facility] 03-30-2025 11:22-0400 Systolic blood pressure 132 mm[Hg] Sadiq Floyd DO Work Phone: [facility] 03-05-2025 09:10-0400 Body height 172.72 cm Sadiq Floyd DO Work Phone: [facility] 03-05-2025 09:10-0400 Body mass index (BMI) [Ratio] 29.5 kg/m2 Sadiq Floyd DO Work Phone: [facility] 03-05-2025 09:10-0400 Body weight 87.99 kg Sadiq Higginbothambrina DO Work Phone: [facility] 03-05-2025 09:10-0400 Diastolic blood pressure 82 mm[Hg] Sadiq Higginbothambrina DO Work Phone: [facility] 03-05-2025 09:10-0400 Heart rate 97 /min Sadiq Floyd DO Work Phone: [facility] 03-05-2025 09:10-0400 Respiratory rate 18 /min Sadiq Floyd DO Work Phone: [facility] 03-05-2025 09:10-0400 SaO2% (BldA) [Mass fraction] 95 % Sadiq Floyd DO Work Phone: [facility] 03-05-2025 09:10-0400 Systolic blood pressure 138 mm[Hg] Sadiq Floyd DO Work Phone: [facility] 02-23-2025 09:40-0400 Body height 172.72 cm Sadiq Floyd DO Work Phone: [facility] 02-23-2025 09:40-0400 Body mass index (BMI) [Ratio] 29.5 kg/m2 Sadiq Floyd DO Work Phone: [facility] 02-23-2025 09:40-0400 Body temperature 98.3 [degF] Sadiq Floyd DO Work Phone: [facility] 02-23-2025 09:40-0400 Body weight 87.99 kg Sadiq Floyd DO Work Phone: [facility] 02-23-2025 09:40-0400 Diastolic blood pressure 88 mm[Hg] Sadiq Floyd DO Work Phone: [facility] 02-23-2025 09:40-0400 Heart rate 98 /min Sadiq Floyd DO Work Phone: [facility] 02-23-2025 09:40-0400 SaO2% (BldA) [Mass fraction] 95 % Sadiq Floyd DO Work Phone: [facility] 02-23-2025 09:40-0400 Systolic blood pressure 136 mm[Hg] Sadiq Floyd DO Work Phone: [facility] 02-22-2025 09:26-0400 Diastolic blood pressure 90 mm[Hg] Sadiq Floyd DO Work Phone: [facility] 02-22-2025 09:26-0400 Heart rate 74 /min Sadiq Floyd DO Work Phone: [facility] 02-22-2025 09:26-0400 Respiratory rate 16 /min Sadiq Floyd DO Work Phone: [facility] 02-22-2025 09:26-0400 SaO2% (BldA) [Mass fraction] 95 % Sadiq Floyd DO Work Phone: [facility] 02-22-2025 09:26-0400 Systolic blood pressure 147 mm[Hg] Sadiq Floyd DO Work Phone: [facility] 02-22-2025 09:15-0400 Body height 172.72 cm Sadiq Floyd DO Work Phone: [facility] 02-22-2025 09:15-0400 Body weight 86.18 kg Sadiq Floyd DO Work Phone: [facility] 01-31-2025 09:36-0400 Body height 172.7 cm Arelis Ramirez MD Work Phone: [facility] 01-31-2025 09:36-0400 Body mass index (BMI) [Ratio] 30.41 kg/m2 Arelis Ramirez MD Work Phone: [facility] 01-31-2025 09:36-0400 Body weight 90.72 kg Arelis Ramirez MD Work Phone: [facility] 01-31-2025 09:36-0400 Diastolic blood pressure 88 mm[Hg] Arelis Ramirez MD Work Phone: [facility] 01-31-2025 09:36-0400 Heart rate 79 /min Arelis Ramirez MD Work Phone: [facility] 01-31-2025 09:36-0400 Systolic blood pressure 130 mm[Hg] Arelis Ramirez MD Work Phone: [facility] 10-17-2024 08:31-0500 Body height 172.72 cm Sadiq Floyd DO Work Phone: [facility] 10-17-2024 08:31-0500 Body mass index (BMI) [Ratio] 29.5 kg/m2 Sadiq Floyd DO Work Phone: [facility] 10-17-2024 08:31-0500 Body temperature 97.4 [degF] Sadiq Floyd DO Work Phone: [facility] 10-17-2024 08:31-0500 Body weight 87.99 kg Sadiq Floyd DO Work Phone: [facility] 10-17-2024 08:31-0500 Diastolic blood pressure 80 mm[Hg] Sadiq Floyd DO Work Phone: [facility] 10-17-2024 08:31-0500 Heart rate 103 /min Sadiq Floyd DO Work Phone: [facility] 10-17-2024 08:31-0500 Systolic blood pressure 126 mm[Hg] Sadiq Floyd DO Work Phone: [facility] 08-22-2024 08:59-0500 Body height 172.72 cm DO Sadiq Floyd Work Phone: [facility] 08-22-2024 08:59-0500 Body temperature 98.1 [degF] DO Sadiq Floyd Work Phone: [facility] 08-22-2024 08:59-0500 Diastolic blood pressure 76 mm[Hg] DO Sadiq Floyd Work Phone: [facility] 08-22-2024 08:59-0500 Heart rate 83 /min DO Sadiq Floyd Work Phone: [facility] 08-22-2024 08:59-0500 SaO2% (BldA) [Mass fraction] 95 % DO Sadiq Floyd Work Phone: [facility] 08-22-2024 08:59-0500 Systolic blood pressure 116 mm[Hg] DO Sadiq Floyd Work Phone: [facility] 07-18-2024 09:54-0400 Body height 172.7 cm Arelis Ramirez MD Work Phone: [facility] 07-18-2024 09:54-0400 Body mass index (BMI) [Ratio] 30.41 kg/m2 Arelis Ramirez MD Work Phone: [facility] 07-18-2024 09:54-0400 Body weight 90.72 kg Arelis Ramirez MD Work Phone: [facility] 07-18-2024 09:54-0400 Diastolic blood pressure 72 mm[Hg] Arelis Ramirez MD Work Phone: [facility] 07-18-2024 09:54-0400 Systolic blood pressure 128 mm[Hg] Arelis Ramirez MD Work Phone: [facility] 06-08-2024 09:14-0400 Blood Pressure Location Susanna [facility] 06-08-2024 09:14-0400 Diastolic blood pressure 100 mm[Hg] Susanna Lue [facility] 06-08-2024 09:14-0400 Heart rate 76 /min Susanna Lue [facility] 06-08-2024 09:14-0400 Systolic blood pressure 151 mm[Hg] Susanna Lue [facility] 04-19-2024 11:58-0400 Body height 172.72 cm DO Sadiq Girvin Work Phone: [facility] 04-19-2024 11:58-0400 Body mass index (BMI) [Ratio] 30.4 kg/m2 DO Sadiq Girvin Work Phone: [facility] 04-19-2024 11:58-0400 Body weight 90.71 kg DO Sadiq Girvin Work Phone: [facility] 04-18-2024 11:10-0400 Body height 172.72 cm DO Sadiq Girvin Work Phone: [facility] 04-18-2024 11:10-0400 Body mass index (BMI) [Ratio] 30.4 kg/m2 DO Sadiq Girvin Work Phone: [facility] 04-18-2024 11:10-0400 Body temperature 97.7 [degF] DO Sadiq Girvin Work Phone: [facility] 04-18-2024 11:10-0400 Body weight 90.71 kg DO Sadiq Girvin Work Phone: [facility] 04-18-2024 11:10-0400 Diastolic blood pressure 70 mm[Hg] DO Sadiq Girvin Work Phone: [facility] 04-18-2024 11:10-0400 Heart rate 76 /min DO Sadiq Girvin Work Phone: [facility] 04-18-2024 11:10-0400 Systolic blood pressure 110 mm[Hg] DO Sadiq Girvin Work Phone: [facility] 03-31-2024 09:49-0400 Body height 172.72 cm DO Sadiq Girvin Work Phone: [facility] 03-31-2024 09:49-0400 Body mass index (BMI) [Ratio] 30.4 kg/m2 DO Sadiq Girvin Work Phone: [facility] 03-31-2024 09:49-0400 Body weight 90.71 kg DO Sadiq Girvin Work Phone: [facility] 03-06-2024 09:15-0400 Body height 172.72 cm DO Sadiq Floyd Work Phone: [facility] 03-06-2024 09:15-0400 Body mass index (BMI) [Ratio] 30.5 kg/m2 DO Sadiq Floyd Work Phone: [facility] 03-06-2024 09:15-0400 Body weight 91.17 kg DO Sadiq Floyd Work Phone: [facility] 03-06-2024 09:15-0400 Diastolic blood pressure 84 mm[Hg] DO Sadiq Floyd Work Phone: [facility] 03-06-2024 09:15-0400 Heart rate 84 /min DO Sadiq Floyd Work Phone: [facility] 03-06-2024 09:15-0400 Respiratory rate 18 /min DO Sadiq Floyd Work Phone: [facility] 03-06-2024 09:15-0400 SaO2% (BldA) [Mass fraction] 98 % DO Sadiq Floyd Work Phone: [facility] 03-06-2024 09:15-0400 Systolic blood pressure 112 mm[Hg] DO Sadiq Floyd Work Phone: [facility] 01-03-2024 08:56-0400 Blood Pressure Location Samantha Orzech [facility] 01-03-2024 08:56-0400 Body temperature 97.7 [degF] Samantha Orzech [facility] 01-03-2024 08:56-0400 Diastolic blood pressure 86 mm[Hg] Samantha Orzech [facility] 01-03-2024 08:56-0400 Heart rate 88 /min Samantha Orzech [facility] 01-03-2024 08:56-0400 Systolic blood pressure 128 mm[Hg] Samantha Carltonzeriddhi [facility] 12-16-2023 08:37-0500 Body height 172.72 cm DO Sadiq Floyd Work Phone: [facility] 12-16-2023 08:37-0500 Body weight 91.2 kg DO Sadiq Girbrina Work Phone: [facility] 12-02-2023 08:31-0500 Body height 172.72 cm DO Sadiq Floyd Work Phone: [facility] 12-02-2023 08:31-0500 Body mass index (BMI) [Ratio] 31 kg/m2 DO Sadiq Floyd Work Phone: [facility] 12-02-2023 08:31-0500 Body weight 92.53 kg DO Sadiq Floyd Work Phone: [facility] 12-02-2023 08:31-0500 Diastolic blood pressure 74 mm[Hg] DO Sadiq Floyd Work Phone: [facility] 12-02-2023 08:31-0500 Heart rate 95 /min DO Sadiq Floyd Work Phone: [facility] 12-02-2023 08:31-0500 Respiratory rate 18 /min DO Sadiq Floyd Work Phone: [facility] 12-02-2023 08:31-0500 SaO2% (BldA) [Mass fraction] 98 % DO Sadiq Girbrina Work Phone: [facility] 12-02-2023 08:31-0500 Systolic blood pressure 126 mm[Hg] DO Sadiq Higginbothambrina Work Phone: [facility] 11-26-2023 15:10-0500 Diastolic blood pressure 76 mm[Hg] DO Sadiq Higginbothambrina Work Phone: [facility] 11-26-2023 15:10-0500 Heart rate 83 /min DO Sadiq Floyd Work Phone: [facility] 11-26-2023 15:10-0500 Respiratory rate 18 /min DO Sadiq Floyd Work Phone: [facility] 11-26-2023 15:10-0500 Systolic blood pressure 120 mm[Hg] DO Sadiq Floyd Work Phone: [facility] 11-26-2023 13:25-0500 SaO2% (BldA) [Mass fraction] 95 % DO Sadiq Floyd Work Phone: [facility] 11-26-2023 08:50-0500 Body height 172.72 cm DO Sadiq Floyd Work Phone: [facility] 11-26-2023 08:50-0500 Body temperature 97.2 [degF] DO Sadiq Floyd Work Phone: [facility] 11-26-2023 08:50-0500 Body weight 94.34 kg DO Sadiq Floyd Work Phone: [facility] 11-19-2023 11:44-0500 Body height 172.7 cm Arelis Ramirez MD Work Phone: [facility] 11-19-2023 11:44-0500 Body mass index (BMI) [Ratio] 31.32 kg/m2 Arelis Ramirez MD Work Phone: [facility] 11-19-2023 11:44-0500 Body weight 93.44 kg Arelis Ramirez MD Work Phone: [facility] 11-19-2023 11:44-0500 Diastolic blood pressure 95 mm[Hg] Arelis Ramierz MD Work Phone: [facility] 11-19-2023 11:44-0500 Systolic blood pressure 133 mm[Hg] Arelis Ramirez MD Work Phone: [facility] 11-18-2023 12:01-0500 Diastolic blood pressure 62 mm[Hg] DO Sadiq Floyd Work Phone: [facility] 11-18-2023 12:01-0500 Heart rate 68 /min DO Sadiq Floyd [facility] [facility] 11-18-2023 12:01-0500 Respiratory rate 18 /min DO Sadiq Floyd Work Phone: [facility] 11-18-2023 12:01-0500 Systolic blood pressure 104 mm[Hg] DO Sadiq Floyd Work Phone: [facility] 11-18-2023 09:32-0500 Body height 165.1 cm DO Sadiq Floyd Work Phone: [facility] 11-18-2023 09:32-0500 Body weight 107.04 kg DO Sadiq Floyd Work Phone: [facility] 11-18-2023 09:32-0500 SaO2% (BldA) [Mass fraction] 96 % DO Sadiq Floyd Work Phone: [facility] 10-22-2023 09:00-0500 Body height 172.72 cm Felipe Carlson Other [facility] 10-22-2023 09:00-0500 Body mass index (BMI) [Ratio] 31.62 kg/m2 Felipe Carlson Other [facility] [employer] Other 10-22-2023 09:00-0500 Body weight 94.35 kg Felipe Carlson Other [facility] [employer] Other 10-22-2023 09:00-0500 Body weight 94.34 kg DO Sadiq Floyd Work Phone: [facility] 10-22-2023 09:00-0500 Diastolic blood pressure 84 mm[Hg] Felipe Nickersonia Other [facility] 10-22-2023 09:00-0500 Respiratory rate 18 /min Felipe Carlson Other [facility] [employer] Other 10-22-2023 09:00-0500 SaO2% (BldA) [Mass fraction] 96 % Felipe Carlson Other [facility] [employer] Other 10-22-2023 09:00-0500 Systolic blood pressure 136 mm[Hg] Felipe Carlson Other [facility] 10-12-2023 14:40-0500 Body height 172.72 cm Sadiq Floyd Other [facility] 10-12-2023 14:40-0500 Body mass index (BMI) [Ratio] 31.77 kg/m2 Sadiq Floyd Other [facility] [employer] Other 10-12-2023 14:40-0500 Body temperature 98.9 [degF] Sadiq Floyd Other [facility] [employer] Other 10-12-2023 14:40-0500 Body weight 94.8 kg Sadiq Floyd Other [facility] 10-12-2023 14:40-0500 Diastolic blood pressure 82 mm[Hg] Sadiq Floyd Other [facility] 10-12-2023 14:40-0500 Respiratory rate 18 /min Sadiq Floyd Other [facility] [employer] Other 10-12-2023 14:40-0500 SaO2% (BldA) [Mass fraction] 95 % Sadiq Floyd Other [facility] [employer] Other 10-12-2023 14:40-0500 Systolic blood pressure 114 mm[Hg] Sadiq Floyd Other [facility] 09-30-2023 13:25-0500 Body temperature 98.1 [degF] DO Sadiq Floyd Work Phone: [facility] 09-30-2023 13:25-0500 Diastolic blood pressure 88 mm[Hg] DO Sadiq Girbrina Work Phone: [facility] 09-30-2023 13:25-0500 Heart rate 97 /min DO Sadiq Girvin Work Phone: [facility] 09-30-2023 13:25-0500 Respiratory rate 18 /min DO Sadiq Girbrina Work Phone: [facility] 09-30-2023 13:25-0500 SaO2% (BldA) [Mass fraction] 96 % DO Sadiq Floyd Work Phone: [facility] 09-30-2023 13:25-0500 Systolic blood pressure 141 mm[Hg] DO Sadiq Floyd Work Phone: [facility] 09-30-2023 06:00-0500 Body weight 95.1 kg DO Sadiq Floyd Work Phone: [facility] 09-29-2023 16:55-0500 Body height 172.72 cm DO Sadiq Floyd Work Phone: [facility] 09-29-2023 14:47-0500 Diastolic blood pressure 75 mm[Hg] DO Sadiq Floyd Work Phone: [facility] 09-29-2023 14:47-0500 Heart rate 100 /min DO Sadiq Floyd Work Phone: [facility] 09-29-2023 14:47-0500 Respiratory rate 16 /min DO Sadiq Floyd Work Phone: [facility] 09-29-2023 14:47-0500 SaO2% (BldA) [Mass fraction] 98 % DO Sadiq Girbrina Work Phone: [facility] 09-29-2023 14:47-0500 Systolic blood pressure 120 mm[Hg] DO Sadiq Girbrina Work Phone: [facility] 09-29-2023 10:05-0500 Body height 172.72 cm DO Sadiq Floyd Work Phone: [facility] 09-29-2023 10:05-0500 Body temperature 97.9 [degF] DO Sadiq Floyd Work Phone: [facility] 09-29-2023 10:05-0500 Body weight 94 kg DO Sadiq Floyd Work Phone: [facility] 07-06-2023 18:05-0400 Body height 172.72 cm Sandeep Cantor Other [employer] Other 07-06-2023 18:05-0400 Diastolic blood pressure 83 mm[Hg] Sandeep Cantor Other [facility] Other 07-06-2023 18:05-0400 Respiratory rate 18 /min Sandeep Cantor Other [facility] Other 07-06-2023 18:05-0400 SaO2% (BldA) [Mass fraction] 98 % Sandeep Cantor Other [facility] Other 07-06-2023 18:05-0400 Systolic blood pressure 126 mm[Hg] Sandeep Cantor Other [employer] Other 03-31-2023 15:31-0400 Diastolic blood pressure 84 mm[Hg] Referring Provider Unknown UJ-Esjhrvkyzz-Qxweph 220 Work Phone: 03-31-2023 15:31-0400 Heart rate 89 /min Referring Provider Unknown FT-Kxcykprssq-Qmmaqi 220 Work Phone: 03-31-2023 15:31-0400 Systolic blood pressure 137 mm[Hg] Referring Provider Unknown DY-Fkclecthsq-Avkpsa 220 Work Phone: 03-16-2023 13:20-0400 Body height 172.72 cm Sadiq Floyd Other [facility] Other 03-16-2023 13:20-0400 Body mass index (BMI) [Ratio] 32 kg/m2 Sadiq Floyd Other [facility] Other 03-16-2023 13:20-0400 Body temperature 98.3 [degF] Sadiq Floyd Other [facility] Other 03-16-2023 13:20-0400 Body weight 95.48 kg Sadiq Floyd Other [employer] Other 03-16-2023 13:20-0400 Diastolic blood pressure 86 mm[Hg] Sadiq Floyd Other [facility] Other 03-16-2023 13:20-0400 Respiratory rate 18 /min Sadiq Floyd Other [facility] Other 03-16-2023 13:20-0400 SaO2% (BldA) [Mass fraction] 97 % Sadiq Floyd Other [facility] Other 03-16-2023 13:20-0400 Systolic blood pressure 138 mm[Hg] Sadiq Floyd Other [facility] Other 12-15-2022 15:20-0500 Body height 172.72 cm Sadiq Floyd Other [facility] Other 12-15-2022 15:20-0500 Body mass index (BMI) [Ratio] 32.99 kg/m2 Sadiq Floyd Other [facility] Other 12-15-2022 15:20-0500 Body temperature 98.5 [degF] Sadiq Floyd Other [facility] Other 12-15-2022 15:20-0500 Body weight 98.43 kg Sadiq Floyd Other [facility] Other 12-15-2022 15:20-0500 Diastolic blood pressure 80 mm[Hg] Sadiq Floyd Other [facility] Other 12-15-2022 15:20-0500 Respiratory rate 18 /min Sadiq Floyd Other [facility] Other 12-15-2022 15:20-0500 SaO2% (BldA) [Mass fraction] 97 % Sadiq Floyd Other [facility] Other 12-15-2022 15:20-0500 Systolic blood pressure 114 mm[Hg] Sadiq Floyd Other [facility] Other 11-16-2022 16:40-0500 Body height 172.72 cm Sadiq Floyd Other [facility] Other 11-16-2022 16:40-0500 Body mass index (BMI) [Ratio] 32.46 kg/m2 Sadiq Floyd Other [facility] Other 11-16-2022 16:40-0500 Body temperature 98.9 [degF] Sadiq Floyd Other [facility] Other 11-16-2022 16:40-0500 Body weight 96.84 kg Sadiq Floyd Other [facility] Other 11-16-2022 16:40-0500 Diastolic blood pressure 88 mm[Hg] Sadiq Floyd Other [facility] Other 11-16-2022 16:40-0500 Respiratory rate 18 /min Sadiq Floyd Other [facility] Other 11-16-2022 16:40-0500 SaO2% (BldA) [Mass fraction] 98 % Sadiq Floyd Other [facility] Other 11-16-2022 16:40-0500 Systolic blood pressure 128 mm[Hg] Sadiq Floyd Other [facility] Other 11-06-2022 09:14-0500 Blood Pressure Location Susanna Lue [facility] 11-06-2022 09:14-0500 Diastolic blood pressure 90 mm[Hg] Susanna Lue [facility] 11-06-2022 09:14-0500 Heart rate 84 /min Susanna Lue [facility] 11-06-2022 09:14-0500 Systolic blood pressure 144 mm[Hg] Susanna Lue [facility] 06-02-2022 16:40-0400 Body height 172.72 cm Sadiq Floyd Other [facility] Other 06-02-2022 16:40-0400 Body mass index (BMI) [Ratio] 31.32 kg/m2 Sadiq Floyd Other [facility] Other 06-02-2022 16:40-0400 Body temperature 98 [degF] Sadiq Floyd Other [facility] Other 06-02-2022 16:40-0400 Body weight 93.44 kg Sadiq Floyd Other [facility] Other 06-02-2022 16:40-0400 Diastolic blood pressure 80 mm[Hg] Sadiq Floyd Other [facility] Other 06-02-2022 16:40-0400 SaO2% (BldA) [Mass fraction] 95 % Sadiq Floyd Other [facility] Other 06-02-2022 16:40-0400 Systolic blood pressure 118 mm[Hg] Sadiq Floyd Other [facility] Other 01-22-2022 15:45-0400 Body height 172.72 cm Ike Loyola Other [facility] Other 01-22-2022 15:45-0400 Body mass index (BMI) [Ratio] 32.06 kg/m2 Ike Loyola Other [facility] Other 01-22-2022 15:45-0400 Body weight 95.66 kg Ike Loyola Other [facility] Other 01-22-2022 15:45-0400 Diastolic blood pressure 77 mm[Hg] Ike Loyola Other [facility] Other 01-22-2022 15:45-0400 Respiratory rate 18 /min Ike Loyola Other [facility] Other 01-22-2022 15:45-0400 SaO2% (BldA) [Mass fraction] 95 % Ike Loyola Other [facility] Other 01-22-2022 15:45-0400 Systolic blood pressure 117 mm[Hg] Ike Loyola Other [facility] Other 11-18-2021 15:15-0500 Body height 172.72 cm Ike Loyola Other [facility] Other 11-18-2021 15:15-0500 Body mass index (BMI) [Ratio] 33.83 kg/m2 Ike Loyola Other [facility] Other 11-18-2021 15:15-0500 Body weight 100.93 kg Ike Loyola Other [facility] Other 11-18-2021 15:15-0500 Diastolic blood pressure 82 mm[Hg] Ike Loyola Other [facility] Other 11-18-2021 15:15-0500 Respiratory rate 18 /min Ike Loyola Other [facility] Other 11-18-2021 15:15-0500 SaO2% (BldA) [Mass fraction] 98 % Ike Loyola Other [facility] Other 11-18-2021 15:15-0500 Systolic blood pressure 129 mm[Hg] Ike Loyola Other [facility] Other 10-06-2021 16:20-0500 Body height 172.72 cm Sadiq Floyd Other [facility] Other 10-06-2021 16:20-0500 Body mass index (BMI) [Ratio] 34.51 kg/m2 Sadiq Floyd Other [facility] Other 10-06-2021 16:20-0500 Body temperature 98.6 [degF] Sadiq Floyd Other [facility] Other 10-06-2021 16:20-0500 Body weight 102.97 kg Sadiq Floyd Other [facility] Other 10-06-2021 16:20-0500 Diastolic blood pressure 84 mm[Hg] Sadiq Floyd Other [facility] Other 10-06-2021 16:20-0500 Respiratory rate 18 /min Sadiq Floyd Other [facility] Other 10-06-2021 16:20-0500 SaO2% (BldA) [Mass fraction] 95 % Sadiq Floyd Other [facility] Other 10-06-2021 16:20-0500 Systolic blood pressure 118 mm[Hg] Sadiq Floyd Other [facility] Other Encounters Encounter Date Encounter Type Care Provider Facility Start: 07-30-2025 End: 07-30-2025 ambulatory Sadiq Floyd DO Work Phone: [facility] Work Phone: Start: 07-30-2025 End: 07-30-2025 Patient encounter procedure Cee Laureano MD -[facility] Work Phone: Start: 07-18-2025 End: 07-19-2025 ambulatory Osorio ARTEAGA Facility:[facility] Start: 07-17-2025 Non-patient / Non-visit Felipe Carlson MD -[facility] Work Phone: Start: 07-16-2025 End: 07-16-2025 ambulatory Sadiq Floyd DO Work Phone: [facility] Work Phone: Start: 07-16-2025 End: 07-16-2025 Patient encounter procedure Sadiq Floyd DO -[facility] Work Phone: Start: 07-13-2025 ambulatory Susanna Paulino Facility:[facility] [place] Start: 07-04-2025 End: 07-04-2025 Patient encounter procedure Susanna Oconnell MD -[facility] Work Phone: Start: 07-04-2025 End: 07-04-2025 ambulatory Sadiq Floyd DO Work Phone: [facility] Work Phone: Start: 07-02-2025 End: 07-02-2025 ambulatory Sadiq Floyd DO Work Phone: [facility] Work Phone: Start: 07-02-2025 End: 07-02-2025 Patient encounter procedure Sadiq Floyd DO -[facility] Work Phone: Start: 06-27-2025 ambulatory Susanna Paulino Facility:C [id number] Start: 06-13-2025 End: 06-13-2025 Bamboo flowsheet Kingsley Loera DPM Work Phone: [facility] Start: 06-13-2025 End: 06-13-2025 Bamboo flowsheet Kingsley Loera DPM Work Phone: [facility] Start: 06-13-2025 End: 06-13-2025 Patient encounter procedure Kingsley Loera DPM Work Phone: [facility] Comment on above: Onychomycosis [B35.1 (ICD-10-CM)]; Deformity of toenail; Type 2 diabetes mellitus without complication, without long-term current use of insulin (HCC); Localized edema Start: 06-13-2025 End: 06-13-2025 ambulatory KINGSLEY LOERA Not Available Start: 06-08-2025 End: 06-08-2025 Patient encounter procedure Quinn Aldrich DPM Work Phone: [facility] Comment on above: Arrived Start: 06-08-2025 End: 06-08-[address] [facility] Start: 06-08-2025 End: 06-08-2025 ambulatory Sadiq Floyd DO Work Phone: [facility] Work Phone: Start: 06-08-2025 End: 06-08-2025 Patient encounter procedure Sadiq Garcia Anahybirna DO -[facility] Work Phone: Start: 06-06-2025 End: 06-06-2025 Patient encounter procedure Sadiq Garcia Anahybrina DO -[facility] [place] Work Phone: Start: 06-06-2025 End: 06-06-2025 ambulatory Sadiq Floyd DO Work Phone: [facility] Work Phone: Start: 06-04-2025 Non-patient / Non-visit Luis Eduardo mariano RMA -[facility] [place] Work Phone: Start: 06-02-2025 End: 06-02-2025 Emergency department patient visit Sadiq Floyd DO Work Phone: -Emergency Room Work Phone: Start: 05-25-2025 End: 05-25-2025 Patient encounter procedure Quinndavid Aldrich DPM Work Phone: [facility] Comment on above: Arrived Start: 05-25-2025 End: 05-25-[address] [facility] Start: 05-21-2025 End: 05-21-2025 ambulatory Susanna Paulino Facility:[facility] Start: 05-21-2025 End: 05-21-2025 Patient encounter procedure Susanna Paulino [facility] Start: 05-17-2025 End: 05-17-2025 ambulatory Selma Ring RN Radiation Oncology Comment on above: Patient Education Start: 05-11-2025 End: 05-11-2025 Patient encounter procedure Radha Anish Lc DPM Work Phone: [facility] Comment on above: Arrived Start: 05-11-2025 End: 05-11-2025 [facility] Start: 05-09-2025 End: 05-09-2025 ambulatory Sadiq Floyd DO Work Phone: [facility] Work Phone: Start: 05-09-2025 End: 05-09-2025 Patient encounter procedure Wilfrid Oconnell MD -[facility] Work Phone: Start: 05-04-2025 End: 05-04-2025 Patient encounter procedure Radha Shipman DPM Work Phone: [facility] Comment on above: Arrived Start: 05-04-2025 End: 05-04-2025 ambulatory RADHA Anish [facility] Start: 04-17-2025 End: 04-17-2025 Patient encounter procedure [facility] Provider [facility] Department Start: 04-16-2025 End: 04-16-2025 ambulatory Sadiq Floyd DO Work Phone: [facility] Work Phone: Start: 04-16-2025 End: 04-16-2025 Patient encounter procedure Sadiq Floyd DO -[facility] Family Medicine [place] Work Phone: Start: 04-13-2025 End: 04-13-2025 Patient encounter procedure Radha Shipman DPM Work Phone: [facility] Comment on above: Arrived Start: 04-13-2025 End: 04-13-2025 ambulatory RADHA Anish [facility] Start: 04-13-2025 End: 04-13-2025 Office outpatient new 45 minutes G Haja Arteaga MD Work Phone: Radiation Oncology Comment on above: Malignant neoplasm o f prostate (HCC) (Primary Dx) Start: 04-13-2025 End: 04-13-2025 ambulatory Osorio ARTEAGA Facility:[facility] Start: 04-12-2025 End: 04-12-2025 Patient encounter procedure Sadiq Floyd DO -[facility] [place] Work Phone: Start: 04-12-2025 End: 04-12-2025 ambulatory Sadiq Floyd DO Work Phone: [facility] Work Phone: Start: 04-06-2025 Non-patient / Non-visit Sadiq Willis in [facility] Work Phone: Start: 04-06-2025 End: 04-06-2025 Emergency department patient visit SADIQ FLOYD Facility:[facility] Start: 04-05-2025 End: 04-05-2025 ambulatory Susanna Paulino Facility: [place] Start: 04-05-2025 End: 04-05-2025 Patient encounter procedure Susanna Paulino [facility] Start: 03-30-2025 End: 03-30-2025 Patient encounter procedure Jacinta [facility] Work Phone: Start: 03-28-2025 End: 03-28-2025 Admission to same day surgery center Susanna Paulino [facility] Start: 03-28-2025 End: 03-28-2025 ambulatory Susanna Paulino Facility:[facility] Start: 03-13-2025 End: 03-13-2025 Bamboo flowsheet Kingsley Loera DPM Work Phone: [facility] Start: 03-13-2025 End: 03-13-2025 Bamboo flowsheet Kingsley Loera DPM Work Phone: [facility] Start: 03-13-2025 End: 03-13-2025 Patient encounter procedure Kingsley Loera DPM Work Phone: [facility] Comment on above: Type 2 diabetes yeni itus without complication, without long- term current use of insulin (Primary Dx); Onychomycosis [B35.1 (ICD-10-CM)]; Deformity of toenail; Localized edema Start: 03-13-2025 End: 03-13-2025 ambulatory KINGSLEY LOERA Not Available Start: 03-05-2025 End: 03-05-2025 Patient encounter procedure Felipe Carlson MD -[facility] Work Phone: Start: 02-23-2025 End: 02-23-2025 Patient encounter procedure Sadiq Floyd DO -[facility] Work Phone: Start: 02-22-2025 End: 02-22-2025 Patient encounter procedure Sadiq Floyd DO Work Phone: [facility] Work Phone: Start: 02-22-2025 End: 02-22-2025 ambulatory Sadiq Floyd DO Work Phone: [facility] Work Phone: Start: 02-14-2025 End: 02-14-2025 Bamboo flowsheet Kingsley Loera DPM Work Phone: [facility] Start: 02-14-2025 End: 02-14-2025 Bamboo flowsheet Kingsley Loera DPM Work Phone: [facility] Start: 02-14-2025 End: 02-14-2025 Office outpatient visit 15 minutes Kingsley Loera DPM Work Phone: [facility] Comment on above: Callus; Acquired keratoderma; Left foot pain; Type 2 diabetes mellitus without complication, without long-term current use of insulin Start: 02-14-2025 End: 02-14-2025 ambulatory KINGSLEY LOERA Not Available Start: 02-01-2025 End: 02-01-2025 Patient encounter procedure Sadiq Floyd DO Work Phone: [facility] Work Phone: Start: 01-31-2025 End: 01-31-2025 Bamboo flowsheet Arelis Ramirez MD Work Phone: [facility] Start: 01-31-2025 End: 01-31-2025 Bamboo flowsheet Arelis Ramirez MD Work Phone: [facility] Start: 01-31-2025 End: 01-31-2025 Office outpatient visit 15 minutes Arelis Ramirez MD Work Phone: [facility] Comment on above: Thyroid nodule (CMS/ HCC) (Primary Dx) Start: 01-31-2025 End: 01-31-2025 ambulatory ARELIS RAMIREZ Not Available Start: 01-18-2025 End: 01-18-2025 Office outpatient visit 15 minutes Kingsley Loera DPM Work Phone: [facility] Comment on above: Callus; Left foot pain Start: 01-18-2025 End: 01-18-2025 ambulatory KINGSLEY LOERA Not Available Start: 01-17-2025 End: 01-17-2025 ambulatory Susanna Paulino Facility:[facility] Start: 01-16-2025 End: 01-16-2025 Patient encounter procedure Sadiq Floyd DO Work Phone: [facility] [place] Work Phone: Start: 01-16-2025 End: 01-16-2025 ambulatory Sadiq Floyd DO Work Phone: [facility] Work Phone: Start: 01-12-2025 End: 01-12-2025 Patient encounter procedure Sadiq Floyd DO Work Phone: [facility] [place] Work Phone: Start: 01-12-2025 End: 01-12-2025 ambulatory Sadiq Floyd DO Work Phone: [facility] Work Phone: Start: 12-29-2024 End: 12-29-2024 ambulatory KINGSLEY LOERA Not Available Start: 12-25-2024 End: 12-25-2024 Patient encounter procedure Kingsley Loera DPM Work Phone: [facility] Comment on above: Left foot pain (Prim adonay Dx); Acquired keratoderma; Callus Start: 12-20-2024 End: 12-20-2024 ambulatory KINGSLEY LOERA Not Available Start: 12-20-2024 End: 12-20-2024 Bamboo flowsheet Kingsley Loera DPM Work Phone: [facility] Start: 12-20-2024 End: 12-20-2024 Bamboo flowsheet Kingsley Loera DPM Work Phone: [facility] Start: 12-19-2024 End: 12-19-2024 Bamboo flowsheet Kingsley Loera DPM Work Phone: [facility] Start: 12-19-2024 End: 12-19-2024 Bamboo flowsheet Kingsley Loera DPM Work Phone: [facility] Start: 12-19-2024 End: 12-19-2024 ambulatory KINGSLEY LOERA Not Available Start: 12-19-2024 End: 12-19-2024 Office outpatient visit 25 minutes Kingsley Loera DPM Work Phone: [facility] Comment on above: Type 2 diabetes yeni itus without complication, without long- term current use of insulin ([facility]) (Primary Dx); Onychomycosis [B35.1 (ICD-10-CM)]; Deformity of toenail; Localized edema; Callus; Acquired keratoderma; Left foot pain; Pre-operative examination Start: 12-19-2024 End: 12-19-2024 Preprocedural examination done Kingsley Loera DPM Work Phone: [facility] Start: 12-01-2024 ambulatory Susanna Paulino Facility:[facility] Start: 10-17-2024 End: 10-17-2024 Patient encounter procedure Sadiq Floyd DO [facility] Phone[facility] Work Phone: Start: 10-10-2024 End: 10-10-2024 ambulatory Sadiq Floyd Facility:[facility] Start: 08-22-2024 End: 08-22-2024 ambulatory DO Sadiq Higginbothambrina Work Phone: [facility] Work Phone: Start: 08-22-2024 End: 08-22-2024 Patient encounter procedure DO Sadiq Higginbothambrina [facility] Work [facility]: Start: 08-07-2024 End: 08-07-2024 ambulatory Samantha X Orzech Facility:[facility] Start: 08-07-2024 End: 08-07-2024 Patient encounter procedure Samantha X Orzech [facility] Start: 08-03-2024 End: 08-03-2024 Patient encounter procedure DO Sadiq Floyd Work Phone: [facility] [place] Work Phone: Start: 08-03-2024 End: 08-03-2024 ambulatory DO Sadiq Higginbothambrina Work Phone: [facility] Work Phone: Start: 07-20-2024 End: 07-20-2024 Bamboo flowsheet Kingsley Loera DPM Work Phone: [facility] Start: 07-20-2024 End: 07-20-2024 Bamboo flowsheet Kingsley Loera DPM Work Phone: [facility] Start: 07-20-2024 End: 07-20-2024 ambulatory KINGSLEY LOERA Not Available Start: 07-20-2024 End: 07-20-2024 Patient encounter procedure Kingsley Loera DPM Work Phone: [facility] Comment on above: Onychomycosis [B35.1 (ICD-10-CM)] (Primary Dx); Pain around toenail, left foot; Deformity of toenail; Type 2 diabetes mellitus without complication, without long-term current use of insulin (CMS/HCC); Localized edema; Ingrown left greater toenail; Lower extremity edema Start: 07-18-2024 End: 07-18-2024 Bamboo flowsheet Arelis Ramirez MD Work Phone: [facility] Start: 07-18-2024 End: 07-18-2024 Bamsulemano flowsorion Ramirez MD Work Phone: [facility] Start: 07-18-2024 End: 07-18-2024 Office outpatient visit 15 minutes Arelis Ramirez MD Work Phone: [facility] Comment on above: Thyroid nodule (CMS/ HCC) (Primary Dx) Start: 07-18-2024 End: 07-18-2024 ambulatory ARELIS RAMIREZ Not Available Start: 06-21-2024 End: 06-21-2024 ambulatory DO Sadiq Floyd Work Phone: [facility] Work Phone: Start: 06-21-2024 End: 06-21-2024 Patient encounter procedure DO Sadiq Floyd Work Phone: [facility] [place] Work Phone: Start: 06-16-2024 End: 06-16-2024 Patient encounter procedure DO Sadiq Floyd Work Phone: [facility] [place] Work Phone: Start: 06-08-2024 End: 06-08-2024 ambulatory Susanna Paulino Facility:[facility] Start: 06-08-2024 End: 06-08-2024 Patient encounter procedure Susanna Paulino [facility] Start: 06-05-2024 End: 06-05-2024 ambulatory DO Sadiq Floyd Work Phone: [facility] Work Phone: Start: 06-05-2024 End: 06-05-2024 Patient encounter procedure DO Sadiq Floyd Work Phone: [facility]-Ultrasound [place] Work Phone: Start: 04-21-2024 Registered Recurring DO Sadiq Floyd Work Phone: [facility]iac Rehabilitation Work Phone: Start: 04-19-2024 End: 04-19-2024 ambulatory DO Sadiq Floyd Work Phone: [facility] Work Phone: Start: 04-19-2024 End: 04-19-2024 Patient encounter procedure DO Sadiq Floyd Work Phone: [facility] [place] [facility] Work Phone: Start: 04-19-2024 Registered Recurring DO Sadiq Floyd Work Phone: [facility] Work Phone: Start: 04-19-2024 End: 04-19-2024 ambulatory DO Sadiq Floyd Work Phone: [facility] Work Phone: Start: 04-19-2024 End: 04-19-2024 Patient encounter procedure DO Sadiq Floyd Work Phone: [facility] [place] [facility] Start: 04-18-2024 End: 04-18-2024 ambulatory DO Sadiq Floyd Work Phone: [facility] Work Phone: Start: 04-18-2024 End: 04-18-2024 Patient encounter procedure DO Sadiq Floyd Work Phone: [facility] Family Medicine [place] Work Phone: Start: 04-05-2024 Registered Recurring DO Sadiq Floyd Work Phone: [facility]-Card[facility] Work Phone: Start: 04-03-2024 Registered Recurring DO Sadiq Floyd Work Phone: [facility]-Cardiac Rehabilitation Work Phone: Start: 04-03-2024 End: 04-03-2024 ambulatory DO Sadiq Floyd Work Phone: [facility] Work Phone: Start: 04-03-2024 End: 04-03-2024 Patient encounter procedure DO Sdaiq Floyd Work Phone: [facility]-Lab [place] Work Phone: Start: 03-31-2024 End: 03-31-2024 ambulatory DO Sadiq Floyd Work Phone: [facility] Work Phone: Start: 03-31-2024 End: 03-31-2024 Patient encounter procedure DO Sadiq Floyd Work Phone: [facility] Gastroenterology Work Phone: Start: 03-27-2024 Registered Recurring DO Sadiq Floyd Work Phone: [facility]-Cardiac [facility] Work Phone: Start: 03-06-2024 End: 03-06-2024 ambulatory DO Sadiq Floyd Work Phone: [facility] Work Phone: Start: 03-06-2024 End: 03-06-2024 Patient encounter procedure DO Sadiq Floyd Work Phone: [facility] Cardiology Work Phone: Start: 03-03-2024 Registered Recurring DO Sadiq Floyd Work Phone: [facility]-Cardiac Rehabilitation Work Phone: Start: 01-03-2024 End: 01-03-2024 Patient encounter procedure Samantha Recinos [facility] Start: 12-02-2023 End: 12-02-2023 ambulatory DO Sadiq Floyd Work Phone: [facility] Work Phone: Start: 12-02-2023 End: 12-02-2023 Patient encounter procedure DO Sadiq Floyd Work Phone: [facility] Work Phone: Start: 12-01-2023 End: 12-01-2023 ambulatory DO Sadiq Floyd Work Phone: [facility] Work Phone: Start: 12-01-2023 End: 12-01-2023 Patient encounter procedure DO Sadiq Floyd Work Phone: [facility] [place] [facility] Work Phone: Start: 11-30-2023 End: 11-30-2023 ambulatory DO Sadiq Floyd Work Phone: [facility] Work Phone: Start: 11-30-2023 End: 11-30-2023 Departed Referred DO Sadiq Floyd Work Phone: [facility]-LAB Path Spec [place] [facility] Start: 11-26-2023 Non-patient / Non-visit DO Bj Floyd Work Phone: [facility] Work Phone: Start: 11-26-2023 End: 11-26-2023 Admission to same day surgery center DO Sadiq Floyd Work Phone: [facility]-Director Payment Work Phone: Start: 11-26-2023 End: 11-26-2023 ambulatory DO Sadiq Floyd Work Phone: [facility] Work Phone: Start: 11-24-2023 End: 11-24-2023 ambulatory Sadiq Floyd Other [employer] Other Start: 11-24-2023 Telephone encounter Sadiq Floyd [facility] Family Medicine [place] Start: 11-23-2023 End: 11-23-2023 ambulatory Felipe Carlson Other [employer] Other Start: 11-23-2023 Telephone encounter Felipe Summers [facility] Start: 11-19-2023 End: 11-19-2023 ambulatory Felipe Carlson Other [employer] Other Start: 11-19-2023 Chart abstracting Arelis adamson MD Work Phone: [facility] Start: 11-19-2023 Telephone encounter Felipe Summers [facility] Start: 11-19-2023 End: 11-19-2023 Office outpatient visit 25 minutes Arelis Ramirez MD Work Phone: [facility] [employer] Comment on above: Thyroid nodule (CMS/ HCC) (Primary Dx) Start: 11-18-2023 End: 11-18-2023 ambulatory DO Sadiq Floyd Work Phone: [facility] Work Phone: Start: 11-18-2023 End: 11-18-2023 Patient encounter procedure DO Sadiq Floyd Work Phone: [facility]-CT Scan [place] Work Phone: Start: 11-09-2023 Non-patient / Non-visit DO Bj Floyd Work Phone: [facility] Work Phone: Start: 11-05-2023 End: 11-05-2023 ambulatory Felipe Carlson Other [employer] Other Start: 11-05-2023 Telephone encounter Felipe Summers [facility] Start: 10-27-2023 End: 10-27-2023 ambulatory Felipe Carlson Other [employer] Other Start: 10-27-2023 Telephone encounter Felipe Summers [facility] Start: 10-22-2023 End: 10-22-2023 ambulatory Felipe Carlson Other [employer] Other Start: 10-22-2023 Office outpatient ne w 45 minutes Felipe Nickersonia [facility] Start: 10-22-2023 Telephone encounter Sadiq Floyd [facility] [place] Start: 10-21-2023 End: 10-22-2023 Patient encounter procedure DO Sadiq Floyd Work Phone: [facility] Work Phone: Start: 10-12-2023 End: 10-12-2023 ambulatory Sadiq Floyd Other [employer] Other Start: 10-12-2023 Office outpatient vi sit 25 minutes Sadiq Floyd [facility] [place] Start: 10-12-2023 End: 10-12-2023 Patient encounter procedure DO Sadiq Floyd Work Phone: [facility] [place] Work Phone: Start: 10-08-2023 End: 10-08-2023 ambulatory DO Sadiq Floyd Work Phone: [facility] Work Phone: Start: 10-08-2023 End: 10-08-2023 Patient encounter procedure DO Sadiq Floyd Work Phone: [facility]-CT Scan [place] Work Phone: Start: 10-07-2023 End: 10-07-2023 ambulatory Sadiq Floyd Other [employer] Other Start: 10-07-2023 Telephone encounter Sadiq Floyd [facility] Family Medicine [place] Start: 09-30-2023 End: 09-30-2023 ambulatory Sadiq Floyd Other [employer] Other Start: 09-30-2023 Telephone encounter Sadiq Higginbothambrina [facility] Family Medicine [place] Start: 09-29-2023 End: 09-30-2023 Evaluation and management of inpatient DO Sadiq Floyd Work Phone: [facility] [place] [facility] Work Phone: Start: 09-29-2023 observation encounter DO Sadiq Floyd Work Phone: [facility] Work Phone: Start: 09-29-2023 End: 09-29-2023 ambulatory Sadiq Floyd Other [employer] Other Start: 09-29-2023 Telephone encounter Sadiq Devi [facility] Family Medicine [place] Start: 09-16-2023 End: 09-16-2023 ambulatory Sadiq Devi Other [employer] Other Start: 09-16-2023 Telephone encounter Sadiq Higginbothambrina [facility] Family Medicine [place] Start: 09-14-2023 End: 09-14-2023 ambulatory Sadiq Devi Other [employer] Other Start: 09-14-2023 Telephone encounter Sadiq Higginbothambrina [facility] Family Medicine [place] Start: 09-08-2023 End: 09-08-2023 ambulatory DO Sadiq Floyd Work Phone: [facility] Work Phone: Start: 09-08-2023 End: 09-08-2023 Patient encounter procedure DO Sadiq Floyd Work Phone: [facility]-Lab [place] Work Phone: Start: 07-06-2023 End: 07-06-2023 ambulatory Sandeep Cantor Other [employer] Other Start: 07-06-2023 Office outpatient vi sit 15 minutes Sandeep Cantor [facility] Urgent Care [address] Start: 05-12-2023 End: 05-12-2023 ambulatory DO Sadiq Floyd Work Phone: [facility] Work Phone: Start: 05-12-2023 End: 05-12-2023 Patient encounter procedure DO Sadiq Floyd Work Phone: [facility]-Lab [place] Work Phone: Start: 04-30-2023 End: 04-30-2023 Discharged Recurring DO Sadiq Floyd Work Phone: [facility]-Physical Therapy [address] Start: 04-02-2023 Chart Update Referring Prov ider Unknown [id number] Work Phone: Start: 03-31-2023 NPV, Provider: Luis Eduardo Guallpa, Status: Pen, Time: 3:20 PM Rajan Lau [employer] Work Phone: [id number] Work Phone: Start: 03-31-2023 Office outpatient ne w 30 minutes Referring Provider Unknown [id number] Work Phone: Start: 03-31-2023 Patient encounter procedure Referring Provider Unknown [id number] [id number] Work Phone: Start: 03-31-2023 ambulatory Referral Self Facility: [id number] Start: 03-29-2023 MONICA Lau [employer] Work Phone: [id number] 200 Work Phone: Start: 03-18-2023 End: 03-18-2023 ambulatory Sadiq Floyd Other [employer] Other Start: 03-18-2023 Telephone encounter Sadiq Devi [facility] [place] Start: 03-16-2023 End: 03-16-2023 ambulatory Sadiq Floyd Other [employer] Other Start: 03-16-2023 Office outpatient vi sit 25 minutes Sadiq Floyd [facility] [place] Start: 03-12-2023 End: 03-12-2023 ambulatory Sadiq Floyd Other [employer] Other Start: 03-12-2023 Telephone encounter Sadiq Floyd [facility] [place] Start: 03-10-2023 End: 03-10-2023 Patient encounter procedure DO Sadiq Floyd Work Phone: [facility]-Lab [place] Work Phone: Start: 01-22-2023 End: 01-22-2023 ambulatory Sadiq Floyd Other [employer] Other Start: 01-22-2023 Telephone encounter Sadiq Floyd [facility] Family Medicine [place] Start: 12-15-2022 End: 12-15-2022 ambulatory Sadiq Floyd Other [employer] Other Start: 12-15-2022 Office outpatient vi sit 15 minutes Sadiq Floyd [facility] Family Medicine [place] Start: 12-01-2022 End: 12-01-2022 ambulatory Sadiq Floyd Other [employer] Other Start: 12-01-2022 Telephone encounter Sadiq Floyd [facility] [place] Start: 11-16-2022 End: 11-16-2022 ambulatory Sadiq Floyd Other [employer] Other Start: 11-16-2022 Office outpatient vi sit 15 minutes Sadiq Floyd [facility] Family Medicine [place] Start: 11-06-2022 End: 11-06-2022 Patient encounter procedure Susanna Paulino [facility] [place] Start: 10-13-2022 End: 10-13-2022 ambulatory Sadiq Floyd Other [employer] Other Start: 10-13-2022 Telephone encounter Sadiq Floyd [facility] Family Medicine [place] Start: 09-14-2022 End: 09-14-2022 ambulatory Sadiq Floyd Other [employer] Other Start: 09-14-2022 Telephone encounter Sadiq Floyd [facility] Family Medicine [place] Start: 09-08-2022 End: 09-08-2022 ambulatory DO Sadiq Floyd Work Phone: [facility] Work Phone: Start: 09-08-2022 End: 09-08-2022 Patient encounter procedure DO Sadiq Floyd Work Phone: [facility]-Lab [place] Start: 06-02-2022 End: 06-02-2022 ambulatory Sadiq Floyd Other [employer] Other Start: 06-02-2022 Office outpatient vi sit 15 minutes Sadiq Floyd [facility] Family Medicine [place] Start: 04-17-2022 End: 04-17-2022 ambulatory Sadiq Floyd Other [employer] Other Start: 04-17-2022 Telephone encounter Sadiq Floyd [facility] Family Medicine [place] Start: 03-17-2022 End: 03-17-2022 ambulatory Lisa Grijlava Other [employer] Other Start: 03-17-2022 Telephone encounter Lisa Grijalva [facility] Start: 02-18-2022 End: 02-18-2022 ambulatory Sadiq Floyd Other [employer] Other Start: 02-18-2022 Telephone encounter Sadiq Floyd [facility] [place] Start: 02-16-2022 End: 02-16-2022 ambulatory Sadiq Floyd Other [employer] Other Start: 02-16-2022 Telephone encounter Sadiq Floyd [facility] [place] Start: 02-09-2022 End: 02-09-2022 ambulatory Sadiq Floyd Other [employer] Other Start: 02-09-2022 Telephone encounter Sadiq Floyd [facility] [place] Start: 02-05-2022 End: 02-05-2022 ambulatory Sadiq Floyd Other [employer] Other Start: 02-05-2022 [facility] Start: 01-22-2022 End: 01-22-2022 ambulatory Ike Loyola Other [employer] Other Start: 01-22-2022 Follow-up encounter Ike Summers [facility] Start: 12-22-2021 End: 12-22-2021 ambulatory Lisa Grijalva Other [employer] Other Start: 12-22-2021 Telephone encounter Lisa Pelletier [facility] Start: 11-24-2021 End: 11-24-2021 ambulatory Sadiq Floyd Other [employer] Other Start: 11-24-2021 Telephone encounter [facility] Start: 11-18-2021 End: 11-18-2021 ambulatory Ike Loyola Other [employer] Other Start: 11-18-2021 Nutrition therapy Ike Pelletier [facility] Start: 10-21-2021 End: 10-21-2021 ambulatory Sadiq Floyd Other [employer] Other Start: 10-21-2021 Telephone encounter Sadiq Floyd [facility] Start: 10-06-2021 End: 10-06-2021 ambulatory Sadiq Floyd Other [employer] Other Start: 10-06-2021 Office outpatient vi sit 25 minutes Sadiq Anahybrina [facility] Procedures Date Procedure Procedure Detail Performing Clinician Start: 07-04-2025 Plain chest X-ray Sadiq Floyd DO Work Phone: Start: 06-02-2025 Computed tomography of abdomen and pelvis with contrast Sadiq Floyd DO Work Phone: Start: 06-02-2025 CT of thorax with contrast Saidq Floyd DO Work Phone: Start: 06-02-2025 CT cervical spine wi thout contrast Sadiq Floyd DO Work Phone: Start: 06-02-2025 CT of head without contrast Sadiq Floyd DO Work Phone: Start: 06-02-2025 Plain X-ray of left forearm Sadiq Floyd DO Work Phone: Start: 03-28-2025 Biopsy of prostate y Luzoë Start: 02-22-2025 MR prostate wo/w con Da viendy Floyd DO Work Phone: Start: 01-16-2025 US scan of thyroid Geoff endy Floyd DO Work Phone: Start: 06-05-2024 US scan of thyroid DO D celestino Floyd Work Phone: Start: 04-19-2024 Plain X-ray of left hip DO Sadiq Floyd Work Phone: Start: 04-19-2024 Radiologic examinati on of knee DO Sadiq Floyd Work Phone: Start: 12-01-2023 X-ray of left knee DO D aviendy Floyd Work Phone: Start: 11-26-2023 CL LHC & COR Angio DO Endy Floyd Work Phone: Start: 11-26-2023 CL Stent 1st Vessel RCA TEJAL DO Sadiq Floyd Work Phone: Start: 11-26-2023 CL Stent Ea Add RCA TEJAL DO Sadiq Floyd Work Phone: Start: 11-26-2023 DO Sadiq perdomo Work Phone: Start: 10-21-2023 US scan of thyroid DO Endy Floyd Work Phone: Start: 10-08-2023 CT of head without contrast DO Sadiq Floyd Work Phone: Start: 09-29-2023 Doppler ultrasonogra phy of bilateral carotid arteries DO Sadiq Floyd Work Phone: Start: 09-29-2023 Plain chest X-ray DO Miguel Floyd Work Phone: Start: 09-08-2023 Urine culture DO Sadiq Floyd Work Phone: Start: 11-19-2016 History of nasal sin us surgery Susanna Paulino Comment on above: sinus surgery Dr. Riddhi ibarra Start: 12-13-2015 Polyp of sigmoid col on (disorder) Susanna Paulino Comment on above: removal Start: 09-17-2014 History of right hip replacement Susanna Paulino Comment on above: Dr. Wang CCKristopher Start: 10-18-2006 Colonoscopy Susanna Lue Comment on above: Dr. Aguilar Start: 10-18-2006 Surgery of cataract of left eye Susanna Paulino Comment on above: Dr. Ureña 2007 or 2 008 Colonoscopy Susanna Lue History of ankle surgery Sejal hy Lue Comment on above: left ankle surgery c yst removed History of placement of stent for coronary artery disease History of heart artery stent DO Sadiq Floyd Work Phone: History of placement of stent for coronary artery disease History of heart artery stent Felipe Carlson MD History of placement of stent for coronary artery disease History of heart artery stent Cee Laureano MD Prosthetic arthropla sty of the hip Susanna Paulino Stented coronary art jessika (finding) Samantha Recinos Plan of Treatment Date Care Activity Detail Author Start: 07-06-2033 DTaP/Tdap/Td Vaccine s (5 - Td or Tdap) DTaP/Tdap/Td Vaccines (5 - Td or Tdap) [facility] Start: 07-06-2033 Urine microalbumin profile DTaP,Tdap,Td Vaccine (3 - Td or Tdap) [facility] Start: 04-06-2028 Diabetes Screening Diabetes Screenin g [facility] Start: 09-19-2025 End: 09-19-2025 Patient encounter procedure 09/19/2025 9:00 AM EST Procedure Visit [facility] [address] [place] [phone] Kingsley Loera DPM [address] [place] [address] [facility] Start: 09-12-2025 End: 09-12-2025 Patient encounter procedure 09/12/2025 9:00 AM EST Office Visit Radiation Oncology [address] [place] [address] Osorio Arteaga MD [address] [place] [address] Follow up Radiation Oncology Comment on above: Follow up Start: 08-29-2025 End: 08-29-2025 Patient encounter procedure 08/29/2025 8:00 AM EST Appointment Radiology Pet CT [address] [place] [address] scan [address] Comment on above: Seed implant Ct scan Start: 08-15-2025 End: 08-15-2025 Patient encounter procedure 08/15/2025 11:15 AM EDT Office Visit Radiation Oncology [address] [place] [address] Osorio Arteaga MD [address] [place] [address] Follow up Radiation Oncology Comment on above: Follow up Start: 08-01-2025 End: 08-01-2025 Patient encounter procedure 08/01/2025 1:00 PM EDT Office Visit Radiation Oncology [address] [place] [address] Osorio Arteaga MD [address] [place] [address] Seed Implant at the [facility] Radiation Oncology Comment on above: [facility] Im[facility] at [facility] Start: 07-30-2025 End: 07-30-2025 [facility] Start: 07-18-2025 End: 07-18-2025 Patient encounter procedure 07/18/2025 8:30 AM EDT Office Visit Radiation Oncology [address] [address] Osorio Arteaga MD [address] [place] [address] Volume Study Radiation Oncology Comment on above: Volume Study Start: 06-18-2025 Influenza vaccination [facility] Start: 06-13-2025 End: 06-13-2025 Patient encounter procedure [facility] Comment on above: Arrived Start: 06-01-2025 End: 06-01-2025 Patient encounter procedure 06/01/2025 12:30 PM EDT Office Visit [facility] [address] [place] [address] Quinn Aldrich, DPM [address] [place] [address] [facility] Start: 05-25-2025 End: 05-25-2025 Patient encounter procedure 05/25/2025 12:30 PM EDT Office Visit [facility] [address] [place] [facility] [place] [phone] Radha Shipman, DPM [address] [place], [place] [phone] [facility] Start: 05-17-2025 End: 05-17-2025 Patient encounter procedure 05/17/2025 1:30 PM EDT Office Visit Radiation Oncology [address] [place] [address] Osorio Arteaga MD [address] [place] [address] follow up Radiation Oncology Comment on above: follow up Start: 05-11-2025 End: 05-11-2025 Patient encounter procedure 05/11/2025 1:45 PM EDT Office Visit [facility] [address] [place] [phone] Radha Shipman, LEONARDM [address] [place], [place] [phone] [facility] Start: 05-04-2025 End: 05-04-2025 Patient encounter procedure 05/04/2025 2:00 PM EDT Office Visit [facility] [address] [place] [phone] Ese Diane, GROUP HOME WORKER-COOLER DELIVERER [address] [address] [facility] Start: 04-18-2025 ambulatory Ambulatory Facility:[facility] Start: 03-13-2025 End: 03-13-2025 Patient encounter procedure [facility] Comment on above: Arrived Start: 02-14-2025 End: 02-14-2025 Patient encounter procedure 02/14/2025 1:00 PM EDT Office Visit [facility] [address] [place] [address] Kingsley Loera, DPM [address] [place] [address] Arrived [facility] Comment on above: Arrived Start: 02-07-2025 End: 02-07-2025 Patient encounter procedure 02/07/2025 4:15 PM EDT Office Visit [facility] [address] [place] [address] Kingsley Loera, DPM [address] [place] [address] [facility] Start: 01-31-2025 End: 01-31-2025 Patient encounter procedure [facility] Comment on above: Arrived Start: 01-19-2025 End: 01-19-2025 Patient encounter procedure 01/19/2025 10:45 AM EDT Office Visit [facility] [address] [place] [address] Kingsley Loera, DPM [address] [place] [address] [facility] Start: 01-12-2025 End: 01-12-2025 Patient encounter procedure 01/12/2025 10:45 AM EDT Office Visit [facility] [address] [place] [address] Kingsley Loera, DPM [address] [place] [address] [facility] Start: 01-05-2025 End: 01-05-2025 Patient encounter procedure 01/05/2025 9:15 AM EDT Office Visit [facility] [address] [place] [phone] Kingsley Loera, DPM [address] [place] [address] [facility] Start: 12-29-2024 End: 12-29-2024 Patient encounter procedure 12/29/2024 10:45 AM EDT Office Visit [facility] [address] [place] [phone] Kingsley Loera, DPM [address] [place] [address] [facility] Start: 11-07-2024 End: 11-07-2024 Patient encounter procedure 11/07/2024 10:45 AM EST Procedure Visit [facility] [address] [place] [phone] Kingsley Loear, DPM [address] [place] [address] [facility] Start: 10-18-2024 Advance Directive Discussion Advance Directive Discussion [facility] Start: 07-20-2024 End: 07-20-2024 Patient encounter procedure 07/20/2024 9:45 AM EDT Procedure Visit [facility] [address] [place] [phone] Kingsley Loera, DPM [address] [place] [address] [facility] Start: 07-18-2024 End: 07-18-2024 Patient encounter procedure 07/18/2024 9:50 AM EDT Office Visit [facility] [address] [place] [phone] Arelis Ramirez MD [address] [place], [place] [id number] Arrived [facility] Comment on above: Arrived Start: 06-18-2024 COVID-19 Vaccine ( season) COVID-19 Vaccine ( season) [facility] Start: 06-18-2024 Covid-19 Vaccine ( season) Covid-19 Vaccine () [facility] Start: 06-18-2024 Influenza vaccination Influenza Vacc ine (#1) [facility] Start: 04-19-2024 Plain X-ray of left hip XR hip LT min 2V(w/wo pelvis)* [facility] Start: 04-19-2024 XR Hip - left 2 Views F [facility] Start: 04-19-2024 Radiologic examinati on of knee XR knee LT 4V* [facility] Start: 04-19-2024 XR Knee - left 4 Views [facility] Start: 01-19-2024 End: 01-19-2024 Patient encounter procedure 01/19/2024 8:45 AM EDT Procedure Visit [facility] [address] [facility] [address] [place] [address] Kingsley Loera DPM [address] [place] [address] [facility] PODIATRY Start: 12-01-2023 X-ray of left knee XR knee LT 2V [facility] Start: 12-01-2023 XR Knee - left 2 Views [facility] Start: 11-26-2023 Hospital admission [facility] Start: 11-26-2023 [facility] Start: 11-19-2023 End: 11-19-2023 Patient encounter procedure 11/19/2023 11:20 AM EST Office Visit [facility] [address] [place] [id number] Arelis Ramirez MD [address] [facility] [address] [place] [address] [facility] Start: 11-18-2023 [facility] Start: 09-30-2023 [facility] Start: 09-30-2023 [facility] Start: 09-30-2023 Hospital admission [facility] Start: 09-30-2023 [facility] Start: 09-29-2023 [facility] Start: 09-29-2023 [facility] Start: 09-08-2023 Bacteria identified in Urine by Culture Urine Culture [facility] Start: 09-08-2022 [facility] Start: 2022 Pneumococcal Vaccine : 65+ Years (1 - PCV) Pneumococcal Vaccine: 65+ Years (1 - PCV) [facility] Start: 2022 Pneumococcal Vaccine : 65+ Years (1 of 1 - PCV) Pneumococcal Vaccine: 65+ Years (1 of 1 - PCV) [facility] Start: 05-18-2022 Medicare Annual Well ness Visit Medicare Annual Wellness Visit [facility] Start: 2017 RSV High Risk: (Elde rly (60+) or Population) (1 - Risk 60-74 years 1-dose series) RSV High Risk: (Elderly (60+) or Population) (1 - Risk 60-74 years 1-dose series) [facility] Start: 2017 RSV Vaccine (1 - Ris k 60-74 years 1-dose series) RSV Vaccine (1 - Risk 60-74 years 1-dose series) [facility] Start: 2007 Pneumococcal vaccination Pneum ococcal Vaccine (1 of 1 - PCV) [facility] Start: 2007 Pneumococcal Vaccine : 50+ (1 of 1 - PCV) Pneumococcal Vaccine: 50+ (1 of 1 - PCV) [facility] Start: 2007 Pneumococcal Vaccine : 65+ Years (1 of 1 - PCV) Pneumococcal Vaccine: 65+ Years (1 of 1 - PCV) [facility] Start: 2007 Prostate specific antigen measurement PSA Prostate Cancer Screening [facility] Start: 2007 Shingrix Vaccine (1 of 2) Shingrix Vaccine (1 of 2) [facility] Start: 2007 Zoster Vaccines (1 of 2) Zoste r Vaccines (1 of 2) [facility] Start: 2002 Prostate specific antigen measurement Prostate Cancer Screening Discussion [facility] Start: 2002 Screening for malign ant neoplasm of colon [facility] Start: 1992 Lipid panel Lipid Screening [facility] Start: 1975 Anxiety Screening Anxiety Screening [facility] Start: 1975 Depression Screening Depression Scre ening [facility] Start: 1975 Diabetes mellitus screening Diabetes Screening [facility] Start: 1975 Hepatitis C screening Hepatitis C Sc reening [facility] Start: 1958 MMR Vaccines (1 of 1 - Standard series) MMR Vaccines (1 of 1 - Standard series) [facility] Start: 1957 Abdominal aortic aneurysm screening Abdominal Aortic Aneurysm Screening [facility] Start: 1957 Lipid panel Lipid Panel [facility] Start: 1957 Medicare Annual Well ness Visit Medicare Annual Wellness Visit (AWV) [facility] Start: 1957 Screening for malign ant neoplasm of colon [facility] Bacteria identified in Urine by Culture Urine Culture [facility] Comprehensive metabo lic 1999 panel - Serum or Plasma [facility] Comprehensive metabo lic 1999 panel - Serum or Plasma [facility] Comprehensive metabo lic 1999 panel - Serum or Plasma [facility] Glucose measurement estimated from glycated hemoglobin [facility] Hemoglobin A1c/Hemoglobin.total in Blood [facility] Patient Education [facility] Work Phone: Patient referral [facility] Work Phone: XR Unspecified body region Views [facility] Immunizations Immunization Date Immunization Notes Care Provider Fa michele 07-16-2025 influenza, high dose seasonal, preservative-free Sadiq Floyd DO Work Phone: [facility] 09-03-2023 Flu Shot - Documentation Purposes Only Sadiq Floyd Other [facility] 09-03-2023 influenza virus vaccine, unspecified formulation Samantha Recinos [facility] 07-06-2023 tetanus toxoid, redu hailey diphtheria toxoid, and acellular pertussis vaccine, adsorbed Sandeep Cantor Other [facility] 07-06-2023 tetanus and diphther ia toxoids, adsorbed, preservative free, for adult use (5 Lf of tetanus toxoid and 2 Lf of diphtheria toxoid) DO Sadiq Floyd Work Phone: [facility] 11-17-2022 Moderna COVID-19 Bivalent 50 MCG/0.5ML Intramuscular Suspension Referring Provider Unknown [facility] 08-29-2022 influenza, seasonal, injectable Sadiq Floyd Other [facility] 08-29-2022 Fluad Quadrivalent 0 .5 ML Intramuscular Prefilled Syringe Referring Provider Unknown [facility] 08-29-2022 influenza virus vaccine, unspecified formulation Susanna Paulino [facility] 08-09-2021 COVID-19 Vaccine Pfi zer - Documentation Purposes Only Sadiq Floyd Other [facility] Comment on above: Result Comment: 2022: [id number] 01-24-2021 SARS-CoV-2 (COVID-19 ) Ad26 vaccine, recombinant Susanna Lue [facility] 01-08-2021 COVID-19 Vaccine Pfi zer - Documentation Purposes Only Sadiq Floyd Other [facility] 12-27-2020 SARS-CoV-2 (COVID-19 ) Ad26 vaccine, recombinant Susanna Lue [facility] 12-18-2020 COVID-19 Vaccine Pfi zer - Documentation Purposes Only Sadiq Floyd Other [facility] 08-06-2020 influenza, seasonal, injectable Sadiq Floyd Other [facility] 08-10-2019 influenza virus vaccine, unspecified formulation Susanna Luzoë [facility] 08-10-2019 influenza, injectabl e, quadrivalent, preservative free Referring Provider Unknown [facility] 07-31-2019 influenza, seasonal, injectable Sadiq Floyd Other [facility] 07-31-2019 influenza virus vaccine, unspecified formulation Susanna Lue [facility] 09-01-2018 influenza virus vaccine, unspecified formulation Susanna Lue [facility] 09-01-2018 Influenza, injectabl e, Madin [place] Canine Kidney, preservative free, quadrivalent Referring Provider Unknown [facility] 09-03-2017 influenza virus vaccine, unspecified formulation Susanna Lue [facility] 09-03-2017 influenza, injectabl e, quadrivalent, preservative free Referring Provider Unknown [facility] 12-23-2015 tetanus toxoid, redu hailey diphtheria toxoid, and acellular pertussis vaccine, adsorbed Sadiq Floyd Other [facility] 12-23-2015 tetanus and diphther ia toxoids, adsorbed, preservative free, for adult use (5 Lf of tetanus toxoid and 2 Lf of diphtheria toxoid) DO Sadiq Floyd Work Phone: [facility] Payers Date Payer Category Payer Self-pay [id number] 2022 Medicare [id number] 2022 Private Health Insurance acc [id number] 2022 Medicare supplementa l policy (as second payer) [employer] SENIOR SUPPLEMENT [id number] 2022 Private Health Insurance [id number] .[id number] .[id number] 2022 Private Health Insurance ACC [id number] 2.16.840.1.046028.19 2022 Medicare [id number]. [id number] .[id number] 2022 Medicare [id number] 2.16.840.1.850241.19 2011 Private Health Insurance [employer] [id number] 1957 Unknown [id number] 2.16840.1.788407.3.579 .2.356 1957 Unknown [id number] 2.16.840.1.063063.3.579 .2.356 1957 Unknown [id number] 2.16.840.1.849453.3.579 .2.727 1957 Unknown [id number] 2.16.840.1.164080.3.579 .2.727 1957 Unknown [id number] 2.16.840.1.809697.3.579 .2.727 1957 Unknown [id number] 2.16.840.1.242771.3.579 .2. 1957 Unknown [id number] 2.16.840.1.986545.3.579 .2. 1957 Unknown [id number] 2.16.840.1.062302.3.579 .2. 1957 Unknown [id number] 2.16.840.1.210237.3.579 .2. 1957 Unknown [id number] 2.16.840.1.224203.3.579 .2. 1957 Unknown [id number] 2..840.1.210961.3.579 .2. 1957 Unknown [id number] 2.16.840.1.466874.3.579 .2.1245 1957 Unknown [id number] 2.840.1.671629.3.579 .2.1245 1957 Unknown [id number] 2.840.1.482805.3.579 .2.1245 1957 Unknown [id number] 2.16.840.1.938759.3.579 .2.1245 1957 Unknown [id number] 2.16840.1.461770.3.579 .2.1245 1957 Unknown [id number] 2.840.1.912282.3.579 .2.1258 1957 Unknown [id number] 2.16.840.1.879076.3.579 .2.1258 1957 Unknown [id number] 2.16840.1.432715.3.579 .2.1258 1957 Unknown [id number] 2.16.840.1.773819.3.579 .2.1258 1957 Unknown [id number] 2.16.840.1.453008.3.579 .2.1259 1957 Unknown [id number] 2.16.840.1.379983.3.579 .2.1258 1957 Unknown [id number] 2.16.840.1.166739.3.579 .2.9 1957 Unknown [id number] 2.16.840.1.059154.3.579 .2.1258 1957 Unknown [id number] 2.16.840.1.992400.3.579 .2.125 1957 Unknown [id number] 2.16840.1.326534.3.579 .2.1259 Blue Cross Blue Shield [id number] 2.16.840.1.246145.19 Unknown Unknown [id number] 2.16.840.1.533034.3.579 .2.531 Unknown [id number] 2.840.1.064411.3.579 .2.531 Unknown [id number] 2.16.840.1.707171.3.579 .2.531 Unknown [id number] 2.16.840.1.777576.3.579 .2.531 Unknown [id number] 2.16.840.1.761871.3.579 .2.531 Unknown [id number] 2.16840.1.510992.3.579 .2.531 Unknown [id number] 2.16840.1.452911.3.579 .2.531 Unknown [id number] 2.16840.1.696930.3.579 .2.531 Unknown [id number] 2.16840.1.148604.3.579 .2.531 Unknown [id number] 2.16.840.1.063767.3.579 .2.531 Social History Date Type Detail Facility Unknown if ever smoked [facility] Other Start: 10-19-2023 End: 04-07-2025 Sex Assigned At [facility] Start: 1955 Sex Assigned At Male [facility] Start: 02-05-2022 End: 06-02-2025 Tobacco smoking status NHIS Never smoked tobacco (finding) [facility] Start: 09-18-2012 End: 09-11-2022 Tobacco smoking status Never [facility] Start: 03-17-2023 End: 04-13-2025 Tobacco use and exposure Smokeless tobacco non-user [facility] Start: 11-19-2023 End: 05-17-2025 Alcohol intake Current drinker of alcohol (finding) [facility] Start: 10-19-2023 End: 04-07-2025 History of Social function [facility] Start: 06-21-2023 Alcohol Comment caffeine: coffee [facility] Start: 03-18-2023 Gender identity Identifies as male gender (finding) [facility] Start: 11-19-2023 End: 04-13-2025 Tobacco smoking status NHIS Ex-smoker [facility] Work Phone: History of tobacco use Current smoker [facility] History of tobacco use Cigarette Smoker [facility] Start: 11-19-2023 End: 06-13-2025 Alcohol intake Ex-drinker (finding) [facility] How often to you hav e a drink containing alcohol? 2-3 time sa week [facility] How many standard drinks containing alcohol do you have on a typical day? 1 or 2 [facility] How often do you hav e 6 or more drinks on 1 occasion? Never [facility] Start: 07-11-2018 End: 01-13-2025 Sex Male (finding) [facility] Sexual Orientation [facility] Start: 08-15-2013 Alcohol Comment it fluctuates 3-4 a day [facility] Start: 1955 Sex assigned at Not on file [facility] Tobacco smoking stat us OHIS Tobacco smoking consumption unknown [facility] Work Phone: Medical Equipment Procedure Code Equipment Code Equipment Original Text Equipment Identifier Dates CL STENT ISAK FRONTIER 4.0 X 15 FDA Start: 11-26-2023 CL STENT ISAK FRONTIER 4.0 X 15 FDA Start: 11-26-2023 CL STENT ISAK FRONTIER 4.0 X 15 FDA Start: 11-26-2023 CL STENT ISAK FRONTIER 4.0 X 15 FDA Start: 11-26-2023 CL STENT ISAK FRONTIER 4.0 X 15 FDA Start: 11-26-2023 CL STENT ISAK FRONTIER 4.0 X 15 FDA Start: 11-26-2023 CL STENT ISAK FRONTIER 4.0 X 15 FDA Start: 11-26-2023 CL STENT ISAK FRONTIER 4.0 X 15 FDA Start: 11-26-2023 CL STENT ISAK FRONTIER 4.0 X 15 FDA Start: 11-26-2023 CL STENT ISAK FRONTIER 4.0 X 15 FDA Start: 11-26-2023 CL STENT ISAK FRONTIER 4.0 X 15 FDA Start: 11-26-2023 CL STENT ISAK FRONTIER 4.0 X 15 FDA Start: 11-26-2023 CL STENT ISAK FRONTIER 4.0 X 15 FDA Start: 11-26-2023 CL STENT ISAK FRONTIER 4.0 X 15 FDA Start: 11-26-2023 CL STENT ISAK FRONTIER 4.0 X 15 FDA Start: 11-26-2023 CL STENT ISAK FRONTIER 4.0 X 15 FDA Start: 11-26-2023 CL STENT ISAK FRONTIER 4.0 X 15 FDA Start: 11-26-2023 CL STENT ISAK FRONTIER 4.0 X 15 FDA Start: 11-26-2023 CL STENT ISAK FRONTIER 4.0 X 15 FDA Start: 11-26-2023 [employer] Implant - [id number] Start: 09-18-2014 Comment on above: Description: G7 acet abular shell Head Fem 40mm Hi p Opt Blx D - [id number] Start: 09-18-2014 Comment on above: Description: Ceramic head Ins Fem 40mm Std Hip Blx D Opt - [id number] Start: 09-18-2014 Comment on above: Description: Standar d neck Liner G7 Neutral E1 40mm - [id number] Start: 09-18-2014 Comment on above: Description: G7 acet abular liner Stem Fem 150mm 15mm Tapr Hi - [id number] Start: 09-18-2014 Comment on above: Description: taperlo c complete primary femoral porous coated stem reduced distal CL STENT ISAK FRONTIER 4.0 X 15 FDA Start: 11-26-2023 CL STENT ISAK FRONTIER 4.0 X 15 FDA Start: 11-26-2023 CL STENT ISAK FRONTIER 4.0 X 15 FDA Start: 11-26-2023 CL STENT ISAK FRONTIER 4.0 X 15 FDA Start: 11-26-2023 CL STENT ISAK FRONTIER 4.0 X 15 FDA Start: 11-26-2023 CL STENT ISAK FRONTIER 4.0 X 15 FDA Start: 11-26-2023 CL STENT ISAK FRONTIER 4.0 X 15 FDA Start: 11-26-2023 CL STENT ISAK FRONTIER 4.0 X 15 FDA Start: 11-26-2023 CL STENT ISAK FRONTIER 4.0 X 15 FDA Start: 11-26-2023 CL STENT ISAK FRONTIER 4.0 X 15 FDA Start: 11-26-2023 Goals Date Patient Goal Desired Activity /State Functional Status Date Assessment Result Facility 06-08-2024 Functional Status N/A [facility] 01-03-2024 Functional Status N/A [facility] 09-30-2023 Functional status Patient at [facility] Work Phone: 09-29-2023 Functional status Patient at Baseline [facility] Work Phone: 11-06-2022 Functional Status N/A [facility] 12-10-2014 Are you deaf, or do you have serious difficulty hearing No 12/10/2014 9:25 AM Cecilia Mcdermott MA No [facility] 12-10-2014 Are you blind, or do you have serious difficulty seeing, even when wearing glasses No 12/10/2014 9:25 AM Cecilia Mcdermott MA No [facility] 12-10-2014 Do you have serious difficulty walking or climbing stairs No 12/10/2014 9:25 AM Cecilia Mcdermott MA No [facility] 12-10-2014 Do you have difficul ty dressing or bathing No 12/10/2014 9:25 AM Cecilia Mcdermott MA No [facility] 12-10-2014 Because of a physica l, mental, or emotional condition, do you have difficulty doing errands alone such as visiting a physician's office or shopping No 12/10/2014 9:25 AM Cecilia Mcdermott MA No [facility] Mental Status Date Assessment Result Facility 09-30-2023 Cognitive function Cognitive Sta tus Patient at [facility] Work Phone: 09-29-2023 Cognitive function Cognitive Sta tus Patient at [facility] Work Phone: 12-10-2014 Because of a physica l, mental, or emotional condition, do you have serious difficulty concentrating, remembering, or making decisions No 12/10/2014 9:25 AM Cecilia Mcdermott MA No [facility] Clinical Notes 10-18-2009 to 07-23-2025 Kingsley Loera, [facility] - 06/13/2025 8:45 AM EDT Note Date & Type Note Facility 07-23-2025 Note HNO ID: [id number] Author: Osorio ARTEAGA MD Service: ? Author Type: Physician Type: Progress Notes Filed: 07/23/2025 14:44 Note Text: MARIANA BARNES [id number] 07/23/[address] [facility] Department of Radiation Oncology [facility] RADIATION ONCOLOGY BRACHYTHERAPY TREATMENT PLANNING NOTE For reasons stated in the consult note, MARIANA BARNES is a candidate for definitive radiation. Based on review and interpretation of the relevant diagnostic studies together with the exam findings, MARIANA BARNES was simulated on 07/18/2025 and the target volume to be treated as well as the critical normal structure(s) were delineated as indicated in the simulation note. I personally reviewed the TRUS and was able to create contours of the volume to be treated and the normal critical structures to be spared. In this particular case, the rectum was deemed to be a critical structure. Special consideration of this was given in light of the potential for increased toxicity if the rectum receives too much radiation dose. After participating in the treatment planning process with medical physics, I approved the best plan to deliver my prescribed course of radiation. The target tissue was planned using pre-planning to allow for the best isodose distribution to deliver a minimum dose of 145 Gy to the prostate. The dose to normal tissue (rectum) and target tissue was confirmed upon review of the calculated dose superimposed on the TRUS images containing the target tissue and the rectum. A completed summary of this plan dated 07/23/2025 incorporated herein by reference includes dose, energy, isodose distribution and DVH. Electronically Signed Haja Arteaga M.D. / [place] 52:44 PM [facility] 07-18-2025 Note HNO ID: [id number] Author: Osorio ARTEAGA MD Service: ? Author Type: Physician Type: Progress Notes Filed: 07/18/2025 10:23 Note Text: UNIVERSAL PROTOCOL / SAFETY CHECKLIST Procedure to be Performed: Prostate volume study Sign In: A Moment of CARE was completed. Appropriate PPE (Personal Protective Equipment) worn by all providers involved with the procedure. Special equipment utilized prostate transrectal ultrasound with stepper. Patient/Surrogate Stated/Verified: Patient name, Date of , Relevant allergies, and The intended procedure Time Out: Relevant labs, photos, and/or imaging studies have been reviewed. Intended patient and procedure match the source document(s) (e.g. consent, HANDP, associated studies [imaging, pathology]) match the intended patient and procedure. Consent obtained and matches the intended procedure. Yes. Correct side/site is not applicable. Medications required for this procedure are verified. Fire risk assessed and is not applicable. Implants: are not applicable. Sign Out: Specimens not collected. All instruments, equipment, possible retained foreign bodies are accounted for. Yes. The post-procedure plan of care has been communicated to the patient or surrogate. Osorio Arteaga MD [facility] 07-18-2025 Note HNO ID: [id number] Author: Osorio ARTEAGA MD Service: ? Author Type: Physician Type: Progress Notes Filed: 07/20/2025 14:57 Note Text: MARIANA BARNES [id number] 07/18/[address] [facility] Department of Radiation Oncology [facility] RADIATION ONCOLOGY SIMULATION NOTE DATE OF SIMULATION: 07/18/2025 MACHINE: Thermal Nomad Flex Focus 500 Diagnosis: 185 (Prostate Gland) AREA:Prostate PATIENT POSITION: Supine CONTRAST: None PROTOCOL: None CONCURRENT THERAPY: None FIXATION DEVICE: UTS Stabilization device by [employer]. PROCEDURE: Patient was simulated in exaggerated dorsal lithotomy position. Serial images of the prostate were acquired using TRUS and reconstructed in 3D space. These images were imported into [employer] Prostate planning system where a plan was generated. ASSESSMENT/PLAN: Patient tolerated simulation procedure well. Electronically Signed Haja Arteaga M.D. / [place] 52:57 PM [facility] 06-13-2025 History of Present illness Narrative Images from the original note were not included. Reason for Appointment Established patient: Recheck onychomycosis/Nailcare. History of Present Illness Established patient presents with thickened, discolored, mycotic toenails. Patient applies Tolcylen to all toenails twice day and nystatin powder once a day. Patient has no pain to the toenails. PCP and last visit: Dr. Floyd 06-08-2025. Review of Systems General: Chills denies. Fatigue denies. Fever denies. Night sweats denies. Endocrine: Hyperpigmentation denies. Diabetes admits. Weakness denies. Cardiovascular: Chest pain denies. Shortness of breath denies. Gastrointestinal: Constipation denies. Diarrhea denies. Nausea denies. Vomiting denies. Hematology: Anemia denies. Bleeding problems denies. Easy bruising denies. Musculoskeletal: Bone/joint symptoms denies. Leg cramps denies. Peripheral Vascular: Edema denies. Rest pain denies. Varicose veins denies. Raynaud's denies. Skin: Ulceration denies. Nail changes denies. Rash denies. Skin lesion(s) denies. Neurologic: Dizziness denies. Gait abnormality denies. Headache denies. Tingling/Numbness denies. Examination General Examination: GENERAL EXAMINATION: awake, aware of surroundings, in no acute distress. Diabetic Foot Exam: Date: 12-19-2024 Sensations: diminished Strength: normal Pedal Pulses: +2 Vascular: DORSALIS PEDIS PULSE: bilaterally, 2/4. POSTERIOR TIBIAL PULSE: bilaterally, 2/4. TEMPERATURE GRADIENT: warm to cool. EDEMA: bilateral ankle. VARICOSITIES: present bilaterally. CAPILLARY FILLING TIME(sec): capillary fill intact bilateral digits less than 3 secs. Neurologic: VIBRATORY: normal. SEMMES-AMBERLY 5.07 MONOFILAMENT: normal. Dermatologic: SKIN FINDINGS: texture, turgor, hair growth, within normal limits. HYPERKERATOSIS: Painful callus/keratoderma x 2 left foot sub fifth MPJ region - Resolved status post excision of painful callus/keratoderma x 2 left foot, DOS: 12-25-24 NAIL PATHOLOGY: toenails 1-5 bilateral intact. Nail Pathology Right: 1 Long, Thick, Crumbly, Deformed, Discolored, Brittle, Dystrophic. 2 Long, non-dystrophic. 3 Long, non-dystrophic. 4 Long, non-dystrophic. 5 Long, Thick, Crumbly, Deformed, Discolored, Brittle, Dystrophic. Nail Pathology Left: 1 Long, Thick, Crumbly, Deformed, Discolored, Brittle, Dystrophic. 2 Long, Thick, Crumbly, Deformed, Discolored, Brittle, Dystrophic. 3 Long, non-dystrophic. 4 Long, non-dystrophic. 5 Long, Thick, Crumbly, Deformed, Discolored, Brittle, Dystrophic. Ankle / Foot: RANGE OF MOTION: full range of motion without pain. MUSCLE STRENGTH: 5/5. Orthopedic: DEFORMITIES: fat pad atrophy bilateral forefoot. SHOE GEAR EVALUATION: Spootr nylon mesh athletic shoes. Assessments - Dermatophytosis of nail - B35.1 - Mycotic toenails 1,5 right and 1,2,5 left - Deformity of toenail - L60.8 - Non-dystrophic toenails 2,3,4 right and 3,4 left - Asymptomatic varicose veins - I83.90 - Diabetes mellitus- E11.9 - Lower extremity edema - Fat pad atrophy of foot Treatment Dermatophytosis of nail 1. Patient seen today for follow up examination. 2. I debrided elongated, mycotic toenails 1,5 right and 1,2,5 left via manual and mechanical means in office. 3. Patient should wash and dry bilateral foot twice a day and apply topical Tolcylen twice a day to all ten toenails until full resolution of onychomycosis. 4. Patient should continue to apply Nystatin Powder twice a day to bilateral foot webspaces, post bathing, to assist with moisture and fungal reduction and prevention. 5. Patient should self debride toenails with emery board, not using same surface twice, to avoid recontamination. 6. Patient should continue to apply Clean Sweep to shoes daily to reduce bacteria, fungus and odor to shoes. 7. Reappoint 3 months. Deformity of toenail 1. Patient seen today for follow up examination. 2. I debrided elongated, non-dystrophic toenails 2,3,4 right and 3,4 left via manual and mechanical means in office. 3. Reappoint in 3 months. Diabetes Mellitus 1. Patient seen today for follow-up examination . 2. Patient advised to always maintain proper diabetic control. 3. Patient advised to wash and dry bilateral foot once daily and apply a good moisturizing cream to bilateral lower extremity, except for in between toes, post bathing to keep skin from becoming too dry. 4. Patient advised to perform daily foot inspections and observe for any signs of skin breakdown. documented in this encounter [facility] 06-08-2025 Evaluation note Authored June 08, 2025 12:31pm The above note written by __ _Riccardo Driver____ acting as human recorder, note dictated by Dr. Pham .I performed the above HPI, ROS, and Examination. I formulated and dictated the treatment plan and was present for entire encounter. Sadiq Floyd D.O. Author [facility] Authored April 16, 2025 10:3 8am The above note written by __ _Riccardo Driver____ acting as human recorder, note dictated by Dr. Pham .I performed the above HPI, ROS, and Examination. I formulated and dictated the treatment plan and was present for entire encounter. Sadiq Floyd D.O. [facility] Work Phone: 1(376) 560-492508-22-2025 Evaluation note* Author Sadiq Floyd [facility] Authored June 08, 2025 12 :31pm The above note written by __ _Riccardo Driver____ acting as human recorder, note dictated by Dr. Pham .I performed the above HPI, ROS, and Examination. I formulated and dictated the treatment plan and was present for entire encounter. Sadiq Floyd D.O. Author [facility] Authored April 16, 2025 10:3 8am The above note written by __ _Riccardo Driver____ acting as human recorder, note dictated by Dr. Pham .I performed the above HPI, ROS, and Examination. I formulated and dictated the treatment plan and was present for entire encounter. Sadiq Floyd D.O. Author [facility] Authored July 02, 2025 2:50pm The above note written by __ _Riccardo Driver____ acting as human recorder, note dictated by Dr. Pham .I performed the above HPI, ROS, and Examination. I formulated and dictated the treatment plan and was present for entire encounter. Sadiq Floyd D.O. [facility] Work Phone: 1(113) 705-157808-22-2025 Evaluation note* Author Sadiq [facility] Authored June 08, 2025 12 :31pm The above note written by __ _Riccardo Driver____ acting as human recorder, note dictated by Dr. Pham .I performed the above HPI, ROS, and Examination. I formulated and dictated the treatment plan and was present for entire encounter. Sadiq Floyd D.O. Author [facility] Authored July 02, 2025 2:50pm The above note written by __ _Riccardo Driver____ acting as human recorder, note dictated by Dr. Pham .I performed the above HPI, ROS, and Examination. I formulated and dictated the treatment plan and was present for entire encounter. Sadiq Floyd D.O. [facility] Work Phone: 1(655) 771-786908-22-2025 Evaluation note* Author Sadiq [facility] Authored June 08, 2025 12 :31pm The above note written by __ _Riccardo Drievr____ acting as human recorder, note dictated by Dr. Pham .I performed the above HPI, ROS, and Examination. I formulated and dictated the treatment plan and was present for entire encounter. Sadiq Floyd D.O. Author [facility] Authored July 16, 2025 10:38am The above note written by __ _Riccardo Driver____ acting as human recorder, note dictated by Dr. Pham .I performed the above HPI, ROS, and Examination. I formulated and dictated the treatment plan and was present for entire encounter. Sadiq Floyd D.O. Author [facility] Authored July 02, 2025 2:50pm The above note written by __ _Riccardo Driver____ acting as human recorder, note dictated by Dr. Pham .I performed the above HPI, ROS, and Examination. I formulated and dictated the treatment plan and was present for entire encounter. Sadiq Floyd D.O. [facility] Work Phone: 1(864) 364-940708-16-2025 Radiology Diagnostic study [facility] [place] [address] CT Scan Report Signed Patient: Mariana Barnes MR#: [id number] 1965 : 1955 Acct:[id number] Age/Sex: 70 / M ADM Date: 5 Loc: ER Room: Type: [facility] ER Attending Dr: Copies to: Chavo Mejia DO~ Ordering Provider: Chavo Mejia DO Date of Service: 06/02/25 CT/CT chest w con: fall ([id number]) CT/CT abdomen pelvis w con: fall CT [...] Jr., D.O. 06/02/2025 7:03 PM Dictation Location: [facility]18 Transcribed By: [facility] 06/02/251902 Dictated By: Florian Hawkins Jr, DO 06/02/25 1856 Signed By: 06/02/251902 [facility]08-16-2025 Radiology Diagnostic study note [facility] [address] CT Scan Report Signed Patient: Mariana Barnes MR#: [id number] 1965 : 1955 Acct:[id number] Age/Sex: 70 / M ADM Date: 5 Loc: ER Room: Type: [facility] ER Attending Dr: Copies to: Chavo Mejia DO~ Ordering Provider: Chavo Mejia DO Date of Service: 06/02/25 CT/CT cervical spine wo con: fall ([id number]) CT/CT head/brain wo con: fall CT BRAIN WITHOUT CONTRAST: CLINICAL HISTORY: Fall. Facial pain. Laceration left knee. Laceration above left eyebrow. COMPARISON: CT brain 10/08/2023 TECHNIQUE: Contiguous axial unenhanced images were obtained through the brain. This CT exam was performed using one or more following dose reduction techniques: Automated exposure control, adjustmentof the mA and/or kV accordingto patient size, or use of iterative reconstruction [...] performed using one or more following dose reductiontechniques: Automated exposure control, adjustment of the mA and/or kV accordingto patient size, or use of iterative reconstruction technique. FINDINGS: Vertebral body heights appear maintained. No fracture. Endplate andfacet joint degenerative changes with moderate spondylosis C3-4. No prevertebral soft tissue swelling. IMPRESSION: NO CERVICAL SPINE FRACTURE Impression dictated by: Florian Hawkins Jr., DBenignoOBenigno 06/02/2025 6:52 PM Dictation Location: [place] [address] Transcribed By: [facility] 06/02/251851 Dictated By: Florian Hawkins Jr, DO 06/02/25 1845 Signed By: 06/02/251851 [facility]08-04-2025 Hospital Discharge instructions Patient Education 05/21/2025 15:14:45 Prostate Cancer Prostate Cancer The prostate is a small gland that produces fluid that makes up semen (seminal fluid). It is located below the bladder in men, in front of the rectum. Prostate cancer is the abnormal growth of cells in the prostate gland. What are the causes? The exact cause of this condition is not known. What increases the risk? You are more likely to develop this condition if: You are 65 years of age or older. You have a family history of prostate cancer. You have a family history of breast and ovarian cancer. You have genes that are passed from parent to child (inherited), such as BRCA1 and BRCA2. You have Mojica syndrome. men and men of descent are diagnosed with prostate cancer at higher rates than other men. The reasons for this are not well understood and are likely due to a combination of genetic and environmental factors. What are the signs or symptoms? Symptoms of this condition include: Problems with urination. This may include: ?A weak or interrupted flow of urine. ?Trouble starting or stopping urination. ?Trouble emptying the bladder all the way. ?The need to urinate more often, especially at night. Blood in urine or semen. Persistent pain or discomfort in the lower back, lower abdomen, or hips. Trouble getting an erection. Weakness or numbness in the legs or feet. How is this diagnosed? This condition can be diagnosed with: A digital rectal exam. For this exam, a health care provider inserts a gloved finger into the rectum to feel the prostate gland. A blood test called a prostate-specific antigen (PSA) test. A procedure in which a sample of tissue is taken from the prostate and checked under a microscope (prostate biopsy). An imaging test called transrectal ultrasonography. Once the condition is diagnosed, tests will be done to determine how far the cancer has spread. This is called staging the cancer. Staging may involve imaging tests, such as a bone scan, CT scan, PETscan, or MRI. Stages of prostate cancer The stages of prostate cancer are as follows: Stage 1 (I). At this stage, the cancer is found in the prostate only. The cancer is not visible on imaging tests, and it is usually found by accident, such as during prostate surgery. Stage 2 (II). At this stage, the cancer is more advanced than it is in stage 1, but the cancer has not spread outside the prostate. Stage 3 (III). At this stage, the cancer has spread beyond the outer layer of the prostate to nearby tissues. The cancer may be found in the seminal vesicles, which are near the bladder and the prostate. Stage 4 (IV). At this stage, the cancer has spread to other parts of the body, such as the lymph nodes, bones, bladder, rectum, liver, or lungs. Prostate cancer grading Prostate cancer is also graded according to how the cancer cells look under a microscope. This is called the Hallandale score and the total score can range from 6 10, indicating how likely it is that the cancer will spread (metastasize) to other parts of the body. The higher the score, the greater thelikelihood that the cancer will spread. Hallandale 6 or lower: This indicates that the cancer cells look similar to normal prostate cells (well differentiated). Jamie 7: This indicates that the cancer cells look somewhat similar to normal prostate cells (moderately differentiated). Jamie 8, 9, or 10: This indicates that the cancer cells look very different than normal prostate cells (poorly differentiated). How is this treated? Treatment for this condition depends on several factors, including the stage of the cancer, your age, personal preferences, and your overall health. Talk with your health care provider about treatment options that are recommended for you. Common treatments include: Observation for early stage prostate cancer (active surveillance). This involves having exams, blood tests, and in some cases, more biopsies. For some men, this is the only treatment needed. Surgery. Types of surgeries include: ?Open surgery (radical prostatectomy). In this surgery, a larger incision is made to remove the prostate. ?A laparoscopic radical prostatectomy. This is a surgery to remove the prostate and lymph nodes through several small incisions. It is often referred to as a minimally invasive surgery. ?A robotic radical prostatectomy. This is laparoscopic surgery to remove the prostate and lymph nodes with the help of robotic arms that are controlled by the surgeon. ?Cryoablation. This is surgery to freeze and destroy cancer cells. Radiation treatment. Types of radiation treatment include: ?External beam radiation. This type aims beams of radiation from outside the body at the prostate to destroy cancerous cells. ?Brachytherapy. This type uses radioactive needles, seeds, wires, or tubes that are implanted into the prostate gland. Like external beam radiation, brachytherapy destroys cancerous cells. An advantage is that this type of radiation limits the damage to surrounding tissue and has fewer side effects. Chemotherapy. This treatment kills cancer cells or stops them from multiplying. It kills both cancer cells and normal cells. Targeted therapy. This treatment uses medicines to kill cancer cells without damaging normal cells. Hormone treatment. This treatment involves taking medicines that act on testosterone, one of the male hormones, by: ?Stopping your body from producing testosterone. ?Blocking testosterone from reaching cancer cells. Follow these instructions at home: Lifestyle Do not use any products that contain nicotine or tobacco. These products include cigarettes, chewing tobacco, and vaping devices, such as e-cigarettes. If you need help quitting, ask your health careprovider. Eat a healthy diet. To do this: ?Eat foods that are high in fiber. These include beans, whole grains, and fresh fruits and vegetables. ?Limit foods that are high in fat and sugar. These include fried or sweet foods. Treatment for prostate cancer may affect sexual function. If you have a partner, continue to have intimate moments. This may include touching, holding, hugging, and caressing your partner. Get plenty of sleep. Consider joining a support group for men who have prostate cancer. Meeting with a support group mayhelp you learn to manage the stress of having cancer. General instructions Take cncr-cdt-hcfykoo and prescription medicines only as told by your health care provider. If you have to go to the hospital, notify your cancer specialist (oncologist). Keep all follow-up visits. This is important. Where to find more information [employer]: www.cancer.org [place] [employer]: www.cancer.net [employer] Cancer [place]: www.cancer.gov Contact a health care provider if: You have new or increasing trouble urinating. You have new or increasing blood in your urine. You have new or increasing pain in your hips, back, or chest. Get help right away if: You have weakness or numbness in your legs. You cannot control urination or your bowel movements (incontinence). You have chills or a fever. Summary The prostate is a small gland that is involved in the production of semen. It is located below a man's bladder, in front of the rectum. Prostate cancer is the abnormal growth of cells in the prostate gland. Treatment for this condition depends on the stage of the cancer, your age, personal preferences, and your overall health. Talk with your health care provider about treatment options that are recommended for you. Consider joining a support group for men who have prostate cancer. Meeting with a support group mayhelp you learn to manage the stress of having cancer. This information is not intended to replace advice given to you by your health care provider. Make sure you discuss any questions you have with your health care provider. Document Revised: 12/31/2021 Document Reviewed: 12/31/2021 Elsevier Patient Education 2023 [employer]. Follow Up Care 05/18/2025 08:57:40 With:Jefferson MORRISON, JUSTIN Steven, URO Address: When: Unknown [facility] 08-04-2025 NotePatient Education Oncology Prostate Cancer The prostate is a small gland that produces fluid that makes up semen (seminal fluid). It is located below the bladder in men, in front of the rectum. Prostate cancer is the abnormal growth of cells in the prostate gland. What are the causes? The exact cause of this condition is not known. What increases the risk? You are more likely to develop this condition if: ??? You are 65 years of age or older. ??? You have a family history of prostate cancer. ??? You have a family history of breast and ovarian cancer. ??? You have genes that are passed from parent to child (inherited), such as BRCA1 and BRCA2. ??? You have Mojica syndrome. men and men of descent are diagnosed with prostate cancer at higher rates than other men. The reasons for this are not well understood and are likely due to a combination of genetic and environmental factors. What are the signs or symptoms? Symptoms of this condition include: ??? Problems with urination. This may include: ? A weak or interrupted flow of urine. ? Trouble starting or stopping urination. ? Trouble emptying the bladder all the way. ? The need to urinate more often, especially at night. ??? Blood in urine or semen. ??? Persistent pain or discomfort in the lower back, lower abdomen, or hips. ??? Trouble getting an erection. ??? Weakness or numbness in the legs or feet. How is this diagnosed? This condition can be diagnosed with: ??? A digital rectal exam. For this exam, a health care provider inserts a gloved finger into the rectum to feel the prostate gland. ??? A blood test called a prostate-specific antigen (PSA) test. ??? A procedure in which a sample of tissue is taken from the prostate and checked under a microscope (prostate biopsy). ??? An imaging test called transrectal ultrasonography. Once the condition is diagnosed, tests will be done to determine how far the cancer has spread. This is called staging the cancer. Staging may involve imaging tests, such as a bone scan, CT scan, PETscan, or MRI. Stages of prostate cancer The stages of prostate cancer are as follows: ??? Stage 1 (I). At this stage, the cancer is found in the prostate only. The cancer is not visibleon imaging tests, and it is usually found by accident, such as during prostate surgery. ??? Stage 2 (II). At this stage, the cancer is more advanced than it is in stage 1, but the cancer has not spread outside the prostate. ??? Stage 3 (III). At this stage, the cancer has spread beyond the outer layer of the prostate to nearby tissues. The cancer may be found in the seminal vesicles, which are near the bladder and the prostate. ??? Stage 4 (IV). At this stage, the cancer has spread to other parts of the body, such as the lymph nodes, bones, bladder, rectum, liver, or lungs. Prostate cancer grading Prostate cancer is also graded according to how the cancer cells look under a microscope. This is called the Hallandale score and the total score can range from 6?10, indicating how likely it is that the cancer will spread (metastasize) to other parts of the body. The higher the score, the greater thelikelihood that the cancer will spread. ??? Jamie 6 or lower: This indicates that the cancer cells look similar to normal prostate cells (well differentiated). ??? Hallandale 7: This indicates that the cancer cells look somewhat similar to normal prostate cells (moderately differentiated). ??? Hallandale 8, 9, or 10: This indicates that the cancer cells look very different than normal prostate cells (poorly differentiated). How is this treated? Treatment for this condition depends on several factors, including the stage of the cancer, your age, personal preferences, and your overall health. Talk with your health care provider about treatment options that are recommended for you. Common treatments include: ??? Observation for early stage prostate cancer (active surveillance). This involves having exams, blood tests, and in some cases, more biopsies. For some men, this is the only treatment needed. ??? Surgery. Types of surgeries include: ? Open surgery (radical prostatectomy). In this surgery, a larger incision is made to remove the prostate. ? A laparoscopic radical prostatectomy. This is a surgery to remove the prostate and lymph nodes through several small incisions. It is often referred to as a minimally invasive surgery. ? A robotic radical prostatectomy. This is laparoscopic surgery to remove the prostate and lymph nodes with the help of robotic arms that are controlled by the surgeon. ? Cryoablation. This is surgery to freeze and destroy cancer cells. ??? Radiation treatment. Types of radiation treatment include: ? External beam radiation. This type aims beams of radiation from outside the body at the prostate to destroy cancerous cells. ? Brachytherapy. This type uses radioactive needles, seeds, wires, o (more content not included)...[facility]07-31-2025 NoteHNO ID: [id number] Author: SELMA RING RN Service: ? Author Type: Registered Nurse Type: Progress Notes Filed: 05/17/2025 14:50 Note Text: Radiation Therapy - Patient Education Note PATIENT NAME: Mariana Barnes PATIENT May 17, 2025 [facility] FACILITY/LOCATION: [facility] READINESS TO LEARN Cognitive Ability: Alert and oriented Motivation to learn: Interested Family Support: High - Very involved in pt care Instruction provide to: Patient and Spouse Patient learns best by: Multiple Methods Factors effecting learning: None Physical limitations effecting learning: None LEARNING RESPONSE Diagnosis: Pt simulated today for radiation therapy to prostate. Education Topic/Teaching Points: radiation scheduling, side effects, safety precautions: Method of instruction: Written instruction/Handouts Verbal instruction Patient /Family response: Patient and family verbalized understanding of radiation treatments, side effects, OTV, and transportation. Follow-up plan: Patient instructed to call with any further issues Recommend - Recommend continued instruction and follow up as directed Contact information given. Supplemental material: Informational handouts on Prostate brachytherapy. Referral (recommendation): None, Pt denied need for social work, van service, and paramedic rn. Was PED reviewed? No Patient has an Onbody or Implanted device: No Signed [facility]: Sel[facility] History of Present illness Narrative* Selma Ring RN - 05/17/2025 2:48 PM EDT Radiation Therapy - Patient Education Note PATIENT NAME: Mariana Barnes PATIENT May 17, 2025 [facility] FACILITY/LOCATION: [facility] READINESS TO LEARN Cognitive Ability: Alert and oriented Motivation to learn: Interested Family Support: High - Very involved in pt care Instruction provide to: Patient and Spouse Patient learns best by: Multiple Methods Factors effecting learning: None Physical limitations effecting learning: None LEARNING RESPONSE Diagnosis: Pt simulated today for radiation therapy to prostate. Education Topic/Teaching Points: radiation scheduling, side effects, safety precautions: Method of instruction: Written instruction/Handouts Verbal instruction Patient /Family response: Patient and family verbalized understanding of radiation treatments, sideeffects, OTV, and transportation. Follow-up plan: Patient instructed to call with any further issues Recommend - Recommend continued instruction and follow up as directed Contact information given. Supplemental material: Informational handouts on Prostate brachytherapy. Referral (recommendation): None, Pt denied need for social work, van service, and paramedic rn. Was PED reviewed? No Patient has an Onbody or Implanted device: No Signed by: Selma Ring RN [facility] NoteHNO ID: [id number] Author: Osorio ARTEAGA MD Service: ? Author Type: Physician Type: Progress Notes Filed: 05/24/2025 13:21 Note Text: Radiation Oncology - Prostate Cancer New Patient/Consult Note PATIENT NAME: Mariana Barnes PATIENT REQUESTING PROVIDER: Dr. Paulino DIAGNOSIS: Prostate adenocarcinoma, initial PSA 3.3, biopsy Hallandale score 3 + 4 = 7 (grade group 2), clinical stage T2a, N0, M0, stage IIB [T1-T2, N0, M0, PSA <20, GG 2] (AJCC 8th ed.), s/p biopsy. NCCN Risk Group: Favorable Intermediate Risk Group HPI: Patient in for further follow-up. Decipher genomic score 0.57, intermediate risk group PSA history: 04/04/2021 1.41 with 15% free 09/26/2021 2.29 at 16%. 02/24/2022 1.9: 17%. 09/08/2022 2.11 of 16%. 03/10/2023 1.64 with 24% free 06/02/2024 2.15 with 15% free 08/03/2024 3.07, repeated 01/12/2025 3.3 with 12% free. Select MDX has been done in October 2022 with 40% likelihood of prostate cancer on biopsy, 14% [place] greater than equal to 7 MRI prostate 02/22/2025 demonstrated a 23 cc gland.Ill-defined T2 hypodensity anterior left transitional zone measuring 17 x 10 mm described, PI-RADS 5. No evidence of seminal vesicle involvement or extraprostatic extension. No evidence of other pelvic findings. Prostate biopsy on March 28, 2025 revealed: 28.7 cc gland, small midline exophytic nodule on ALISIA mildly enlarged prostate, biopsies demonstrating Jamie 7 (3+4) from the left transitional peripheral zone BX region of interest (4 /4 cores), and [place] 6 adenocarcinoma from the left anterior, left anterior medial, right anterior medial, right anterior lateral cores.. Total # of positive biopsy cores: 8 including 4/4 Region of interest Total # of biopsy cores sampled: 14 Greatest % cancer in any single core: 25-50% Has had Decipher genomic testing sent. Staging Studies: MR Results: See HPI Previous Treatment for Prostate Cancer: None Genomic Testing: Decipher Results: Pending The patient reports the following pertinent history: Urinary frequency (D/N): 4-6/1 Dysuria: No Incontinence: 1- No pads Hematuria: No - Total AUA Score: 8 Bowel Movement Frequency: 1/day Bowel Movement Quality: Normal Blood per Rectum: No Last Colonoscopy: na Baseline Erectile Function: intact Androgen Deprivation: none Prior Radiation Therapy, Collagen Vascular Disease, or Inflammatory Bowel Disease: No Any implanted or external electric devices? No Currently on Anticoagulation: No History of Hip Replacement: No History of Prior TURP: No ALLERGIES Allergen Reactions Cefdinir Hives Patient states he was unsure what the allegry is, states it was a long time ago. Hydrochlorothiazide Unknown Pt states PCP said he was allergic fluticasone (FLONASE) 50 mcg/actuation nasal spray 2 sprays. tolnaftate (TINACTIN) 1 % external solution Apply to affected area. dapagliflozin propanediol (FARXIGA) 5 mg tablet Take 5 mg by mouth daily with breakfast. glimepiride (AMARYL) 1 mg tablet Take 1 mg by mouth daily with breakfast. lisinopril (ZESTRIL) 10 mg tablet Take 10 mg by mouth once daily. metFORMIN (GLUCOPHAGE) 500 mg tablet Take 1,000 mg by mouth two times a day with meals. metoprolol succinate ER (TOPROL XL) 25 mg 24 hr tablet Take 25 mg by mouth once daily. Tadalafil (CIALIS) 10 mg tablet Take 10 mg by mouth once daily as needed. tamsulosin (FLOMAX) 0.4 mg Take 0.4 mg by mouth once daily. nystatin (MYCOSTATIN) powder Apply 1 application to affected area as directed. rosuvastatin (CRESTOR) 10 mg tablet Take 1 tablet by mouth daily at bedtime. PAST MEDICAL HISTORY Diagnosis Date Arthritis Fibromatosis, plantar High cholesterol Osteoarthritis Smoking many years ago quit smoking Unspecified essential hypertension Essential hypertension PAST SURGICAL HISTORY Procedure Laterality Date PAST SURGICAL HISTORY OF 7th grade non malignant cyst left ankle TOTAL HIP REPLACEMENT Right FAMILY HISTORY Problem Relation Age of Onset Arthritis Father Diabetes Mother Diabetes Brother other (had stent [Other]) Father Social History Tobacco Use Smoking status: Former Types: Cigarettes Smokeless tobacco: Never Substance Use Topics Alcohol use: Yes Comment: it fluctuates 3-4 a day Drug use: No REVIEW OF SYSTEMS: GENERAL: feeling well without fatigue, no recent change in weight NECK: denies swelling or pain in neck RESPIRATORY: no cough, no wheezing or shortness of breath CARDIOVASCULAR: no chest pain, no palpitations MUSCULOSKELETAL: denies any painful or swollen joints, no muscle aches SKIN: no rash NEURO: no numbness or paresthesias and no weakness of the extremities As noted in HPI PHYSICAL EXAM: VS: BP 128/81 Pulse 79 Temp 36.5 ?C (97.7 ?F) Resp 16 Wt 87.2 kg (192 lb 3.9 oz) SpO2 100% BMI 29.23 kg/m? KARNOFSKY PERFORMANCE STATUS: 100 General Appearance: Alert and oriented. No acute distress. HEENT: N (more content not included)...[facility]07-31-2025 Note Education (RADTSA) MARIANA BARNES ([id number]) 1955 M Date Time Provider Department 05/17/25 SELMA RING Reason for Visit: Patient Education [91] Primary Visit Diagnosis:Malignant neoplasm of prostate (HCC) [C61] During your visit today, we recorded the following information about you: Allergies As of Date: 05/17/2025 Noted Allergy Reaction CEFDINIR 04/06/2025 4 - Hives Comments: Patient states he was unsure what the allegry is, states it was a long time ago. HYDROCHLOROTHIAZIDE 04/13/2025 16 - Unknown Comments: Pt states PCP said he was allergic Date Reviewed: 05/17/2025 Reviewed by: Selma Ring, RN - Fully Assessed Prescriptions as of 05/17/2025 - fluticasone (FLONASE) 50 mcg/actuation nasal spray 2 sprays. - tolnaftate (TINACTIN) 1 % external solution Apply to affected area. - dapagliflozin propanediol (FARXIGA) 5 mg tablet Take 5 mg by mouth daily with breakfast. - glimepiride (AMARYL) 1 mg tablet Take 1 mg by mouth daily with breakfast. - lisinopril (ZESTRIL) 10 mg tablet Take 10 mg by mouth once daily. - metFORMIN (GLUCOPHAGE) 500 mg tablet Take 1,000 mg by mouth two times a day with meals. - metoprolol succinate ER (TOPROL XL) 25 mg 24 hr tablet Take 25 mg by mouth once daily. - Tadalafil (CIALIS) 10 mg tablet Take 10 mg by mouth once daily as needed. - tamsulosin (FLOMAX) 0.4 mg Take 0.4 mg by mouth once daily. - nystatin (MYCOSTATIN) powder Apply 1 application to affected area as directed. - rosuvastatin (CRESTOR) 10 mg tablet Take 1 tablet by mouth daily at bedtime. Encounter Status:Closed by SELMA RING on 05/17/25[facility] 04-16-2025 Evaluation note* Author Sadiq Floyd [facility] Authored April 16, 2025 10:3 8am The above note written by __ _Riccardo Driver____ acting as human recorder, note dictated by Dr. Pham .I performed the above HPI, ROS, and Examination. I formulated and dictated the treatment plan and was present for entire encounter. Sadiq Floyd D.O. [facility] Work Phone: [phone]) 912-479506-27-2025 History of Present illness Narrative* Osorio Arteaga MD - 04/13/2025 9:35 AM EDT Radiation Oncology - Prostate Cancer New Patient/Consult Note PATIENT NAME: Mariana Barnes PATIENT REQUESTING PROVIDER: Dr. Paulino DIAGNOSIS: 69 year old male with prostate adenocarcinoma, initial PSA 3.3, biopsy Jamie score 3 +4 = 7 (grade group 2), clinical stage T2a, N0, M0, stage IIB [T1-T2, N0, M0, PSA <20, GG 2] (AJCC 8th ed.), s/p biopsy. NCCN Risk Group: Favorable Intermediate Risk Group HPI: 69 year old male with prostate adenocarcinoma who presents for an opinion regarding the role of radiation therapy in the management of the patient's disease. Final recommendations will be communicated back to the requesting physician by way of the shared medical record, or letter to requestingphysician via [place] mail. The patient was diagnosed with prostate cancer and comes in today to discuss treatment options. Patient presented with a rising PSA. PSA 08/03/2024 3.07, repeated 01/12/2025 3.3 with 12% free. PSA history: 04/04/2021 1.41 with 15% free 09/26/2021 2.29 at 16%. 02/24/2022 1.9: 17%. 09/08/2022 2.11 of 16%. 03/10/2023 1.64 with 24% free 06/02/2024 2.15 with 15% free Select MDX has been done in October 2022 with 40% likelihood of prostate cancer on biopsy, 14% Jamie greater than equal to 7 MRI prostate 02/22/2025 demonstrated a 23 cc gland.Ill-defined T2 hypodensity anterior left transitional zone measuring 17 x 10 mm described, PI-RADS 5. No evidence of seminal vesicle involvement or extraprostatic extension. No evidence of other pelvic findings. Prostate biopsy on March 28, 2025 revealed: 28.7 cc gland, small midline exophytic nodule on ALISIA mildly enlarged prostate, biopsies demonstrating Jamie 7 (3+4) from the left transitional peripheral zone BX region of interest (4 /4 cores), and Jamie 6 adenocarcinoma from the left anterior, left anterior medial, right anterior medial, right anterior lateral cores.. Total # of positive biopsy cores: 8 including 4/4 Region of interest Total # of biopsy cores sampled: 14 Greatest % cancer in any single core: 25-50% Has had Decipher genomic testing sent. Staging Studies: MR Results: See HPI Previous Treatment for Prostate Cancer: None Genomic Testing: Decipher Results: Pending The patient reports the following pertinent history: Urinary frequency (D/N): 4-6/ Dysuria: No Incontinence: 1- No pads Hematuria: No - Total AUA Score: 8 Bowel Movement Frequency: 1/day Bowel Movement Quality: Normal Blood per Rectum: No Last Colonoscopy: na Baseline Erectile Function: intact Androgen Deprivation: none Prior Radiation Therapy, Collagen Vascular Disease, or Inflammatory Bowel Disease: No Any implanted or external electric devices? No Currently on Anticoagulation: No History of Hip Replacement: No History of Prior TURP: No ALLERGIES Allergen Reactions Cefdinir Hives Patient states he was unsure what the allegry is, states it was a long time ago. Hydrochlorothiazide Unknown Pt states PCP said he was allergic fluticasone (FLONASE) 50 mcg/actuation nasal spray 2 sprays. tolnaftate (TINACTIN) 1 % external solution Apply to affected area. dapagliflozin propanediol (FARXIGA) 5 mg tablet Take 5 mg by mouth daily with breakfast. glimepiride (AMARYL) 1 mg tablet Take 1 mg by mouth daily with breakfast. lisinopril (ZESTRIL) 10 mg tablet Take 10 mg by mouth once daily. metFORMIN (GLUCOPHAGE) 500 mg tablet Take 1,000 mg by mouth two times a day with meals. Tadalafil (CIALIS) 10 mg tablet Take 10 mg by mouth once daily as needed. tamsulosin (FLOMAX) 0.4 mg Take 0.4 mg by mouth once daily. nystatin (MYCOSTATIN) powder Apply 1 application to affected area as directed. rosuvastatin (CRESTOR) 10 mg tablet Take 1 tablet by mouth daily at bedtime. metoprolol succinate ER (TOPROL XL) 25 mg 24 hr tablet Take 25 mg by mouth once daily. (Patient nottaking: Reported on 04/13/2025) PAST MEDICAL HISTORY Diagnosis Date Arthritis Fibromatosis, plantar High cholesterol Osteoarthritis Smoking many years ago quit smoking Unspecified essential hypertension Essential hypertension PAST SURGICAL HISTORY Procedure Laterality Date PAST SURGICAL HISTORY OF 7th grade non malignant cyst left ankle TOTAL HIP REPLACEMENT Right FAMILY HISTORY Problem Relation Age of Onset Arthritis Father Diabetes Mother Diabetes Brother other (had stent [Other]) Father Social History Tobacco Use Smoking status: Former Types: Cigarettes Smokeless tobacco: Never Substance Use Topics Alcohol use: Yes Comment: it fluctuates 3-4 a day Drug use: No REVIEW OF SYSTEMS: GENERAL: feeling well without fatigue, no recent change in weight NECK: denies swelling or pain in neck RESPIRATORY: no cough, no wheezing or shortness of breath CARDIOVASCULAR: no chest pain, no palpitations MUSCULOSKELETAL: denies any painful or swollen joints, no muscle aches SKIN: no rash NEURO: no numbness or paresthesias and no weakness of the extremities As noted in HPI PHYSICAL EXAM: VS: BP (P) 130/83 Pulse (P) 93 Temp (P) 36.4 C (97.5 F) Resp (P) 16 Wt (P) 88.7 kg (195 lb 8.8 oz) SpO2 (P) 97% BMI (P) 29.73 kg/m KARNOFSKY PERFORMANCE STATUS: 100 General Appearance: Alert and oriented. No acute distress. HEENT: NCAT. Sclera anicteric. PERRL. EOMI. Chest: No respiratory distress. Lungs clear to auscultation bilaterally. Abdomen: Soft. Nontender. Nondistended. Musculoskeletal: No edema. Normal ROM in extremities. No bone or spine tenderness. Neuro: Speech fluent. Gait normal. No focal deficits. Rectal: Deferred RADIOLOGY/LABORATORY DATA: see HPI ASSESSMENT/PLAN: Prostate adenocarcinoma, initial PSA 3.3, biopsy Jamie score 3 + 4 = 7 (grade group 2), clinical stage T2a, N0, M0, stage IIB [T1-T2, N0, M0, PSA <20, GG 2] (AJCC 8th ed.), s/p biopsy. NCCN Risk Group: Favorable Intermediate Risk Group Patient presents with a favorable intermediate risk early stage adenocarcinoma of the prostate. Otherwise in excellent state of health. Options of management discussed at length with patient including active surveillance versus definitive management. In terms of definitive management discussed in general surgery versus radiation spending considerable amount of time regarding potential radiation management options. Discussed brachytherapy, moderate hypofractionated IMRT, 5 fraction SBRT. I do feel he would be a candidate for either. We briefly discussed ADT which I do not feel is indicated. Patient is interested in active surveillance which I feel given his presentation is very reasonablealthough he is awaiting results of the decipher test which will likely influence both management decision making as well as active surveillance schedule. Patient expressed an understanding of the information presented. I encouraged him to call should he have questions or concerns. Signed by: Osorio Arteaga MD cc: Sadiq Floyd [address] [place] [address] Susanna Anish Paulino [address] [place] [id number] * Selma Ring RN - 04/13/2025 9:34 AM EDT Pacemaker/Defibrillator?N Previous Cancer(s)?N Previous Radiation?N Lupus/Scleroderma?N On body monitoring device?N AUA=8 Selma Ring RN [facility] NoteHNO ID: [id number] Author: Osorio ARTEAGA MD Service: ? Author Type: Physician Type: Progress Notes Filed: 04/13/2025 15:57 Note Text: Radiation Oncology - Prostate Cancer New Patient/Consult Note PATIENT NAME: Mariana Barnes PATIENT REQUESTING PROVIDER: Dr. Paulino DIAGNOSIS: 69 year old male with prostate adenocarcinoma, initial PSA 3.3, biopsy Jamie score 3 + 4 = 7 (grade group 2), clinical stage T2a, N0, M0, stage IIB [T1-T2, N0, M0, PSA <20, GG 2] (AJCC 8th ed.), s/p biopsy. NCCN Risk Group: Favorable Intermediate Risk Group HPI: 69 year old male with prostate adenocarcinoma who presents for an opinion regarding the role of radiation therapy in the management of the patient's disease. Final recommendations will be communicated back to the requesting physician by way of the shared medical record, or letter to requesting physician via [place] mail. The patient was diagnosed with prostate cancer and comes in today to discuss treatment options. Patient presented with a rising PSA. PSA 08/03/2024 3.07, repeated 01/12/2025 3.3 with 12% free. PSA history: 04/04/2021 1.41 with 15% free 09/26/2021 2.29 at 16%. 02/24/2022 1.9: 17%. 09/08/2022 2.11 of 16%. 03/10/2023 1.64 with 24% free 06/02/2024 2.15 with 15% free Select MDX has been done in October 2022 with 40% likelihood of prostate cancer on biopsy, 14% Jamie greater than equal to 7 MRI prostate 02/22/2025 demonstrated a 23 cc gland.Ill-defined T2 hypodensity anterior left transitional zone measuring 17 x 10 mm described, PI-RADS 5. No evidence of seminal vesicle involvement or extraprostatic extension. No evidence of other pelvic findings. Prostate biopsy on March 28, 2025 revealed: 28.7 cc gland, small midline exophytic nodule on ALISIA mildly enlarged prostate, biopsies demonstrating [place] 7 (3+4) from the left transitional peripheral zone BX region of interest (4 /4 cores), and [place] 6 adenocarcinoma from the left anterior, left anterior medial, right anterior medial, right anterior lateral cores.. Total # of positive biopsy cores: 8 including 4/4 Region of interest Total # of biopsy cores sampled: 14 Greatest % cancer in any single core: 25-50% Has had Decipher genomic testing sent. Staging Studies: MR Results: See HPI Previous Treatment for Prostate Cancer: None Genomic Testing: Decipher Results: Pending The patient reports the following pertinent history: Urinary frequency (D/N): 4-6/1 Dysuria: No Incontinence: 1- No pads Hematuria: No - Total AUA Score: 8 Bowel Movement Frequency: 1/day Bowel Movement Quality: Normal Blood per Rectum: No Last Colonoscopy: na Baseline Erectile Function: intact Androgen Deprivation: none Prior Radiation Therapy, Collagen Vascular Disease, or Inflammatory Bowel Disease: No Any implanted or external electric devices? No Currently on Anticoagulation: No History of Hip Replacement: No History of Prior TURP: No ALLERGIES Allergen Reactions Cefdinir Hives Patient states he was unsure what the allegry is, states it was a long time ago. Hydrochlorothiazide Unknown Pt states PCP said he was allergic fluticasone (FLONASE) 50 mcg/actuation nasal spray 2 sprays. tolnaftate (TINACTIN) 1 % external solution Apply to affected area. dapagliflozin propanediol (FARXIGA) 5 mg tablet Take 5 mg by mouth daily with breakfast. glimepiride (AMARYL) 1 mg tablet Take 1 mg by mouth daily with breakfast. lisinopril (ZESTRIL) 10 mg tablet Take 10 mg by mouth once daily. metFORMIN (GLUCOPHAGE) 500 mg tablet Take 1,000 mg by mouth two times a day with meals. Tadalafil (CIALIS) 10 mg tablet Take 10 mg by mouth once daily as needed. tamsulosin (FLOMAX) 0.4 mg Take 0.4 mg by mouth once daily. nystatin (MYCOSTATIN) powder Apply 1 application to affected area as directed. rosuvastatin (CRESTOR) 10 mg tablet Take 1 tablet by mouth daily at bedtime. metoprolol succinate ER (TOPROL XL) 25 mg 24 hr tablet Take 25 mg by mouth once daily. (Patient not taking: Reported on 04/13/2025) PAST MEDICAL HISTORY Diagnosis Date Arthritis Fibromatosis, plantar High cholesterol Osteoarthritis Smoking many years ago quit smoking Unspecified essential hypertension Essential hypertension PAST SURGICAL HISTORY Procedure Laterality Date PAST SURGICAL HISTORY OF 7th grade non malignant cyst left ankle TOTAL HIP REPLACEMENT Right FAMILY HISTORY Problem Relation Age of Onset Arthritis Father Diabetes Mother Diabetes Brother other (had stent [Other]) Father Social History Tobacco Use Smoking status: Former Types: Cigarettes Smokeless tobacco: Never Substance Use Topics Alcohol use: Yes Comment: it fluctuates 3-4 a day Drug use: No REVIEW OF SYSTEMS: GENERAL: feeling well without fatigue, no recent change in weight NECK: denies swelling or pain in neck RESPIRATORY: no cough, no wheezing or shortness of breath CARDIOVASCULAR: no chest pa (more content not included)...[facility]06-27-2025 NoteHNO ID: [id number] Author: SELMA RING RN Service: ? Author Type: Registered Nurse Type: Progress Notes Filed: 04/13/2025 15:57 Note Text: Pacemaker/Defibrillator?N Previous Cancer(s)?N Previous Radiation?N Lupus/Scleroderma?N On body monitoring device?N AUA=8 Selma Ring [facility]25 NoteHNO ID: [id number] Author: AMANDA KAY RT(R) Service: ? Author Type: Bicycle Racer Type: Progress Notes Filed: 04/06/2025 09:25 Note Text: Radiology Service Progress Note PATIENT NAME: Mariana Barnes DATE OF SERVICE: April 06, 2025 TIME: 9:25 AM PATIENT IDENTITY VERIFICATION COMPLETED USING TWO (2) IDENTIFIERS: Name and Date of confirmed by patient verbally and Name and Date of confirmed by identification band. FALL SCREENING: Has the patient had 2 falls in the last year or 1 fall with injury or currently using an Ambulatory Assistive Device (Walker, Cane, Wheelchair, Crutches, etc.)? Emergency Room Patient: Screened in ED PATIENT GENDER DATA: Assigned male at PATIENT RELEVANT IMPLANT DATA REVIEWED: Not Applicable PATIENT PRESENTS WITH AN IMPLANTABLE OR ATTACHED PERMASTONE MECHANIC: No RADIOLOGY DEPARTMENT: General X-ray: Exam(s) Completed: Lower Extremity X-Ray(s): Tibia Fibula, Left PERIPHERAL IV DATA: Not applicable SIGNED BY: RT Nel(R) April 06, 2025 9:25 AMHe[facility] [id number] Discharge instructions Patient Education 04/05/2025 10:14:54 Prostate Cancer Prostate Cancer The prostate is a small gland that produces fluid that makes up semen (seminal fluid). It is located below the bladder in men, in front of the rectum. Prostate cancer is the abnormal growth of cells in the prostate gland. What are the causes? The exact cause of this condition is not known. What increases the risk? You are more likely to develop this condition if: You are 65 years of age or older. You have a family history of prostate cancer. You have a family history of breast and ovarian cancer. You have genes that are passed from parent to child (inherited), such as BRCA1 and BRCA2. You have Mojica syndrome. men and men of descent are diagnosed with prostate cancer at higher rates than other men. The reasons for this are not well understood and are likely due to a combination of genetic and environmental factors. What are the signs or symptoms? Symptoms of this condition include: Problems with urination. This may include: ?A weak or interrupted flow of urine. ?Trouble starting or stopping urination. ?Trouble emptying the bladder all the way. ?The need to urinate more often, especially at night. Blood in urine or semen. Persistent pain or discomfort in the lower back, lower abdomen, or hips. Trouble getting an erection. Weakness or numbness in the legs or feet. How is this diagnosed? This condition can be diagnosed with: A digital rectal exam. For this exam, a health care provider inserts a gloved finger into the rectum to feel the prostate gland. A blood test called a prostate-specific antigen (PSA) test. A procedure in which a sample of tissue is taken from the prostate and checked under a microscope (prostate biopsy). An imaging test called transrectal ultrasonography. Once the condition is diagnosed, tests will be done to determine how far the cancer has spread. This is called staging the cancer. Staging may involve imaging tests, such as a bone scan, CT scan, PETscan, or MRI. Stages of prostate cancer The stages of prostate cancer are as follows: Stage 1 (I). At this stage, the cancer is found in the prostate only. The cancer is not visible on imaging tests, and it is usually found by accident, such as during prostate surgery. Stage 2 (II). At this stage, the cancer is more advanced than it is in stage 1, but the cancer has not spread outside the prostate. Stage 3 (III). At this stage, the cancer has spread beyond the outer layer of the prostate to nearby tissues. The cancer may be found in the seminal vesicles, which are near the bladder and the prostate. Stage 4 (IV). At this stage, the cancer has spread to other parts of the body, such as the lymph nodes, bones, bladder, rectum, liver, or lungs. Prostate cancer grading Prostate cancer is also graded according to how the cancer cells look under a microscope. This is called the Jamie score and the total score can range from 6 10, indicating how likely it is that the cancer will spread (metastasize) to other parts of the body. The higher the score, the greater thelikelihood that the cancer will spread. Hallandale 6 or lower: This indicates that the cancer cells look similar to normal prostate cells (well differentiated). [place] 7: This indicates that the cancer cells look somewhat similar to normal prostate cells (moderately differentiated). [place] 8, 9, or 10: This indicates that the cancer cells look very different than normal prostate cells (poorly differentiated). How is this treated? Treatment for this condition depends on several factors, including the stage of the cancer, your age, personal preferences, and your overall health. Talk with your health care provider about treatment options that are recommended for you. Common treatments include: Observation for early stage prostate cancer (active surveillance). This involves having exams, blood tests, and in some cases, more biopsies. For some men, this is the only treatment needed. Surgery. Types of surgeries include: ?Open surgery (radical prostatectomy). In this surgery, a larger incision is made to remove the prostate. ?A laparoscopic radical prostatectomy. This is a surgery to remove the prostate and lymph nodes through several small incisions. It is often referred to as a minimally invasive surgery. ?A robotic radical prostatectomy. This is laparoscopic surgery to remove the prostate and lymph nodes with the help of robotic arms that are controlled by the surgeon. ?Cryoablation. This is surgery to freeze and destroy cancer cells. Radiation treatment. Types of radiation treatment include: ?External beam radiation. This type aims beams of radiation from outside the body at the prostate to destroy cancerous cells. ?Brachytherapy. This type uses radioactive needles, seeds, wires, or tubes that are implanted into the prostate gland. Like external beam radiation, brachytherapy destroys cancerous cells. An advantage is that this type of radiation limits the damage to surrounding tissue and has fewer side effects. Chemotherapy. This treatment kills cancer cells or stops them from multiplying. It kills both cancer cells and normal cells. Targeted therapy. This treatment uses medicines to kill cancer cells without damaging normal cells. Hormone treatment. This treatment involves taking medicines that act on testosterone, one of the male hormones, by: ?Stopping your body from producing testosterone. ?Blocking testosterone from reaching cancer cells. Follow these instructions at home: Lifestyle Do not use any products that contain nicotine or tobacco. These products include cigarettes, chewing tobacco, and vaping devices, such as e-cigarettes. If you need help quitting, ask your health careprovider. Eat a healthy diet. To do this: ?Eat foods that are high in fiber. These include beans, whole grains, and fresh fruits and vegetables. ?Limit foods that are high in fat and sugar. These include fried or sweet foods. Treatment for prostate cancer may affect sexual function. If you have a partner, continue to have intimate moments. This may include touching, holding, hugging, and caressing your partner. Get plenty of sleep. Consider joining a support group for men who have prostate cancer. Meeting with a support group mayhelp you learn to manage the stress of having cancer. General instructions Take ayss-awz-uaemyqa and prescription medicines only as told by your health care provider. If you have to go to the hospital, notify your cancer specialist (oncologist). Keep all follow-up visits. This is important. Where to find more information [employer]: www.cancer.org [place] [employer]: www.cancer.net [employer] Cancer [place]: www.cancer.gov Contact a health care provider if: You have new or increasing trouble urinating. You have new or increasing blood in your urine. You have new or increasing pain in your hips, back, or chest. Get help right away if: You have weakness or numbness in your legs. You cannot control urination or your bowel movements (incontinence). You have chills or a fever. Summary The prostate is a small gland that is involved in the production of semen. It is located below a man's bladder, in front of the rectum. Prostate cancer is the abnormal growth of cells in the prostate gland. Treatment for this condition depends on the stage of the cancer, your age, personal preferences, and your overall health. Talk with your health care provider about treatment options that are recommended for you. Consider joining a support group for men who have prostate cancer. Meeting with a support group mayhelp you learn to manage the stress of having cancer. This information is not intended to replace advice given to you by your health care provider. Make sure you discuss any questions you have with your health care provider. Document Revised: 12/31/2021 Document Reviewed: 12/31/2021 [employer] Patient Education 2023 [employer]. Follow Up Care 03/29/2025 08:42:10 With:Jefferson MORRISON, JUSTIN Steven, URO Address: When: Unknown [facility] 06-19-2025 NotePatient Education Oncology Prostate Cancer The prostate is a small gland that produces fluid that makes up semen (seminal fluid). It is located below the bladder in men, in front of the rectum. Prostate cancer is the abnormal growth of cells in the prostate gland. What are the causes? The exact cause of this condition is not known. What increases the risk? You are more likely to develop this condition if: ??? You are 65 years of age or older. ??? You have a family history of prostate cancer. ??? You have a family history of breast and ovarian cancer. ??? You have genes that are passed from parent to child (inherited), such as BRCA1 and BRCA2. ??? You have Mojica syndrome. men and men of descent are diagnosed with prostate cancer at higher rates than other men. The reasons for this are not well understood and are likely due to a combination of genetic and environmental factors. What are the signs or symptoms? Symptoms of this condition include: ??? Problems with urination. This may include: ? A weak or interrupted flow of urine. ? Trouble starting or stopping urination. ? Trouble emptying the bladder all the way. ? The need to urinate more often, especially at night. ??? Blood in urine or semen. ??? Persistent pain or discomfort in the lower back, lower abdomen, or hips. ??? Trouble getting an erection. ??? Weakness or numbness in the legs or feet. How is this diagnosed? This condition can be diagnosed with: ??? A digital rectal exam. For this exam, a health care provider inserts a gloved finger into the rectum to feel the prostate gland. ??? A blood test called a prostate-specific antigen (PSA) test. ??? A procedure in which a sample of tissue is taken from the prostate and checked under a microscope (prostate biopsy). ??? An imaging test called transrectal ultrasonography. Once the condition is diagnosed, tests will be done to determine how far the cancer has spread. This is called staging the cancer. Staging may involve imaging tests, such as a bone scan, CT scan, PETscan, or MRI. Stages of prostate cancer The stages of prostate cancer are as follows: ??? Stage 1 (I). At this stage, the cancer is found in the prostate only. The cancer is not visibleon imaging tests, and it is usually found by accident, such as during prostate surgery. ??? Stage 2 (II). At this stage, the cancer is more advanced than it is in stage 1, but the cancer has not spread outside the prostate. ??? Stage 3 (III). At this stage, the cancer has spread beyond the outer layer of the prostate to nearby tissues. The cancer may be found in the seminal vesicles, which are near the bladder and the prostate. ??? Stage 4 (IV). At this stage, the cancer has spread to other parts of the body, such as the lymph nodes, bones, bladder, rectum, liver, or lungs. Prostate cancer grading Prostate cancer is also graded according to how the cancer cells look under a microscope. This is called the Hallandale score and the total score can range from 6?10, indicating how likely it is that the cancer will spread (metastasize) to other parts of the body. The higher the score, the greater thelikelihood that the cancer will spread. ??? Hallandale 6 or lower: This indicates that the cancer cells look similar to normal prostate cells (well differentiated). ??? Hallandale 7: This indicates that the cancer cells look somewhat similar to normal prostate cells (moderately differentiated). ??? Hallandale 8, 9, or 10: This indicates that the cancer cells look very different than normal prostate cells (poorly differentiated). How is this treated? Treatment for this condition depends on several factors, including the stage of the cancer, your age, personal preferences, and your overall health. Talk with your health care provider about treatment options that are recommended for you. Common treatments include: ??? Observation for early stage prostate cancer (active surveillance). This involves having exams, blood tests, and in some cases, more biopsies. For some men, this is the only treatment needed. ??? Surgery. Types of surgeries include: ? Open surgery (radical prostatectomy). In this surgery, a larger incision is made to remove the prostate. ? A laparoscopic radical prostatectomy. This is a surgery to remove the prostate and lymph nodes through several small incisions. It is often referred to as a minimally invasive surgery. ? A robotic radical prostatectomy. This is laparoscopic surgery to remove the prostate and lymph nodes with the help of robotic arms that are controlled by the surgeon. ? Cryoablation. This is surgery to freeze and destroy cancer cells. ??? Radiation treatment. Types of radiation treatment include: ? External beam radiation. This type aims beams of radiation from outside the body at the prostate to destroy cancerous cells. ? Brachytherapy. This type uses radioactive needles, seeds, wires, o (more content not included)...[facility]06-[facility] Hospital Discharge instructions Patient Education 03/28/2025 13:42:22 Lue - Saturation/Transperineal Biopsy of the Prostate (CUSTOM) [facility] [place], [place] Saturation/Transperineal Biopsy of the Prostate Discharge Instructions After your procedure You may see blood in your urine and semen intermittently for 4 to 5 weeks. When your urine turns red, limit your activities and drink plenty of fluids. This is normal and expected. If you go home with a Shore catheter in place, you will have it removed at your follow-up clinic appointment. Your doctor may allow you to remove your Shore catheter at home once the urine is clear. If so, ournursing staff will teach you how to remove the catheter. You may have discoloration (black/blue), pain, and swelling to the perineal area (between your thighs) for up to 3 weeks. Ice, elevation, and supportive underwear can help ease these symptoms. Medications You may restart aspirin or other blood thinners after 24 hours. Antibiotics may be prescribed by your doctor. If they are, take them until they are gone. For pain, take Tylenol 500-1000 mg every 6 hours, alternate in between with ibuprofen 400-800 mg every 6 hours as needed. Activity You may begin driving 24 hours after surgery if you are not taking prescription pain medication. No heavy lifting for 2 days (nothing greater than 10 pounds). Diet Drink plenty of fluids. Continue your normal diet. When to call the doctor If you experience a temperature of 101.5 F or greater If you experience chills with or without fever If you experience pain that gets worse If you have difficulty urinating or catheter-related problems Follow Up Care 02/28/2025 11:27:05 With:Susanna Paulino Address: [address] [place] [phone] Business (1) When: Unknown Comments:Office to call to schedule your follow up in 1-2 weeks for pathology review [facility] 06-11-2025 Evaluation + Plan noteExtracted from: Title:EU - MRI fusion transp erineal prostate biopsy Author:Susanna Paulino MD Date:03/28/25 Patient: MARIANA BARNES Age: 69 years Sex: Male : 1955 Associated Diagnoses: None Author: Susanna Paulino MD Procedure Procedure Date: 03/28/2025. Confirmed: patient, procedure, site, safety procedures followed. Performed by: Susanna Paulino MD. Type of procedure: 1. Transrectal ultrasound of the prostate and seminal vesicles for needle biopsy 2. Nerve Block of Prostate 3. UroNav MRI fusion prostate biopsy, transperineal approach . Informed consent: signed by patient. Indication: 69 year old male with a history of elevated PSA 3.3, 12.4% free on 01/12/25 and MRI prostate on 02/22/25 showing PIRADS 5 lesion in the left transition to peripheral zone, mid gland. Volume 23 cc. He presents today for the above procedures. Risks of the procedure were discussed to include but not be limited to bleeding, pain, infection, difficulties with urination, injury to the urethra, prostate or bladder or surrounding tissues, injury from positioning on the table, swelling and bruising of the skin, and need for further procedures. . Procedure tolerated: well. Specimen: sent to pathology, 1. Right posterior medial (2 cores) 2. Right posterior lateral (2 cores) 3. Right base (2 cores) 4. Right anterior medial (1 core) 5. Right anterior lateral (1 core) 6. Left posterior medial (2 cores) 7. Left posterior lateral (2 cores) 8. Left base (2 cores) 9. Left anterior medial (1 core) 10. Left anterior lateral1 core) 11. Left transition to peripheral zone mid gland (4 cores) . Complications: none. Anesthesia: General anesthesia LMA, periprostatic nerve block 1% lidocaine without epinephrine Findings: Volume: 28.7 cc Calcifications: scattered peripheral zone Cysts: small right transition zone Hypoechogenic areas: faint left anterior transition zone The seminal vesicles were visualized bilaterally and normal in size, shape and echotexture. ALISIA: tiny midline exophytic nodule, left mid and apez firmer vs right, mildy enlarged Complications: None DESCRIPTION OF PROCEDURE: After informed consent was obtained, the patient was taken to the operating room. The patient has been on oral antibiotics. The patient was placed in the dorsal lithotomy position on the operating table, taking care to pad all possible pressure points. An operative timeout was performed. A ALISIA was performed noting findings above. The scrotum was elevated and held out of the way using tape/towel to expose the perineum. Excessive hair was shaved off the perineum. The perineum is prepped with Hibiclens solution. Lidocaine gel was inserted per rectum. The [employer] UroNav fusion biopsy system was set up over the patient s pelvis for transperineal approach of prostate biopsy. A well-lubricated ultrasound probe was inserted into the rectum and the prostate was aligned. The gland was visualized fully in axial and sagittal views to allow for the identification of anatomy and location of the urethra, as noted in findings. A sweep was done to render ultrasound images with preoperative MRI images. The Precision Point device was secured on the ultrasound probe. The local anesthetic was delivered to the skin followed by periprostatic region and levators for IntraOp and postoperative pain control. After rendering of real-time images with the preoperative MRI prostate, the UroNav fusion biopsy system was used to target the region of interest. 4 core needle biopsies were obtained from region of interest via transperineal approach. Thereafter, 1-2 biopsies were obtained from the posterior medial, posterior lateral, base, anterior lateral, and anterior medial of the left and right sides. The ultrasound probe was removed. Pressure was applied to the perineum for adequate hemostasis. The perineum was dressed with fluffs and scrotal support. The patient tolerated the procedure well without complications. CULTURES TAKEN: None. PATIENT CONDITION: Stable. PLAN: Void prior to dc home. The patient knows to call or go immediately to the emergency room should he develop fevers, chills, inability to urinate, bleeding or any other concerns. Follow-up in 1-2 weeks for pathology review. . Impression and Plan Diagnosis Elevated PSA (CEX83-PO R97.20, Discharge, Medical). Abnormal MRI, pelvis ([id number] R93.5, Discharge, Medical). Diagnosis Elevated PSA (KLH85-RS R97.20, Discharge, Medical). Abnormal MRI, pelvis (NYU63-OR R93.5, Discharge, Medical). Counseled: Patient, Family. Addendum by Susanna Paulino MD on March 28, 2025 13:58 EDT Correction: volume 35.9 cm^3 = 3.3 x 4.5 x 4.7 cm Extracted from: Title:Preoperative H&P: EU Author:Susanna Paulino MD Date:03/28/25 Impression and Plan Impression: elevated PSA and abnormal MRI here for MRI fusion transperineal prostate biopsy under local. Plan: Proceed with planned surgery per clinic note, risks/benefits previously discussed and documented Future Appointments Appointment Date:04/18/2025 08:45:00 AM Scheduled Provider:Susanna Paulino MD Location:[facility] [place] [facility] Appointment Type:URO Office Visit [facility] 06-11-2025 NotePatient Education - Text [facility] [place], [place] Saturation/Transperineal Biopsy of the Prostate Discharge Instructions After your procedure You may see blood in your urine and semen intermittently for 4 to 5 weeks. When your urine turns red, limit your activities and drink plenty of fluids. This is normal and expected. If you go home with a Shore catheter in place, you will have it removed at your follow-up clinic appointment. Your doctor may allow you to remove your Shore catheter at home once the urine is clear. If so, ournursing staff will teach you how to remove the catheter. You may have discoloration (black/blue), pain, and swelling to the perineal area (between your thighs) for up to 3 weeks. Ice, elevation, and supportive underwear can help ease these symptoms. Medications ??? You may restart aspirin or other blood thinners after 24 hours. ??? Antibiotics may be prescribed by your doctor. If they are, take them until they are gone. ??? For pain, take Tylenol 500-1000 mg every 6 hours, alternate in between with ibuprofen 400-800 mg every 6 hours as needed. Activity ??? You may begin driving 24 hours after surgery if you are not taking prescription pain medication. ??? No heavy lifting for 2 days (nothing greater than 10 pounds). Diet Drink plenty of fluids. Continue your normal diet. When to call the doctor ??? If you experience a temperature of 101.5??? F or greater ??? If you experience chills with or without fever ??? If you experience pain that gets worse ??? If you have difficulty urinating or catheter-related problems[facility] NoteHistory and Physical Patient: MARIANA BARNES Age: 69 years Sex: Male : 1955 Associated Diagnoses: None Author: Susanna Paulino MD Preoperative Information Indication for procedure and diagnosis: elevated PSA and abnormal MRI here for MRI fusion transperineal prostate biopsy under local. Chief Complaint As above Review of Systems All systems reviewed, negative except as mentioned above Health Status Allergies: Allergic Reactions (Selected) Severity Not Documented Cefdinir- Unknown. HydroCHLOROthiazide- Unknown. Current medications: (Selected) Prescriptions Prescribed AndroGel Pump 20.25 mg/1.25 g (1.62%) transdermal gel: = 3 pump, Topical, qAM, 3 pumps daily, # 75 gram, Refills(s) 2, Pharmacy: [facility]/pharmacy #[id number], 175, cm, 06/08/24 9:18:00 EDT, Height/Length Dosing, 90.3, kg, 06/08/24 9:18:00 EDT, Weight Dosing Valium 10 mg Tab: 10 mg = 1 tab(s), Oral, Once, PRN for anxiety, Take 1 hour prior to the procedure., # 1 tab(s), Refills(s) 0, Pharmacy: [facility]/pharmacy #[id number], 173, cm, 01/17/25 10:02:00 EDT, Height/Length Dosing, 91.1, kg, 01/17/25 10:02:00 EDT, Weight Dosing Documented Medications Documented CoQ10: Oral, Daily, Refills(s) 0 Farxiga 5 mg oral tablet: Refills(s) 0 Fish Oil: Oral, Refill(s) 0 Flonase: Daily, Refill(s) 0 Vitamin B Complex oral capsule: Oral, Daily, Refill(s) 0 Vitamin C: Daily, Refills(s) 0 Vitamin D: International_Unit, Oral, qWeek, Refills(s) 0 Zinc: mg, Oral, Daily, Refills(s) 0 Zyrtec: Daily, Refills(s) 0 aspirin 81 mg Chew Tab: 81 mg = 1 tab(s), Oral, Daily, # 30 tab(s), Refills(s) 0 glimepiride 1 mg Tab: 1 mg = 1 tab(s), Oral, Daily, # 30 tab(s), Refills(s) 0 lisinopril 5 mg Tab: mg tab(s), Oral, Daily, Refills(s) 0 metformin 500 mg oral tablet: mg tab(s), Oral, BID, Refills(s) 0 metoprolol succinate 25 mg ER Tab: 25 mg = 1 tab(s), Oral, Daily, # 30 tab(s), Refills(s) 0 rosuvastatin 10 mg Tab: mg tab(s), Oral, Daily, Refills(s) 0 Problem list: All Problems Antiplatelet or antithrombotic long-term use / SNOMED CT 1409030549 / Confirmed Arthritis / SNOMED CT 4370589 / Confirmed Benign colon polyp / SNOMED CT 8889800847 / Confirmed BPH without urinary obstruction / SNOMED CT 5563054854 / Confirmed Elevated PSA / SNOMED CT 4800152714 / Confirmed Former smoker / SNOMED CT 80696312 / Confirmed High cholesterol / SNOMED CT 06012168 / Confirmed Hyperlipidemia / SNOMED CT 69611348 / Confirmed Hypertension / SNOMED CT 0981841547 / Confirmed Hypogonadism male / SNOMED CT 11552031 / Confirmed Nocturia / SNOMED CT 984014083 / Confirmed Type II diabetes mellitus / SNOMED CT 562880423 / Confirmed Resolved: Hematuria / SNOMED CT 902265659 Resolved: History of bladder cancer / SNOMED CT 9407310253 Canceled: Asymptomatic microscopic hematuria / SNOMED CT 3131335521 Canceled: Hematospermia / SNOMED CT 895881831 Canceled: Renal cyst / SNOMED CT 5355949635 Histories Past Medical History: Resolved Hematuria (382247828): Resolved. History of bladder cancer (9460277965): Resolved. Family History: Hypertension Father Diabetes mellitus type 2 Mother () Brother Arthritis Father Mother () Diabetes clinic Mother () High cholesterol Father Procedure history: History of nasal sinus surgery ([id number]) on 11/19/2016 at 61 Years. Comments: 10/26/2022 10:24 Be[address] sinus surgery Dr. Yee Sigmoid colon polyp ([id number]) on 12/13/2015 at 60 Years. Comments: 10/26/2022 10:23 Berenice Boothe removal History of right hip replacement ([id number]) in the month of 09/2014 at 59 Years. Comments: 10/26/2022 10:[address] [facility] Cataract surgery of left eye ([id number]) in 2006 at 52 Years. Comments: 10/26/2022 10:[address] 2007 or 2007 Colonoscopy ([id number]) in 2006 at 52 Years. Comments: 10/26/2022 10:[address] Colonoscopy ([id number]). Hip replacement (8945947028). History of ankle surgery (4551334034). Comments: 10/26/2022 10:19 Berenice Boothe left ankle surgery cyst removed Stented coronary artery ([id number]). Social History Social & Psychosocial Habits Tobacco 01/17/2025 Tobacco Use: Former smoker, quit more, quit 10 years ago Smokeless tobacco use: Never Type: Cigarettes Smoking Cessation Yes . Physical Examination Vital Signs (last 24 hrs) Last Charted Temp Oral 36.5 DegC (MAR 28 11:21) Heart Rate Monitored 92 bpm (MAR 28:22) SBP 131 mmHg (MAR 28:22) DBP 87 mmHg (MAR 28:22) Weight 91.1 kg (MAR 28:23) BMI 30.44 (MAR 28:23) Measurements from flowsheet : Measurements 03/28/2025 11:23 EDT Height/Length Measured 173.0 cm Height/Length Dosing 173.0 cm Weight Dosing 91.1 kg BSA Measured 2.09 m2 Body Mass Index Measured 30.44 kg/m2 Weight Measured 91.1 kg General (more content not included)...[facility]:Result Comment: Electronically Signed By: Jefferson MORRISON, Susanna Alcantara\.br\Date and Time Signed: 03/28/25 12:[id number] History of Present illness Narrative* Kingsley Loera, ISABEL - 03/13/2025 8:45 AM EDT Images from the original note were not included. Reason for Appointment Established patient: Recheck onychomycosis/Nailcare. History of Present Illness Established patient presents with thickened, discolored, mycotic toenails. Patient applies Tolcylento all toenails twice day and nystatin powder once a day with good improvement. PCP and last visit: Dr. Floyd 02-23-2025. Review of Systems General: Chills denies. Fatigue denies. Fever denies. Night sweats denies. Endocrine: Hyperpigmentation denies. Diabetes admits. Weakness denies. Cardiovascular: Chest pain denies. Shortness of breath denies. Gastrointestinal: Constipation denies. Diarrhea denies. Nausea denies. Vomiting denies. Hematology: Anemia denies. Bleeding problems denies. Easy bruising denies. Musculoskeletal: Bone/joint symptoms denies. Leg cramps denies. Peripheral Vascular: Edema denies. Rest pain denies. Varicose veins denies. Raynaud's denies. Skin: Ulceration denies. Nail changes denies. Rash denies. Skin lesion(s) denies. Neurologic: Dizziness denies. Gait abnormality denies. Headache denies. Tingling/Numbness denies. Examination General Examination: GENERAL EXAMINATION: awake, aware of surroundings, in no acute distress. Diabetic Foot Exam: Date: 12-19-2024 Sensations: diminished Strength: normal Pedal Pulses: +2 Vascular: DORSALIS PEDIS PULSE: bilaterally, 2/4. POSTERIOR TIBIAL PULSE: bilaterally, 2/4. TEMPERATURE GRADIENT: warm to cool. EDEMA: bilateral ankle. VARICOSITIES: present bilaterally. CAPILLARY FILLING TIME(sec): capillary fill intact bilateral digits less than 3 secs. Neurologic: VIBRATORY: normal. SEMMES-AMBERLY 5.07 MONOFILAMENT: normal. Dermatologic: SKIN FINDINGS: texture, turgor, hair growth, within normal limits. HYPERKERATOSIS: Painful callus/keratoderma x 2 left foot sub fifth MPJ region - Resolved status post excision of painful callus/keratoderma x 2 left foot, DOS: 12-25-24 NAIL PATHOLOGY: toenails 1-5 bilateral intact. Operative site plantar left foot 5th MPJ Is completely healed however thin callus is minimally noted /not keratoderma. Nail Pathology Right: 1 Long, Thick, Crumbly, Deformed, Discolored, Brittle, Dystrophic. 2 Long, non-dystrophic. 3 Long, non-dystrophic. 4 Long, non-dystrophic. 5 Long, Thick, Crumbly, Deformed, Discolored, Brittle, Dystrophic. Nail Pathology Left: 1 Long, Thick, Crumbly, Deformed, Discolored, Brittle, Dystrophic. 2 Long, Thick, Crumbly, Deformed, Discolored, Brittle, Dystrophic. 3 Long, non-dystrophic. 4 Long, non-dystrophic. 5 Long, Thick, Crumbly, Deformed, Discolored, Brittle, Dystrophic. Ankle / Foot: RANGE OF MOTION: full range of motion without pain. MUSCLE STRENGTH: 5/5. Orthopedic: DEFORMITIES: fat pad atrophy bilateral forefoot. SHOE GEAR EVALUATION: [employer] mesh athletic shoes. Assessments - callus sub 5th MPJ left foot -minimal - Dermatophytosis of nail - B35.1 - Mycotic toenails 1,5 right and 1,2,5 left - Deformity of toenail - L60.8 - Non-dystrophic toenails 2,3,4 right and 3,4 left - Asymptomatic varicose veins - I83.90 - Diabetes mellitus- E11.9 - Lower extremity edema - Fat pad atrophy of foot Treatment Dermatophytosis of nail 1. Patient seen today for follow up examination. 2. I debrided elongated, mycotic toenails 1,5 right and 1,2,5 left via manual and mechanical means in office. 3. Patient should wash and dry bilateral foot twice a day and apply topical Tolcylen twice a day toall ten toenails until full resolution of onychomycosis. 4. Patient should continue to apply Nystatin Powder twice a day to bilateral foot webspaces, post bathing, to assist with moisture and fungal reduction and prevention. 5. Patient should self debride toenails with emery board, not using same surface twice, to avoid recontamination. 6. Patient should continue to apply Clean Sweep to shoes daily to reduce bacteria, fungus and odor to shoes. 7. Reappoint 3 months. Deformity of toenail 1. Patient seen today for follow up examination. 2. I debrided elongated, non-dystrophic toenails 2,3,4 right and 3,4 left via manual and mechanicalmeans in office. 3. Reappoint in 3 months. painful left foot calluses/ keratosis Patient was seen today for follow up examination of Callus which was examined in his completely resolved clinically. Patient was advised to maintain present regimen of offloading, skin care, padding and daily foot inspection. Self debrided p.r.n.. 3. Reappoint p.r.n.. Diabetes Mellitus 1. Patient seen today for follow-up examination . 2. Patient advised to always maintain proper diabetic control. 3. Patient advised to wash and dry bilateral foot once daily and apply a good moisturizing cream tobilateral lower extremity, except for in between toes, post bathing to keep skin from becoming too dry. 4. Patient advised to perform daily foot inspections and observe for any signs of skin breakdown. documented in this encounterSaint Alexius [id number] History of Present illness Narrative* Kingsley Loera DPM - 02/14/2025 1:00 PM EDT Images from the original note were not included. Reason for Appointment Established patient: Recheck painful callus LT foot. History of Present Illness Established patient presents for follow up examination of painful callus to the LT plantar foot fifth MPJ region. Patient states that callus is almost completely gone and pain free. [facility] never received prescription for Urea cream. Patient had previous excision of painful callus/keratoderma to the LT plantar foot, DOS: 12-25-2024. Review of Systems General: Chills denies. Fatigue denies. Fever denies. Night sweats denies. Endocrine: Hyperpigmentation denies. Diabetes admits. Weakness denies. Cardiovascular: Chest pain denies. Shortness of breath denies. Gastrointestinal: Constipation denies. Diarrhea denies. Nausea denies. Vomiting denies. Hematology: Anemia denies. Bleeding problems denies. Easy bruising denies. Musculoskeletal: Bone/joint symptoms denies. Leg cramps denies. Peripheral Vascular: Edema denies. Rest pain denies. Varicose veins denies. Raynaud's denies. Skin: Ulceration denies. Nail changes denies. Rash denies. Skin lesion(s) denies. Neurologic: Dizziness denies. Gait abnormality denies. Headache denies. Tingling/Numbness denies. Examination General Examination: GENERAL EXAMINATION: awake, aware of surroundings, in no acute distress. Diabetic Foot Exam: Date: 12-19-2024 Sensations: diminished Strength: normal Pedal Pulses: +2 Vascular: DORSALIS PEDIS PULSE: bilaterally, 2/4. POSTERIOR TIBIAL PULSE: bilaterally, 2/4. TEMPERATURE GRADIENT: warm to cool. EDEMA: bilateral ankle. VARICOSITIES: present bilaterally. CAPILLARY FILLING TIME(sec): capillary fill intact bilateral digits less than 3 secs. Neurologic: VIBRATORY: normal. SEMMES-AMBERLY 5.07 MONOFILAMENT: normal. Dermatologic: SKIN FINDINGS: texture, turgor, hair growth, within normal limits. HYPERKERATOSIS: Painful callus/keratoderma x 2 left foot sub fifth MPJ region - Resolved status post excision of painful callus/keratoderma x 2 left foot, DOS: 12-25-24 NAIL PATHOLOGY: toenails 1-5 bilateral intact. Operative site plantar left foot 5th MPJ Is completely healed however thin callus is minimally noted /not keratoderma. Ankle / Foot: RANGE OF MOTION: full range of motion without pain. MUSCLE STRENGTH: 5/5. Orthopedic: DEFORMITIES: fat pad atrophy bilateral forefoot. SHOE GEAR EVALUATION: [employer] nylon mesh athletic shoes. Assessments - callus sub 5th MPJ left foot -minimal - Dermatophytosis of nail - B35.1 - Mycotic toenails 1,5 right and 1,2,5 left - Deformity of toenail - L60.8 - Non-dystrophic toenails 2,3,4 right and 3,4 left - Asymptomatic varicose veins - I83.90 - Diabetes mellitus- E11.9 - Lower extremity edema - Fat pad atrophy of foot Treatment painful left foot calluses/ keratosis Patient was seen today for follow up examination of painful callus/keratoderma x 2 left foot, DOS: 12-25-24. Patient it was doing very well. Physical examination was performed and actually very thin callus isreturning, not a keratoderma or keratosis that we excised recently this is due to lack of padding and that should be further offloaded. Patient was advised the callus has returning due to lack of offloading pressure maximum therefore we did add a felt aperture pad to further offload underneath patient's insole. Custom foot orthotics she will be pursued if patient can not keep callus thin, and nonpainful. Patient was advised to wash feet daily, apply urea cream to area of callus, q.h.s. under occlusion to keep the callus thin, soft and well hydrated. Patient was advised self debris callus p.r.n. thickness and always keep a thin by use of a emery board or pumice stone or padding. Care should be taken while debriding. Patient was advised all weight-bearing she will be a soft mid sole cushioned shoes I.e. walking barefoot, soft, slippers or hard sole shoes will increase pressure and lead to return of callus and or pain. RX: Urea 36 percent cream with clobetasol apply to callus as directed q.h.s. under occlusion. Dispensed 1 refill. Reappoint p.r.n. Diabetes Mellitus 1. Patient seen today for follow-up examination . 2. Patient advised to always maintain proper diabetic control. 3. Patient advised to wash and dry bilateral foot once daily and apply a good moisturizing cream tobilateral lower extremity, except for in between toes, post bathing to keep skin from becoming too dry. 4. Patient advised to perform daily foot inspections and observe for any signs of skin breakdown. documented in this encounterSaint Alexius [id number] Evaluation note* Diagnosis Onset Date Resolution Status Admit Date Primary osteoarthritis of le ft knee acute February 01, 2025 9:56am [facility] Work Phone: 1(585) 410-175004-17-2025 Evaluation note* Diagnosis Onset Date Resolution Status Admit Date Primary osteoarthritis of le ft knee acute February 01, 2025 9:56am Elevated PSA acute February 23 9:39am Erectile dysfunction acute February 23, 2025 9:39am Low testosterone acute February 23, 2025 9:39am Weight loss acute February 23, 2025 9:39am Coronary artery disease with angina pectoris acute March 05, 2025 9 :00am Essential hypertension acute 2024 9:00am History of heart artery stent acute March 05, 2025 9:00am Mixed hyperlipidemia acute March 05, 2025 9:00am Constipation acute March 30, 2 025 10:56am GERD with esophagitis acute Mar 10:56am [facility] Work Phone: 1(279) 542-208004-17-2025 Evaluation note* Diagnosis Onset Date Resolution Status Admit Date Primary osteoarthritis of le ft knee acute February 01, 2025 9:56am Elevated PSA acute February 23 9:39am Erectile dysfunction acute February 23, 2025 9:39am Low testosterone acute February 23, 2025 9:39am Weight loss acute February 23, 2025 9:39am Coronary artery disease with angina pectoris acute March 05, 2025 9 :00am Essential hypertension acute 2024 9:00am History of heart artery stent acute March 05, 2025 9:00am Mixed hyperlipidemia acute March 05, 2025 9:00am Constipation acute March 30, 025 10:56am GERD with esophagitis acute Mar 10:56am Hyperlipidemia acute April 16, 2025 9:54am Hypertension acute April 16, 025 9:54am Prostate cancer acute March 9:54am Type 2 diabetes mellitus acute April 16, 2025 9:54am [facility] Work Phone: 1(996) 324-350204-16-2025 History of Present illness Narrative* Arelis Ramirez MD - 01/31/2025 9:40 AM EDT Subjective Patient ID: Mariana Barnes is a 69 y.o. male who presents for Thyroid Nodule (Follow up ultrasound 01/16/25) US shows 12 and 11mm RT nodules and 19, 8, and 12mm nodules. Family History Problem Relation Name Age of Onset Diabetes Mother Bernice Hypertension Father Osman barnes Active Ambulatory Problems Diagnosis Date Noted Dermatophytosis of nail 03/18/2023 Deformity of toenail 03/18/2023 Callus 03/18/2023 Acquired keratoderma 03/18/2023 Left foot pain 03/18/2023 Ankle edema 03/18/2023 Asymptomatic varicose veins 03/18/2023 Fat pad atrophy of foot 03/18/2023 Nasal congestion 10/06/2023 Thyroid nodule (CMS/HCC) 11/19/2023 Antiplatelet or antithrombotic long-term use 01/31/2025 Arthritis 01/31/2025 Asymptomatic microscopic hematuria 01/31/2025 Benign colon polyp 01/31/2025 BPH without urinary obstruction 01/31/2025 Chronic rhinitis 01/31/2025 Elevated PSA 01/31/2025 Former smoker 01/31/2025 Hematospermia 01/31/2025 Hematuria 01/31/2025 Hip arthritis 04/18/2013 High cholesterol (CMS/HCC) 01/31/2025 Hyperlipidemia (CMS/HCC) 01/31/2025 Resolved Ambulatory Problems Diagnosis Date Noted No Resolved Ambulatory Problems Past Medical History: Diagnosis Date Bone cyst of left ankle Diabetes mellitus (CMS/HCC) Hypertension (CMS/HCC) Hypertension (CMS/HCC) Plantar fasciitis Past Surgical History: Procedure Laterality Date ANKLE SURGERY Left 1971 removal of cyst CORONARY STENT PLACEMENT Right 11/25/2023 FOOT SURGERY [place] TOTAL HIP ARTHROPLASTY Right 2013 SEPTOPLASTY 11/19/2016 [facility] SKIN LESION EXCISION Left 12/25/2024 excision of painful callus/keratoderma to the LT plantar foot Allergies Allergen Reactions Cefdinir Other Reaction(s): rash, suspected 11-07-13 Can take Augmentin 5-14 Hydrochlorothiazide Other Reaction(s): worsening renal studies / sensitivity (2013) Current Outpatient Medications on File Prior to Visit Medication Sig Dispense Refill clopidogrel (Plavix) 75 MG tablet dapagliflozin (Farxiga) 5 MG Take 5 mg by mouth Daily fluticasone (Flonase) 50 MCG/ACT nasal spray Administer 2 sprays into each nostril in the morning. Shake gently. Before first use, prime pump. After use, clean tip and replace cap.. 48 g 3 glimepiride (Amaryl) 1 MG tablet lisinopril 10 MG tablet 1 (one) time each day at the same time metFORMIN (Glucophage) 500 MG tablet Take 1,000 mg by mouth in the morning and 1,000 mg in the evening. Take with meals. metoprolol succinate XL (Toprol-XL) 25 MG 24 hr tablet Take 25 mg by mouth Daily nystatin (Mycostatin) 847672 UNIT/GM powder rosuvastatin (Crestor) 10 MG tablet tolnaftate (Tinactin) 1 % external solution Apply topically at bedtime No current facility-administered medications on file prior to visit. Objective Last Recorded Vitals Vitals: 01/31/25 0936 BP: 130/88 Pulse: 79 ENT Physical Exam Constitutional Appearance: patient appears well-developed, well-nourished and well-groomed, Communication/Voice: communication appropriate for developmental age; vocal quality normal; Assessment/Plan Diagnoses and all orders for this visit: Thyroid nodule (CMS/HCC) Stable MNG. Repeat US one year. documented in this encounterSaint Alexius [id number] History of Present illness Narrative* Kingsley Loera DPM - 01/18/2025 2:45 PM EDT Reason for Appointment Established patient: NEW COMPLAINT: Painful callus LT foot. History of Present Illness Established patient presents for NEW COMPLAINT of painful callus to the LT plantar foot fifth MPJ region. Patient is s/p: excision of painful callus/keratoderma to the LT plantar foot, DOS: 12-25-2024. Patient states that surgical site healed well but he is now developing a new callus to the same are a. Patient states that callus is painful with weightbearing. Patient denies stepping on anything while barefoot. Patient has not attempted any treatment. Review of Systems General: Chills denies. Fatigue denies. Fever denies. Night sweats denies. Endocrine: Hyperpigmentation denies. Diabetes admits. Weakness denies. Cardiovascular: Chest pain denies. Shortness of breath denies. Gastrointestinal: Constipation denies. Diarrhea denies. Nausea denies. Vomiting denies. Hematology: Anemia denies. Bleeding problems denies. Easy bruising denies. Musculoskeletal: Bone/joint symptoms denies. Leg cramps denies. Peripheral Vascular: Edema denies. Rest pain denies. Varicose veins denies. Raynaud's denies. Skin: Ulceration denies. Nail changes denies. Rash denies. Skin lesion(s) denies. Neurologic: Dizziness denies. Gait abnormality denies. Headache denies. Tingling/Numbness denies. Examination General Examination: GENERAL EXAMINATION: awake, aware of surroundings, in no acute distress. Diabetic Foot Exam: Date: 12-19-2024 Sensations: diminished Strength: normal Pedal Pulses: +2 Vascular: DORSALIS PEDIS PULSE: bilaterally, 2/4. POSTERIOR TIBIAL PULSE: bilaterally, 2/4. TEMPERATURE GRADIENT: warm to cool. EDEMA: bilateral ankle. VARICOSITIES: present bilaterally. CAPILLARY FILLING TIME(sec): capillary fill intact bilateral digits less than 3 secs. Neurologic: VIBRATORY: normal. SEMMES-AMBERLY 5.07 MONOFILAMENT: normal. Dermatologic: SKIN FINDINGS: texture, turgor, hair growth, within normal limits. HYPERKERATOSIS: Painful callus/keratoderma x 2 left foot sub fifth MPJ region - Resolved status post excision of painful callus/keratoderma x 2 left foot, DOS: 12-25-24 NAIL PATHOLOGY: toenails 1-5 bilateral intact. Operative site plantar left foot 5th MPJ Is completely healed however thin callus has minimally returned /not keratoderma. Ankle / Foot: RANGE OF MOTION: full range of motion without pain. MUSCLE STRENGTH: 5/5. Orthopedic: DEFORMITIES: fat pad atrophy bilateral forefoot. SHOE GEAR EVALUATION: [employer] mesh athletic shoes. Assessments - Postop examination- status post excision of painful calluses / keratoderma left foot plantar 5th MPJ region Healed - callus sub 5th MPJ left foot -minimal- new chief complaint - Dermatophytosis of nail - B35.1 - Mycotic toenails 1,5 right and 1,2,5 left - Deformity of toenail - L60.8 - Non-dystrophic toenails 2,3,4 right and 3,4 left - Asymptomatic varicose veins - I83.90 - Diabetes mellitus- E11.9 - Lower extremity edema - Fat pad atrophy of foot Treatment Postoperative examination/painful left foot calluses/ keratosis Patient was seen today for POV: status post excision of painful callus/keratoderma x 2 left foot, DOS: 12-25-24 Patient was doing very well and thought the callus has returned. Physical examination was performedand actually very thin callus is returning, not a keratoderma or keratosis that we excised recentlythis is due to lack of padding and that should be further offloaded. Patient was advised the callus has returning due to lack of offloading pressure maximum therefore we did add a felt aperture pad to further offload underneath patient's insole. Custom foot orthotics she will be pursued if patient can not keep callus thin, and nonpainful. Patient was advised to wash feet daily, apply urea cream to area of callus, q.h.s. under occlusion to keep the callus thin, soft and well hydrated. Patient was advised self debris callus p.r.n. thickness and always keep a thin by use of a emery board or pumice stone or padding. Care should be taken while debriding. Patient was advised all weight-bearing she will be a soft mid sole cushioned shoes I.e. walking barefoot, soft, slippers or hard sole shoes will increase pressure and lead to return of callus and or pain. Reappoint p.r.n. Diabetes Mellitus 1. Patient seen today for follow-up examination . 2. Patient advised to always maintain proper diabetic control. 3. Patient advised to wash and dry bilateral foot once daily and apply a good moisturizing cream tobilateral lower extremity, except for in between toes, post bathing to keep skin from becoming too dry. 4. Patient advised to perform daily foot inspections and observe for any signs of skin breakdown. documented in this encounterSaint Alexius [id number] NotePatient Education Oncology Prostate Cancer Screening Prostate cancer screening is testing that is done to check for the presence of prostate cancer in men. The prostate gland is a walnut-sized gland that is located below the bladder and in front of therectum in males. The function of the prostate is to add fluid to semen during ejaculation. Prostatecancer is one of the most common types of cancer in men. Who should have prostate cancer screening? Screening recommendations vary based on age and other risk factors, as well as between the professional organizations who make the recommendations. In general, screening is recommended if: ??? You are age 50 to 70 and have an average risk for prostate cancer. You should talk with your health care provider about your need for screening and how often screening should be done. Because most prostate cancers are slow growing and will not cause , screening in this age group is generally reserved for men who have a 10- to 15-year life expectancy. ??? You are younger than age 50, and you have these risk factors: ? Having a father, brother, or uncle who has been diagnosed with prostate cancer. The risk is higher if your family member's cancer occurred at an early age or if you have multiple family members with prostate cancer at an early age. ? Being a male who is Black or is of [place] or sub-Saharan descent. In general, screening is not recommended if: ??? You are younger than age 40. ??? You are between the ages of 40 and 49 and you have no risk factors. ??? You are 70 years of age or older. At this age, the risks that screening can cause are greater than the benefits that it may provide. If you are at high risk for prostate cancer, your health care provider may recommend that you have screenings more often or that you start screening at a younger age. How is screening for prostate cancer done? The recommended prostate cancer screening test is a blood test called the prostate-specific antigen(PSA) test. PSA is a protein that is made in the prostate. As you age, your prostate naturally produces more PSA. Abnormally high PSA levels may be caused by: ??? Prostate cancer. ??? An enlarged prostate that is not caused by cancer (benign prostatic hyperplasia, or BPH). This condition is very common in older men. ??? A prostate gland infection (prostatitis) or urinary tract infection. ??? Certain medicines such as male hormones (like testosterone) or other medicines that raise testosterone levels. A rectal exam may be done as part of prostate cancer screening to help provide information about the size of your prostate gland. When a rectal exam is performed, it should be done after the PSA level is drawn to avoid any effect on the results. Depending on the PSA results, you may need more tests, such as: ??? A physical exam to check the size of your prostate gland, if not done as part of screening. ??? Blood and imaging tests. ??? A procedure to remove tissue samples from your prostate gland for testing (biopsy). This is theonly way to know for certain if you have prostate cancer. What are the benefits of prostate cancer screening? Screening can help to identify cancer at an early stage, before symptoms start and when the cancer can be treated more easily. ??? There is a small chance that screening may lower your risk of dying from prostate cancer. The chance is small because prostate cancer is a slow-growing cancer, and most men with prostate cancer from a different cause. What are the risks of prostate cancer screening? The main risk of prostate cancer screening is diagnosing and treating prostate cancer that would never have caused any symptoms or problems. This is called overdiagnosisand overtreatment. PSA screening cannot tell you if your PSA is high due to cancer or a different cause. A prostate biopsy is the only procedure to diagnose prostate cancer. Even the results of a biopsy may not tell you if your cancer needs to be treated. Slow-growing prostate cancer may not need any treatment other than monitoring, so diagnosing and treating it may cause unnecessary stress or other side effects. Questions to ask your health care provider ??? When should I start prostate cancer screening? What is my risk for prostate cancer? How often do I need screening? What type of screening tests do I need? How do I get my test results? What do my results mean? Do I need treatment? Where to find more information ??? The [place] [employer]: www.cancer.org ??? [place] [employer]: www.auanet.org Contact a health care provider if: ??? You have difficulty urinating. ??? You have pain when you urinate or ejaculate. ??? You have blood in your urine or semen. ??? You have pain in your back or in the area of your prostate. Summary ??? Prostate cancer is a common type of cancer in men. The prostate gland (more content not included)...[facility]04-01-2025 Radiology Diagnostic study [facility] [place] [address] [place] [address] Ultrasound Report Signed Patient: Mariana Barnes MR#: [id number] [birth year] Acct:[id number] Age/Sex: 69 / M ADM Date: 5 Loc: Room: Type: [facility] Attending Dr: Arelis Ramirez Jr, MD Ordering Provider: ARELIS RAMIREZ MD Date of Service: 01/16/25 US/US thyroid: E04.1 Copies to: ARELIS RAMIREZ MD~ THYROID ULTRASOUND CLINICAL DATA: Follow-up nodules COMPARISON: [...] is similar. At the inferior pole, there huy heterogeneous hypoechoic nodule posteriorly measuring 12 x 10 x 11 mm, also seenpreviously and not significantly changed. At the left midpole laterally, there is a multiseptated cystic area measuring 8 x 6 x 8 mm which is stable. US/US thyroid IMPRESSION: BILATERAL PULMONARY NODULES, NOT SIGNIFICANT CHANGE. Impression dictated by: Eleonora Burns M.D.01/16/2025 12:21 PM Dictation Location: [place] [address] Tech: Henna Restrepo Transcribed By: MARIELLE 01/16/25 1221 Dictated By: Eleonora Burns MD 01/16/25 1217 Signed By: 01/16/25 1221 [facility] Work Phone: [phone] History of Present illness Narrative* Kingsley Loera DPM - 12/25/2024 9:45 AM EDT See op report. documented in this encounterSaint Alexius [id number] History of Present illness Narrative* Kingsley Loera DPM - 12/19/2024 8:15 AM EST Images from the original note were not included. Reason for Appointment Established patient: Recheck onychomycosis/Nailcare. Second Complaint: NEW COMPLAINT: Painful LT foot callus/keratoderma Third Complaint: Annual Comprehensive Diabetic Foot Examination Fourth Complaint: Surgical Work Up History of Present Illness Established patient presents with thickened, discolored, mycotic toenails. Patient applies Tolcylento all toenails twice day and nystatin powder once a day with good improvement. PCP and last visit: Dr. Floyd 10/10. Second Complaint: Patient has NEW COMPLAINT of painful callus/keratoderma to the LT plantar foot. Patient states that he would just like Dr. Loera to cut it out like he did last time. Third Complaint: Annual Comprehensive Diabetic Foot Examination. Patient does not check his glucose. States recent A1C was close to 7. Fourth Complaint: Patient presents for surgical work up. Patient is scheduled for outpatient surgery, Excision of painful callus/IPK x 2 LT plantar foot, DOS: 12-25-2024. Patient has walker at home toassist with partial weightbearing. Review of Systems General: Chills denies. Fatigue denies. Fever denies. Night sweats denies. Endocrine: Hyperpigmentation denies. Diabetes admits. Weakness denies. Cardiovascular: Chest pain denies. Shortness of breath denies. Gastrointestinal: Constipation denies. Diarrhea denies. Nausea denies. Vomiting denies. Hematology: Anemia denies. Bleeding problems denies. Easy bruising denies. Musculoskeletal: Bone/joint symptoms denies. Leg cramps denies. Peripheral Vascular: Edema denies. Rest pain denies. Varicose veins denies. Raynaud's denies. Skin: Ulceration denies. Nail changes denies. Rash denies. Skin lesion(s) denies. Neurologic: Dizziness denies. Gait abnormality denies. Headache denies. Tingling/Numbness denies. Examination General Examination: GENERAL EXAMINATION: awake, aware of surroundings, in no acute distress. Diabetic Foot Exam: Date: 12-19-2024 Sensations: diminished Strength: normal Pedal Pulses: +2 Vascular: DORSALIS PEDIS PULSE: bilaterally, 2/4. POSTERIOR TIBIAL PULSE: bilaterally, 2/4. TEMPERATURE GRADIENT: warm to cool. EDEMA: bilateral ankle. VARICOSITIES: present bilaterally. CAPILLARY FILLING TIME(sec): capillary fill intact bilateral digits less than 3 secs. Neurologic: VIBRATORY: normal. SEMMES-AMBERLY 5.07 MONOFILAMENT: normal. Dermatologic: SKIN FINDINGS: texture, turgor, hair growth, within normal limits. HYPERKERATOSIS: Painful callus/keratoderma x 2 left foot sub fifth MPJ region - Resolved status post excision of painful callus/keratoderma x 2 left foot on 02-28-2024. NAIL PATHOLOGY: toenails 1-5 bilateral intact. Right toenails: 1 (great toe) Long, Thick, Crumbly, Deformed, Discolored, Brittle, Dystrophic. 2 Elongated, non-dystrophic. 3 Elongated, non-dystrophic. 4 Elongated, non-dystrophic. 5 Long, Thick, Crumbly, Deformed, Discolored, Brittle, Dystrophic. Left toenails: patient has pain left hallux medial nail border due to incurvated nail however no sign of paronychia or infection 1 (great toe) Long, Thick, Crumbly, Deformed, Discolored, Brittle, Dystrophic. 2 Long, Thick, Crumbly, Deformed, Discolored, Brittle, Dystrophic. 3 Elongated, non-dystrophic. 4 Elongated, non-dystrophic. 5 Long, Thick, Crumbly, Deformed, Discolored, Brittle, Dystrophic. Ankle / Foot: RANGE OF MOTION: full range of motion without pain. MUSCLE STRENGTH: 5/5. Orthopedic: DEFORMITIES: fat pad atrophy bilateral forefoot. SHOE GEAR EVALUATION: [employer] mesh athletic shoes. Assessments 1. Preoperative examination/surgical workup Dermatophytosis of nail - B35.1 - Mycotic toenails 1,5 right and 1,2,5 left 2. Deformity of toenail - L60.8 - Non-dystrophic toenails 2,3,4 right and 3,4 left 3. Asymptomatic varicose veins - I83.90 4. Diabetes mellitus- E11.9 5. Lower extremity edema 6. Fat pad atrophy of foot 7. Toenail pain left hallux medial nail margin without infection or paronychia 8. Ingrown toenail left hallux medial nail margin with pain Treatment Preoperative examination/surgical workup Patient was seen today for follow up examination patient was return of painful keratoderma/ callus to the plantar left forefoot. He wishes to have them surgically removed as he has had in the past however they have slowly returned. Patient was did well with the previous local anesthetic block. He will be dispensed 1 Valium 5 mg to be taken 30 minutes preoperatively on outpatient surgery with widesurgical excision of painful callus/ IP case times 2 left foot sub 5th MPJ plantar left foot. Surgical workup was performed. Patient was advised about possible risks and complications surgical informed consent was signed and witnessed there were no guarantees given or implied about healing, timeline of healing or pain or pathology resolution and recurrence definitely could occur. Date of surgery scheduled for 12-25-24 at the [facility]. Patient was advised postoperatively elevate left foot high above heart level bend left least slightly, apply ice bag topically to area of surgery plantar left forefoot no more than 20 minutes on/ offwhile awake, removed while sleeping. Patient was very well at last surgery of the similar type and location with just taking OTC ibuprofen 200 mg tablets 1-3 tablets t.I.d. p.o. p.c. until pain and swelling is resolved. After checking patient's OARRS account, RX: [place] 5/325, #4, si q.6h p.o. p.r.n. pain postoperatively 0 refills. RX: Valium 5 mg for preoperative sedation/anxiety reduction dispensed 1 pill to be taken 30 minutespreop. 0 refills. Dispensed 1 tube of Amerigel to be applied operative site postoperatively daily after cleansing with sterile saline solution. Dispensed postop surgical shoe to be worn postoperatively to help offload pain and for sterile technique. POV#1: 12-29-24 Dermatophytosis of nail 1. Patient seen today for follow up examination. 2. I debrided elongated, mycotic toenails 1,5 right and 1,2,5 left via manual and mechanical means in office. Bacitracin and band aid was applied to left hallux toenail post debridement. Patient should apply ZACHARY ad band aid daily to left hallux toenail for the next 3-5 days. 3. Patient should wash and dry bilateral foot twice a day and apply topical Tolcylen twice a day toall ten toenails until full resolution of onychomycosis. 4. Patient should continue to apply Nystatin Powder twice a day to bilateral foot webspaces, post bathing, to assist with moisture and fungal reduction and prevention. 5. Patient should self debride toenails with emery board, not using same surface twice, to avoid recontamination. 6. Patient should continue to apply Clean Sweep to shoes daily to reduce bacteria, fungus and odor to shoes. 7. Reappoint 3 months. Deformity of toenail 1. Patient seen today for follow up examination. 2. I debrided elongated, non-dystrophic toenails 2,3,4 right and 3,4 left via manual and mechanicalmeans in office. 3. Reappoint in 3 months. Diabetes Mellitus 1. Patient seen today for follow-up examination and Annual Comprehensive Diabetic Foot Examination was performed. 2. Patient advised to always maintain proper diabetic control. 3. Patient advised to wash and dry bilateral foot once daily and apply a good moisturizing cream tobilateral lower extremity, except for in between toes, post bathing to keep skin from becoming too dry. 4. Patient advised to perform daily foot inspections and observe for any signs of skin breakdown. documented in this encounterSaint Alexius [id number] Evaluation note* Author Sadiq Floyd [facility] Authored October 17, 2024 3:48pm I performed the above HPI, R OS, and Examination. I formulated and dictated the treatment plan and was present for entire encounter. Sadiq Floyd D.O. [facility] Work Phone: [phone] 955-857910-22-2024 NotePatient Education Oncology Prostate Cancer Screening Prostate cancer screening is testing that is done to check for the presence of prostate cancer in men. The prostate gland is a walnut-sized gland that is located below the bladder and in front of therectum in males. The function of the prostate is to add fluid to semen during ejaculation. Prostatecancer is one of the most common types of cancer in men. Who should have prostate cancer screening? Screening recommendations vary based on age and other risk factors, as well as between the professional organizations who make the recommendations. In general, screening is recommended if: ? You are age 50 to 70 and have an average risk for prostate cancer. You should talk with your health care provider about your need for screening and how often screening should be done. Because most prostate cancers are slow growing and will not cause , screening in this age group is generallyreserved for men who have a 10- to 15-year life expectancy. ? You are younger than age 50, and you have these risk factors: ? Having a father, brother, or uncle who has been diagnosed with prostate cancer. The risk is higher if your family member's cancer occurred at an early age or if you have multiple family members with prostate cancer at an early age. ? Being a male who is Black or is of [place]un or sub-Saharan descent. In general, screening is not recommended if: ? You are younger than age 40. ? You are between the ages of 40 and 49 and you have no risk factors. ? You are 70 years of age or older. At this age, the risks that screening can cause are greater than the benefits that it may provide. If you are at high risk for prostate cancer, your health care provider may recommend that you have screenings more often or that you start screening at a younger age. How is screening for prostate cancer done? The recommended prostate cancer screening test is a blood test called the prostate-specific antigen(PSA) test. PSA is a protein that is made in the prostate. As you age, your prostate naturally produces more PSA. Abnormally high PSA levels may be caused by: ? Prostate cancer. ? An enlarged prostate that is not caused by cancer (benign prostatic hyperplasia, or BPH). This condition is very common in older men. ? A prostate gland infection (prostatitis) or urinary tract infection. ? Certain medicines such as male hormones (like testosterone) or other medicines that raise testosterone levels. A rectal exam may be done as part of prostate cancer screening to help provide information about the size of your prostate gland. When a rectal exam is performed, it should be done after the PSA level is drawn to avoid any effect on the results. Depending on the PSA results, you may need more tests, such as: ? A physical exam to check the size of your prostate gland, if not done as part of screening. ? Blood and imaging tests. ? A procedure to remove tissue samples from your prostate gland for testing (biopsy). This is the only way to know for certain if you have prostate cancer. What are the benefits of prostate cancer screening? ? Screening can help to identify cancer at an early stage, before symptoms start and when the cancer can be treated more easily. ? There is a small chance that screening may lower your risk of dying from prostate cancer. The chance is small because prostate cancer is a slow-growing cancer, and most men with prostate cancer diefrom a different cause. What are the risks of prostate cancer screening? The main risk of prostate cancer screening is diagnosing and treating prostate cancer that would never have caused any symptoms or problems. This is called overdiagnosisand overtreatment. PSA screening cannot tell you if your PSA is high due to cancer or a different cause. A prostate biopsy is the only procedure to diagnose prostate cancer. Even the results of a biopsy may not tell you if your cancer needs to be treated. Slow-growing prostate cancer may not need any treatment other than monitoring, so diagnosing and treating it may cause unnecessary stress or other side effects. Questions to ask your health care provider ? When should I start prostate cancer screening? ? What is my risk for prostate cancer? ? How often do I need screening? ? What type of screening tests do I need? ? How do I get my test results? ? What do my results mean? ? Do I need treatment? Where to find more information ? The [place] [employer]: www.cancer.org ? [place] [employer]: www.auanet.org Contact a health care provider if: ? You have difficulty urinating. ? You have pain when you urinate or ejaculate. ? You have blood in your urine or semen. ? You have pain in your back or in the area of your prostate. Summary ? Prostate cancer is a common type of cancer in men. The prostate gland is located below the bladder and in front of the rectum. (more content not included)...[facility]10-03-2024 History of Present illness Narrative* Kingsley Loera DPM - 07/20/2024 9:45 AM EDT Images from the original note were not included. Reason for Appointment Established patient: Recheck onychomycosis/Nailcare. History of Present Illness Established patient presents with thickened, discolored, mycotic toenails. Patient applies Tolcylento all toenails twice day and nystatin powder once a day with good improvement. Patient has pain tothe LT hallux medial toenail border when it grows out. Patient states Lt 5th toe has black spot from stubbing it. PCP and last visit: Dr. Floyd 04/19/24. Review of Systems General: Chills denies. Fatigue denies. Fever denies. Night sweats denies. Endocrine: Hyperpigmentation denies. Diabetes admits. Weakness denies. Cardiovascular: Chest pain denies. Shortness of breath denies. Gastrointestinal: Constipation denies. Diarrhea denies. Nausea denies. Vomiting denies. Hematology: Anemia denies. Bleeding problems denies. Easy bruising denies. Musculoskeletal: Bone/joint symptoms denies. Leg cramps denies. Peripheral Vascular: Edema denies. Rest pain denies. Varicose veins denies. Raynaud's denies. Skin: Ulceration denies. Nail changes denies. Rash denies. Skin lesion(s) denies. Neurologic: Dizziness denies. Gait abnormality denies. Headache denies. Tingling/Numbness denies. Examination General Examination: GENERAL EXAMINATION: awake, aware of surroundings, in no acute distress. Diabetic Foot Exam: Date: 02-22-2024 Sensations: diminished Strength: normal Pedal Pulses: +2 Vascular: DORSALIS PEDIS PULSE: bilaterally, 2/4. POSTERIOR TIBIAL PULSE: bilaterally, 2/4. TEMPERATURE GRADIENT: warm to cool. EDEMA: bilateral ankle. VARICOSITIES: present bilaterally. CAPILLARY FILLING TIME(sec): capillary fill intact bilateral digits less than 3 secs. Neurologic: VIBRATORY: normal. SEMMES-AMBERLY 5.07 MONOFILAMENT: normal. Dermatologic: SKIN FINDINGS: texture, turgor, hair growth, within normal limits. HYPERKERATOSIS: Painful callus/keratoderma x 2 left foot sub fifth MPJ region - Resolved status post excision of painful callus/keratoderma x 2 left foot on 02-28-2024. NAIL PATHOLOGY: toenails 1-5 bilateral intact. Right toenails: 1 (great toe) Long, Thick, Crumbly, Deformed, Discolored, Brittle, Dystrophic. 2 Elongated, non-dystrophic. 3 Elongated, non-dystrophic. 4 Elongated, non-dystrophic. 5 Long, Thick, Crumbly, Deformed, Discolored, Brittle, Dystrophic. Left toenails: patient has pain left hallux medial nail border due to incurvated nail however no sign of paronychia or infection 1 (great toe) Long, Thick, Crumbly, Deformed, Discolored, Brittle, Dystrophic. 2 Long, Thick, Crumbly, Deformed, Discolored, Brittle, Dystrophic. 3 Elongated, non-dystrophic. 4 Elongated, non-dystrophic. 5 Long, Thick, Crumbly, Deformed, Discolored, Brittle, Dystrophic. Ankle / Foot: RANGE OF MOTION: full range of motion without pain. MUSCLE STRENGTH: 5/5. Orthopedic: DEFORMITIES: fat pad atrophy bilateral forefoot. SHOE GEAR EVALUATION: [employer] nylon mesh athletic shoes. Assessments 1. Dermatophytosis of nail - B35.1 - Mycotic toenails 1,5 right and 1,2,5 left 2. Deformity of toenail - L60.8 - Non-dystrophic toenails 2,3,4 right and 3,4 left 3. Asymptomatic varicose veins - I83.90 4. Diabetes mellitus- E11.9 5. Lower extremity edema 6. Fat pad atrophy of foot 7. Toenail pain left hallux medial nail margin without infection or paronychia 8. Ingrown toenail left hallux medial nail margin with pain Treatment Dermatophytosis of nail 1. Patient seen today for follow up examination. 2. I debrided elongated, mycotic toenails 1,5 right and 1,2,5 left via manual and mechanical means in office. Bacitracin and band aid was applied to left hallux toenail post debridement. Patient should apply ZACHARY ad band aid daily to left hallux toenail for the next 3-5 days. 3. Patient should wash and dry bilateral foot twice a day and apply topical Tolcylen twice a day toall ten toenails until full resolution of onychomycosis. 4. Patient should continue to apply Nystatin Powder twice a day to bilateral foot webspaces, post bathing, to assist with moisture and fungal reduction and prevention. 5. Patient should self debride toenails with emery board, not using same surface twice, to avoid recontamination. 6. Patient should continue to apply Clean Sweep to shoes daily to reduce bacteria, fungus and odor to shoes. 7. Reappoint 3 months. Deformity of toenail 1. Patient seen today for follow up examination. 2. I debrided elongated, non-dystrophic toenails 2,3,4 right and 3,4 left via manual and mechanicalmeans in office. 3. Reappoint in 3 months. documented in this encounterSaint Alexius [id number] History of Present illness Narrative* Arelis Ramirez MD - 07/18/2024 9:50 AM EDT Subjective Patient ID: Mariana Barnes is a 69 y.o. male who presents for Thyroid Nodule (6 months follow up Ultrasound 06/05) Thyroid US shows a 11mm RT mid nodule, and left 21, 10 and 14mm nodules. Noted to be stable Family History Problem Relation Name Age of Onset Diabetes Mother Bernice Hypertension Father Osman barnes Active Ambulatory Problems Diagnosis Date Noted Dermatophytosis of nail 03/18/2023 Deformity of toenail 03/18/2023 Callus 03/18/2023 Acquired keratoderma 03/18/2023 Left foot pain 03/18/2023 Ankle edema 03/18/2023 Asymptomatic varicose veins 03/18/2023 Fat pad atrophy of foot 03/18/2023 Nasal congestion 10/06/2023 Thyroid nodule (CMS/HCC) 11/19/2023 Resolved Ambulatory Problems Diagnosis Date Noted No Resolved Ambulatory Problems Past Medical History: Diagnosis Date Arthritis Bone cyst of left ankle Diabetes mellitus (CMS/HCC) Hyperlipidemia (CMS/HCC) Hypertension (CMS/HCC) Hypertension (CMS/HCC) Past Surgical History: Procedure Laterality Date ANKLE SURGERY Left 1971 removal of cyst CORONARY STENT PLACEMENT Right 11/25/2023 FOOT SURGERY [place] TOTAL HIP ARTHROPLASTY Right 2013 SEPTOPLASTY 11/19/2016 SMR Inf. Turbs Allergies Allergen Reactions Cefdinir Other Reaction(s): rash, suspected 11-07-13 Can take Augmentin -14 Hydrochlorothiazide Other Reaction(s): worsening renal studies / sensitivity (2013) Current Outpatient Medications on File Prior to Visit Medication Sig Dispense Refill clopidogrel (Plavix) 75 MG tablet TAKE 1 TABLET BY MOUTH EVERY DAY FOR 30 DAYS dapagliflozin (Farxiga) 5 MG Take 5 mg by mouth Daily fluticasone (Flonase) 50 MCG/ACT nasal spray Administer 2 sprays into each nostril in the morning. Shake gently. Before first use, prime pump. After use, clean tip and replace cap.. 48 g 3 lisinopril 10 MG tablet 1 (one) time each day at the same time. metFORMIN (Glucophage) 500 MG tablet Take 1,000 mg by mouth in the morning and 1,000 mg in the evening. Take with meals. metoprolol succinate XL (Toprol-XL) 25 MG 24 hr tablet Take 25 mg by mouth Daily rosuvastatin (Crestor) 10 MG tablet take 1 tablet by ORAL route every day Oral tolnaftate (Tinactin) 1 % external solution Apply topically at bedtime. No current facility-administered medications on file prior to visit. Objective Last Recorded Vitals Vitals: 07/18/24 0954 BP: 128/72 ENT Physical Exam Constitutional Appearance: patient appears well-developed, well-nourished and well-groomed, Communication/Voice: communication appropriate for developmental age; vocal quality normal; Assessment/Plan Diagnoses and all orders for this visit: Thyroid nodule (CMS/HCC) Stable MNG. Repeat US 6 mo documented in this encounterSaint Alexius [id number] Hospital Discharge instructions Patient Education 06/08/2024 09:32:57 Prostate Cancer Screening Prostate Cancer Screening Prostate cancer screening is testing that is done to check for the presence of prostate cancer in men. The prostate gland is a walnut-sized gland that is located below the bladder and in front of therectum in males. The function of the prostate is to add fluid to semen during ejaculation. Prostatecancer is one of the most common types of cancer in men. Who should have prostate cancer screening? Screening recommendations vary based on age and other risk factors, as well as between the professional organizations who make the recommendations. In general, screening is recommended if: You are age 50 to 70 and have an average risk for prostate cancer. You should talk with your healthcare provider about your need for screening and how often screening should be done. Because most prostate cancers are slow growing and will not cause , screening in this age group is generally reserved for men who have a 10- to 15-year life expectancy. You are younger than age 50, and you have these risk factors: ?Having a father, brother, or uncle who has been diagnosed with prostate cancer. The risk is higherif your family member's cancer occurred at an early age or if you have multiple family members withprostate cancer at an early age. ?Being a male who is Black or is of [place] or sub-Saharan descent. In general, screening is not recommended if: You are younger than age 40. You are between the ages of 40 and 49 and you have no risk factors. You are 70 years of age or older. At this age, the risks that screening can cause are greater than the benefits that it may provide. If you are at high risk for prostate cancer, your health care provider may recommend that you have screenings more often or that you start screening at a younger age. How is screening for prostate cancer done? The recommended prostate cancer screening test is a blood test called the prostate-specific antigen(PSA) test. PSA is a protein that is made in the prostate. As you age, your prostate naturally produces more PSA. Abnormally high PSA levels may be caused by: Prostate cancer. An enlarged prostate that is not caused by cancer (benign prostatic hyperplasia, or BPH). This condition is very common in older men. A prostate gland infection (prostatitis) or urinary tract infection. Certain medicines such as male hormones (like testosterone) or other medicines that raise testosterone levels. A rectal exam may be done as part of prostate cancer screening to help provide information about the size of your prostate gland. When a rectal exam is performed, it should be done after the PSA level is drawn to avoid any effect on the results. Depending on the PSA results, you may need more tests, such as: A physical exam to check the size of your prostate gland, if not done as part of screening. Blood and imaging tests. A procedure to remove tissue samples from your prostate gland for testing (biopsy). This is the only way to know for certain if you have prostate cancer. What are the benefits of prostate cancer screening? Screening can help to identify cancer at an early stage, before symptoms start and when the cancer can be treated more easily. There is a small chance that screening may lower your risk of dying from prostate cancer. The chance is small because prostate cancer is a slow-growing cancer, and most men with prostate cancer from a different cause. What are the risks of prostate cancer screening? The main risk of prostate cancer screening is diagnosing and treating prostate cancer that would never have caused any symptoms or problems. This is called overdiagnosisand overtreatment. PSA screening cannot tell you if your PSA is high due to cancer or a different cause. A prostate biopsy is the only procedure to diagnose prostate cancer. Even the results of a biopsy may not tell you if your cancer needs to be treated. Slow-growing prostate cancer may not need any treatment other than monitoring, so diagnosing and treating it may cause unnecessary stress or other side effects. Questions to ask your health care provider When should I start prostate cancer screening? What is my risk for prostate cancer? How often do I need screening? What type of screening tests do I need? How do I get my test results? What do my results mean? Do I need treatment? Where to find more information [employer] [place] [employer]: www.cancer.org [employer]: www.auanet.org Contact a health care provider if: You have difficulty urinating. You have pain when you urinate or ejaculate. You have blood in your urine or semen. You have pain in your back or in the area of your prostate. Summary Prostate cancer is a common type of cancer in men. The prostate gland is located below the bladder and in front of the rectum. This gland adds fluid to semen during ejaculation. Prostate cancer screening may identify cancer at an early stage, when the cancer can be treated more easily and is less likely to have spread to other areas of the body. The prostate-specific antigen (PSA) test is the recommended screening test for prostate cancer, butit has associated risks. Discuss the risks and benefits of prostate cancer screening with your health care provider. If you are age 70 or older, the risks that screening can cause are greater than the benefits that it may provide. This information is not intended to replace advice given to you by your health care provider. Make sure you discuss any questions you have with your health care provider. Document Revised: 03/30/2022 Document Reviewed: 03/30/2022 [employer] Patient Education 2022 [employer] Interactive. Follow Up Care 05/13/2023 08:54:27 With:Jefferson MORRISON, JUSTIN Steven, URO Address: When: Unknown [facility] 08-22-2024 NotePatient Education Oncology Prostate Cancer Screening Prostate cancer screening is testing that is done to check for the presence of prostate cancer in men. The prostate gland is a walnut-sized gland that is located below the bladder and in front of therectum in males. The function of the prostate is to add fluid to semen during ejaculation. Prostatecancer is one of the most common types of cancer in men. Who should have prostate cancer screening? Screening recommendations vary based on age and other risk factors, as well as between the professional organizations who make the recommendations. In general, screening is recommended if: ? You are age 50 to 70 and have an average risk for prostate cancer. You should talk with your health care provider about your need for screening and how often screening should be done. Because most prostate cancers are slow growing and will not cause , screening in this age group is generallyreserved for men who have a 10- to 15-year life expectancy. ? You are younger than age 50, and you have these risk factors: ? Having a father, brother, or uncle who has been diagnosed with prostate cancer. The risk is higher if your family member's cancer occurred at an early age or if you have multiple family members with prostate cancer at an early age. ? Being a male who is Black or is of [place]un or sub-Saharan descent. In general, screening is not recommended if: ? You are younger than age 40. ? You are between the ages of 40 and 49 and you have no risk factors. ? You are 70 years of age or older. At this age, the risks that screening can cause are greater than the benefits that it may provide. If you are at high risk for prostate cancer, your health care provider may recommend that you have screenings more often or that you start screening at a younger age. How is screening for prostate cancer done? The recommended prostate cancer screening test is a blood test called the prostate-specific antigen(PSA) test. PSA is a protein that is made in the prostate. As you age, your prostate naturally produces more PSA. Abnormally high PSA levels may be caused by: ? Prostate cancer. ? An enlarged prostate that is not caused by cancer (benign prostatic hyperplasia, or BPH). This condition is very common in older men. ? A prostate gland infection (prostatitis) or urinary tract infection. ? Certain medicines such as male hormones (like testosterone) or other medicines that raise testosterone levels. A rectal exam may be done as part of prostate cancer screening to help provide information about the size of your prostate gland. When a rectal exam is performed, it should be done after the PSA level is drawn to avoid any effect on the results. Depending on the PSA results, you may need more tests, such as: ? A physical exam to check the size of your prostate gland, if not done as part of screening. ? Blood and imaging tests. ? A procedure to remove tissue samples from your prostate gland for testing (biopsy). This is the only way to know for certain if you have prostate cancer. What are the benefits of prostate cancer screening? ? Screening can help to identify cancer at an early stage, before symptoms start and when the cancer can be treated more easily. ? There is a small chance that screening may lower your risk of dying from prostate cancer. The chance is small because prostate cancer is a slow-growing cancer, and most men with prostate cancer diefrom a different cause. What are the risks of prostate cancer screening? The main risk of prostate cancer screening is diagnosing and treating prostate cancer that would never have caused any symptoms or problems. This is called overdiagnosisand overtreatment. PSA screening cannot tell you if your PSA is high due to cancer or a different cause. A prostate biopsy is the only procedure to diagnose prostate cancer. Even the results of a biopsy may not tell you if your cancer needs to be treated. Slow-growing prostate cancer may not need any treatment other than monitoring, so diagnosing and treating it may cause unnecessary stress or other side effects. Questions to ask your health care provider ? When should I start prostate cancer screening? ? What is my risk for prostate cancer? ? How often do I need screening? ? What type of screening tests do I need? ? How do I get my test results? ? What do my results mean? ? Do I need treatment? Where to find more information ? The [employer]: www.cancer.org ? [place] [employer]: www.auanet.org Contact a health care provider if: ? You have difficulty urinating. ? You have pain when you urinate or ejaculate. ? You have blood in your urine or semen. ? You have pain in your back or in the area of your prostate. Summary ? Prostate cancer is a common type of cancer in men. The prostate gland is located below the bladder and in front of the rectum. (more content not included)...[facility]07-02-2024 Evaluation note* Author Sadiq Floyd [facility] Authored April 18, 2024 12:05 pm The above note written by __ _Riccardo Driver____ acting as human recorder, note dictated by Dr. Pham .I performed the above HPI, ROS, and Examination. I formulated and dictated the treatment plan and was present for entire encounter. Sadiq Floyd D.O. [facility] Work Phone: [phone] Hospital Discharge instructions Patient Education 01/03/2024 09:43:48 Prostate Cancer Screening Prostate Cancer Screening Prostate cancer screening is testing that is done to check for the presence of prostate cancer in men. The prostate gland is a walnut-sized gland that is located below the bladder and in front of therectum in males. The function of the prostate is to add fluid to semen during ejaculation. Prostatecancer is one of the most common types of cancer in men. Who should have prostate cancer screening? Screening recommendations vary based on age and other risk factors, as well as between the professional organizations who make the recommendations. In general, screening is recommended if: You are age 50 to 70 and have an average risk for prostate cancer. You should talk with your healthcare provider about your need for screening and how often screening should be done. Because most prostate cancers are slow growing and will not cause , screening in this age group is generally reserved for men who have a 10- to 15-year life expectancy. You are younger than age 50, and you have these risk factors: ?Having a father, brother, or uncle who has been diagnosed with prostate cancer. The risk is higherif your family member's cancer occurred at an early age or if you have multiple family members withprostate cancer at an early age. ?Being a male who is Black or is of Jaun or sub-Saharan descent. In general, screening is not recommended if: You are younger than age 40. You are between the ages of 40 and 49 and you have no risk factors. You are 70 years of age or older. At this age, the risks that screening can cause are greater than the benefits that it may provide. If you are at high risk for prostate cancer, your health care provider may recommend that you have screenings more often or that you start screening at a younger age. How is screening for prostate cancer done? The recommended prostate cancer screening test is a blood test called the prostate-specific antigen(PSA) test. PSA is a protein that is made in the prostate. As you age, your prostate naturally produces more PSA. Abnormally high PSA levels may be caused by: Prostate cancer. An enlarged prostate that is not caused by cancer (benign prostatic hyperplasia, or BPH). This condition is very common in older men. A prostate gland infection (prostatitis) or urinary tract infection. Certain medicines such as male hormones (like testosterone) or other medicines that raise testosterone levels. A rectal exam may be done as part of prostate cancer screening to help provide information about the size of your prostate gland. When a rectal exam is performed, it should be done after the PSA level is drawn to avoid any effect on the results. Depending on the PSA results, you may need more tests, such as: A physical exam to check the size of your prostate gland, if not done as part of screening. Blood and imaging tests. A procedure to remove tissue samples from your prostate gland for testing (biopsy). This is the only way to know for certain if you have prostate cancer. What are the benefits of prostate cancer screening? Screening can help to identify cancer at an early stage, before symptoms start and when the cancer can be treated more easily. There is a small chance that screening may lower your risk of dying from prostate cancer. The chance is small because prostate cancer is a slow-growing cancer, and most men with prostate cancer from a different cause. What are the risks of prostate cancer screening? The main risk of prostate cancer screening is diagnosing and treating prostate cancer that would never have caused any symptoms or problems. This is called overdiagnosisand overtreatment. PSA screening cannot tell you if your PSA is high due to cancer or a different cause. A prostate biopsy is the only procedure to diagnose prostate cancer. Even the results of a biopsy may not tell you if your cancer needs to be treated. Slow-growing prostate cancer may not need any treatment other than monitoring, so diagnosing and treating it may cause unnecessary stress or other side effects. Questions to ask your health care provider When should I start prostate cancer screening? What is my risk for prostate cancer? How often do I need screening? What type of screening tests do I need? How do I get my test results? What do my results mean? Do I need treatment? Where to find more information The [employer]: www.cancer.org [employer]: www.auanet.org Contact a health care provider if: You have difficulty urinating. You have pain when you urinate or ejaculate. You have blood in your urine or semen. You have pain in your back or in the area of your prostate. Summary Prostate cancer is a common type of cancer in men. The prostate gland is located below the bladder and in front of the rectum. This gland adds fluid to semen during ejaculation. Prostate cancer screening may identify cancer at an early stage, when the cancer can be treated more easily and is less likely to have spread to other areas of the body. The prostate-specific antigen (PSA) test is the recommended screening test for prostate cancer, butit has associated risks. Discuss the risks and benefits of prostate cancer screening with your health care provider. If you are age 70 or older, the risks that screening can cause are greater than the benefits that it may provide. This information is not intended to replace advice given to you by your health care provider. Make sure you discuss any questions you have with your health care provider. Document Revised: 03/30/2022 Document Reviewed: 03/30/2022 [employer] Patient Education 2022 [employer]Wave Interactive. 01/03/2024 09:43:47 Hematuria, Adult Hematuria, Adult Hematuria is blood in the urine. Blood may be visible in the urine, or it may be identified with a test. This condition can be caused by infections of the bladder, urethra, kidney, or prostate. Otherpossible causes include: Kidney stones. Cancer of the urinary tract. Too much calcium in the urine. Conditions that are passed from parent to child (inherited conditions). Exercise that requires a lot of energy. Infections can usually be treated with medicine, and a kidney stone usually will pass through your urine. If neither of these is the cause of your hematuria, more tests may be needed to identify the cause of your symptoms. It is very important to tell your health care provider about any blood in your urine, even if it ispainless or the blood stops without treatment. Blood in the urine, when it happens and then stops and then happens again, can be a symptom of a very serious condition, including cancer. There is no pain in the initial stages of many urinary cancers. Follow these instructions at home: Medicines Take wnfy-opv-[id number] and prescription medicines only as told by your health care provider. If you were prescribed an antibiotic medicine, take it as told by your health care provider. Do notstop taking the antibiotic even if you start to feel better. Eating and drinking Drink enough fluid to keep your urine pale yellow. It is recommended that you drink 3 4 quarts (2.83.8 L) a day. If you have been diagnosed with an infection, drinking cranberry juice in addition tolarge amounts of water is recommended. Avoid caffeine, tea, and carbonated beverages. These tend to irritate the bladder. Avoid alcohol because it may irritate the prostate (in males). General instructions If you have been diagnosed with a kidney stone, follow your health care provider's instructions about straining your urine to catch the stone. Empty your bladder often. Avoid holding urine for long periods of time. If you are female: ?After a bowel movement, wipe from front to back and use each piece of toilet paper only once. ?Empty your bladder before and after sex. Pay attention to any changes in your symptoms. Tell your health care provider about any changes or any new symptoms. It is up to you to get the results of any tests. Ask your health care provider, or the department that is doing the test, when your results will be ready. Keep all follow-up visits. This is important. Contact a health care provider if: You develop back pain. You have a fever or chills. You have nausea or vomiting. Your symptoms do not improve after 3 days. Your symptoms get worse. Get help right away if: You develop severe vomiting and are unable to take medicine without vomiting. You develop severe pain in your back or abdomen even though you are taking medicine. You pass a large amount of blood in your urine. You pass blood clots in your urine. You feel very weak or like you might faint. You faint. Summary Hematuria is blood in the urine. It has many possible causes. It is very important that you tell your health care provider about any blood in your urine, even ifit is painless or the blood stops without treatment. Take jebg-giq-snneohk and prescription medicines only as told by your health care provider. Drink enough fluid to keep your urine pale yellow. This information is not intended to replace advice given to you by your health care provider. Make sure you discuss any questions you have with your health care provider. Document Revised: 06/04/2021 Document Reviewed: 06/04/2021 [employer] Patient Education 2022 [employer] [facility] Flo [id number] [facility] Evaluation note* Encounter Date Diagnosis Assessment Notes Treatment Notes Treatment Clinical Notes Nov, Coronary artery calcification seen on CAT scan (ICD-10 - I25.10) Nov, Other chest pain (ICD-10 - R07.89) [facility] Other 02-02-2024 History of Present illness Narrative* Arelis Ramirez MD - 11/19/2023 11:20 AM EST Subjective Patient ID: Mariana Barnes is a 68 y.o. male who presents for Thyroid Nodule (Ultrasound 10/21/23 [facility]). Pt had an episode in Mid sep that resulted in a carotid US. Incidentally found to have throid nodule. Subsequent US showed nLT sup [id number] TR4 nodule and a [id number] LT inf TR4 nodule. In 2000 pt worked at [employer] and reportedly had a radiation exposure. Review of Systems All other systems reviewed and are negative. 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 Turbs No Known Allergies Current Outpatient Medications on File Prior to Visit Medication Sig Dispense Refill fluticasone (Flonase) 50 MCG/ACT nasal spray Administer 2 sprays into each nostril in the morning. Shake gently. Before first use, prime pump. After use, clean tip and replace cap.. 48 g 3 lisinopril 10 MG tablet 1 (one) time each day at the same time. nystatin (Mycostatin) 107200 UNIT/GM powder every 12 (twelve) hours. rosuvastatin (Crestor) 10 MG tablet take 1 tablet by ORAL route every day Oral tolnaftate (Tinactin) 1 % external solution Apply topically at bedtime. [DISCONTINUED] meloxicam (Mobic) 15 MG tablet 1 (one) time each day at the same time. [DISCONTINUED] semaglutide (Ozempic, 0.25 or 0.5 MG/DOSE,) 2 MG/1.5ML solution pen-injector Ozempic(0.25 or 0.5 MG/DOSE) No current facility-administered medications on file prior to visit. Objective Last Recorded Vitals Vitals: 11/19/23 1144 BP: (!) 133/95 ENT Physical Exam Constitutional Appearance: patient appears well-developed, well-nourished and well-groomed, Communication/Voice: communication appropriate for developmental age; vocal quality normal; Assessment/Plan Diagnoses and all orders for this visit: Thyroid nodule (CMS/HCC) I will check an US-guided FNA of the larger nodules to assess whether can be followed with periodicUS or if need to be removed. documented in this encounterSaint Alexius [id number] Evaluation note* Encounter Date Diagnosis Assessment Notes Treatment Notes Treatment Clinical Notes Oct, Chest pain, unspecified type (ICD-10 - R07.9) Oct, Gastroesophageal reflux disease with esophagitis without hemorrhage (ICD-10 - K21.00) Oct, Type 2 diabetes mellitus without complication, without long-term current use of insulin (ICD-10 - E11.9) Oct, Essential hypertensi on (ICD-10 - I10) Oct, Other # Possible card iac chest pain vs GERD - Negative w/u including troponin and EKG at [facility] on 09/29/24. His symptoms were thought to be GI related (reflux and esophageal spasms) and thus he was started on protonix and carafate. Symptoms are overall improved.# Lightheadedness/Pr esyncope - No syncope. Carotid U/S normal in 09/29/2023. Very infrequent he has had a 2-3 episodes over the last 5-6 years. Feels like dizziness when he has stood up for a long period of time. Based on this it appears vasovagal.# DM - Well controlled. A1c 7% per pt.# HTN - Well controlled. Does not check BP at home. # HLDPCP: Dr. Reynaga (in [place]) EKG 09/30/23 at [facility] - NSR 96 bpm, no ST-T changes, normal KS and QRS durations.Carotid U/S 09/29/24 - No stenosis of the bilateral extracranial ICA, patent vertebral aa bilaterally with antegrade flow.Nuclear Exercise Stress Test 07/15/21 - No evidence of ischemia or myocardial infarction. Normal LVEF 60% with normal wall motion. Normal TID 1.09. No chest pain or EKG changes during exercise. Good functional capacity and normal hemodynamic response.EKG 10/22/23 in clinic - NSR 79 bpm, no ST-T changes, normal KS and QRS duration. - Low pretest prob for CAD. His main risk factors are HTN and DM. Will get CCTA. He will be OOT on Oct 31 so we will do it before or after that.- Continue SHRUTI, statin, and antidiabetic regimen. Those are well controlled.- Neuro is working up for presyncope. He has a head CT (?head CTA to r/o posterior circulation stenosis/obstructi on)is pending. Has not had any dizziness since leaving the hospital. Stay well hydrated. Avoid triggers (prolonged standing).- F/u in 6 weeks after CCTA. [facility] Other 12-26-2023 Evaluation note* Encounter Date Diagnosis Assessment Notes Treatment Notes Treatment Clinical Notes Sep, Hypertension (ICD-10 - I10) Continue with above medication daily as directed. Sep, Chest pain (ICD-10 - R07.9) He voices that he had two beers while he waited for dinner, he developed burning pain that went up to his jaw bone and his chest was sore, he ate his dinner but could not belch to try to relieve this pain. He was able to eat and swallow fine. He was not sure if he was having gas or a reaction to the beer or not. He continued to have this feeling through the night. He took TUMS and woke up at 4 AM and took TUMS again. He still had soreness the next morning so he went to the hospital and was admitted. He voices they could not really find anything, everything was normal. His EKG was normal. He was given Nitro which did seem to help but it can be used for other things. We discussed that this could have been an esophageal spasm. He had never had anything like this before. He felt fine until he drank that first beer the night prior. He has an appointment to see the circle saw operator next week (10/21/23). Sep, Hyperlipidemia (ICD-10 - E78.5) Discussed cholesterol results with patient today. Total is 131. HDL is 38. LDL is 46. Triglycerides are 233. VLDL is 46. I would like him to continue watching his intake of carbs and sugars. Stay active. Sep, Diabetes mellitus, type 2 (ICD-10 - E11.9) His glucose level is 167. HgA1C is up from 7.6 to 7.7. I did recommend that he watch his intake of carbs and sugars. Stay active. He was on Ozempic in the past and it was replaced with Farxiga. He voices that he is going to try and skip the candy, but admits it has been difficult due to the holidays. He will work on making lifestyle and dietary changes to improve his diet. Sep, Thyroid nodule (ICD-10 - E04.1) I did explain to him that his hospital discharge summary stated that bilateral thyroid nodules were seen on the carotid doppler but these were not shown on the carotid doppler. I did recommend that we order a thyroid ultrasound to rule out abnormalities and order thyroid lab to rule out abnormalities. He is in agreement. Sep, Dizziness (ICD-10 - R42) He was seen by JASPER after he was admitted to [facility] on 09/29/23 and they are ordering a transcranial doppler ultrasound and a CT of the head and will consider an EMG of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 (ICD-10 - M17.9) Nov, Metabolic syndrome X (ICD-10 - E88.81) [facility] Other 12-20-2021 Evaluation note* Encounter Date Diagnosis Assessment Notes Treatment Notes Treatment Clinical Notes Sep, Hypertension (ICD-10 - I10) Blood pressure is controlled. Continue with above medication daily as directed. Sep, Diabetes type 2, controlled (ICD-10 - E11.9) Discussed blood sugar results with patient today. Glucose is 177. HgA1C is 7.6 which is higher than we would like to see. He voices that he has no interest in doing any injections to treat his blood sugar. He had some Tootsie Rolls in July but has given up candy since then. He has recently made diet changes and is eating better and working on weight loss. I suspect this A1C level does not reflect these diet changes. He would like to continue with these changes and will see what his levels show when he has lab drawn again in six months. Sep, Hyperlipidemia (ICD-10 - E78.5) Discussed cholesterol results with patient today. Total is 150. HDL is 35. LDL is 57. Triglycerides are 290 which go hand in hand with blood sugar. I would like him to continue with above medications daily as directed. Watch intake of carbs and sugars. Stay active. Sep, Suspicious nevus (ICD-10 - D22.9) Noted on the right side of his nose. He voices that it does bleed at times. He follows with someone at [facility]. I did recommend that he call and schedule an appointment to be seen as soon as he can. He voices that he will do this. Sep, Primary osteoarthritis of left knee (ICD-10 - M17.12) He did see Dr. Cruz for an injection in his left knee. He will return to see him again in three months. Side effects/risks/benef its of the Meloxicam were discussed. At this time the Meloxicam has not increased his blood pressure. Medication is not affecting his kidney studies at this time. We discussed him taking the Meloxicam and ASA together, if he is going to be on Meloxicam I did recommend that he stop the ASA. Sep, Nocturia (ICD-10 - R35.1) Sep, Elevated PSA (ICD-10 - R97.20) His PSA is 2.290. He did see Dr. Luis for evaluation but did not discuss his PSA level with her. This is something that I would like to continue to monitor. Will repeat lab in six months. Sep, Weight loss (ICD-10 - R63.4) His TSH is 0.94. He voices that he is trying to watch his diet and is working on weight loss. He would like to see Dr. Loyola for evaluation to discuss weight loss. Anticipate that weight loss will help improve his A1C level. He could see a paramedic rn as well to discuss his diet. Sep, Other intermission coordinator (current) drug therapy (ICD-10 - Z79.899) Sep, Other He did have a cystoscopy done per Dr. Luis, he voices that everything looked good. He will return to see him in one year. [facility] Other 06-16-2016 History of Present illness Narrative* Prior patient of mine. Last seen several years ago. * HPI: 67yo RHD male with petra wrist pain. 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 No prior treatment. He is still taking the mobic I rescribed in the past for his hip. HE had his hip replaced but he continued it due to wrist pain. HE has done well until recently. His left is worse than the right but both bother him. * no neck or UE pain. * No numb, ting, or weakness. * He is able to do everything. * Past rx: * no injections * no braces * Mobic 15mg daily min relief. * occ left knee pain * had right hip replaced * Past Medical History (including hospitalizations, surgeries, illness, injury), Medications and Allergies were reviewed and updated in the chart. * Family History Reviewed. No pertinent history to today's complaint. * Pertinent history to current presenting condition is mentioned above. * VITALS reviewed. [id number] Work Phone: [phone] History general Narrative - Reported* Type Description Date Medical History Colonoscopy Oct 2009 Dr. Aguilar , benign polyp Medical History hypertension Medical History hyperlipidemia Surgical History left ankle surgery cyst removed Surgical History Cataract Surgery Left Eye, Dr. Ureña 2006 or 2007 Surgical History right hip replacemen t- Dr. Wang, [facility] 09/2014 Surgical History COLONOSCOPY- DR AGUILAR 2006 Surgical History corisone left knee - Dr Salamanca Surgical History Colonoscopy, Dr. Livia rogers- polyp removed from sigmoid colon, benign -repeat 5 years (2020) 12-13-15 Surgical History sinus surgery Surgical History sinus surgery Dr Yee Hospitalization History left ankle cyst removed [facility] Other 01-01-2010 History general Narrative - Reported* Type Description Date Medical History Colonoscopy Oct 2009 Dr. Aguilar , benign polyp Medical History hypertension Medical History hyperlipidemia Medical History Arthritis Medical History type II diabetes Surgical History left ankle surgery cyst removed Surgical History Cataract Surgery Left Eye, Dr. Ureña 2006 or 2007 Surgical History right hip replacemen t- Dr. Wang, [facility] 09/2014 Surgical History COLONOSCOPY- DR ITZ Mata Surgical History corisone left knee - Dr Salamanca Surgical History Colonoscopy, Dr. Livia rogers- polyp removed from sigmoid colon, benign -repeat 5 years (2020) 12-13-15 Surgical History sinus surgery Surgical History sinus surgery Dr Yee Hospitalization History left ankle cyst removed [facility] Other 01-01-2010 History general Narrative - Reported* Type Description Date Medical History Colonoscopy Oct [address] Dr. Aguilar , benign polyp Medical History hypertension Medical History hyperlipidemia Medical History Arthritis Medical History type II diabetes Surgical History left ankle surgery cyst removed Surgical History Cataract Surgery Left Eye, Dr. Ureña 2006 or 2007 Surgical History right hip replacemen t- Dr. Wang, [facility] 09/2014 Surgical History COLONOSCOPY- DR ITZ Mata Surgical History corisone left knee - Dr Salamanca Surgical History Colonoscopy, Dr. Livia rogers- polyp removed from sigmoid colon, benign -repeat 5 years (2020) 12-13-15 Surgical History sinus surgery Surgical History sinus surgery Dr Yee Surgical History Colonoscopy, Dr. Patel 09/19 Hospitalization History left ankle cyst removed [facility] Other 01-01-2010 History general Narrative - Reported* Type Description Date Medical History Colonoscopy Oct [address] Dr. Aguilar , benign polyp Medical History hypertension Medical History hyperlipidemia Medical History Arthritis Medical History type II diabetes Surgical History left ankle surgery cyst removed Surgical History Cataract Surgery Left Eye, Dr. Ureña 2006 or 2008 Surgical History right hip replacemen t- Dr. Wang, [facility] 09/2014 Surgical History COLONOSCOPY- DR ITZ Mata Surgical History corisone left knee - Dr Salamanca Surgical History Colonoscopy, Dr. Livia rogers- polyp removed from sigmoid colon, benign -repeat 5 years (2020) 12-13-15 Surgical History sinus surgery Surgical History sinus surgery Dr Yee Surgical History Colonoscopy, Dr. George puri / heena repeat in 3 years 202310/16/21 Hospitalization History left ankle cyst removed [facility] Other 01-01-2010 History general Narrative - Reported* Type Description Date Medical History Colonoscopy Oct [address] Dr. Aguilar , benign polyp Medical History hypertension Medical History hyperlipidemia Medical History Arthritis Medical History type II diabetes Surgical History left ankle surgery cyst removed Surgical History Cataract Surgery Left Eye, Dr. Ureña 2006 or 2007 Surgical History right hip replacemen t- Dr. Wang, [facility] 09/2014 Surgical History COLONOSCOPY- DR AGUILAR 2006 Surgical History corisone left knee - Dr Salamanca Surgical History Colonoscopy, Dr. Livia rogers- polyp removed from sigmoid colon, benign -repeat 5 years (2020) 12-13-15 Surgical History sinus surgery Surgical History sinus surgery Dr Yee Surgical History Colonoscopy, Dr. George puri / heena repeat in 3 years 202310/16/21 Hospitalization History left ankle cyst removed Hospitalization History chest pain 09/29/23 [facility] Other 01-01-2010 History general Narrative - Reported* Type Description Date Medical History Colonoscopy Oct [address] Dr. Aguilar , benign polyp Medical History hypertension Medical History hyperlipidemia Medical History Arthritis Medical History type II diabetes Medical History hyperlipidemia Surgical History left ankle surgery cyst removed Surgical History Cataract Surgery Left Eye, Dr. Ureña 2006 or 2007 Surgical History right hip replacemen t- Dr. Wang, [facility] 09/2014 Surgical History COLONOSCOPY- DR AGUILAR 2006 Surgical History corisone left knee - Dr Salamanca Surgical History Colonoscopy, Dr. Livia rogers- polyp removed from sigmoid colon, benign -repeat 5 years (2020) 12-13-[address] sinus surgery Dr Yee Surgical History Colonoscopy, Dr. George puri / heena repeat in 3 years 202310/16/21 Hospitalization History left ankle cyst removed Hospitalization History chest pain 09/29/23 [facility] Other Evaluation + Plan note Future Appointments Appointment Date:05/13/2023 08:00:00 AM Scheduled Provider:Lue MD, Susanna Banda:[facility] Appointment Type:URO Office Visit Diagnostic Tests Pending * PSA Free & Total 11/06/22 [facility] Evaluation + Plan note Future Appointments Appointment Date:05/19/2024 08:00:00 AM Scheduled Provider:Susanna Paulino MD Location:[facility] Appointment Type:URO Office Visit [facility] Evaluation + Plan note Future Appointments Appointment Date:12/01/2024 09:00:00 AM Scheduled Provider:Susanna Paulino MD Location:[facility] Appointment Type:URO Office Visit Diagnostic Tests Pending * Testosterone Level Total 06/08/24 * PSA Free & Total 06/08/24 [facility] Evaluation + Plan note Future Appointments Appointment Date:12/01/2024 09:00:00 AM Scheduled Provider:Susanna Paulino MD Location:[facility] Appointment Type:URO Office Visit [facility] Evaluation + Plan note Future Appointments Appointment Date:04/18/2025 08:45:00 AM Scheduled Provider:Susanna Paulino MD Location:[facility] Appointment Type:URO Office Visit Appointment Date:07/13/2025 11:15:00 AM Scheduled Provider:Susanna Paulino MD Location:[facility] Appointment Type:URO Office Visit Diagnostic Tests Pending * PSA Free & Total 04/05/25 * Testosterone Level Total 04/05/25 Future Scheduled Tests Laboratory* Testosterone Level Total 04/05/25 [facility] Evaluation + Plan note Future Appointments Appointment Date:07/13/2025 11:15:00 AM Scheduled Provider:Susanna Paulino MD Location:[facility] Appointment Type:URO Office Visit Diagnostic Tests Pending * Testosterone Level Total 05/21/25 Future Scheduled Tests Laboratory* Testosterone Level Total 04/05/25 [facility] Evaluation noteNo InformationNorusk rehabilitation center [employer] Other Evaluation noteNo assessment information available [facility] Work Phone: evaluation note* Diagnosis Onset Date Resolution Status Chest pain acute [facility] Work Phone: Evaluation note* Diagnosis Onset Date Resolution Status Chest pain resolved [facility] Work Phone: Evaluation note* Diagnosis Thyroid nodule (CMS/HCC)- Primary Nontoxic uninodular goiter [facility] Diagnosis Onset Date Resolution Status Chest pain resolved Coronary artery disease with angina pectoris acute Arthritis of left knee acute Left knee pain noneactive [facility] Work Phone: evaluation note* Diagnosis Onset Date Resolution Status Coronary artery disease with angina pectoris acute Essential hypertension acute GERD with esophagitis acute History of heart artery stent acute Mixed hyperlipidemia acute [facility] Work Phone: Evaluation note* Diagnosis Onset Date Resolution Status Coronary artery disease with angina pectoris acute Essential hypertension acute GERD with esophagitis acute History of heart artery stent acute Mixed hyperlipidemia acute Constipation acute GERD with esophagitis acute [facility] Work Phone: Evaluation note* Diagnosis Onset Date Resolution Status Coronary artery disease with angina pectoris acute Essential hypertension acute GERD with esophagitis acute History of heart artery stent acute Mixed hyperlipidemia acute Constipation acute GERD with esophagitis acute Constipation acute Coronary artery disease with angina pectoris acute Dizziness acute Erectile dysfunction acute Hyperlipidemia acute Hypertension acute Left knee pain acute Thyroid nodule acute Type 2 diabetes mellitus acu te [facility] Work Phone: evaluation note* Diagnosis Thyroid nodule (CMS/HCC)- Primary Nontoxic uninodular goiter documented [facility]* Diagnosis Onychomycosis [B35.1 (ICD-10-CM)]- Primary Dermatophytosis of nail Pain around toenail, left foot Deformity of toenail Unspecified disease of nail Type 2 diabetes mellitus without complication, without long-term current use of insulin (CMS/HCC) Localized edema Edema Ingrown left greater toenail Lower extremity edema Edema [facility]* Diagnosis Onset Date Resolution Status Anxiety acute Erectile dysfunction acute Insomnia acute Low testosterone acute Type 2 diabetes mellitus acu te Weight loss acute [facility] Work Phone: Evaluation note* Diagnosis Type 2 diabetes mellitus without complication, without long-term current use of insulin (CMS/HCC)- Primary Onychomycosis [B35.1 (ICD-10-CM)] Dermatophytosis of nail Deformity of toenail Unspecified disease of nail Localized edema Edema Callus Corns and callosities Acquired keratoderma Left foot pain Pain in soft tissues of limb Pre-operative examination Unspecified pre-operative examination documented in this encounter [facility]* Diagnosis Left foot pain- Primary Pain in soft tissues of limb Acquired keratoderma Callus Corns and callosities documented in [facility] encounter [facility]* Diagnosis Thyroid nodule (CMS/HCC)- Primary Nontoxic uninodular goiter documented in [facility]* Diagnosis Callus Corns and callosities Left foot pain Pain in soft tissues of limb documented in this encounter [facility]* Diagnosis Callus Corns and callosities Acquired keratoderma Left foot pain Pain in soft tissues of limb Type 2 diabetes mellitus without complication, without long-term current use of insulin documented in [facility] encounter [facility]* Diagnosis Type 2 diabetes mellitus without complication, without long-term current use of insulin- Primary Onychomycosis [B35.1 (ICD-10-CM)] Dermatophytosis of nail Deformity of toenail Unspecified disease of nail Localized edema Edema documented in this encounter [facility]* Diagnosis Malignant neoplasm of prostate (HCC)- Primary Malignant neoplasm of prostate [facility] Diagnosis Malignant neoplasm of prostate (HCC)- Primary Malignant neoplasm of prostate [facility] Diagnosis Onychomycosis [B35.1 (ICD-10-CM)] Dermatophytosis of nail Deformity of toenail Unspecified disease of nail Type 2 diabetes mellitus without complication, without long-term current use of insulin (HCC) Localized edema Edema documented [facility] this [facility] N[facility]ative - ReportedNorusk rehabilitation center [employer] Other History of Present illness Narrative* Patient was seen at the request of * A copy of my evaluation and recommendations will be sent to referring doctor for their review. * HPI: aching wrist. Both sore but LEFT > RIGHT * Past rx: * no injections * no braces * Mobic 15mg daily min relief. * occ left knee * ad right hip replaced * Past Medical History (including hospitalizations, surgeries, illness, injury), Medications and Allergies were reviewed and updated in the chart. * Family History Reviewed. No pertinent history to today's complaint. * Pertinent history to current presenting condition is mentioned above. * VITALS reviewed. [id number] Work Phone: Hospital course Narrative No data available for this section [facility] Hospital Discharge instructions No data available for this section [facility] Hospital Discharge instructions Additional Instructions You have a total of 10 sutures. You can have them removed in 5 days. If you start developing pus coming from the region of redness surrounding it or fevers please return to the hospital. Otherwise follow-up with your medical care team. You have 1 broken rib which I want you to use the incentive spirometer 10 times during each hour that you use it and to try and [facility] throughout [facility] Work Phone: Progress note No data available for this section [facility] Reason for referral (narrative)No reason for referral information availableToledo Hospital Work Phone: Reqrgx for visit Narrativereview labs, discuss multiple issues, see treatment plan for further information[employer] Other Reason for Referral Reason appt pt needs cons ult to discuss weight loss, diabetes Diagnosis 1 Weight loss (R63.4) Referral Organization [facility] Family Medicin e Dennys Referring Provider First Name Sadiq Referring Provider Last Name Devi Referring Provider Specialty Family Prac nay Referred Organization [facility] Referred Provider Ike Loyola Referred Address [address],[place], [place],[address] Referred Provider Specialty Internal Med icine Referral Priority Routine General Notes Kaylynn Tinoco 10/06/2021 05:06:16 PM > [facility] referral form filled out and faxed. pt understands he will be contacted to schedule this appt. Reason appt (pt saw Dr Paulino for hematuria 06/2021) pt needs consult to evaluate his elevated PSA Diagnosis 1 Elevated PSA (R97.20 ) Referral Organization [facility] Family Jamildavid zoë Noyola Referring Provider First Name Sadiq Referring Provider Last Name Devi Referring Provider Specialty Family Prac nay Referred Organization [facility] Referred Provider SUSANNA PAULINO Referred Address [address] [place],[place], [place],[address] Referred Provider Specialty Urology Referral Priority Routine General Notes Kaylynn Tinoco 09/14/2022 04:08:16 PM > referral faxed with visit note, last three PSA reports and insurance card. pt understands he will be contacted to schedule this appt. Family History Relationship Condition Age at Onset Recorded Date/T raza Not Specified Diabetes mellitus Unknown father Hyperlipidemia Unknown Hypertension Unknown Relationship Condition Age at Onset Recorded Date/T raza Not Specified Diabetes mellitus Unknown father Hyperlipidemia Unknown Hypertension Unknown brother Diabetes mellitus Unknown Heart disease Unknown father Hypertension Unknown grandparent Unknown Not Specified Unknown Diabetes mellitus Unknown Relationship Condition Age at Onset Recorded Date/T raza father Hyperlipidemia Unknown Hypertension Unknown Heart disease Unknown brother Diabetes mellitus Unknown Not Specified Unknown Diabetes mellitus Unknown Relationship Condition Age at Onset Recorded Date/T raza father Hyperlipidemia Unknown Hypertension Unknown Heart disease Unknown brother Diabetes mellitus Unknown mother Unknown Diabetes mellitus Unknown Advance Directives Advance Directive Response Recorded Date/ Time Advance Directives No January 27 9:43am Advance Directive Response Recorded Date/ Time Advance Directives No January 27 10:43am Advance Directive Response Recorded Date/ Time Advance Directives No February 23, 2025 8:11am Chief Complaint wrist painbil wrist pain Chief Complaint and Reason for Visit Chief Complaint e78.5 z79.899 r63.4 r97.20 e11.9 r35.1 low back pain Chief Complaint E78.5 Z79.899 Chief Complaint E78.5 Z79.899 chest tightness Reason for Visit Chest pain Chief Complaint E78.5 Z79.899 chest tightness r42 r26.81 Reason for Visit Chest pain Chief Complaint E78.5 Z79.899 chest tightness r42 r26.81 Review Labs e04.1 Was Admitted To [facility] On 3t Called Adult Risk Stratification R07.9 E11.9 K21.00 I10 Reason for Visit Chest pain Chief Complaint E78.5 Z79.899 chest tightness r42 r26.81 Review Labs e04.1 Was Admitted To [facility] On 3t Called Adult Risk Stratification R07.9 E11.9 K21.00 I10 Chest Pain, abnormal calcium scoring test Chest Pain, abnormal calcium scoring test Reason for Visit Chest pain Chief Complaint E78.5 Z79.899 chest tightness r42 r26.81 Review Labs e04.1 Was Admitted To [facility] On 3t Called Adult Risk Stratification R07.9 E11.9 K21.00 I10 Chest Pain, abnormal calcium scoring test Chest Pain, abnormal calcium scoring test Unknown Reason for Visit Chest pain Chief Complaint E78.5 Z79.899 chest tightness r42 r26.81 Review Labs e04.1 Was Admitted To [facility] On 3t Called Adult Risk Stratification R07.9 E11.9 K21.00 I10 Chest Pain, abnormal calcium scoring test Chest Pain, abnormal calcium scoring test Unknown [facility] [place] KNEE REQUESTING INJECTION M19.90 - Unspecified osteoarthritis, unspecified s Reason for Visit Chest pain Coronary artery disease with angina pectoris Arthritis of left knee Left knee pain Chief Complaint E78.5 Z79.899 chest tightness r42 r26.81 Review Labs e04.1 Was Admitted To [facility] On 3t Called Adult Risk Stratification R07.9 E11.9 K21.00 I10 Chest Pain, abnormal calcium scoring test Chest Pain, abnormal calcium scoring test Unknown [facility] [place] LT KNEE REQUESTING INJECTION M19.90 - Unspecified osteoarthritis, unspecified s 6 WEEK FOLLOW UP Reason for Visit Chest pain Coronary artery disease with angina pectoris Arthritis of left knee Left knee pain Chief Complaint i25.119 e11.9 z95.5 3 month Reason for Visit Coronary artery dise ase with angina pectoris Essential hypertension GERD with esophagitis History of heart artery stent Mixed hyperlipidemia Chief Complaint 3 month i25.119 e11.9 z95.5 constipation Reason for Visit Coronary artery dise ase with angina pectoris Essential hypertension GERD with esophagitis History of heart artery stent Mixed hyperlipidemia Constipation GERD with esophagitis Chief Complaint 3 month constipation i25.119 e11.9 z95.5 Reason for Visit Coronary artery dise ase with angina pectoris Essential hypertension GERD with esophagitis History of heart artery stent Mixed hyperlipidemia Constipation GERD with esophagitis Chief Complaint 3 month constipation e78.5 z79.899 e11.9 i25.119 e11.9 z95.5 review labs Reason for Visit Coronary artery dise ase with angina pectoris Essential hypertension GERD with esophagitis History of heart artery stent Mixed hyperlipidemia Constipation GERD with esophagitis Constipation Coronary artery disease with angina pectoris Dizziness Erectile dysfunction Hyperlipidemia Hypertension Left knee pain Thyroid nodule Type 2 diabetes mellitus Chief Complaint 3 month constipation e78.5 z79.899 e11.9 review labs M25.561 - Pain in right knee i25.119 e11.9 z95.5 OP ARTIFICIAL LIMB FITTER LT HIP PAIN NX, OP SP LT KNEE PAIN Reason for Visit Coronary artery dise ase with angina pectoris Essential hypertension GERD with esophagitis History of heart artery stent Mixed hyperlipidemia Constipation GERD with esophagitis Constipation Coronary artery disease with angina pectoris Dizziness Erectile dysfunction Hyperlipidemia Hypertension Left knee pain Thyroid nodule Type 2 diabetes mellitus Chief Complaint constipation e78.5 z79.899 e11.9 review labs M25.561 - Pain in right knee OP ARTIFICIAL LIMB FITTER LT HIP PAIN NX, OP SP LT KNEE PAIN i25.119 e11.9 z95.5 e04.1 Reason for Visit Constipation GERD with esophagitis Constipation Coronary artery disease with angina pectoris Dizziness Erectile dysfunction Hyperlipidemia Hypertension Left knee pain Thyroid nodule Type 2 diabetes mellitus Arthritis of left knee Chief Complaint constipation e78.5 z79.899 e11.9 review labs M25.561 - Pain in right knee OP ARTIFICIAL LIMB FITTER LT HIP PAIN NX, OP SP LT KNEE PAIN i25.119 e11.9 z95.5 e04.1 E29.1 Reason for Visit Constipation GERD with esophagitis Constipation Coronary artery disease with angina pectoris Dizziness Erectile dysfunction Hyperlipidemia Hypertension Left knee pain Thyroid nodule Type 2 diabetes mellitus Arthritis of left knee Chief Complaint e04.1 E29.1 E29.1 Chief Complaint e04.1 E29.1 E29.1 R97.20 E29.1 Chief Complaint e04.1 E29.1 E29.1 R97.20 E29.1 personal issues Reason for Visit Anxiety Erectile dysfunction Insomnia Low testosterone Type 2 diabetes mellitus Weight loss Chief Complaint Admit Date review labs October 17, 2024 9:46am Reason for Visit Admit Date Hyperlipidemia October 17, 2024 9:46am Hypertension October 17, 2024 9:46am Insomnia October 17, 2024 9:46am Leukocytosis October 17, 2024 9:46am Low testosterone October 17, 2024 9:46am Type 2 diabetes mellitus October 17, 2024 9:46am Chief Complaint Admit Date E29.1 January 12, 2025 9:1 0am e04.1 January 16, 2025 10:1 7am Chief Complaint Admit Date E29.1 January 12, 2025 9:1 0am e04.1 January 16, 2025 10:1 7am OP SP LT KNEE PAIN February 01, 2025 9:5 6am R97.20 February 22, 2025 9:11am Reason for Visit Admit Date Primary osteoarthritis of left knee Apri l 2024 9:56am Chief Complaint Admit Date e04.1 January 16, 2025 10:1 7am OP SP LT KNEE PAIN February 01, 2025 9:5 6am R97.20 February 22, 2025 9:11am discuss urology visit /MRI February 23, 2025 9:39am 1 Year March 05, 2025 9:00a m 1 yr follow up March 30, 2025 10:5 6am [id number] April 12, 2025 7:18 am Reason for Visit Admit Date Primary osteoarthritis of left knee Apri l 2024 9:56am Elevated PSA February 23, 2025 9:39am Erectile dysfunction February 23, 2025 9:39a m Low testosterone February 23, 2025 9:39am Weight loss February 23, 2025 9:39am Coronary artery disease with angina pect ese March 05, 2025 9:00am Essential hypertension March 05, 2025 9: 00am History of heart artery stent March 05, 2025 9:00am Mixed hyperlipidemia March 05, 2025 9:00 am Constipation March 30, 2025 10:5 6am GERD with esophagitis March 30, 2025 10 :56am Chief Complaint Admit Date e04.1 January 16, 2025 10:1 7am OP SP LT KNEE PAIN February 01, 2025 9:5 6am R97.20 February 22, 2025 9:11am discuss urology visit /MRI February 23, 2025 9:39am 1 Year March 05, 2025 9:00a m 1 yr follow up March 30, 2025 10:5 6am [id number] April 12, 2025 7:18 am review labs April 16, 2025 9:54 am Reason for Visit Admit Date Primary osteoarthritis of left knee Apri l 2024 9:56am Elevated PSA February 23, 2025 9:39am Erectile dysfunction February 23, 2025 9:39a m Low testosterone February 23, 2025 9:39am Weight loss February 23, 2025 9:39am Coronary artery disease with angina pect ese March 05, 2025 9:00am Essential hypertension March 05, 2025 9: 00am History of heart artery stent March 05, 2025 9:00am Mixed hyperlipidemia March 05, 2025 9:00 am Constipation March 30, 2025 10:5 6am GERD with esophagitis March 30, 2025 10 :56am Hyperlipidemia April 16, 2025 9:54 am Hypertension April 16, 2025 9:54 am Prostate cancer April 16, 2025 9:54 am Type 2 diabetes mellitus April 16, 2025 9:54am Chief Complaint Admit Date R97.20 February 22, 2025 9:11am discuss urology visit /MRI February 23, 2025 9:39am 1 Year March 05, 2025 9:00a m 1 yr follow up March 30, 2025 10:5 6am Z79.899 April 12, 2025 7:18 am review labs April 16, 2025 9:54 am 3 MONTHS May 09, 2025 10:4 0am Reason for Visit Admit Date Elevated PSA February 23, 2025 9:39am Erectile dysfunction February 23, 2025 9:39a m Low testosterone February 23, 2025 9:39am Weight loss February 23, 2025 9:39am Coronary artery disease with angina pect ese March 05, 2025 9:00am Essential hypertension March 05, 2025 9: 00am History of heart artery stent March 05, 2025 9:00am Mixed hyperlipidemia March 05, 2025 9:00 am Constipation March 30, 2025 10:5 6am GERD with esophagitis March 30, 2025 10 :56am Hyperlipidemia April 16, 2025 9:54 am Hypertension April 16, 2025 9:54 am Prostate cancer April 16, 2025 9:54 am Type 2 diabetes mellitus April 16, 2025 9:54am Arthritis of left knee May 09, 2025 1 0:40am Chief Complaint Admit Date 1 Year March 05, 2025 9:00a m 1 yr follow up March 30, 2025 10:5 6am Z79.899 April 12, 2025 7:18 am review labs April 16, 2025 9:54 am 3 MONTHS May 09, 2025 10:4 0am fall June 02, 2025 4: 47pm Reason for Visit Admit Date Coronary artery disease with angina pect ese March 05, 2025 9:00am Essential hypertension March 05, 2025 9: 00am History of heart artery stent March 05, 2025 9:00am Mixed hyperlipidemia March 05, 2025 9:00 am Constipation March 30, 2025 10:5 6am GERD with esophagitis March 30, 2025 10 :56am Hyperlipidemia April 16, 2025 9:54 am Hypertension April 16, 2025 9:54 am Prostate cancer April 16, 2025 9:54 am Type 2 diabetes mellitus April 16, 2025 9:54am Arthritis of left knee May 09, 2025 1 0:40am Chief Complaint Admit Date 1 yr follow up March 30, 2025 10:5 6am Z79.899 April 12, 2025 7:18 am review labs April 16, 2025 9:54 am 3 MONTHS May 09, 2025 10:4 0am fall June 02, 2025 4: 47pm Amb Documentation June 04, 2025 11 :08am Reason for Visit Admit Date Constipation March 30, 2025 10:5 6am GERD with esophagitis March 30, 2025 10 :56am Hyperlipidemia April 16, 2025 9:54 am Hypertension April 16, 2025 9:54 am Prostate cancer April 16, 2025 9:54 am Type 2 diabetes mellitus April 16, 2025 9:54am Arthritis of left knee May 09, 2025 1 0:40am Chief Complaint Admit Date 1 yr follow up March 30, 2025 10:5 6am Z79.899 April 12, 2025 7:18 am review labs April 16, 2025 9:54 am 3 MONTHS May 09, 2025 10:4 0am fall June 02, 2025 4: 47pm Amb Documentation June 04, 2025 11 :08am [id number] June 06, 2025 10 :09am ER follow up/suture removal June 08, 2025 11:26am Reason for Visit Admit Date Constipation March 30, 2025 10:5 6am GERD with esophagitis March 30, 2025 10 :56am Hyperlipidemia April 16, 2025 9:54 am Hypertension April 16, 2025 9:54 am Prostate cancer April 16, 2025 9:54 am Type 2 diabetes mellitus April 16, 2025 9:54am Arthritis of left knee May 09, 2025 1 0:40am Closed head injury June 08, 2025 11 :26am Encounter for removal of sutures June 08, 2025 11:26am Fracture of left fifth rib June 08, 2025 11:26am Laceration of left eyebrow without compl ication June 08, 2025 11:26am Leukocytosis June 08, 2025 11 :26am Chief Complaint Admit Date Z79.899 April 12, 2025 7:18 am review labs April 16, 2025 9:54 am 3 MONTHS May 09, 2025 10:4 0am fall June 02, 2025 4: 47pm Amb Documentation June 04, 2025 11 :08am [id number] June 06, 2025 10 :09am ER follow up/suture removal June 08, 2025 11:26am possible suture removal July 02, 2025 2:11pm Reason for Visit Admit Date Hyperlipidemia April 16, 2025 9:54 am Hypertension April 16, 2025 9:54 am Prostate cancer April 16, 2025 9:54 am Type 2 diabetes mellitus April 16, 2025 9:54am Arthritis of left knee May 09, 2025 [...] Fracture of left fifth rib June 2:11pm Chief Complaint Admit Date Z79.899 April 12, 2025 7:18 am review labs April 16, 2025 9:54 am 3 MONTHS May 09, 2025 10:4 0am fall June 02, 2025 4: 47pm Amb Documentation June 04, 2025 11 :08am Z79.899 June 06, 2025 10 :09am ER follow up/suture removal June 08, 2025 11:26am possible suture removal July 02, 2025 2:11pm [id number] July 04, 2025 8:41am Chief Complaint Admit Date 3 MONTHS May [...] Fracture of left fifth rib June 9:39am Chief Complaint Admit Date 3 MONTHS May 09, 2025 10:4 0am fall June 02, 2025 4: 47pm Amb Documentation June 04, 2025 11 :08am Z79.899 June 06, 2025 10 :09am ER follow up/suture removal June 08, 2025 11:26am possible suture removal July 02, 2025 2:11pm [id number] July 04, 2025 8:41am med refill July 16, 2025 9:39am surgical clearance July 30, 2025 1 :55pm Reason for Visit Admit Date Arthritis of left knee May 09, 2025 1 0:40am Encounter for removal of sutures June 08, 2025 11:26am Leukocytosis June 08, 2025 11 :26am Closed head injury June 08, 2025 11 :26am Fracture of left fifth rib June 08, 2025 11:26am Laceration of left eyebrow without compl ication June 08, 2025 11:26am Encounter for removal of sutures [facility] [place] [facility] 2024 2:11pm Sinus congestion July 02, 2025 2:11pm Fracture of left fifth rib June 2:11pm Anxiety July 16, 2025 9:39am Flu vaccine need July 16, 2025 9:39am Coronary artery disease with angina pect ese July 30, 2025 1:55pm Essential hypertension July 30 1:55pm History of heart artery stent July 302024 1:55pm Mixed hyperlipidemia July 30, 2025 1:55pm Summary Purpose Additional Source Comments REASON FOR VISIT (unrecogniz ed section and content) Reason Comments Thyroid Nodule Ultrasound 10/21/23 [facility] Reason Comments Thyroid Nodule 6 months follow up U ltrasound 06/05 Reason Comments Thyroid Nodule Follow up ultrasound 01/16/25 Reason Comments Toenail Care Callouses Reason Comments Patient Education Goals (unrecognized section and content) Goals may be documented in a n alternate section Care Teams (unrecognized sec tion and content) Team Status: Inactive Member Role Status Dates Sadiq Floyd , DO Primary Care Provider, Attending Pro vider Active Team Status: Active Member Role Status Dates Sadiq Floyd , DO Primary Care Provider Active Team Status: Inactive Member Role Status Dates Sadiq Floyd , DO Primary Care Provider Active Susanna Paulino MD Attending Provider Active Team Status: Active Member Role Status Dates Sadiq Floyd , DO Primary Care Provider Active Chao Grullon , DO Emergency Provider Active Estevan Reyes , DO Admit Provider, Attending Pr ovider Active Team Status: Inactive Member Role Status Dates Sadiq Floyd , DO Primary Care Provider Active Chao Grullon , DO Emergency Provider Active Estevan Mohamudm , DO Admit Provider, Attending Pr ovider Active Team Status: Inactive Member Role Status Dates Sadiq Floyd , DO Primary Care Provider Active OSMEL Ramirez Attending Provider Active Team Status: Active Member Role Status Dates Riccardo Driver LPN Care Manager Active Sadiq Floyd , DO Primary Care Provider Active Team Status: Inactive Member Role Status Dates Sadiq Floyd , DO Primary Care Provide r, Attending Provider Active Start: September 08, 2023 End: September 08, 2023 Team Status: Inactive Member Role Status Dates Sadiq Floyd DO Primary Care Provider Active S tart: September 29, 2023 End: September 30, 2023 Chao Grullon , DO Emergency Provider Active Start: September 29, 2023 End: September 30, 2023 Estevan Reyes , DO Admit Provider , Attending Provider Active Start: September 29, 2023 End: September 30, 2023 Team Status: Inactive Member Role Status Husam Floyd DO Primary Care Provider Active S tart: October 08, 2023 End: October 08, 2023 OSMEL Ramirez Attending Provider Active Start: October 08, 2023 End: October 08, 2023 Team Status: Inactive Member Role Status Husam Floyd DO Attending Provider Active Star t: October 12, 2023 End: October 12, 2023 Team Status: Inactive Member Role Status Husam Floyd DO Primary Care Provide r, Attending Provider Active Start: October 21, 2023 End: October 21, 2023 Team Status: Inactive Member Role Status Dates Felipe Carlson MD Attending Provider Activ e Start: October 22, 2023 End: October 22, 2023 Team Status: Active Member Role Status Husam Floyd DO Primary Care Provide r, Attending Provider Active Start: November 09, 2023 Team Status: Inactive Member Role Status Husam Floyd DO Primary Care Provider Active S tart: November 18, 2023 End: November 18, 2023 Felipe Carlson MD Attending Provider Activ e Start: November 18, 2023 End: November 18, 2023 High School Admissions Representative Relationship Specialty Start Date End Date Sadiq Floyd MD [address] [email or web address] [id number] PCP - General Family Medicine 03/18/23 High School Admissions Representative Relationship Specialty Start Date End Date Sadiq Floyd MD [address] [email or web address] [id number] PCP - General Family Medicine 03/18/23 Team Status: Inactive Member Role Status Dates Sadiq Floyd DO Primary Care Provider Active S tart: November 26, 2023 End: November 26, 2023 Felipe Carlson MD Attending Provider Activ e Start: November 26, 2023 End: November 26, 2023 Team Status: Active Member Role Status Husam Floyd DO Primary Care Provider Active S tart: November 26, 2023 Felipe Carlson MD Other Provider Active Start: November 26, 2023 Evin Kumar MD Attending Provider Active Star t: November 26, 2023 Team Status: Inactive Member Role Status Husam Floyd DO Primary Care Provider Active S tart: November 30, 2023 End: November 30, 2023 Arelis Rmairez Jr, MD Attending Provider Active Start: November 30, 2023 End: November 30, 2023 Team Status: Inactive Member Role Status Husam Floyd DO Primary Care Provider Active S tart: December 01, 2023 End: December 01, 2023 Radha Em NP-C Attending Provider Active Start: December 01, 2023 End: December 01, 2023 Team Status: Active Member Role Status Dates Sadiq Girvin , DO Primary Care Provider Active S tart: December 01, 2023 GEETA Do Attending Provider Active Start: December 01, 2023 Team Status: Inactive Member Role Status Husam Floyd , DO Primary Care Provider Active S tart: December 02, 2023 End: December 02, 2023 Felipe Carlson MD Attending Provider Activ e Start: December 02, 2023 End: December 02, 2023 Team Status: Active Member Role Status Husam Floyd DO Primary Care Provider Active S tart: March 03, 2024 Felipe Carlson MD Attending Provider Activ e Start: March 03, 2024 Team Status: Inactive Member Role Status Husam Floyd DO Primary Care Provider Active S tart: March 06, 2024 End: March 06, 2024 Felipe Carlson MD Attending Provider Activ e Start: March 06, 2024 End: March 06, 2024 Team Status: Active Member Role Status Husam Driver LPN Care Manager Active Felipe Carlson MD Ict Analyst Active Sadiq Floyd DO Primary Care Provider Active Team Status: Active Member Role Status Husam Floyd DO Primary Care Provider Active S tart: March 27, 2024 Felipe Carlson MD Attending Provider Activ e Start: March 27, 2024 Team Status: Inactive Member Role Status Husam Floyd DO Primary Care Provider Active S tart: March 31, 2024 End: March 31, 2024 Jacinta Davison DO Attending Provider Active St art: March 31, 2024 End: March 31, 2024 Team Status: Inactive Member Role Status Husam Floyd DO Primary Care Provide r, Attending Provider Active Start: April 03, 2024 End: April 03, 2024 Team Status: Active Member Role Status Husam Floyd DO Primary Care Provider Active S tart: April 03, 2024 Felipe Carlson MD Attending Provider Activ e Start: April 03, 2024 Team Status: Active Member Role Status Husam Floyd DO Primary Care Provider Active S tart: April 05, 2024 Felipe Carlson MD Attending Provider Activ e Start: April 05, 2024 Team Status: Inactive Member Role Status Dates Sadiq Girvin , DO Primary Care Provide r, Attending Provider Active Start: April 18, 2024 End: April 18, 2024 Team Status: Active Member Role Status Husam Sadiq Floyd DO Primary Care Provider Active S tart: April 19, 2024 Wilfrid Cruz II, MD Attending Provider Active Start: April 19, 2024 Team Status: Active Member Role Status Husam Sadiq Floyd DO Primary Care Provider Active S tart: April 19, 2024 Felipe Carlson MD Attending Provider Activ e Start: April 19, 2024 Team Status: Inactive Member Role Status Husam Floyd DO Primary Care Provider Active S tart: April 19, 2024 End: April 19, 2024 Wilfrid Cruz II, MD Attending Provider Active Start: April 19, 2024 End: April 19, 2024 Team Status: Active Member Role Status Husam Sadiq Floyd DO Primary Care Provider Active S tart: April 21, 2024 Felipe Carlson MD Attending Provider Activ e Start: April 21, 2024 Team Status: Inactive Member Role Status Husam Sadiq Higginbothambrina DO Primary Care Provider Active S tart: June 05, 2024 End: June 05, 2024 Arelis Ramirez Jr, MD Attending Provider Active Start: June 05, 2024 End: June 05, 2024 Team Status: Inactive Member Role Status Husam Floyd DO Primary Care Provider Active S tart: June 16, 2024 End: June 16, 2024 Susanna Paulino MD Attending Provider Active Start : June 16, 2024 End: June 16, 2024 Team Status: Inactive Member Role Status Husam Sadiq Floyd DO Primary Care Provider Active S tart: June 21, 2024 End: June 21, 2024 DARLENE Alatorre Attending Provider Active Start: June 21, 2024 End: June 21, 2024 High School Admissions Representative Relationship Specialty Start Date End Date Sadiq Floyd MD [address] [place] [address] PCP - General Family Medicine 03/18/23 High School Admissions Representative Relationship Specialty Start Date End Date Sadiq Floyd MD [address] [place] [address] PCP - General Family Medicine 03/18/23 High School Admissions Representative Relationship Specialty Start Date End Date Sadiq Floyd MD [address] [place], [place] [id number] PCP - General Family Medicine 03/18/23 Team Status: Inactive Member Role Status Dates Sadiq Floyd DO Primary Care Provider Active S tart: August 03, 2024 End: August 03, 2024 Samantha Recinos [facility] Attending Provider Active Start: August 03, 2024 End: August 03, 2024 Team Status: Inactive Member Role Status Dates Sadiq Floyd DO Primary Care Provide r, Attending Provider Active Start: August 22, 2024 End: August 22, 2024 High School Admissions Representative Relationship Specialty Start Date End Date Sadiq Floyd MD [address] [place] [address] PCP - General Family Medicine 03/18/23 High School Admissions Representative Relationship Specialty Start Date End Date Sadiq Floyd MD [address] [place], [place] [id number] PCP - General Family Medicine 03/18/23 High School Admissions Representative Relationship Specialty Start Date End Date Sadiq Floyd MD [address] [place], [place] [id number] PCP - General Family Medicine 03/18/23 Team Status: Inactive Member Role Status Dates Sadiq Floyd DO Primary Care Provide r, Attending Provider Active Start: October 17, 2024 End: October 17, 2024 Team Status: Inactive Member Role Status Dates Sadiq Floyd DO Primary Care Provider Active S tart: January 12, 2025 End: January 12, 2025 [facility] Active Start: January 12, 2025 End: January 12, 2025 Team Status: Inactive Member Role Status Dates Sadiq Floyd DO Primary Care Provider Active S tart: January 16, 2025 End: January 16, 2025 Arelis Ramirez Jr, MD Attending Provider Active Start: January 16, 2025 End: January 16, 2025 High School Admissions Representative Relationship Specialty Start Date End Date Sadiq Floyd MD [address] [place] [address] PCP - General Family Medicine 03/18/23 High School Admissions Representative Relationship Specialty Start Date End Date Sadiq Floyd MD [address] [place] [address] [place] [address] PCP - General Family Medicine 03/18/23 High School Admissions Representative Relationship Specialty Start Date End Date Sadiq Floyd MD [address] [place] [address] [place] [address] PCP - General Family Medicine 03/18/23 High School Admissions Representative Relationship Specialty Start Date End Date Sadiq Floyd MD [address] [place] [address] [place] [address] PCP - General Family Medicine 03/18/23 High School Admissions Representative Relationship Specialty Start Date End Date Sadiq Floyd MD [address] [place] [address] [place] [address] PCP - General Family Medicine 03/18/23 Team Status: Inactive Member Role Status Dates Sadiq Floyd DO Primary Care Provider Active S tart: February 01, 2025 End: February 01, 2025 Wilfrid Cruz II, MD Attending Provider Active Start: February 01, 2025 End: February 01, 2025 Team Status: Inactive Member Role Status Dates Sadiq Floyd DO Primary Care Provider Active S tart: February 22, 2025 End: February 22, 2025 Susanna Paulino MD Attending Provider Active Start : February 22, 2025 End: February 22, 2025 High School Admissions Representative Relationship Specialty Start Date End Date Sadiq Floyd MD [address] [place] [address] [place] [address] PCP - General Family Medicine 03/18/23 High School Admissions Representative Relationship Specialty Start Date End Date Sadiq Floyd MD [address] [place] [address] PCP - General Family Medicine 03/18/23 Team Status: Inactive Member Role Status Dates Sadiq Floyd DO Primary Care Provider Active S tart: February 23, 2025 End: February 23, 2025 Sadiq Floyd DO Attending Provider Active Star t: February 23, 2025 End: February 23, 2025 Team Status: Inactive Member Role Status Dates Sadiq Floyd DO Primary Care Provider Active S tart: March 05, 2025 End: March 05, 2025 Felipe Carlson MD Attending Provider Activ e Start: March 05, 2025 End: March 05, 2025 Team Status: Inactive Member Role Status Husam Floyd DO Primary Care Provider Active S tart: March 30, 2025 End: March 30, 2025 Jacinta Davison DO Attending Provider Active St art: March 30, 2025 End: March 30, 2025 Team Status: Active Member Role Status Husam Floyd DO Primary Care Provider Active S tart: April 06, 2025 Sadiq Floyd DO Attending Provider Active Star t: April 06, 2025 Team Status: Inactive Member Role Status Dates Sadiq Floyd DO Primary Care Provider Active S tart: April 12, 2025 End: April 12, 2025 Sadiq Floyd DO Attending Provider Active Star t: April 12, 2025 End: April 12, 2025 High School Admissions Representative Relationship Specialty Start Date End Date Sadiq Floyd DO [address] [place] [address] PCP - General 01/27/08 Team Status: Inactive Member Role Status Husam Floyd DO Primary Care Provider Active S tart: April 16, 2025 End: April 16, 2025 Sadiq Floyd DO Attending Provider Active Star t: April 16, 2025 End: April 16, 2025 High School Admissions Representative Relationship Specialty Start Date End Date Sadiq Floyd DO [address] [place] [address] [facility] General 01/27/08 Team Status: Inactive Member Role Status Dates Sadiq Floyd DO Primary Care Provider Active S tart: May 09, 2025 End: May 09, 2025 Wilfrid Cruz II, MD Attending Provider Active Start: May 09, 2025 End: May 09, 2025 High School Admissions Representative Relationship Specialty Start Date End Date Sadiq Floyd DO [address] [place] [address] [facility] General 01/27/08 Team Status: Inactive Member Role Status Dates Sadiq Floyd DO Primary Care Provider Active S tart: June 02, 2025 End: June 02, 2025 Chavo Mejia DO Emergency Provider Active S tart: June 02, 2025 End: June 02, 2025 Team Status: Active Member Role Status Dates Sadiq Floyd DO Primary Care Provider Active S tart: June 04, 2025 TIMO Yancey Attending Provider Active S tart: June 04, 2025 Team Status: Inactive Member Role Status Dates Sadiq Floyd DO Primary Care Provider Active S tart: June 06, 2025 End: June 06, 2025 Sadiq Floyd DO Attending Provider Active Star t: June 06, 2025 End: June 06, 2025 Team Status: Inactive Member Role Status Dates Sadiq Floyd DO Primary Care Provider Active S tart: June 08, 2025 End: June 08, 2025 Sadiq Floyd DO Attending Provider Active Star t: June 08, 2025 End: June 08, 2025 High School Admissions Representative Relationship Specialty Start Date End Date Sadiq lFoyd DO [address] [place] [address] [facility] General 01/27/08 Team Status: Inactive Member Role Status Dates Sadiq Floyd DO Primary Care Provider Active S tart: July 02, 2025 End: July 02, 2025 Sadiq Higginbothambrina DO Attending Provider Active Star t: July 02, 2025 End: July 02, 2025 Team Status: Inactive Member Role Status Dates Sadiq Floyd DO Primary Care Provider Active S tart: July 04, 2025 End: July 04, 2025 Sadiq Anahybrina DO Other Provider Active Start: S edyteclarissa 2024 End: July 04, 2025 Susanna Paulino MD Attending Provider Active Start : July 04, 2025 End: July 04, 2025 Team Status: Inactive Member Role Status Dates Sadiq Floyd DO Primary Care Provider Active S tart: July 16, 2025 End: July 16, 2025 Sadiq Floyd DO Attending Provider Active Star t: July 16, 2025 End: July 16, 2025 Team Status: Active Member Role Status Dates Sadiq Floyd DO Primary Care Provider Active S tart: July 17, 2025 Felipe Carlson MD Attending Provider Active Start: June Team Status: Inactive Member Role Status Dates Sadiq Floyd DO Primary Care Provider Active S tart: July 30, 2025 End: July 30, 2025 Cee Laureano MD Attending Provider Active Sta rt: July 30, 2025 End: July 30, 2025 Team Status: Active Member Role Status Dates Sadiq Floyd DO Primary Care Provider Active S tart: July 30, 2025 Cee Laureano MD Attending Provider Active Sta rt: July 30, 2025 (unrecognized sect ion and content) No Status Records FoundNo Status Records FoundNo Status Records FoundNo Status Records FoundNo Status Records FoundNo Status Records FoundNo Status Records FoundNo Status Records FoundNo Status Records FoundNo Status Records FoundNo Status Records Found INFORMATION SOURCE (unrecogn ized section and content) DATE CREATED AUTHOR 05/20/2023 [facility] DATE CREATED AUTHOR AUTHOR'S ORGANIZ ATION 04/07/2025 [facility] DATE CREATED AUTHOR AUTHOR'S ORGANIZ ATION 04/09/2025 [facility] DATE CREATED AUTHOR AUTHOR'S ORGANIZ ATION 04/18/2025 [facility] DATE CREATED AUTHOR AUTHOR'S ORGANIZ ATION 06/03/2025 [facility] DATE CREATED AUTHOR AUTHOR'S ORGANIZ ATION 06/13/2025 [facility] DATE CREATED AUTHOR AUTHOR'S ORGANIZ ATION 06/15/2025 [facility] DATE CREATED AUTHOR AUTHOR'S ORGANIZ ATION 07/26/2025 [facility] DATE CREATED AUTHOR AUTHOR'S ORGANIZ ATION 07/31/2025 [facility] Source Comments (unrecognize d section and content) In the event this informatio n is protected by the Federal Confidentiality of Alcohol and Drug Abuse Patient Records regulations: The Federal rules restrict any use of the information to criminally investigate or prosecute any alcohol or drug abuse patient.[facility] the event this information is protected by the Federal Confidentiality of Alcohol and Drug Abuse Patient Records regulations: The Federal rules restrict any use of the information to criminally investigate or prosecute any alcohol or drug abuse patient.[facility] the event this information is protected by the Federal Confidentiality of Alcohol and Drug Abuse Patient Records regulations: The Federal rules restrict any use of the information to criminally investigate or prosecute any alcohol or drug abuse patient.[facility] the event this information is protected by the Federal Confidentiality of Alcohol and Drug Abuse Patient Records regulations: The Federal rules restrict any use of the information to criminally investigate or prosecute any alcohol or drug abuse patient.[facility] FOR RECORDS PERTAINING TO PATIENTS WHO ARE OR HAVE BEEN ENROLLED IN A CHEMICAL DEPENDENCY/SUBSTANCEABUSE PROGRAM, SOME INFORMATION MAY BE OMITTED. This clinical summary was aggregated from multiple sources. Caution should be exercised in using it in the provision of clinical care. This summary normalizes information from multiple sources, and as a consequence, information in this document may materially change the coding, format and clinical context of patient data. In addition, data may be omitted in some cases. CLINICAL DECISIONS SHOULD BE BASED ON THE PRIMARY CLINICAL RECORDS. [facility]. provides no warranty or guarantee of the accuracy or completeness of information in this document.
[2025-08-01] MEDS: LEVOFLOXACIN IN DEXTROSE 5 % 500 MG/100 ML PREMIX 100 MG IV (14:58)
[2025-08-01] MEDS: LIDOCAINE 2% JELLY 10 ML UR (15:22)
--- NOTE | 2025-08-01 16:10 | PM.URSON ---
Urology Surgery Operative Note Operative Note Procedure Date: 08/01/25 Time Out Performed: yes Pre-op Diagnosis: Prostate cancer Post-op Diagnosis: same as pre-op Procedures performed: Cystoscopy, brachytherapy seed implantation Anesthesia: General-LMA (Dr. Gil) Primary Surgeon: Susanna Paulino Estimated blood loss (mL): 1 Findings: Elevated bladder neck, mild bilobar prostatomegaly, mild global intravesical protrusion. 1-2 trabeculated bladder. No brachyseeds in urethra or bladder. Initial 18Fr silicone met with resistance and return of moderate blood. 16Fr coude inserted without difficulty. Flex cysto post seed implant, small false passage posterior proximal bulbar/membranous urethra. Drains: 16Fr coude catheter, 10 cc in balloon Indications for Procedures: 70 year old male with favorable intermediate risk prostate cancer who elected to proceed with brachytherapy after discussion of risks/benefits of management options. He presents today for the above procedures. Risks were previously discussed and documented. Detailed description of Procedure: After informed consent was obtained, the patient was brought to the operating room and transferred onto the operating table in supine position. Sequential compression devices were placed on bilateral lower extremities. The patient received the appropriate dose of preoperative IV antibiotics and general anesthesia LMA was induced. They were positioned in modified dorsolithotomy with the appropriate pressure points padded, prepped and draped in the usual sterile fashion for this procedure. An operative safety timeout was performed confirming the patient's identity and procedure, and all present agreed to proceed. An 18 Fr catheter was inserted into the urethra, meeting resistance in proximal urethral as noted above. Urojet and 16Fr coude was subsequently inserted without difficulty and the bladder was drained. 200mL of dilute contrast was instilled into the bladder and the catheter removed. The scrotum was secured out of the field with Ioban. The implant bracket was brought to the end of the table and the ultrasound probe was passed per rectum followed by the grid. Patient position was adjusted to match the preoperative simulation images by Dr. Molina and his team. Two stabilizing needles were placed into the prostate via transperineal. Spot fluoroscopy was done to ensure position of needles and equipment in relation to the bladder. Next, preloaded needles of iodine 125 seeds were passed transperineally into the prostate under fluoroscopic and ultrasound guidance based on the predetermined locations according to the treatment plan. A total of 67 seeds were placed. Live dosimetry confirmed excellent coverage throughout the gland while avoiding the urethra. No evidence of seeds outside the prostate on fluoroscopy. The ultrasound and implant bracket were then removed. Next a flexible cystoscope was inserted per urethra and bladder. Findings as above, without evidence of bleeding, seeds, or spacers within the prostatic urethra or bladder. There were no bladder tumors, lesions or foreign bodies on orozco cystoscopy and retroflexion. The cystoscope removed. A 16Fr coude was inserted, 10 cc in balloon. The patient tolerated the procedure well without complication. The patient was awakened from anesthesia and sent to PACU in stable condition. Plan: Follow up in 1 week for kingsley removal. Follow up in 4-6 wks for PVR with my PA or sooner if issues arise. Follow up with Dr. Molina in 2 weeks. Other Provider present: Yes (Dr. Pedro Molina (Radiation Oncology)) Urinary Catheter Management Urinary Catheter Management Urethral: Cath placed during this visit: no
--- NOTE | 2025-08-01 17:50 | PC.NURSE ---
1725: pt given instructions for catheter care and information regarding precautions due to the radioactive seeds that were implanted.
== END 2025-08-01 17:35 | disposition home or self-care (01) ==
LOC: SURGOUT 12:52
PROVIDERS: PCP Family Medicine; Visit Provider Urology
PROC: (CPT 55875; principal; 2025-08-01 14:10)
DX: C61 Malignant neoplasm of prostate (principal); E78.5 Hyperlipidemia, unspecified; I10 Essential (primary) hypertension; E11.9 Type 2 diabetes mellitus without complications; N32.89 Other specified disorders of bladder; Z96.649 Presence of unspecified artificial hip joint; Z87.891 Personal history of nicotine dependence; I25.10 Atherosclerotic heart disease of native coronary artery without angina pectoris; Z95.5 Presence of coronary angioplasty implant and graft; K21.9 Gastro-esophageal reflux disease without esophagitis; F41.9 Anxiety disorder, unspecified; M19.90 Unspecified osteoarthritis, unspecified site; Z79.84 Long term (current) use of oral hypoglycemic drugs
CPT/HCPCS: 55875; 36415; 72170; 76000; 76965; 77290; 77332; 77778; C1715; C2638; C2639; J1100; J1885; J2250; J2371; J2405; J2704; J3010